=== PATIENT | male | born 1950 | race African-American/Black ===

== ENCOUNTER 2017-03-09 07:51 | Inpatient (IN) ==
[2017-03-09] MEDS ORDERED: *HR* Promethazine 25 MG/ML VIAL IVP ONE (08:12)
[2017-03-09] MEDS ORDERED: 0.9 % Sodium Chloride 1,000 ML IVC ONE (08:12)
[2017-03-09] MEDS ORDERED: Ketorolac 30 MG/ML VIAL IVP ONE (08:12)
--- NOTE | 2017-03-09 08:14 | Emergency Department Note ---
Disposition Clinical Impression: Elevated troponin, Hypertensive urgency Abdominal pain Qualifiers: Abdominal location: generalized Qualified Code(s): R10.84 - Generalized abdominal pain CKD (chronic kidney disease) Qualifiers: Chronic kidney disease stage: stage 4 (severe) Qualified Code(s): N18.4 - Chronic kidney disease, stage 4 (severe) Disposition: Admitted As Inpatient Condition: Fair Time of Disposition: 11:18 Abdominal Pain HPI - General Chief Complaint: ED Abdominal Pain Stated Complaint: RUQ pain Time Seen by Provider: 03/09/17 08:02 Source: patient Mode of arrival: ambulatory Limitations: no limitations Nursing Notes Reviewed: Yes Vital Signs Reviewed: Yes - History of Present Illness Pt Subjective Complaint: abdominal pain Consistency: constant, Worsening Pain Severity: moderate, severe Pain Scale: 7 Quality: cramping - Related Data Home Medications Medication Instructions Recorded Confirmed Amlodipine Besylate 10 mg PO DAILY 09/01/16 03/09/17 Atorvastatin [Lipitor] 40 mg PO HS 09/01/16 03/09/17 Glimepiride [Amaryl] 2 mg PO QAM 09/01/16 03/09/17 Methadone HCl 10 mg PO QID 09/01/16 03/09/17 cloNIDine HCl [Clonidine HCl] 0.2 mg PO TID 09/01/16 03/09/17 Aspirin [Lo-Dose Aspirin EC] 81 mg PO DAILY 03/09/17 03/09/17 Carvedilol [Coreg] 25 mg PO BID 03/09/17 03/09/17 Sildenafil Citrate [Viagra] 100 mg PO DAILY PRN 03/09/17 03/09/17 Vitamin B Complex/Vit C/Vit E 1 tab PO DAILY 03/09/17 03/09/17 [Stresstab] Previous Rx's Medication Instructions Recorded Losartan Potassium [Cozaar] 100 mg PO DAILY #30 tab 09/02/16 Allergies Allergy/AdvReac Type Severity Reaction Status Date / Time No Known Allergies Allergy Verified 03/09/17 07:53 All systems ED: reviewed and negative except as stated. Constitutional: Reports: weakness Eyes: Denies: eye pain, eye discharge, vision change ENT ED: Denies: ear pain, throat pain, dental pain, hearing loss, epistaxis, congestion, dysphagia Cardiovascular: Denies: chest pain, palpitations, dyspnea on exertion, orthopnea , syncope, paroxysmal nocturnal dyspnea Respiratory: Denies: cough, dyspnea, wheezes, hemoptysis, sputum production Gastrointestinal: Reports: abdominal pain, nausea, vomiting, diarrhea. Denies: constipation, hematemesis, melena, hematochezia Genitourinary: Denies: urgency, dysuria, frequency, hematuria Musculoskeletal: Denies: back pain, neck pain, arthralgia, myalgia Integumentary: Denies: rash, abrasion, lesions Abdominal Pain PMH - Past Medical History Medical history: Reports: diabetes, hypertension, liver disease, other, hepatitis Male Surgical History: Reports: Tonsillectomy Psychiatric history: Reports: no psych history - Social History Smoking status: Current every day smoker Alcohol use: Reports: recent Drug use: Reports: marijuana Physical Exam - General Limitations: no limitations General appearance: alert - Head Head exam: atraumatic, normocephalic, normal inspection - Eye Eye exam: Present: normal appearance, PERRL, EOMI. Absent: scleral icterus, conjunctival injection, nystagmus, miosis, mydriasis, periorbital swelling, periorbital tenderness - ENT ENT exam: normal exam, normal oropharynx, mucous membranes moist, TM's normal bilaterally - Neck Neck exam: Present: normal inspection, full ROM, trachea midline. Absent: tenderness, meningismus, lymphadenopathy, thyromegaly - Chest Chest inspection: Present: normal inspection, symmetric chest wall rise - Respiratory Respiratory exam: Present: normal lung sounds bilaterally. Absent: respiratory distress, wheezes, stridor, accessory muscle use, prolonged expiratory phase - Cardiovascular Cardiovascular exam: Present: regular rate, normal rhythm, normal heart sounds. Absent: systolic murmur, diastolic murmur, JVD - Abdominal Exam Abdominal exam: Present: soft, Non-Tender, normal bowel sounds. Absent: tenderness, distention, guarding, rebound, rigidity - Rectal Exam Rectal exam: Present: deferred - Extremities Exam Extremities exam: Present: normal inspection, full ROM. Absent: tenderness, pedal edema - Expanded Lower Extremity Exam Gait: observed and normal - Back Exam Back exam: Present: normal inspection, full ROM. Absent: tenderness - Neurological Exam Neurological exam: Present: alert, oriented X3 - Psychiatric Psychiatric exam: Present: normal affect, normal mood - Skin Skin exam: Present: warm, dry, intact, normal color Course - Consultations Consultation #1: spoke with Dr. Vogt cardiology, he advised to start patient on Heparin Drip, but then upon investigation with renal failure advised to not start Heparin drip spoke with Dr. Ohara and she accepted as a patient. Time: 11:14 Vital Signs Temperature 98 F 03/09/17 07:53 Pulse Rate 112 03/09/17 07:53 Respiratory Rate 20 03/09/17 07:53 Blood Pressure 208/138 03/09/17 07:53 O2 Sat by Pulse Oximetry 97 03/09/17 07:53 Temperature 98 F 03/09/17 07:53 Pulse Rate 77 03/09/17 11:53 Respiratory Rate 16 03/09/17 11:53 Blood Pressure 183/110 03/09/17 11:53 O2 Sat by Pulse Oximetry 95 03/09/17 11:53 Oxygen Delivery Oxygen Delivery Room Air Abdominal Pain - MDM Narrative Medical decision making narrative: Abdominal pain patient denied chest pain. Pain in abdomen started approximately 2 days ago. No nausea or vomiting no diaphoresis. Troponin was positive at 0.27, will obtain EKG and plan to admit to the hospital. - Differential Diagnosis Differential Diagnosis: Likely: abdominal pain non-specific - Lab Data Lab results reviewed: Yes I reviewed the patient's lab results. Result diagrams: 03/09/17 08:41 03/09/17 08:41 Lab Results 03/09/17 03/09/17 03/09/17 Range/Units 08:41 08:41 08:41 WBC 18.4 H (4.3-11.1) K/mcL RBC 5.79 H (4.19-5.50) M/mcL Hgb 16.2 (12.9-16.9) g/dL Hct 45.2 (37.5-50.1) % MCV 78.1 L (83.0-100.0) fL MCH 28.0 (28.0-33.3) pg MCHC 35.8 H (31.6-35.5) g/dL RDW 14.5 (11.5-14.5) % Plt Count 228 (140-400) K/mcL MPV 9.6 (9.4-12.4) fL Immature Gran % 0.4 (0-4) % Seg Neutrophils % 86.8 % Lymphocytes % 7.3 % Monocytes % 5.3 % Eosinophils % 0.0 % Basophils % 0.2 % Neutrophils # 15.9 H (1.6-8.9) K/mcL Lymphocytes # 1.4 (0.6-4.6) K/mcL Monocytes # 1.0 (0.0-1.3) K/mcL Eosinophils # 0.0 (0.0-0.6) K/mcL Basophils # 0.0 (0.0-0.2) K/mcL Sodium 137 (136-145) mEq/L Potassium 3.0 L (3.5-4.5) mEq/L Chloride 96 L (98-109) mEq/L Carbon Dioxide 26 (19-29) mEq/L BUN 41 H (8-26) mg/dL Creatinine 5.55 H (0.72-1.25) mg/dL Est GFR ( Amer) 13 L (> 60) Est GFR (Non-Af Amer) 10 L (> 60) BUN/Creatinine Ratio 7 (6-26) Glucose 202 H (70-99) mg/dL Calculated Osmolality 300 (280-300) Calcium 9.7 (8.6-10.8) mg/dL Total Bilirubin 0.7 (0.2-1.2) mg/dL Direct Bilirubin 0.3 (0.0-0.5) mg/dL Indirect Bilirubin 0.4 (0.0-1.2) mg/dL AST 42 H (5-34) Units/L ALT 28 (0-55) Units/L Alkaline Phosphatase 193 H (38-126) Units/L Troponin I 0.27 H* (0-0.03) ng/mL Serum Total Protein 8.0 (6.0-8.3) g/dL Albumin 3.6 (3.5-5.0) g/dL Globulin 4.4 H (2.4-3.5) g/dL Albumin/Globulin Ratio 0.8 L (1.1-2.2) Amylase 81 (25-125) Units/L Lipase 15 (8-78) Units/L - Radiology Data Radiology results reviewed: Yes I reviewed the patient's radiology results. - EKG Data EKG attestation: Yes I reviewed and interpreted this EKG. Rhythm: NSR ST segment depression in: II, III, v6 - Core Measures AMI Core Measures Followed: Yes
[2017-03-09] MEDS ORDERED: cloNIDine HCl 0.1 MG TABLET PO ONE (08:26)
[2017-03-09 08:53] LABS: Basophils % 0.2 %; Hematocrit 45.2 % (37.5-50.1); Hemoglobin 16.2 g/dL (12.9-16.9); Immature Granulocytes % 0.4 % (0-4); Lymphocytes # 1.4 K/mcL (0.6-4.6); Lymphocytes % 7.3 %; Mean Corpuscular HGB Conc 35.8 g/dL (31.6-35.5); Mean Corpuscular Volume 78.1 fL (83.0-100.0); Mean Platelet Volume 9.6 fL (9.4-12.4); Monocytes % 5.3 %; Neutrophils # 15.9 K/mcL (1.6-8.9); Platelet Count 228 K/mcL (140-400); Red Blood Count 5.79 M/mcL (4.19-5.50); Red Cell Distribution Width 14.5 % (11.5-14.5); Segmented Neutrophils % 86.8 %
[2017-03-09 09:07] LABS: Albumin 3.6 g/dL (3.5-5.0); Albumin/Globulin Ratio 0.8 (1.1-2.2); Bilirubin,Direct 0.3 mg/dL (0.0-0.5); Bilirubin,Indirect 0.4 mg/dL (0.0-1.2); Bilirubin,Total 0.7 mg/dL (0.2-1.2); Calcium 9.7 mg/dL (8.6-10.8); Globulin 4.4 g/dL (2.4-3.5)
[2017-03-09] MEDS ORDERED: *HR* Heparin 5,000 UNIT/ML VIAL IVP ONE (11:05)
[2017-03-09] MEDS ORDERED: *HR* Heparin 5,000 UNIT/ML VIAL IVP PRN ×2 (11:05)
[2017-03-09] MEDS ORDERED: Heparin 25,000 UNIT/500 ML D5W 25,000 UNIT/500 ML MLS IVC SCH (11:15)
[2017-03-09] MEDS ORDERED: Aspirin 325 MG TABLET PO ONE (11:16)
[2017-03-09] MEDS ORDERED: 0.9 % Sodium Chloride 1,000 ML IVC SCH ×2 (11:30→12:00)
[2017-03-09] MEDS ORDERED: Naloxone 0.4 MG/ML INJ IVP PRN (11:56)
[2017-03-09] MEDS ORDERED: Ondansetron 4 MG/2 ML VIAL IVP PRN (11:56)
[2017-03-09] MEDS: 0.9 % Sodium Chloride 2,000 ML IVC SCH ×3 (12:26→17:18)
--- NOTE | 2017-03-09 12:44 | Cardiology Consult Note ---
Date of Encounter: 03/09/17 Time of Encounter: 12:45 Assessment and Plan (1) Elevated troponin Current Visit: Yes Status: Acute Initial troponin 0.27 in setting of NAKIA with creatinine 5.55 and hypertensive urgency with BP 208/138. Suspect demand ischemia, nondiagnostic for ACS. Will not start heparin gtt in this setting. Trend troponin for total of 3. Check echo to evaluate structure and function. EKG with changes noted, likely secondary to LVH. Continue to follow. (2) Acute on chronic kidney failure Current Visit: Yes Status: Acute Pt has baseline stage III CKD, however, presents with creatinine of 5.55. K 3.0. Has previously followed with Dr. Lowry. Reports nausea/vomiting and decreased urine output over the past 2 days, suspect component of dehydration. IV fluids running. Avoid nephrotoxic drugs. Management per primary team. Qualifiers: Acute renal failure type: unspecified Chronic kidney disease stage: unspecified stage Qualified Code(s): N17.9 - Acute kidney failure, unspecified ; N18.9 - Chronic kidney disease, unspecified (3) Hypertensive urgency Current Visit: Yes Status: Acute BP 208/138 on presentation. Reports BP uncontrolled at home as well. Recommend agressive blood pressure control. Will adjust antihypertensives as necessary. (4) Tobacco abuse Current Visit: No Status: Acute Smoking cessation counseling given. Discussion w patient/family: The assessment and plan as outlined above was discussed with the patient and/or family members who expressed understanding and agreement. All questions were answered. Thank you for involving us in the care of your patient. Please call with any questions. I will discuss all the above with Dr. Vogt and make changes as necessary. History of Present Illness Consult date: 03/09/17 Consult reason: elevated troponin Chief complaint: abdominal pain, n/v History of present illness: Mr. 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 He denies chest pain or dyspnea. BP 208/138 on presentation, creatinine 5.55 and troponin found to be 0.27. EKG shows significant change from prior, likely secondary to LVH. No known hx of CAD. Past Med Surg Social Fam HX - Past Medical History Medical history: diabetes, hypertension, liver disease, other, hepatitis Psychiatric history: no psych history - Past Surgical History Surgical History: non-contributory (Tonsillectomy) - Social History Smoking Status: Current every day smoker Smokeless Tobacco Status: No Alcohol use: recent Drug use: marijuana - Family History Mother Hx Family Endocrine Disorder: Yes (Diabetes) Hx Family Neurologic Disorders: Yes (Alzheimer's) Father Hx Family Cancer: Yes (Prostate) Hx Family Endocrine Disorder: Yes (Diabetes) Medications and Allergies Amlodipine Besylate 10 mg PO DAILY 09/01/16 [History] Atorvastatin [Lipitor] 40 mg PO HS 09/01/16 [History] Glimepiride [Amaryl] 2 mg PO QAM 09/01/16 [History] Methadone HCl 10 mg PO QID 09/01/16 [History] cloNIDine HCl [Clonidine HCl] 0.2 mg PO TID 09/01/16 [History] Losartan Potassium [Cozaar] 100 mg PO DAILY #30 tab 09/02/16 [Rx] Aspirin [Lo-Dose Aspirin EC] 81 mg PO DAILY 03/09/17 [History] Carvedilol [Coreg] 25 mg PO BID 03/09/17 [History] Sildenafil Citrate [Viagra] 100 mg PO DAILY PRN 03/09/17 [History] Vitamin B Complex/Vit C/Vit E [Stresstab] 1 tab PO DAILY 03/09/17 [History] Allergies No Known Allergies Allergy (Verified 03/09/17 07:53) All Systems Review: A 10-system review of systems was performed and is negative for pertinent findings except as documented above in the HPI. - Gastrointestinal Gastrointestinal: abdominal pain, nausea Physical Examination Vital Signs, Last 4 Hours Pulse Resp BP Pulse Ox 03/09/17 11:53 77 16 183/110 95 Vital Signs Temp Pulse Resp BP Pulse Ox 03/09/17 11:53 77 16 183/110 95 03/09/17 10:01 79 16 160/110 99 03/09/17 07:53 98 F 112 20 208/138 97 Intake and Output 03/08/17 03/09/17 03/09/17 23:59 07:59 15:59 Intake Total 1000 / 1000 Balance 1000 / 1000 Intake: IV Fluids 1000 / 1000 0.9 % Sodium Chloride 1, 1000 / 1000 000 ML @ 3750 mls/hr IVC .Q16M ONE Rx#:[id number] Other: Weight 89.358 kg Patient Weight 03/09/17 23:59 Weight 89.358 kg General: Conversant, No Apparent Distress HEENT: Atraumatic, Normocephaly, Mucus Membranes Moist Neck: No JVD, Normal carotid pulses Cardiac: Reg Rate and Rhythm, Normal S1 and S2, No Murmur Lungs: Other (coarse sounds throughout) Neuro: Alert and responsive, No focal deficits noted Abdomen: Soft Skin: No rashes noted on visualized skin Musculoskeletal: No Chest Wall Tenderness Extremities: No Clubbing, No Cyanosis, No Edema, Normal Pulses Results 03/09/17 08:41 03/09/17 08:41 Short CBC 03/09/17 Range/Units 08:41 WBC 18.4 H (4.3-11.1) K/mcL Hgb 16.2 (12.9-16.9) g/dL Hct 45.2 (37.5-50.1) % Plt Count 228 (140-400) K/mcL Neutrophils # 15.9 H (1.6-8.9) K/mcL BMP 03/09/17 Range/Units 08:41 Sodium 137 (136-145) mEq/L Potassium 3.0 L (3.5-4.5) mEq/L Chloride 96 L (98-109) mEq/L Carbon Dioxide 26 (19-29) mEq/L BUN 41 H (8-26) mg/dL Creatinine 5.55 H (0.72-1.25) mg/dL Glucose 202 H (70-99) mg/dL Calcium 9.7 (8.6-10.8) mg/dL Cardiac Enzymes 03/09/17 Range/Units 08:41 Troponin I 0.27 H* (0-0.03) ng/mL Liver Function 03/09/17 Range/Units 08:41 Total Bilirubin 0.7 (0.2-1.2) mg/dL Direct Bilirubin 0.3 (0.0-0.5) mg/dL AST 42 H (5-34) Units/L ALT 28 (0-55) Units/L Alkaline Phosphatase 193 H (38-126) Units/L Albumin 3.6 (3.5-5.0) g/dL Impressions Abdomen/Pelvis CT 03/09/17 08:12 IMPRESSION: 1. No acute intra-abdominal abnormality to account for the patient's symptoms. 2. Normal appendix. D/ / 03/09/2017 10:01:19 Sumi Le MD / Laquita Murguia Interpreting Provider: Sumi Le MD Active Medications Acetaminophen (Tylenol) 650 mg PO Q6HR PRN PRN Reason: Mild Pain (1-3) Stop: 09/08/17 11:57 Aspirin (Aspirin Ec) 81 mg PO DAILY FILEMON Stop: 09/09/17 09:01 Atorvastatin Calcium (Lipitor) 40 mg PO HS FILEMON Stop: 09/08/17 21:01 Heparin Sodium (Porcine) (Heparin) 5,000 unit SQ Q8HCO FILEMON Stop: 09/09/17 00:02 Hydralazine HCl (Hydralazine) 10 mg IVP Q6HR PRN PRN Reason: Hypertension Stop: 09/08/17 12:41 Sodium Chloride (0.9 % Sodium Chloride) 2,000 mls @ 3,750 mls/hr IVC .Q32M FILEMON Stop: 09/08/17 11:55 Last Admin: 03/09/17 12:26 Dose: 3,750 mls/hr Sodium Chloride (0.9 % Sodium Chloride) 1,000 mls @ 200 mls/hr IVC .Q5H FILEMON Stop: 09/08/17 12:01 Naloxone HCl (Narcan) 0.4 mg IVP Q2MIN PRN PRN Reason: Opioid Reversal Stop: 09/08/17 11:57 Non-Formulary Medication (Amlodipine Besylate [Amlodipine Besylate]) 10 mg PO DAILY FILEMON Stop: 09/08/17 12:46 Non-Formulary Medication (Clonidine Hcl [Clonidine Hcl]) 0.2 mg PO TID FILEMON Stop: 09/08/17 15:01 Ondansetron HCl (Zofran) 4 mg IVP Q8HR PRN PRN Reason: Nausea And Vomiting Stop: 09/08/17 11:57 Vitamin B Complex/Vit C/Vit E (Stresstab) 1 each PO DAILY FILEMON PRN Reason: Protocol Stop: 09/09/17 09:01 - EKG Interpretation EKG results cardiology: personally reviewed (SR, LVH) Consult Discharge Plan - Plan Referrals: Rajesh Gillette Jr, MD [Primary Care Provider] -
[2017-03-09] MEDS ORDERED: NON-FORMULARY MEDICATION 1 EACH EACH (Amlodipine Besylate [Amlodipine Besylate] 10 MG) PO SCH (12:45)
--- NOTE | 2017-03-09 12:55 | Internal Med History&Physical ---
<Mele Ohara T - Last Filed: 03/09/17 16:12> Date of Encounter: 03/09/17 Internal Medicine - H&P: HPI History of present illness: Mr. Milan is a 66 year old male Internal Medicine - H&P: Meds Amlodipine Besylate 10 mg PO DAILY 09/01/16 [History] Atorvastatin [Lipitor] 40 mg PO HS 09/01/16 [History] Glimepiride [Amaryl] 2 mg PO QAM 09/01/16 [History] Methadone HCl 10 mg PO QID 09/01/16 [History] cloNIDine HCl [Clonidine HCl] 0.2 mg PO TID 09/01/16 [History] Losartan Potassium [Cozaar] 100 mg PO DAILY #30 tab 09/02/16 [Rx] Aspirin [Lo-Dose Aspirin EC] 81 mg PO DAILY 03/09/17 [History] Carvedilol [Coreg] 25 mg PO BID 03/09/17 [History] Sildenafil Citrate [Viagra] 100 mg PO DAILY PRN 03/09/17 [History] Vitamin B Complex/Vit C/Vit E [Stresstab] 1 tab PO DAILY 03/09/17 [History] Allergies No Known Allergies Allergy (Verified 03/09/17 07:53) All Systems PM: A 10-system review of systems was performed and is negative for pertinent findings except as documented above in the HPI. - Constitutional Vitals: Temp Pulse Resp BP Pulse Ox 98.6 F 91 22 197/109 96 03/09/17 13:13 03/09/17 14:07 03/09/17 13:13 03/09/17 14:07 03/09/17 13:13 Internal Med - H&P Results - Labs CBC & Chem 7: 03/09/17 08:41 03/09/17 08:41 - Attending Attestation I have independently seen and examined this patient. I have discussed plan of care with CECI Castano whose documentation reflects our plan 66 M with CKD III, Opiate dependence on methadone, DM on Metformin, HTN On Clonidine and Losartan, Chronic Hep C, Possible cocaine use (positive Utox 2015) He presented to the ER wit abdominal pain said to have started 2 days prior to presentation, there is associated with nausea, vomiting, no diarrhea. Patient denies drug use. His at the bedside reports confusion at the onset of his symptoms 2 days ago. He has not taken any of his medications, nor had any meals since 2 days ago. He had also had minimal to no urine output. He denies chest pain Physical exam: Acutely ill-looking, disoriented to time, oriented to person and place only. No asterixis. Clinically dry, oral mucosa dry and cacked, neck veins are flat, sclera looks brownish dirty, no jaundice, conjunctiva is not pale. Chest is CTAB , no added sounds, Heart sounds S1, S2 only, no m/g/r. Abdomen is flat, RUQ tender, Ellerbe sign positive, no guarding, Bowel sounds present, no pedal edema Labs and Imaging reviewed: Leukocytosis with hemoconcentration (baseline Hb is 13-14, Hb today is 16), PLT WNL, Caog WNL, Chem with NAKIA-Cr 5.55 (baseline 1.11), GFR 19(Baseline 35-40), troponin 0.27, Lactate , LFT mild transaminitis, amylase and lipase is WNL. Ab CT: Normal, no renal stones, no prostate, gall bladder or bladder abnormalities , bowels normal. UA/Utox/Urine Osm-pending. EKG: TWI V2-V4. A/P *Acute metabolic encephalopathy: Aspiration and fall precautions *HTN Emergency: Presenting BP SBP >200, DBP> 110-With NAKIA, elevated troponin and encephalopathy. Resume home meds, Hydralazine IVP, Labetalol IVP prn, add po hydralazine and labetalol when necessary, may need to start NIcardipine drip if his BP does not respond *NAKIA on IQO-Sot-jqcml, possibly associated intrinsic. Aggressive IVF hydration, Place Garcia, Strict I/O, avoid nephrotoxins, hold metformin and ARB, Consult renal, repeat Chem q4-6h *Elevated troponin-possibly from demand ischemic, rule out NSTEMI with EKG changes and abdominal pain. Cardiology eval, medical management only for now due to NAKIA, no BB till Urine toxicology (Last Utox 08/2016 had cocaine), Continue ASA, Lipitor, Obtain ECHO. Continue telemetry *DM: Check A1C, Sliding scale insulin. Patient is high risk with alteration of his mental status, NAKIA and Elevated troponin, HTN emergency. <Theresa Castano - Last Filed: 03/09/17 22:40> Date of Encounter: 03/09/17 Time of Encounter: 12:51 Assessment and Plan (1) Hypertensive emergency Current visit: Yes Status: Acute Patient's blood pressure elevated on arrival at 208/138. He reports he has not taken any of medications in 3 days. He is mentally altered and oriented x 2 only. He has elevated troponin and end-organ damage with NAKIA. Blood pressure came down with PO clonidine given in ED. Will be holding home dose of Losartan due to NAKIA and carvedilol due to history of cocaine use until urine tox screen comes back. Continue home dose of amlodipine, clonidine. PRN hydralazine for SBP > 160 and DBP > 100. May use labetalol PRN as well. Continuous quality assurance monitor. Cardiology consulted. (2) Acute on chronic kidney failure Current visit: Yes Status: Acute Patient's creatinine today 5.55, up from previous value of 1.6 in August. Patient follows with Dr. Lowry as an outpatient. BUN elevated at 41. Patient reporting nausea, vomiting and poor appetite since Sunday, likely secondary to dehydration. Potassium is 3.0 and CO2 is 26. Hold home dose of losartan. Hold all NSAIDS and nephrotoxins. 3L fluid boluses ordered LR at 200mL/hr Recheck chemistry at 5pm Consult to Nephrology, spoke with Dr. Lowry he will see patient. Garcia placed for strict I/Os. Qualifiers: Acute renal failure type: unspecified Chronic kidney disease stage: stage 3 (moderate) Qualified Code(s): N17.9 - Acute kidney failure, unspecified; N18.3 - Chronic kidney disease, stage 3 (moderate) (3) Type 2 diabetes mellitus Current visit: Yes Status: Acute Hold Glimeperide Check Hgb A1c Check blood sugars ACHS Sliding scale correction dose ACHS hypoglycemic protocol. Qualifiers: Diabetes mellitus complication status: with kidney complications Diabetes mellitus complication detail: with chronic kidney disease Diabetes mellitus longterm insulin use: without termination clerk use Chronic kidney disease stage: stage 3 (moderate) Qualified Code(s): E11.22 - Type 2 diabetes mellitus with diabetic chronic kidney disease; N18.3 - Chronic kidney disease, stage 3 ( moderate) (4) Elevated troponin Current visit: Yes Status: Acute Troponin of 0.27. Patient denies any chest pain or shortness of breath. Likely secondary to combination of hypertensive urgency and acute on chronic kidney failure. There were EKG changes from previous. Cardiology consulted. Continuous quality assurance monitor serial troponins. aspirin 325mg given. (5) Nausea & vomiting Current visit: Yes Status: Acute Patient reports he has had nausea, vomiting and poor appetite since Sunday. He is dehydrated. Will give 3L of fluid boluses followed by LR at 200mL/hr. Zofran PRN for nausea clear liquid diet, advance as tolerated. Qualifiers: Vomiting type: cyclical vomiting Vomiting Intractability: intractable Qualified Code(s): G43.A1 - Cyclical vomiting, intractable (6) Abdominal pain Current visit: Yes Status: Acute Patient reporting abdominal tenderness. At rest, patient does not report pain, but on exam, patient tender to palpation in RUQ with positive Lucio's sign. CT Abd/Pelvis showed no acute intra-abdominal abnormality. RUQ ultrasound ordered. Qualifiers: Abdominal location: right upper quadrant Qualified Code(s): R10.11 - Right upper quadrant pain (7) DVT prophylaxis Current visit: Yes Status: Acute anti-embolic stockings Heparin 5000u SQ TID Internal Medicine - H&P: HPI Chief complaint: nausea, vomiting Admitted From: Emergency Dept Plans for Post Hospital Care: Home History of present illness: Mr. Milan is a 66 year old male with hypertension, hyperlipidemia, type 2 diabetes, chronic kidney disease, hepatitis, history of narcotic addiction on methadone presented to the emergency department today with nausea, and vomiting. Patient reports that he started feeling nauseous on Sunday and vomited all Sunday has not taken any medications or food since Sunday, but reports he has been drinking fluids. He reports that rest he does not have abdominal pain, but is tender. He reports subjective fever and chills. He denies any lightheadedness, dizziness, chest pain, palpitations, shortness of breath or cough. Evaluation in the emergency department revealed elevated white blood cell count of 18.4, acute on chronic kidney injury with BUN of 41 and creatinine of 5.55 up from previous value of 1.6. He also had hypokalemia with potassium 3.0, elevated troponin of 0.27. CT of the abdomen and pelvis showed no acute intra-abdominal abnormality. He was hypotensive with initial blood pressure of 208/138, which came down to 160/110 after by mouth clonidine. On exam patient oriented to self and place, alert and responds to questions. Heart has regular rate and rhythm, lungs are clear bilaterally to auscultation. He has tenderness in the right upper quadrant and positive Lucio sign. He appears dry on exam with dry mucous membranes. Past Med Surg Social Fam HX - Past Medical History Medical history: diabetes, hepatitis, hypertension, liver disease, renal disease , other Psychiatric history: no psych history - Past Surgical History Surgical History: no surgical history, non-contributory (Tonsillectomy) - Social History Smoking Status: Current every day smoker Packs per day: 1 Smokeless Tobacco Status: No Alcohol use: recent Drug use: marijuana - Family History Mother Living Status: Cause of : CVA Hx Family Endocrine Disorder: Yes (Diabetes) Hx Family Neurologic Disorders: Yes (Alzheimer's) Father Living Status: Hx Family Cancer: Yes (Prostate) Hx Family Endocrine Disorder: Yes (Diabetes) All Systems PM: A 10-system review of systems was performed and is negative for pertinent findings except as documented above in the HPI. - Constitutional Constitutional: chills, fever(s), no night sweats - EENT Eyes: no change in vision, no discharge, no pain, no photophobia Ears: no ear discharge, no ear pain, no tinnitus Nose, mouth and throat: no dysphagia, no nasal discharge, no neck pain, no sore throat - Cardiovascular Cardiovascular ROS IM: no chest pain, no diaphoresis, no dyspnea, no lightheadedness, no palpitations, no syncope - Respiratory Respiratory: no cough, no dyspnea, no wheezing, no excessive phlegm production - Gastrointestinal Gastrointestinal: abdominal pain, nausea, vomiting, no diarrhea, no hematemesis , no hematochezia, no melena - Genitourinary Genitourinary ROS male: difficulty urinating - Musculoskeletal Musculoskeletal ROS IM: no numbness, no tingling - Integumentary Integumentary IM: no rash, no unusual bruising - Neurological Neurological ROS: no confusion, no convulsions, no focal weakness, no numbness, no tingling, no tremor(s) - Hematologic/Lymphatic Hematologic/Lymphatic: no easy bruising - Constitutional Vitals: Temp Pulse Resp BP Pulse Ox 98 F 77 16 183/110 95 03/09/17 07:53 06/30/17 11:53 03/09/17 11:53 03/09/17 11:53 03/09/17 11:53 General appearance: Present: A&O X 2, pleasant, no acute distress - Head Head exam: Present: atraumatic, normocephalic - Eye Eye exam: Present: PERRL, conjuntiva pink, sclera anicteric Pupils: Present: PERRL - Neck Neck exam general surgery: Present: supple, trachea midline. Absent: lymphadenopathy - Respiratory Respiratory exam: Present: CTAB. Absent: accessory muscle use, rales, rhonchi, wheezes - Cardiovascular Cardiovascular exam: Present: RRR, +S1, +S2. Absent: diastolic murmur, gallop, rubs, systolic murmur - GI/Abdominal GI/Abdominal exam: Present: normal bowel sounds, soft, tenderness. Absent: distended - Expanded GI/Abdominal Exam GI/Abdominal exam expanded: Present: Lucio's sign - Extremities Exam Extremities exam: Present: warm, radial pulses palpable and symetrical. Absent : calf tenderness, cyanotic, pedal edema - Neurological Exam Neurological exam: Present: altered, CN II-XII intact, no focal deficits. Absent: facial droop, speech deficit - Expanded Neurological Exam Patient oriented to: Present: person, place - Skin Skin exam: Present: dry, intact Internal Med - H&P Results - Labs CBC & Chem 7: 03/09/17 08:41 03/09/17 17:21 Labs: All Lab Results (24 Hours) 03/09/17 03/09/17 03/09/17 Range/Units 08:41 08:41 08:41 WBC 18.4 H (4.3-11.1) K/mcL RBC 5.79 H (4.19-5.50) M/mcL Hgb 16.2 (12.9-16.9) g/dL Hct 45.2 (37.5-50.1) % MCV 78.1 L (83.0-100.0) fL MCH 28.0 (28.0-33.3) pg MCHC 35.8 H (31.6-35.5) g/dL RDW 14.5 (11.5-14.5) % Plt Count 228 (140-400) K/mcL MPV 9.6 (9.4-12.4) fL Immature Gran % 0.4 (0-4) % Seg Neutrophils % 86.8 % Lymphocytes % 7.3 % Monocytes % 5.3 % Eosinophils % 0.0 % Basophils % 0.2 % Neutrophils # 15.9 H (1.6-8.9) K/mcL Lymphocytes # 1.4 (0.6-4.6) K/mcL Monocytes # 1.0 (0.0-1.3) K/mcL Eosinophils # 0.0 (0.0-0.6) K/mcL Basophils # 0.0 (0.0-0.2) K/mcL Sodium 137 (136-145) mEq/L Potassium 3.0 L (3.5-4.5) mEq/L Chloride 96 L (98-109) mEq/L Carbon Dioxide 26 (19-29) mEq/L BUN 41 H (8-26) mg/dL Creatinine 5.55 H (0.72-1.25) mg/dL Est GFR ( Amer) 13 L (> 60) Est GFR (Non-Af Amer) 10 L (> 60) BUN/Creatinine Ratio 7 (6-26) Glucose 202 H (70-99) mg/dL Calculated Osmolality 300 (280-300) Lactic Acid (0.5-2.2) mmol/L Calcium 9.7 (8.6-10.8) mg/dL Total Bilirubin 0.7 (0.2-1.2) mg/dL Direct Bilirubin 0.3 (0.0-0.5) mg/dL Indirect Bilirubin 0.4 (0.0-1.2) mg/dL AST 42 H (5-34) Units/L ALT 28 (0-55) Units/L Alkaline Phosphatase 193 H (38-126) Units/L Troponin I 0.27 H* (0-0.03) ng/mL Serum Total Protein 8.0 (6.0-8.3) g/dL Albumin 3.6 (3.5-5.0) g/dL Globulin 4.4 H (2.4-3.5) g/dL Albumin/Globulin Ratio 0.8 L (1.1-2.2) Amylase 81 (25-125) Units/L Lipase 15 (8-78) Units/L /30/17 Range/Units 12:14 WBC (4.3-11.1) K/mcL RBC (4.19-5.50) M/mcL Hgb (12.9-16.9) g/dL Hct (37.5-50.1) % MCV (83.0-100.0) fL MCH (28.0-33.3) pg MCHC (31.6-35.5) g/dL RDW (11.5-14.5) % Plt Count (140-400) K/mcL MPV (9.4-12.4) fL Immature Gran % (0-4) % Seg Neutrophils % % Lymphocytes % % Monocytes % % Eosinophils % % Basophils % % Neutrophils # (1.6-8.9) K/mcL Lymphocytes # (0.6-4.6) K/mcL Monocytes # (0.0-1.3) K/mcL Eosinophils # (0.0-0.6) K/mcL Basophils # (0.0-0.2) K/mcL Sodium (136-145) mEq/L Potassium (3.5-4.5) mEq/L Chloride (98-109) mEq/L Carbon Dioxide (19-29) mEq/L BUN (8-26) mg/dL Creatinine (0.72-1.25) mg/dL Est GFR ( Amer) (> 60) Est GFR (Non-Af Amer) (> 60) BUN/Creatinine Ratio (6-26) Glucose (70-99) mg/dL Calculated Osmolality (280-300) Lactic Acid 1.9 (0.5-2.2) mmol/L Calcium (8.6-10.8) mg/dL Total Bilirubin (0.2-1.2) mg/dL Direct Bilirubin (0.0-0.5) mg/dL Indirect Bilirubin (0.0-1.2) mg/dL AST (5-34) Units/L ALT (0-55) Units/L Alkaline Phosphatase (38-126) Units/L Troponin I (0-0.03) ng/mL Serum Total Protein (6.0-8.3) g/dL Albumin (3.5-5.0) g/dL Globulin (2.4-3.5) g/dL Albumin/Globulin Ratio (1.1-2.2) Amylase (25-125) Units/L Lipase (8-78) Units/L - Diagnostic Studies CT scan - abdomen Additional comments: Abdomen/Pelvis CT 03/09/17 08:12 IMPRESSION: 1. No acute intra-abdominal abnormality to account for the patient's symptoms. 2. Normal appendix. D/ / 03/09/2017 10:01:19 Sumi Le MD / Laquita Murguia Interpreting Provider: Sumi Le MD
[2017-03-09] MEDS ORDERED: Ringers Solution, Lactated 1,000 ML IVC SCH (13:00)
[2017-03-09] MEDS ORDERED: *HR* Dextrose 50 % in Water (Syg) 50 ML SYRINGE IVP PRN (13:03)
[2017-03-09] MEDS ORDERED: D5% in Water 1,000 ML IVC PRN (13:03)
[2017-03-09] MEDS ORDERED: Dextrose Gel 15 GM PO PRN ×2 (13:03)
--- NOTE | 2017-03-09 13:14 | Emergency Department Note ---
Disposition Clinical Impression: Elevated troponin, Hypertensive urgency Abdominal pain Qualifiers: Abdominal location: generalized Qualified Code(s): R10.84 - Generalized abdominal pain CKD (chronic kidney disease) Qualifiers: Chronic kidney disease stage: stage 3 (moderate) Qualified Code(s): N18.3 - Chronic kidney disease, stage 3 (moderate) Disposition: Admitted As Inpatient Condition: Fair General Adult HPI - General Chief complaint: ED Abdominal Pain Stated complaint: RUQ pain Time Seen by Provider: 03/09/17 08:02 Source: patient Mode of arrival: ambulatory Limitations: no limitations - History of Present Illness Pain Scale: 7 - Related Data Home Medications Medication Instructions Recorded Confirmed Amlodipine Besylate 10 mg PO DAILY 09/01/16 03/09/17 Atorvastatin [Lipitor] 40 mg PO HS 09/01/16 03/09/17 Glimepiride [Amaryl] 2 mg PO QAM 09/01/16 03/09/17 Methadone HCl 10 mg PO QID 09/01/16 03/09/17 cloNIDine HCl [Clonidine HCl] 0.2 mg PO TID 09/01/16 03/09/17 Aspirin [Lo-Dose Aspirin EC] 81 mg PO DAILY 03/09/17 03/09/17 Carvedilol [Coreg] 25 mg PO BID 03/09/17 03/09/17 Sildenafil Citrate [Viagra] 100 mg PO DAILY PRN 03/09/17 03/09/17 Vitamin B Complex/Vit C/Vit E 1 tab PO DAILY 03/09/17 03/09/17 [Stresstab] Previous Rx's Medication Instructions Recorded Losartan Potassium [Cozaar] 100 mg PO DAILY #30 tab 09/02/16 Allergies Allergy/AdvReac Type Severity Reaction Status Date / Time No Known Allergies Allergy Verified 03/09/17 07:53 Constitutional: Reports: weakness Eyes: Denies: eye pain, eye discharge, vision change ENT ED: Denies: ear pain, throat pain, dental pain, hearing loss, epistaxis, congestion, dysphagia Cardiovascular: Denies: chest pain, palpitations, dyspnea on exertion, orthopnea , syncope, paroxysmal nocturnal dyspnea Respiratory: Denies: cough, dyspnea, wheezes, hemoptysis, sputum production Gastrointestinal: Reports: abdominal pain, nausea, vomiting, diarrhea. Denies: constipation, hematemesis, melena, hematochezia Genitourinary: Denies: urgency, dysuria, frequency, hematuria Musculoskeletal: Denies: back pain, neck pain, arthralgia, myalgia Integumentary: Denies: rash, abrasion, lesions Past Medical History - Past Medical History Medical history: Reports: diabetes, hypertension, liver disease, other, hepatitis Surgical history: Reports: non-contributory (Tonsillectomy) Psychiatric history: Reports: no psych history - Social History Smoking Status: Current every day smoker Smokeless Tobacco Status: No Alcohol use: Reports: recent Drug use: Reports: marijuana Physical Exam - General Limitations: no limitations General appearance: alert Course - Reevaluation(s) Reevaluation #1: 66-year-old who presented with abdominal pain. Time: 12:43 Vital Signs Temperature 98 F 03/09/17 07:53 Pulse Rate 112 03/09/17 07:53 Respiratory Rate 20 03/09/17 07:53 Blood Pressure 208/138 03/09/17 07:53 O2 Sat by Pulse Oximetry 97 03/09/17 07:53 Temperature 98.0 F 03/12/17 07:44 Pulse Rate 65 03/12/17 07:44 Respiratory Rate 16 03/12/17 07:44 Blood Pressure 166/107 03/12/17 07:44 O2 Sat by Pulse Oximetry 99 03/12/17 08:16 Oxygen Delivery Oxygen Delivery Room Air Medical Decision Making - Lab Data Lab results reviewed: Yes I reviewed the patient's lab results. Result diagrams: 03/11/17 03:48 03/12/17 04:52 Lab Results 03/09/17 03/09/17 03/09/17 Range/Units 08:41 08:41 08:41 WBC 18.4 H (4.3-11.1) K/mcL RBC 5.79 H (4.19-5.50) M/mcL Hgb 16.2 (12.9-16.9) g/dL Hct 45.2 (37.5-50.1) % MCV 78.1 L (83.0-100.0) fL MCH 28.0 (28.0-33.3) pg MCHC 35.8 H (31.6-35.5) g/dL RDW 14.5 (11.5-14.5) % Plt Count 228 (140-400) K/mcL MPV 9.6 (9.4-12.4) fL Immature Gran % 0.4 (0-4) % Seg Neutrophils % 86.8 % Lymphocytes % 7.3 % Monocytes % 5.3 % Eosinophils % 0.0 % Basophils % 0.2 % Neutrophils # 15.9 H (1.6-8.9) K/mcL Lymphocytes # 1.4 (0.6-4.6) K/mcL Monocytes # 1.0 (0.0-1.3) K/mcL Eosinophils # 0.0 (0.0-0.6) K/mcL Basophils # 0.0 (0.0-0.2) K/mcL Sodium 137 (136-145) mEq/L Potassium 3.0 L (3.5-4.5) mEq/L Chloride 96 L (98-109) mEq/L Carbon Dioxide 26 (19-29) mEq/L BUN 41 H (8-26) mg/dL Creatinine 5.55 H (0.72-1.25) mg/dL Est GFR ( Amer) 13 L (> 60) Est GFR (Non-Af Amer) 10 L (> 60) BUN/Creatinine Ratio 7 (6-26) Glucose 202 H (70-99) mg/dL Est Mean Plasma Glucose mg/dl Hemoglobin A1c ( - 5.6) % Calculated Osmolality 300 (280-300) Calcium 9.7 (8.6-10.8) mg/dL Total Bilirubin 0.7 (0.2-1.2) mg/dL Direct Bilirubin 0.3 (0.0-0.5) mg/dL Indirect Bilirubin 0.4 (0.0-1.2) mg/dL AST 42 H (5-34) Units/L ALT 28 (0-55) Units/L Alkaline Phosphatase 193 H (38-126) Units/L Troponin I 0.27 H* (0-0.03) ng/mL Serum Total Protein 8.0 (6.0-8.3) g/dL Albumin 3.6 (3.5-5.0) g/dL Globulin 4.4 H (2.4-3.5) g/dL Albumin/Globulin Ratio 0.8 L (1.1-2.2) Amylase 81 (25-125) Units/L Lipase 15 (8-78) Units/L /30/17 Range/Units 08:41 WBC (4.3-11.1) K/mcL RBC (4.19-5.50) M/mcL Hgb (12.9-16.9) g/dL Hct (37.5-50.1) % MCV (83.0-100.0) fL MCH (28.0-33.3) pg MCHC (31.6-35.5) g/dL RDW (11.5-14.5) % Plt Count (140-400) K/mcL MPV (9.4-12.4) fL Immature Gran % (0-4) % Seg Neutrophils % % Lymphocytes % % Monocytes % % Eosinophils % % Basophils % % Neutrophils # (1.6-8.9) K/mcL Lymphocytes # (0.6-4.6) K/mcL Monocytes # (0.0-1.3) K/mcL Eosinophils # (0.0-0.6) K/mcL Basophils # (0.0-0.2) K/mcL Sodium (136-145) mEq/L Potassium (3.5-4.5) mEq/L Chloride (98-109) mEq/L Carbon Dioxide (19-29) mEq/L BUN (8-26) mg/dL Creatinine (0.72-1.25) mg/dL Est GFR ( Amer) (> 60) Est GFR (Non-Af Amer) (> 60) BUN/Creatinine Ratio (6-26) Glucose (70-99) mg/dL Est Mean Plasma Glucose 128 mg/dl Hemoglobin A1c 6.1 H ( - 5.6) % Calculated Osmolality (280-300) Calcium (8.6-10.8) mg/dL Total Bilirubin (0.2-1.2) mg/dL Direct Bilirubin (0.0-0.5) mg/dL Indirect Bilirubin (0.0-1.2) mg/dL AST (5-34) Units/L ALT (0-55) Units/L Alkaline Phosphatase (38-126) Units/L Troponin I (0-0.03) ng/mL Serum Total Protein (6.0-8.3) g/dL Albumin (3.5-5.0) g/dL Globulin (2.4-3.5) g/dL Albumin/Globulin Ratio (1.1-2.2) Amylase (25-125) Units/L Lipase (8-78) Units/L - Radiology Data Radiology results reviewed: Yes I reviewed the patient's radiology results. Abdomen/Pelvis CT 03/09/17 08:12 IMPRESSION: 1. No acute intra-abdominal abnormality to account for the patient's symptoms. 2. Normal appendix. D/ / 03/09/2017 10:01:19 Sumi Le MD / Laquita Murguia Interpreting Provider: Sumi Le MD
[2017-03-09] MEDS ORDERED: *HR* Labetalol 20 MG/4 ML SYRINGE IVP ONE (13:15)
[2017-03-09 13:33] LABS: Hemoglobin A1C 6.1 %
[2017-03-09] MEDS: *HR* Methadone 10 MG TABLET PO SCH ×3 (14:02→21:08)
[2017-03-09] MEDS: cloNIDine HCl 0.1 MG TABLET PO SCH ×2 (14:02→21:08)
--- NOTE | 2017-03-09 16:25 | Electrocardiograph Report ---
[facility] [employer] Test Date: 2017-03-09 Pat Name: Morteza Milan Department: 105 Room: 2A14 Gender: M Interactive Developer: : 1950 Requested By: Nury Powell Order Number: [id number] Reading MD: Rajesh Gillette MD Measurements Intervals [place] Rate: 76 P: 53 NH: 132 QRS: 32 QRSD: 92 T: 204 QT: 483 QTc: 513 Interpretive Statements SINUS RHYTHM POSSIBLE LEFT ATRIAL ENLARGEMENT [-0.1mV P WAVE IN V1/V2] LEFT VENTRICULAR HYPERTROPHY AND ST-T CHANGE [VOLTAGE CRITERIA PLUS ST/T ABNORMALITY] WARNING: DATA QUALITY MAY AFFECT INTERPRETATION Electronically Signed On 03-09-2017 16:23:47 EDT by Rajesh Gillette MD
[2017-03-09] MEDS: Insulin LISPRO 300 UNITS/3 ML VIAL SQ SCH ×2 (16:32→21:19)
[2017-03-09 16:45] LABS: Bilirubin,Urine Negative (Negative); Blood,Urine Moderate (Negative); Color,Urine Yellow (Yellow); Glucose,Urine (UA) 100 mg/dL (Normal); Ketones,Urine Negative (Negative); Leukocyte Esterase,Urine Negative (Negative); Nitrite,Urine Negative (Negative); PH,Urine 5.5 pH Units (5.0-8.0); Protein,Urine >=300 mg/dL (Neg-Trace); Specific Gravity,Urine 1.016 (1.010-1.025); Urobilinogen,Urine Normal (Normal)
--- NOTE | 2017-03-09 16:49 | Event Note ---
Date of Encounter: 03/09/17 Time of Encounter: 16:47 I was informed by the nurse that patient lost his IV has not had IV access for a few hours and has not received his fluid boluses. I instructed her to put a second IV access in and start the fluids immediately.
[2017-03-09 16:53] LABS: Amphetamine Screen,Urine Negative ng/mL (Cutoff=1000); Barbiturate Screen,Urine Negative ng/mL (Cutoff=200); Benzodiazepines Screen,Urine Negative ng/mL (Cutoff=200); Cannabinoid Screen,Urine Positive ng/mL (Cutoff = 50); Cocaine Screen,Urine Positive ng/mL (Cutoff= 300); Opiate Screen,Urine Negative ng/mL (Cutoff=300); Phencyclidine Screen,Urine Negative ng/mL (Cutoff=25)
[2017-03-09 16:59] LABS: Clarity,Urine Hazy (Clear)
[2017-03-09 17:00] LABS: Hyaline Casts,Urine Few per lpf (None-Few); Squamous Epithelial Cell,Urine Few per lpf (None-Few); WBC,Urine 0-3 per hpf (0-3)
[2017-03-09 17:01] LABS: Bacteria,Urine Moderate per hpf (None-Few); Mucus,Urine Few (Few)
[2017-03-09] MEDS ORDERED: 0.9 % Sodium Chloride 2,000 ML IVC ONE (17:30)
[2017-03-09 17:39] LABS: Calcium 8.9 mg/dL (8.6-10.8); Potassium 3.5 mEq/L (3.5-4.5)
[2017-03-09] MEDS ORDERED: Ringers Solution, Lactated 1,000 ML IVC ONE (18:00)
[2017-03-09] MEDS: Nicotine 21 MG PATCH.TD24 TD SCH (21:08)
[2017-03-10] MEDS: *HR* Heparin 5,000 UNIT/ML VIAL SQ SCH ×4 (00:43→22:15)
[2017-03-10 05:05] LABS: Basophils % 0.2 %; Eosinophils % 0.4 %; Immature Granulocytes % 0.3 % (0-4); Lymphocytes # 2.9 K/mcL (0.6-4.6); Lymphocytes % 25.5 %; Mean Corpuscular HGB Conc 35.9 g/dL (31.6-35.5); Mean Corpuscular Hemoglobin 28.4 pg (28.0-33.3); Mean Corpuscular Volume 79.3 fL (83.0-100.0); Mean Platelet Volume 10.1 fL (9.4-12.4); Monocytes # 0.9 K/mcL (0.0-1.3); Monocytes % 8.3 %; Neutrophils # 7.5 K/mcL (1.6-8.9); Platelet Count 170 K/mcL (140-400); Red Blood Count 4.29 M/mcL (4.19-5.50); Red Cell Distribution Width 14.3 % (11.5-14.5); Segmented Neutrophils % 65.3 %
[2017-03-10 05:06] LABS: Hemoglobin 12.2 g/dL (12.9-16.9)
[2017-03-10 05:23] LABS: Calcium 8.3 mg/dL (8.6-10.8); Chol/HDL Ratio 5.6 (0-4.9); Magnesium 1.7 mg/dL (1.6-2.6); Phosphorous 4.6 mg/dL (2.3-4.7); Uric Acid 8.4 mg/dL (3.5-7.2)
[2017-03-10] MEDS: Insulin LISPRO 300 UNITS/3 ML VIAL SQ SCH ×4 (07:58→22:15)
--- NOTE | 2017-03-10 08:23 | Event Note ---
Date of Encounter: 03/10/17 Time of Encounter: 08:21 - Cardiology Event Note Troponins downtrended--0.27, 0.24. EF preserved 60%, LVH noted, trace pericardial effusion. Tox screen positive for marijuana and cocaine. Hold BB in setting of cocaine use. No further cardiac testing warranted. Cardiology signing off. Reconsult PRN.
--- NOTE | 2017-03-10 08:29 | Nephrology Consult Note ---
Date of Encounter: 03/10/17 Time of Encounter: 08:20 Assessment and Plan (1) NAKIA (acute kidney injury) Current Visit: Yes Status: Acute Borderline Oliguric NAKIA on CKD stage III vs progression to ESRD. Not clear yet, and the IVF have minimally helped. I'll start an NAKIA and CKD work up (see below comments on CKD). The noncontrast CT was neg for post-renal so will not need to check a renal U/S today. Continue IVF and since he's not hyperkalemic or in fluid overload or severely acidotic or uremic today, I do not see urgent indications for DISPATCHER MAINTENANCE. Continue to follow a renal protective strategy: avoid concomitant nephrotoxins such as the ARB or any NSAIDs, Bactrim or IV contrast to better help facilitate any potential for renal improvement. Thank you for consulting the [facility]. Will follow with you. (2) Hypokalemia Current Visit: Yes Status: Acute Suspect from probably elevated adrenergic changes from Cocaine, HTN which can sometimes induce hypokalemia transiently. Nevertheless, will recommend repletion and to check serum Mag levels. His home med list does not include a diuretic. Will also recommend that he have serum Foster and renin levels checked. (3) Hypertension Current Visit: Yes Status: Chronic Hx of substance use such as Cocaine and CKD contributing to Sec HTN. Known noncompliance. Would not give Coreg (though it has a small alpha component, not just a Beta elliot), and at discharge would not continue it since he may be at a higher risk for future cocaine use. Meanwhile, would increase the Clonidine. Hold Losartan d/t the NAKIA. Checking Foster, renin, screen plasma metanephrines. Qualifiers: Hypertension type: essential hypertension Qualified Code(s): I10 - Essential (primary) hypertension (4) CKD (chronic kidney disease), stage III Current Visit: Yes Status: Chronic I saw him once in clinic to work up for CKD, HTN and Proteinuria; but, he never submitted for the labs/imaging work up and missed all follow up visits that I had scheduled for him (about 3-4 times). Will have him undergo the work up while admitted (5) History of hepatitis C Current Visit: Yes Status: Chronic Will check Rheumatoid factor to explore for any potential Cryoglobulinemia contribution to his CKD. Mgt as per primary (6) Anemia Current Visit: Yes Status: Acute Will check iron studies but his chronic diseases such as DM, CKD and etc may be contributing. Will work up etiology. Goal Hgb is 10-11, so no need for IV iron or EPO at this time. Qualifiers: Anemia type: other cause Other causes of anemia: other cause, not classified Qualified Code(s): D64.89 - Other specified anemias (7) Methadone dependence Current Visit: Yes Status: Chronic Mgt as per primary. (8) Type 2 diabetes mellitus Current Visit: Yes Status: Chronic Mgt as per primary. Qualifiers: Diabetes mellitus complication status: with kidney complications Diabetes mellitus complication detail: with chronic kidney disease Diabetes mellitus mcc insulin use: without mcc use Chronic kidney disease stage: stage 3 (moderate) Qualified Code(s): E11.22 - Type 2 diabetes mellitus with diabetic chronic kidney disease; N18.3 - Chronic kidney disease, stage 3 ( moderate) (9) Substance abuse Current Visit: Yes Status: Chronic Mgt as per primary. History of Present Illness - Reason for Consult Consult date: 03/09/17 Acute Kidney Injury, Chronic Kidney Disease, accelerated hypertension Requesting physician: Mele Ohara - Chief Complaint NAKIA on CKD, HTN - History of Present Illness Morteza Milan is a very pleasant 66 y/o AAM with a pmh of CKD stage III, longstanding T2DM, uncontrolled HTN, substance use and et al who presented with elevated HTN. He was found to have worsened renal function. In Sep he was originally seen by me but never completed the work up that I had recommended and missed several follow-up appointments. He did not affirm active CP, dyspnea , rash, but did have some N/V recently. He denied seeing other nephrologists recently. He denied use of OTC NSAIDs. He received IVF since admission. Good appetite and was more alert today, his affirmed, who was at the bedside, as was his floor RN. FHx: father required dialysis and so did several "first" cousins, he said. Past Med Surg Social Fam HX - Past Medical History Medical history: diabetes, hepatitis, hypertension, liver disease, renal disease , other Psychiatric history: no psych history - Past Surgical History Surgical History: no surgical history, non-contributory (Tonsillectomy) - Social History Smoking Status: Current every day smoker Packs per day: 1 Smokeless Tobacco Status: No Alcohol use: recent Drug use: marijuana - Family History Mother Living Status: Cause of : CVA Hx Family Endocrine Disorder: Yes (Diabetes) Hx Family Neurologic Disorders: Yes (Alzheimer's) Father Living Status: Hx Family Cancer: Yes (Prostate) Hx Family Endocrine Disorder: Yes (Diabetes) Medications and Allergies Amlodipine Besylate 10 mg PO DAILY 09/01/16 [History] Atorvastatin [Lipitor] 40 mg PO HS 09/01/16 [History] Glimepiride [Amaryl] 2 mg PO QAM 09/01/16 [History] Methadone HCl 10 mg PO QID 09/01/16 [History] cloNIDine HCl [Clonidine HCl] 0.2 mg PO TID 09/01/16 [History] Losartan Potassium [Cozaar] 100 mg PO DAILY #30 tab 09/02/16 [Rx] Aspirin [Lo-Dose Aspirin EC] 81 mg PO DAILY 03/09/17 [History] Carvedilol [Coreg] 25 mg PO BID 03/09/17 [History] Sildenafil Citrate [Viagra] 100 mg PO DAILY PRN 03/09/17 [History] Vitamin B Complex/Vit C/Vit E [Stresstab] 1 tab PO DAILY 03/09/17 [History] Allergies No Known Allergies Allergy (Verified 03/09/17 07:53) Review of Systems All Systems: reviewed and no additional remarkable complaints except as stated Exam - Vital Signs Vital signs: Initial Vital Signs Temp Pulse Resp BP Pulse Ox 98 F 112 20 208/138 97 03/09/17 07:53 03/09/17 07:53 03/09/17 07:53 03/09/17 07:53 03/09/17 07:53 Vital Signs - Last 8 Hours Temp Pulse Resp BP Pulse Ox 03/10/17 06:58 98.5 F 78 13 179/69 98 03/10/17 05:09 98.1 F 59 16 185/93 99 Intake and Output 03/09/17 03/10/17 03/10/17 23:59 07:59 15:59 Intake Total 1999 1240 / 1240 Output Total 750 / 750 350 / 350 Balance 1250 / 1250 890 / 890 Intake: IV Fluids 1999 1000 / 1000 0.9 % Sodium Chloride 2, 1999 / 1999 000 ML @ 3750 mls/hr IVC .Q32M FILEMON Rx#:[id number] Lactated Ringers 1,000 ML 1000 / 1000 @ 200 mls/hr IVC .Q5H ONE Rx#:[id number] Oral 240 / 240 Output: Urine 750 / 750 350 / 350 Other: Weight 84.368 kg Blood Glucose* 132 106 Patient Weight 03/10/17 23:59 Weight 84.368 kg - General Appearance General appearance: well-developed, well-nourished, appears started age EENT: ATNC, PERRL, mucous membranes moist Neck: supple Respiratory: clear Cardiology: edema, regular rate, regular rhythm, normal S1, normal S2 Gastrointestinal: normoactive bowel sounds, no tenderness Integumentary: no rash, warm and dry Neurologic: no focal deficit, no asterixis, alert and oriented x3 Musculoskeletal: no deformities, no erythema Psychiatric: mood/affect appropriate, cooperative Results - Lab Results 03/10/17 04:50 03/10/17 04:50 Most recent lab results Calcium 8.3 mg/dL (8.6-10.8) L 03/10/17 04:50 Phosphorus 4.6 mg/dL (2.3-4.7) 03/10/17 04:50 Magnesium 1.7 mg/dL (1.6-2.6) 03/10/17 04:50 I reviewed the above auto generated dated including labs, meds, vitals, progress notes, and imaging. Consult Discharge Plan - Plan Referrals: Rajesh Gillette Jr, MD [Primary Care Provider] -
[2017-03-10] MEDS: Vitamin B Complex/Vit C/Vit E 1 EACH TABLET PO SCH (08:48)
[2017-03-10] MEDS: *HR* Methadone 10 MG TABLET PO SCH ×4 (08:49→22:13)
[2017-03-10] MEDS: cloNIDine HCl 0.1 MG TABLET PO SCH ×4 (08:49→22:13)
[2017-03-10] MEDS: Nicotine 21 MG PATCH.TD24 TD SCH (08:49)
[2017-03-10] MEDS: Aspirin Enteric Coated 81 MG Tablet PO SCH (08:49)
[2017-03-10] MEDS ORDERED: amLODIPine 5 MG TABLET PO SCH (09:00)
--- NOTE | 2017-03-10 09:31 | Internal Med Progress Note ---
Date of Encounter: 03/10/17 Time of Encounter: 09:28 - Assessment and plan (1) Acute encephalopathy Current Visit: Yes Status: Acute Assessment and plan: Toxic/metabolic encephalopathy, multifactorial etiology-acute kidney injury, substance abuse, hypertensive emergency. Noted to be oriented in general but continues to have some amnesia for past events. Continue to treat underlying conditions and monitor closely. Check CT head. (2) Hypertensive emergency Current Visit: Yes Status: Acute Assessment and plan: Patient presented with confusion and noted to have significantly elevated blood pressure, systolic blood pressure greater than 200 along with hypoxia and troponin leak. Blood pressure noted to be stable at this time, systolic in the 150 to 160s. Hold beta blockers for now due to history of active use of cocaine and urine drug screen being positive for cocaine. Hold CAITLYN inhibitor/ ARB due to acute kidney injury. Continue clonidine, Norvasc and use when necessary IV hydralazine for appropriate blood pressure control. (3) Acute on chronic kidney failure Current Visit: Yes Status: Acute Assessment and plan: Patient appears to have history of chronic kidney disease, lost to follow-up after his initial visit to nephrology office. Serum creatinine only slightly responded to IV hydration, 4.9 today, from 5.5. Nephrology consulted, ongoing workup for underlying etiology like diabetic nephropathy, related to chronic hep C/autoimmune conditions. Appreciate consult. Continue IV hydration at this time and monitor serum creatinine closely. Avoid new nephrotoxic agents. Qualifiers: Acute renal failure type: unspecified Chronic kidney disease stage: stage 3 (moderate) Qualified Code(s): N17.9 - Acute kidney failure, unspecified; N18.3 - Chronic kidney disease, stage 3 (moderate) (4) Elevated troponin Current Visit: Yes Status: Acute Assessment and plan: Cardiology consult appreciated. Patient's troponin is slightly trending down to 0.24. Echocardiogram shows preserved ejection fraction and mild concentric LVH. Telemetry monitoring uneventful. Troponin leak is likely related to hypertensive emergency. Less likely ACS. Continue to monitor. (5) Hypokalemia Current Visit: Yes Status: Acute Assessment and plan: Supplement with oral potassium chloride. To check urine metanephrines, renin and aldosterone activity per nephrology. (6) History of hepatitis C Current Visit: Yes Status: Chronic Assessment and plan: Treatment naive. Outpatient GI follow-up. (7) Hypertension Current Visit: Yes Status: Chronic Qualifiers: Hypertension type: essential hypertension Qualified Code(s): I10 - Essential (primary) hypertension (8) Tobacco abuse Current Visit: Yes Status: Chronic Assessment and plan: Continue nicotine transdermal patch. (9) CKD (chronic kidney disease) Current Visit: Yes Status: Chronic Qualifiers: Chronic kidney disease stage: stage 3 (moderate) Qualified Code(s): N18.3 - Chronic kidney disease, stage 3 (moderate) (10) Substance abuse Current Visit: Yes Status: Chronic Assessment and plan: Urine drug screen positive for cocaine and marijuana although patient denies use. Also noted to have some rhabdomyolysis with creatinine kinase around 1700. Continue IV hydration and monitor closely. vice president client services consult. (11) Type 2 diabetes mellitus Current Visit: Yes Status: Chronic Assessment and plan: Accu-Chek blood glucose monitoring with sliding scale insulin as needed. Diabetic diet. Qualifiers: Diabetes mellitus complication status: with kidney complications Diabetes mellitus complication detail: with chronic kidney disease Diabetes mellitus half-way insulin use: without half-way use Chronic kidney disease stage: stage 3 (moderate) Qualified Code(s): E11.22 - Type 2 diabetes mellitus with diabetic chronic kidney disease; N18.3 - Chronic kidney disease, stage 3 ( moderate) (12) Methadone dependence Current Visit: Yes Status: Chronic Assessment and plan: Continue home dose of methadone for history of opioid abuse. - Subjective Interval history: Reports some intermittent abdominal pain but improved nausea, emesis; no chest pain, dyspnea, leg swelling; plan of care d/w patient's at bedside; she is concerned about is amnesia as he does not seem to remember their trip to [place] and that their grandkids visited them this past week; he is alert and oriented to place and person at this time; - Constitutional Vitals: Temp Pulse Resp BP Pulse Ox 98.5 F 78 13 179/69 98 03/10/17 06:58 03/10/17 06:58 03/10/17 06:58 03/10/17 06:58 03/10/17 06:58 General appearance: Present: A&O X 2, answers questions appropriately - Respiratory Respiratory exam: Present: CTAB. Absent: accessory muscle use, rales, rhonchi, wheezes - Cardiovascular Cardiovascular exam: Present: RRR, +S1, +S2. Absent: diastolic murmur, gallop, rubs, systolic murmur - GI/Abdominal GI/Abdominal exam: Present: normal bowel sounds, soft, no peritoneal signs. Absent: distended, tenderness - Extremities Exam Extremities exam: Present: full ROM, warm, radial pulses palpable and symetrical. Absent: calf tenderness, cyanotic, pedal edema - Neurological Exam Neurological exam: Present: CN II-XII intact, oriented X3, no focal deficits. Absent: pronater drift, facial droop, speech deficit Internal Medicine: Result - Labs CBC & Chem 7: 03/10/17 04:50 03/10/17 04:50 Labs: Short CBC 03/10/17 Range/Units 04:50 WBC 11.4 H (4.3-11.1) K/mcL Hgb 12.2 L D (12.9-16.9) g/dL Hct 34.0 L (37.5-50.1) % Plt Count 170 (140-400) K/mcL Neutrophils # 7.5 (1.6-8.9) K/mcL BMP 03/09/17 03/10/17 17:21 04:50 Sodium 139 138 Potassium 3.5 3.0 L Chloride 105 103 Carbon Dioxide 22 26 BUN 44 H 45 H Creatinine 5.02 H 4.94 H Glucose 121 H 98 Calcium 8.9 8.3 L Cardiac Enzymes 03/09/17 Range/Units 14:00 Troponin I 0.24 H* (0-0.03) ng/mL Urine 03/09/17 Range/Units 16:35 Urine Color Yellow (Yellow) Urine Clarity Hazy (Clear) Urine pH 5.5 (5.0-8.0) pH Units Ur Specific [place] 1.016 (1.010-1.025) Urine Protein >=300 H (Neg-Trace) mg/dL Urine Glucose (UA) 100 H (Normal) mg/dL - Impressions Impressions Gallbladder Ultrasound 03/09/17 22:00 IMPRESSION: Overall increased right renal parenchymal echogenicity, nonspecific finding suggestive of medical renal disease. Otherwise unremarkable study. D/ / Elissa Turcios Cha, MD / Elissa Turcios Cha, MD Interpreting Provider: Elissa Turcios Cha, MD Consult Discharge Plan - Plan Referrals: Rajesh Gillette Jr, MD [Primary Care Provider] -
[2017-03-10] MEDS: Potassium Chloride Elixir 20 MEQ/15 ML UDC PO SCH ×2 (09:56→13:25)
[2017-03-10] MEDS: 0.9 % Sodium Chloride 1,000 ML IVC SCH ×2 (09:58→20:45)
[2017-03-10] MEDS: Acetaminophen 325 MG TABLET PO PRN (09:58)
[2017-03-11 04:08] LABS: Basophils % 0.3 %; Eosinophils # 0.1 K/mcL (0.0-0.6); Eosinophils % 1.4 %; Hematocrit 36.6 % (37.5-50.1); Hemoglobin 12.8 g/dL (12.9-16.9); Immature Granulocytes % 0.3 % (0-4); Lymphocytes # 2.4 K/mcL (0.6-4.6); Lymphocytes % 35.8 %; Mean Corpuscular Hemoglobin 27.8 pg (28.0-33.3); Mean Corpuscular Volume 79.6 fL (83.0-100.0); Monocytes # 0.7 K/mcL (0.0-1.3); Monocytes % 10.2 %; Neutrophils # 3.4 K/mcL (1.6-8.9); Platelet Count 178 K/mcL (140-400); Red Cell Distribution Width 14.2 % (11.5-14.5)
[2017-03-11 04:22] LABS: Calcium 8.7 mg/dL (8.6-10.8); Magnesium 1.8 mg/dL (1.6-2.6); Potassium 3.3 mEq/L (3.5-4.5)
[2017-03-11] MEDS: *HR* Heparin 5,000 UNIT/ML VIAL SQ SCH ×3 (04:37→21:24)
[2017-03-11] MEDS: 0.9 % Sodium Chloride 1,000 ML IVC SCH (05:49)
[2017-03-11] MEDS: Acetaminophen 325 MG TABLET PO PRN (05:49)
[2017-03-11] MEDS ORDERED: 0.9 % Sodium Chloride 1,000 ML IVC SCH (07:59)
--- NOTE | 2017-03-11 08:11 | Nephrology Progress Note ---
Date of Encounter: 03/11/17 Time of Encounter: 10:05 - Assessment and Plan (1) NAKIA (acute kidney injury) Current Visit: Yes Status: Acute Slowly improving Non-oliguric NAKIA. However, he most likely has progressed closer to stage IV-V CKD. Pending serologies, but since his renal function is slowly correcting, he'll not need HD initiated at this time. Will have to hold any CAITLYN or ARB for now. Meanwhile the clonidine was increased and he remains on his home Amlodipine. I'll change the Amldoipine to the stronger Nifedical XL 60mg po daily, which he'll need a script for when discharged. This is a more potent antihypertensive agent than Amlodipine but within the same class. Holding off on using a diuretic for now d/t his advanced CKD. I reviewed the R/B/I and SE profile of Nifedical and discussed in detail his BP med adjustments. I recommend he follow up with me in about 3-4 weeks and will need a BMP to be checked in about 1-2 weeks after discharge. Okay to stop the IVF for now. Would still avoid BB given his higher chance of cocaine use in the future. Continue to follow a renal protective strategy by avoiding nephrotoxin exposures such as NSAIDs and IV contrast. Thank you. (2) Elevated CK Current Visit: Yes Status: Acute Should continue IVF, angelica since worsening. Should continue IVF, but I've changed it to 0.45% saline at 125mL/hr, which has less NaCl than 0.9% saline and so this will be less impactful on his elevated BPs. (3) Hypokalemia Current Visit: Yes Status: Acute Will provide another 40mEq PO x1 since he'll remain on IVF. (4) Hypertension Current Visit: Yes Status: Chronic Qualifiers: Hypertension type: essential hypertension Qualified Code(s): I10 - Essential (primary) hypertension (5) CKD (chronic kidney disease), stage III Current Visit: Yes Status: Chronic He appears to have progressed close to stage IV CKD. When he follows up with me in the clinic, I'll start the process of preparing a fistula as an outpt. (6) History of hepatitis C Current Visit: Yes Status: Chronic (7) Anemia Current Visit: Yes Status: Acute Monitoring but the goal is a Hgb 10-11 in the setting of CKD. Qualifiers: Anemia type: other cause Other causes of anemia: other cause, not classified Qualified Code(s): D64.89 - Other specified anemias (8) Methadone dependence Current Visit: Yes Status: Chronic As per primary. (9) Type 2 diabetes mellitus Current Visit: Yes Status: Chronic Qualifiers: Diabetes mellitus complication status: with kidney complications Diabetes mellitus complication detail: with chronic kidney disease Diabetes mellitus watermaster insulin use: without watermaster use Chronic kidney disease stage: stage 3 (moderate) Qualified Code(s): E11.22 - Type 2 diabetes mellitus with diabetic chronic kidney disease; N18.3 - Chronic kidney disease, stage 3 ( moderate) (10) Substance abuse Current Visit: Yes Status: Chronic Subjective Principal diagnosis: HTN, NAKIA vs CKD progression Interval history: Pt was seen/examined in his room. His cousin was present. He did not affirm N/V/ D, lost appetite, CP or shortness of breath. We discussed BP meds in detail. Objective - Vital Signs Vital signs: Vital Signs Temp Pulse Resp BP Pulse Ox 03/11/17 07:47 97 03/11/17 07:10 98.0 F 59 13 184/94 97 03/11/17 04:37 98 F 61 15 135/65 95 03/11/17 00:26 97.8 F 59 15 140/73 95 03/10/17 20:25 97.7 F 61 15 145/82 97 03/10/17 15:59 98.0 F 62 14 146/89 98 03/10/17 15:31 63 164/96 03/10/17 11:51 97.7 F 60 13 138/83 99 Intake and Output 03/10/17 03/11/17 03/11/17 23:59 07:59 15:59 Intake Total 1240 / 1240 1000 / 1000 Output Total 400 / 400 Balance 840 / 840 1000 / 1000 Intake: IV Fluids 1000 / 1000 1000 / 1000 0.9 % Sodium Chloride 1, 1000 / 1000 1000 / 1000 000 ML @ 100 mls/hr IVC . Q10H FILEMON Rx#:[id number] Oral 240 / 240 Output: Urine 400 / 400 Other: Meal Dinner Percent of Meal Consumed 95% Weight 84.36 kg Blood Glucose* 159 156 Patient Weight 03/11/17 23:59 Weight 84.36 kg - General Appearance Exam: General appearance: well-developed, well-nourished, appears started age EENT: ATNC, PERRL, mucous membranes moist Neck: supple Respiratory: clear Cardiology: edema, regular rate, regular rhythm, normal S1, normal S2 or edema. Gastrointestinal: normoactive bowel sounds, no tenderness Integumentary: no rash, warm and dry Neurologic: no focal deficit, no asterixis, alert and oriented x3 Musculoskeletal: no deformities, no erythema Psychiatric: mood/affect appropriate, cooperative - Lab 03/11/17 03:48 03/11/17 03:48 Most recent lab results Calcium 8.7 mg/dL (8.6-10.8) 03/11/17 03:48 Phosphorus 4.6 mg/dL (2.3-4.7) 03/10/17 04:50 Magnesium 1.8 mg/dL (1.6-2.6) 03/11/17 03:48 Consult Discharge Plan - Plan Referrals: Rajesh Gillette Jr, MD [Primary Care Provider] -
[2017-03-11] MEDS: Vitamin B Complex/Vit C/Vit E 1 EACH TABLET PO SCH (08:25)
[2017-03-11] MEDS: Aspirin Enteric Coated 81 MG Tablet PO SCH (08:25)
[2017-03-11] MEDS: NIFEdipine XL (24 HR) 60 MG TAB.ER.24 PO SCH (08:25)
[2017-03-11] MEDS: cloNIDine HCl 0.1 MG TABLET PO SCH ×3 (08:25→21:20)
[2017-03-11] MEDS: Nicotine 21 MG PATCH.TD24 TD SCH (08:25)
[2017-03-11] MEDS: *HR* Methadone 10 MG TABLET PO SCH ×4 (08:25→21:20)
[2017-03-11] MEDS: Insulin LISPRO 300 UNITS/3 ML VIAL SQ SCH ×4 (08:26→21:20)
--- NOTE | 2017-03-11 08:57 | Internal Med Progress Note ---
Date of Encounter: 03/11/17 Time of Encounter: 08:55 - Assessment and plan (1) Rhabdomyolysis Current Visit: Yes Status: Acute Assessment and plan: Patient was noted to have elevated serum creatinine kinases at the time of admission, around 1500. He has been on IV hydration since admission that CK noted to be elevated up to 3200 today. Will increase rate of IV fluids and change to half normal saline to avoid accelerated hypertension, appreciate nephrology recommendations. Qualifiers: Rhabdomyolysis type: non-traumatic Qualified Code(s): M62.82 - Rhabdomyolysis (2) Acute encephalopathy Current Visit: Yes Status: Resolved Assessment and plan: Toxic/metabolic encephalopathy, multifactorial etiology-acute kidney injury, substance abuse, hypertensive emergency. Noted to be oriented; Continue to treat underlying conditions and monitor closely. CT head reviewed, no evidence of acute stroke/bleed. Leukocytosis noted to be normalized today, this was likely stress induced due to hypertensive emergency; (3) Hypertensive emergency Current Visit: Yes Status: Resolved Assessment and plan: Blood pressure noted to be stable at this time. Continue to adjust blood pressure medications. (4) Acute on chronic kidney failure Current Visit: Yes Status: Acute Assessment and plan: Patient appears to have history of chronic kidney disease, lost to follow-up after his initial visit to nephrology office. Serum creatinine noted to be improving with IV hydration, 4.5 today. Nephrology follow-up appreciated, ongoing workup for underlying etiology like diabetic nephropathy, related to chronic hep C/autoimmune conditions. Continue IV hydration at this time and monitor serum creatinine closely. Avoid new nephrotoxic agents. Qualifiers: Acute renal failure type: unspecified Chronic kidney disease stage: stage 3 (moderate) Qualified Code(s): N17.9 - Acute kidney failure, unspecified; N18.3 - Chronic kidney disease, stage 3 (moderate) (5) Elevated troponin Current Visit: Yes Status: Acute (6) Hypokalemia Current Visit: Yes Status: Acute Assessment and plan: Supplement with oral potassium chloride. To check urine metanephrines, renin and aldosterone activity per nephrology. (7) History of hepatitis C Current Visit: Yes Status: Chronic (8) Hypertension Current Visit: Yes Status: Chronic Assessment and plan: Blood pressure noted to be improving since admission but systolic blood pressure fluctuates between 140-180. Clonidine has been increased and Norvasc has been changed to Procardia XL per nephrology recommendations. Continue to hold beta elliot, diuretics and CAITLYN inhibitor/ARB due to cocaine use and renal dysfunction. Will use when necessary IV hydralazine for appropriate blood pressure control. Qualifiers: Hypertension type: essential hypertension Qualified Code(s): I10 - Essential (primary) hypertension (9) Tobacco abuse Current Visit: Yes Status: Chronic Assessment and plan: Continue nicotine transdermal patch. (10) CKD (chronic kidney disease) Current Visit: Yes Status: Chronic Qualifiers: Chronic kidney disease stage: stage 3 (moderate) Qualified Code(s): N18.3 - Chronic kidney disease, stage 3 (moderate) (11) Substance abuse Current Visit: Yes Status: Chronic (12) Type 2 diabetes mellitus Current Visit: Yes Status: Chronic Assessment and plan: Accu-Chek blood glucose monitoring with sliding scale insulin as needed. Diabetic diet. Qualifiers: Diabetes mellitus complication status: with kidney complications Diabetes mellitus complication detail: with chronic kidney disease Diabetes mellitus bed bug exterminator insulin use: without bed bug exterminator use Chronic kidney disease stage: stage 3 (moderate) Qualified Code(s): E11.22 - Type 2 diabetes mellitus with diabetic chronic kidney disease; N18.3 - Chronic kidney disease, stage 3 ( moderate) (13) Methadone dependence Current Visit: Yes Status: Chronic - Subjective Interval history: Reports no new complaints; no chest pain, dyspnea; no nausea, vomiting, abdominal pain, leg swelling; - Constitutional Vitals: Temp Pulse Resp BP Pulse Ox 98.0 F 59 13 184/94 97 03/11/17 07:10 03/11/17 07:10 03/11/17 07:10 03/11/17 07:10 03/11/17 07:47 General appearance: Present: A&O X 3, answers questions appropriately - Respiratory Respiratory exam: Present: CTAB. Absent: accessory muscle use, rales, rhonchi, wheezes - Cardiovascular Cardiovascular exam: Present: RRR, +S1, +S2. Absent: diastolic murmur, gallop, rubs, systolic murmur - GI/Abdominal GI/Abdominal exam: Present: normal bowel sounds, soft, no peritoneal signs. Absent: distended, tenderness - Extremities Exam Extremities exam: Present: full ROM, warm, radial pulses palpable and symetrical. Absent: calf tenderness, cyanotic, pedal edema Internal Medicine: Result - Labs CBC & Chem 7: 03/11/17 03:48 03/11/17 03:48 Labs: Short CBC 03/11/17 Range/Units 03:48 WBC 6.6 (4.3-11.1) K/mcL Hgb 12.8 L (12.9-16.9) g/dL Hct 36.6 L (37.5-50.1) % Plt Count 178 (140-400) K/mcL Neutrophils # 3.4 (1.6-8.9) K/mcL BMP 03/11/17 03:48 Sodium 139 Potassium 3.3 L Chloride 105 Carbon Dioxide 23 BUN 44 H Creatinine 4.49 H Glucose 118 H Calcium 8.7 - Impressions Impressions Head CT 03/10/17 12:42 IMPRESSION: No acute intracranial abnormality. D/ / Macho Main MD / Macho Main MD Interpreting Provider: Macho Main MD Consult Discharge Plan - Plan Referrals: Rajesh Gillette Jr, MD [Primary Care Provider] - (web request 03/11/2017)
[2017-03-12 05:18] LABS: Calcium 8.5 mg/dL (8.6-10.8); Phosphorous 3.4 mg/dL (2.3-4.7); Potassium 3.2 mEq/L (3.5-4.5)
[2017-03-12] MEDS: *HR* Heparin 5,000 UNIT/ML VIAL SQ SCH (05:43)
[2017-03-12] MEDS: Insulin LISPRO 300 UNITS/3 ML VIAL SQ SCH ×2 (07:48→12:00)
[2017-03-12] MEDS: Nicotine 21 MG PATCH.TD24 TD SCH (08:04)
[2017-03-12] MEDS: Aspirin Enteric Coated 81 MG Tablet PO SCH (08:06)
[2017-03-12] MEDS: *HR* Methadone 10 MG TABLET PO SCH ×2 (08:06→12:00)
[2017-03-12] MEDS: NIFEdipine XL (24 HR) 60 MG TAB.ER.24 PO SCH (08:06)
[2017-03-12] MEDS: Vitamin B Complex/Vit C/Vit E 1 EACH TABLET PO SCH (08:06)
[2017-03-12] MEDS: cloNIDine HCl 0.1 MG TABLET PO SCH (08:06)
[2017-03-12] MEDS ORDERED: Potassium Chloride Elixir 20 MEQ/15 ML UDC PO ONE (09:04)
--- NOTE | 2017-03-12 11:06 | Discharge Summary ---
Date of Encounter: 03/12/17 Time of Encounter: 08:40 - Discharge Diagnosis (1) Rhabdomyolysis Priority: Primary Status: Acute Qualifiers: Rhabdomyolysis type: non-traumatic Qualified Code(s): M62.82 - Rhabdomyolysis (2) Acute encephalopathy Priority: Primary Status: Resolved (3) Hypertensive emergency Priority: Primary Status: Resolved (4) Acute on chronic kidney failure Priority: Primary Status: Resolved Qualifiers: Acute renal failure type: unspecified Chronic kidney disease stage: stage 3 (moderate) Qualified Code(s): N17.9 - Acute kidney failure, unspecified; N18.3 - Chronic kidney disease, stage 3 (moderate) (5) Elevated troponin Priority: Primary Status: Acute (6) Hypokalemia Priority: Primary Status: Acute (7) History of hepatitis C Priority: Secondary Status: Chronic (8) Hypertension Priority: Secondary Status: Chronic Qualifiers: Hypertension type: essential hypertension Qualified Code(s): I10 - Essential (primary) hypertension (9) Tobacco abuse Priority: Secondary Status: Chronic (10) CKD (chronic kidney disease) Priority: Secondary Status: Chronic Qualifiers: Chronic kidney disease stage: stage 3 (moderate) Qualified Code(s): N18.3 - Chronic kidney disease, stage 3 (moderate) (11) Substance abuse Priority: Secondary Status: Chronic (12) Type 2 diabetes mellitus Priority: Secondary Status: Chronic Qualifiers: Diabetes mellitus complication status: with kidney complications Diabetes mellitus complication detail: with chronic kidney disease Diabetes mellitus staff reporter insulin use: without staff reporter use Chronic kidney disease stage: stage 3 (moderate) Qualified Code(s): E11.22 - Type 2 diabetes mellitus with diabetic chronic kidney disease; N18.3 - Chronic kidney disease, stage 3 ( moderate) (13) Methadone dependence Priority: Secondary Status: Chronic - Discharge Medications Prescriptions: cloNIDine HCl [CloNIDine HCl] 0.3 mg PO TID #90 tablet NIFEdipine XL (24 HR) [Procardia XL] 60 mg PO DAILY #30 tab.er.24 Home Medications: Atorvastatin [Lipitor] 40 mg PO HS 09/01/16 [History] Glimepiride [Amaryl] 2 mg PO QAM 09/01/16 [History] Methadone HCl 10 mg PO QID 09/01/16 [History] Aspirin [Lo-Dose Aspirin EC] 81 mg PO DAILY 03/09/17 [History] Sildenafil Citrate [Viagra] 100 mg PO DAILY PRN 03/09/17 [History] Vitamin B Complex/Vit C/Vit E [Stresstab] 1 tab PO DAILY 03/09/17 [History] NIFEdipine XL (24 HR) [Procardia XL] 60 mg PO DAILY #30 tab.er.24 03/12/17 [Rx] cloNIDine HCl [CloNIDine HCl] 0.3 mg PO TID #90 tablet 03/12/17 [Rx] Allergies/Adverse Reactions: Allergies No Known Allergies Allergy (Verified 03/09/17 07:53) Procedures/tests Complete & Pending: Procedures Performed prior 72 hours Category Date Time Status CT head/brain wo con [CT] Routine Cat Scan 03/10/17 12:42 Completed GB ultrasound [US gall bladder] [US] Routine Exams 03/09/17 22:00 Completed EV echocardiogram Routine Y 03/09/17 12:59 Completed Date of admission: 03/09/17 11:31 Primary care physician: Rajesh Gillette Jr, MD Consults: 03/09/17 12:42 Consult to Nephrology [CONS] Routine Consulting Provider: [facility]/XAVIER/KATHI/MIQUEL Reason for Consult: 66M [address] of [address] Lowry with NAKIA on CKD Cr 5.55 up from 1.6. Call Completed: Yes Discharging clinician: Liza Perez Anticipated date of discharge: 03/12/17 - Patient Status Disposition: Home, Self-Care Condition: Fair Functional capacity at discharge: independent ambulation Overall status at discharge: patient is progressing back to baseline - Discharge Instructions Instructions: Diabetes Mellitus Type 2 in Adults (DC), Chronic Hypertension (DC ) Follow Up With: Rajesh Gillette Jr, MD [Primary Care Provider] - (web request 03/11/2017) Patrice Lowry DO [Partnered Physician] - (Web request sent 03/12/17) Additional Instructions: F/up with [facility]- in 2-3 weeks - Diet and Activity Activity: resume usual activities as tolerated Diet: diabetic diet, low salt diet, other (renal diet) Hospital course: Mr. Milan is a 66 year old male with history of hypertension, chronic kidney disease and medical noncompliance, was admitted with acute encephalopathy, nausea and vomiting. He was noted to have hypertensive emergency at the time of admission with uncontrolled hypertension with systolic blood pressure greater than 200, nausea/vomiting, troponin leak and altered mental status/ headache. Blood pressure responded to when necessary IV hydralazine and labetalol. Urine drug screen came positive for marijuana and cocaine after which beta blockers have been held. Cardiology was consulted for elevated troponin and agree that this is likely demand ischemia and stress from cocaine use and uncontrolled hypertension. Troponins trended down. Echocardiogram showed preserved EF, mild concentric LVH , mild left-ventricular diastolic dysfunction and trivial pericardial effusion. Nephrology was consulted as patient was noted to have acute kidney injury over chronic kidney disease. He was started on IV hydration with gradual improvement in serum creatinine. Labs have been ordered to assess for secondary causes of worsening renal failure. Home medication of Norvasc has been changed to Procardia XL for better antihypertensive effects, dose of clonidine has been increased, diuretics/beta elliot/ARB have been held. Patient's blood pressure has remained stable with systolic in 150-160 range and he is currently asymptomatic, tolerates oral diet with appropriate urine output. Patient was also noted to have elevated serum creatinine kinase at the time of admission, probably mild rhabdomyolysis secondary to cocaine use. He did receive significant amount of IV hydration, however CK levels continue to be around 3200, however patient does not have any myalgia/proximal muscle weakness/ limitation in activity. Patient will be discharged home at this time as he remains asymptomatic, with instructions to check his CK and renal function panel in 1-2 weeks and follow up with nephrology in 2-3 weeks. He was educated regarding cessation of substance abuse and to comply with all his prescription medications and he verbalized understanding. - Time Spent with Patient Total time spent providing and/or coordinating discharge services: Greater than 30 minutes (40 min) - Constitutional Vitals: Temp Pulse Resp BP Pulse Ox 98.0 F 65 16 166/107 99 03/12/17 07:44 03/12/17 07:44 03/12/17 07:44 03/12/17 07:44 03/12/17 08:16 General appearance: Present: A&O X 3, answers questions appropriately - Respiratory Respiratory exam: Present: CTAB. Absent: accessory muscle use, rales, rhonchi, wheezes - Cardiovascular Cardiovascular exam: Present: RRR, +S1, +S2. Absent: diastolic murmur, gallop, rubs, systolic murmur
[2017-03-12 12:18] VITALS: BP 146/87
--- NOTE | 2017-03-12 14:08 | Nephrology Progress Note ---
Date of Encounter: 03/12/17 Time of Encounter: 08:15 - Assessment and Plan (1) NAKIA (acute kidney injury) Status: Acute Slowly improving Non-oliguric NAKIA, pending serologies, but since his renal function is slowly correcting, he'll not need HD initiated at this time. CK has reached a plataeu and he is entirely asymptomatic. Reasonable for him to discharge and plan for close outpt follow up, as discussed with the Hospitalist Will have to hold any CAITLYN or ARB for now. Meanwhile the clonidine was increased and he remains on his home Amlodipine. Continue Nifedical XL 60mg po daily, which he'll need a script for when discharged. This is a more potent antihypertensive agent than Amlodipine but within the same class. Holding off on using a diuretic for now d/t his advanced CKD. I reviewed the R/B/I and SE profile of Nifedical and discussed in detail his BP med adjustments. I recommend he follow up with me in about 3-4 weeks and will need a BMP to be checked in about 1-2 weeks after discharge. Would still avoid BB given his higher chance of cocaine use in the future. Continue to follow a renal protective strategy by avoiding nephrotoxin exposures such as NSAIDs and IV contrast. Thank you. (2) Elevated CK Status: Acute See above (3) Hypokalemia Status: Acute Should resolve upon stopping the IVF. (4) Hypertension Status: Chronic See above Qualifiers: Hypertension type: essential hypertension Qualified Code(s): I10 - Essential (primary) hypertension (5) CKD (chronic kidney disease), stage III Status: Chronic He appears to have progressed close to stage IV CKD. When he follows up with me in the clinic, I'll start the process of preparing a fistula as an outpt. (6) History of hepatitis C Status: Chronic (7) Anemia Status: Acute Monitoring but the goal is a Hgb 10-11 in the setting of CKD. Qualifiers: Anemia type: other cause Other causes of anemia: other cause, not classified Qualified Code(s): D64.89 - Other specified anemias (8) Methadone dependence Status: Chronic As per primary. (9) Type 2 diabetes mellitus Status: Chronic Qualifiers: Diabetes mellitus complication status: with kidney complications Diabetes mellitus complication detail: with chronic kidney disease Diabetes mellitus [facility] insulin use: without termite treater use Chronic kidney disease stage: stage 3 (moderate) Qualified Code(s): E11.22 - Type 2 diabetes mellitus with diabetic chronic kidney disease; N18.3 - Chronic kidney disease, stage 3 ( moderate) (10) Substance abuse Status: Chronic As per primary Subjective Principal diagnosis: HTN, NAKIA vs CKD progression Interval history: Pt was seen/examined in his room. He did not affirm N/V/D, lost appetite, CP, shortness of breath, or any musculoskeletal pains. Objective - Vital Signs Vital signs: Vital Signs Temp Pulse Resp BP Pulse Ox 03/12/17 12:14 146/87 03/12/17 08:16 99 03/12/17 07:44 98.0 F 65 16 166/107 99 03/11/17 23:37 98.1 F 68 18 151/85 96 03/11/17 19:39 97.3 F L 67 16 156/72 98 03/11/17 15:51 97.7 F 67 13 137/75 98 Intake and Output 03/11/17 03/12/17 03/12/17 23:59 07:59 15:59 Intake Total 2860 / 2860 1120 / 1120 320 / 320 Output Total 650 / 650 1500 / 1500 425 / 425 Balance 2210 / 2210 -380 / -380 -105 / -105 Intake: IV Fluids 1999 / 1999 1000 / 1000 0.45% Sodium Chloride 1999 / 1999 1000 / 1000 1000 Ml 1000 Ml 1,000 ML @ 125 mls/hr IVC .Q8H [facility] Rx#:[id number] Oral 860 / 860 120 / 120 320 / 320 Output: Urine 650 / 650 1500 / 1500 425 / 425 Other: Meal Dinner Lunch Percent of Meal Consumed 95% 50% Weight 85.548 kg Blood Glucose* 143 123 160 Patient Weight 03/12/17 23:59 Weight 85.548 kg - General Appearance General appearance: Present: well-developed, well-nourished, appears started age EENT: Present: ATNC, PERRL, mucous membranes moist Neck: Present: supple Respiratory: Present: clear Cardiology: Present: regular rate, regular rhythm, normal S1, normal S2 Gastrointestinal: Present: normoactive bowel sounds, no tenderness, no guarding Integumentary: Present: no rash, warm and dry Neurologic: Present: no focal deficit, no asterixis, alert and oriented x3 Musculoskeletal: Present: no deformities, no erythema, no cyanosis Psychiatric: Present: mood/affect appropriate, cooperative - Lab 03/11/17 03:48 03/12/17 04:52 Most recent lab results Calcium 8.5 mg/dL (8.6-10.8) L 03/12/17 04:52 Phosphorus 3.4 mg/dL (2.3-4.7) 03/12/17 04:52 Magnesium 1.8 mg/dL (1.6-2.6) 03/11/17 03:48 Consult Discharge Plan - Plan Instructions: Diabetes Mellitus Type 2 in Adults (DC), Chronic Hypertension (DC ) Additional Instructions: F/up with [facility]- in 2-3 weeks Referrals: Rajesh Gillette Jr, MD [Primary Care Provider] - (web request 03/11/2017) Patrice Lowry DO [Partnered Physician] - (Web request sent 03/12/17) Prescriptions: cloNIDine HCl [CloNIDine HCl] 0.3 mg PO TID #90 tablet NIFEdipine XL (24 HR) [Procardia XL] 60 mg PO DAILY #30 tab.er.24
[2017-03-14 07:53] LABS: Complement Component 3 128 mg/dL (88-201); Complement Component 4 26 mg/dL (10-40)
[2017-03-14 12:34] LABS: Alpha 2 Globulin (PEP) 1.17 g/dL (0.48-1.05); Beta Globulin (PEP) 0.74 g/dL (0.48-1.10)
[2017-03-14 13:34] LABS: ANA IgG by ELISA NONE DETECTED (None Detected); IFE Reflexed NOT DONE
[2017-03-14 22:02] LABS: APTT (LE Anticoag) 37 sec (32-48); Diluted Russell Viper Venom 33 sec (33-44); PT (LE-Anticoag) 13.3 sec (12.0-15.5)
[2017-03-15 07:05] LABS: Myeloperoxidase Ab 2 AU/mL (0-19); Serine Protease-3 Antibody 0 AU/mL (0-19)
[2017-03-16 07:05] LABS: ANA Titer by IFA 1:40 (<1:40); Anti Fibrillarin U3 RNP NEGATIVE (Negative); Anti PM Scl EIA NEGATIVE (Negative); Anti RNA Polymerase III 5 Units (0-19); Anti U1 RNP 1 AU/mL (0-40)
== END 2017-03-12 13:40 | disposition home or self-care (01) | DRG 682 ==
LOC: EMEROO 07:51 → SUATTDRO 11:31 → 2ANU 11:31
PROVIDERS: ADMIT Internal Medicine; ATTEND Internal Medicine

== ENCOUNTER 2017-04-17 15:50 | Observation (INO) ==
--- NOTE | 2017-04-17 16:09 | Emergency Department Note ---
Disposition Clinical Impression: Renal insufficiency Altered mental status Qualifiers: Altered mental status type: unspecified Qualified Code(s): R41.82 - Altered mental status, unspecified Disposition: Admitted As Inpatient Referrals: Rajesh Gillette Jr, MD [Primary Care Provider] - Forms: ED Satisfaction Letter Time of Disposition: 18:23 Altered Mental Status HPI - General Chief Complaint: ED Altered Mental Status Stated Complaint: Dificulty Rembering Things Time Seen by Provider: 04/17/17 16:05 Source: patient Limitations: no limitations Nursing Notes Reviewed: Yes Vital Signs Reviewed: Yes - History of Present Illness HPI Narrative: 66-year-old male who comes in with increasing confusion and difficulty with short-term memory. Does have a history of hepatitis C. Also has some issues with her renal insufficiency. complaint: altered mental status, confusion Onset (ago): day(s) (1 day) Timing confirmed by: family member Pain Severity: moderate Consistency of Symptoms: getting worse Context: liver disease Associated symptoms: Reports: denies other symptoms - Related Data Home Medications Medication Instructions Recorded Confirmed Atorvastatin [Lipitor] 40 mg PO HS 09/01/16 03/09/17 Glimepiride [Amaryl] 2 mg PO QAM 09/01/16 03/09/17 Methadone HCl 10 mg PO QID 09/01/16 03/09/17 Aspirin [Lo-Dose Aspirin EC] 81 mg PO DAILY 03/09/17 03/09/17 Sildenafil Citrate [Viagra] 100 mg PO DAILY PRN 03/09/17 03/09/17 Vitamin B Complex/Vit C/Vit E 1 tab PO DAILY 03/09/17 03/09/17 [Stresstab] Previous Rx's Medication Instructions Recorded NIFEdipine XL (24 HR) [Procardia 60 mg PO DAILY #30 tab.er.24 03/12/17 XL] cloNIDine HCl [CloNIDine HCl] 0.3 mg PO TID #90 tablet 03/12/17 Allergies Allergy/AdvReac Type Severity Reaction Status Date / Time No Known Allergies Allergy Verified 03/09/17 07:53 All systems ED: reviewed and negative except as stated. Constitutional: Denies: fever, chills, weakness, weight change Eyes: Denies: eye pain, eye discharge, vision change ENT ED: Denies: ear pain, throat pain, dental pain, hearing loss, epistaxis, congestion, dysphagia Cardiovascular: Denies: chest pain, palpitations, dyspnea on exertion, edema, syncope Respiratory: Denies: cough, dyspnea, wheezes, hemoptysis, stridor Gastrointestinal: Denies: abdominal pain, nausea, vomiting, diarrhea, constipation, hematemesis, melena, hematochezia Genitourinary: Denies: urgency, dysuria, frequency, hematuria Musculoskeletal: Denies: back pain, neck pain, arthralgia, myalgia Integumentary: Denies: rash, abrasion, lesions Neurological: Reports: confusion, other (Memory loss). Denies: headache, weakness, numbness, paresthesias, abnormal gait, vertigo Psychiatric: Denies: anxiety, depression, suicidal thoughts, homicidal thoughts , auditory hallucinations, visual hallucinations Endocrine: Denies: fatigue Hematological/Lymphatic: Denies: easy bleeding, easy bruising Allergic/Immunologic: Denies: facial swelling, urticaria Past Medical History - Past Medical History Medical history: Reports: diabetes, hypertension, liver disease, other, hepatitis Surgical history: Reports: non-contributory (Tonsillectomy) Psychiatric history: Reports: no psych history - Social History Smoking Status: Current every day smoker Smokeless Tobacco Status: No Alcohol use: Reports: heavy, recent Drug use: Reports: marijuana Physical Exam - General Limitations: no limitations General appearance: alert, in no apparent distress - Head Head exam: atraumatic, normocephalic, normal inspection - Eye Eye exam: Present: normal appearance, PERRL, EOMI - ENT ENT exam: normal exam, normal oropharynx, mucous membranes moist - Neck Neck exam: Present: normal inspection, full ROM, trachea midline - Chest Chest inspection: Present: normal inspection, symmetric chest wall rise - Respiratory Respiratory exam: Present: normal lung sounds bilaterally - Cardiovascular Cardiovascular exam: Present: regular rate, normal rhythm, normal heart sounds - Abdominal Exam Abdominal exam: Present: soft, Non-Tender. Absent: tenderness, distention, guarding, rebound, rigidity - Extremities Exam Extremities exam: Present: normal inspection, full ROM. Absent: tenderness, pedal edema - Expanded Lower Extremity Exam Neurovascular/Tendon exam: Absent: motor deficit, sensory deficit, tendon deficit Gait: not tested/not observed - Back Exam Back exam: Present: normal inspection, full ROM. Absent: tenderness - Neurological Exam Neurological exam: Present: alert - Expanded Neurological Exam Patient oriented to: Present: person. Absent: place, time Speech: Present: fluid speech Motor strength - LUE: 5/5 Motor strength - RUE: 5/5 Motor strength - LLE: 5/5 Motor strength - RLE: 5/5 Coma Scale Eye Opening: Spontaneous Coma Scale Motor Response: Obeys Commands Coma Scale Verbal Response: Confused Coma Scale Total: 14 - Psychiatric Psychiatric exam: Present: normal affect, normal mood - Skin Skin exam: Present: warm, dry, intact, normal color Course - Reevaluation(s) Reevaluation #1: 66-year-old with increasing confusion and short-term memory loss and began about a day or so ago. CT scan of the head was negative for acute findings here. Patient will be admitted for evaluation and treatment. He does have some white cells in his urine we'll treat him with antibiotics. CT scans negative. His ammonia levels within normal limits. This may represent dementia. Time: 18:58 - Consultations Consultation #1: Discussed with shorty Brooks. Time: 18:59 Vital Signs Temperature 97.5 F L 04/17/17 15:53 Pulse Rate 64 04/17/17 15:53 Respiratory Rate 16 04/17/17 15:53 Blood Pressure 146/87 04/17/17 15:53 O2 Sat by Pulse Oximetry 96 04/17/17 15:53 Temperature 97.5 F L 04/17/17 15:53 Pulse Rate 53 04/17/17 16:55 Respiratory Rate 18 04/17/17 16:55 Blood Pressure 172/92 04/17/17 16:55 O2 Sat by Pulse Oximetry 98 04/17/17 16:55 Oxygen Delivery Oxygen Delivery Room Air Altered Mental Status - Lab Data Lab results reviewed: Yes I reviewed the patient's lab results. Result diagrams: 04/17/17 16:47 04/17/17 16:47 Lab Results 04/17/17 04/17/17 04/17/17 Range/Units 16:33 16:33 16:47 WBC 8.9 (4.3-11.1) K/mcL RBC 4.46 (4.19-5.50) M/mcL Hgb 12.4 L (12.9-16.9) g/dL Hct 35.3 L (37.5-50.1) % MCV 79.1 L (83.0-100.0) fL MCH 27.8 L (28.0-33.3) pg MCHC 35.1 (31.6-35.5) g/dL RDW 14.3 (11.5-14.5) % Plt Count 243 (140-400) K/mcL MPV 9.7 (9.4-12.4) fL Immature Gran % 0.2 (0-4) % Seg Neutrophils % 74.1 % Lymphocytes % 17.4 % Monocytes % 8.0 % Eosinophils % 0.2 % Basophils % 0.1 % Neutrophils # 6.6 (1.6-8.9) K/mcL Lymphocytes # 1.5 (0.6-4.6) K/mcL Monocytes # 0.7 (0.0-1.3) K/mcL Eosinophils # 0.0 (0.0-0.6) K/mcL Basophils # 0.0 (0.0-0.2) K/mcL PT (9.4-12.1) Seconds INR APTT (26.0-36.0) Seconds Sodium (136-145) mEq/L Potassium (3.5-4.5) mEq/L Chloride (98-109) mEq/L Carbon Dioxide (19-29) mEq/L BUN (8-26) mg/dL Creatinine (0.72-1.25) mg/dL Est GFR ( Amer) (> 60) Est GFR (Non-Af Amer) (> 60) BUN/Creatinine Ratio (6-26) Glucose (70-99) mg/dL Calculated Osmolality (280-300) Calcium (8.6-10.8) mg/dL Total Bilirubin (0.2-1.2) mg/dL Direct Bilirubin (0.0-0.5) mg/dL Indirect Bilirubin (0.0-1.2) mg/dL AST (5-34) Units/L ALT (0-55) Units/L Alkaline Phosphatase (38-126) Units/L Ammonia (18-72) mcmol/L Troponin I (0-0.03) ng/mL Serum Total Protein (6.0-8.3) g/dL Albumin (3.5-5.0) g/dL Globulin (2.4-3.5) g/dL Albumin/Globulin Ratio (1.1-2.2) TSH (0.350-4.840) mcIU/mL Urine Color Yellow (Yellow) Urine Clarity Clear (Clear) Urine pH 6.0 (5.0-8.0) pH Units Ur Specific Lane 1.020 (1.010-1.025) Urine Protein >=300 H (Neg-Trace) mg/dL Urine Glucose (UA) 100 H (Normal) mg/dL Urine Ketones Negative (Negative) mg/dL Urine Blood Negative (Negative) Urine Nitrite Negative (Negative) Urine Bilirubin Negative (Negative) Urine Urobilinogen Normal (Normal) mg/dL Ur Leukocyte Esterase Negative (Negative) Urine Microscopic RBC 3-5 H (0-3) per hpf Urine Microscopic WBC 5-15 H (0-3) per hpf Ur Squamous Epith Cells Many H (None-Few) per lpf Urine Bacteria None Seen (None-Few) per hpf Hyaline Casts Few (None-Few) per lpf Ur Culture Indicated? YES A (NO) Urine Opiates Screen Negative (Fcarfe=478) ng/mL Ur Barbiturates Screen Negative (Wjkzkp=038) ng/mL Ur Phencyclidine Scrn Negative (Cutoff=25) ng/mL Ur Amphetamines Screen Negative (Tomwyp=8233) ng/mL U Benzodiazepines Scrn Negative (Risjhh=352) ng/mL Urine Cocaine Screen Negative (Cutoff= 300) ng/mL U Marijuana (THC) Screen Positive H (Cutoff = 50) ng/mL Ethyl Alcohol (0-10) mg/dL 04/17/17 04/17/17 04/17/17 Range/Units 16:47 16:47 16:47 WBC (4.3-11.1) K/mcL RBC (4.19-5.50) M/mcL Hgb (12.9-16.9) g/dL Hct (37.5-50.1) % MCV (83.0-100.0) fL MCH (28.0-33.3) pg MCHC (31.6-35.5) g/dL RDW (11.5-14.5) % Plt Count (140-400) K/mcL MPV (9.4-12.4) fL Immature Gran % (0-4) % Seg Neutrophils % % Lymphocytes % % Monocytes % % Eosinophils % % Basophils % % Neutrophils # (1.6-8.9) K/mcL Lymphocytes # (0.6-4.6) K/mcL Monocytes # (0.0-1.3) K/mcL Eosinophils # (0.0-0.6) K/mcL Basophils # (0.0-0.2) K/mcL PT 11.5 (9.4-12.1) Seconds INR 1.1 APTT 29.9 (26.0-36.0) Seconds Sodium 139 (136-145) mEq/L Potassium 3.7 (3.5-4.5) mEq/L Chloride 101 (98-109) mEq/L Carbon Dioxide 28 (19-29) mEq/L BUN 28 H (8-26) mg/dL Creatinine 2.61 H (0.72-1.25) mg/dL Est GFR ( Amer) 30 L (> 60) Est GFR (Non-Af Amer) 25 L (> 60) BUN/Creatinine Ratio 11 (6-26) Glucose 123 H (70-99) mg/dL Calculated Osmolality 295 (280-300) Calcium 9.5 (8.6-10.8) mg/dL Total Bilirubin 0.6 (0.2-1.2) mg/dL Direct Bilirubin 0.2 (0.0-0.5) mg/dL Indirect Bilirubin 0.4 (0.0-1.2) mg/dL AST 18 (5-34) Units/L ALT 16 (0-55) Units/L Alkaline Phosphatase 135 H (38-126) Units/L Ammonia 26 (18-72) mcmol/L Troponin I (0-0.03) ng/mL Serum Total Protein 7.9 (6.0-8.3) g/dL Albumin 3.6 (3.5-5.0) g/dL Globulin 4.3 H (2.4-3.5) g/dL Albumin/Globulin Ratio 0.8 L (1.1-2.2) TSH 0.784 (0.350-4.840) mcIU/mL Urine Color (Yellow) Urine Clarity (Clear) Urine pH (5.0-8.0) pH Units Ur Specific Lane (1.010-1.025) Urine Protein (Neg-Trace) mg/dL Urine Glucose (UA) (Normal) mg/dL Urine Ketones (Negative) mg/dL Urine Blood (Negative) Urine Nitrite (Negative) Urine Bilirubin (Negative) Urine Urobilinogen (Normal) mg/dL Ur Leukocyte Esterase (Negative) Urine Microscopic RBC (0-3) per hpf Urine Microscopic WBC (0-3) per hpf Ur Squamous Epith Cells (None-Few) per lpf Urine Bacteria (None-Few) per hpf Hyaline Casts (None-Few) per lpf Ur Culture Indicated? (NO) Urine Opiates Screen (Ixtnyy=910) ng/mL Ur Barbiturates Screen (Seoqbj=604) ng/mL Ur Phencyclidine Scrn (Cutoff=25) ng/mL Ur Amphetamines Screen (Pmwajw=6329) ng/mL U Benzodiazepines Scrn (Mowgya=522) ng/mL Urine Cocaine Screen (Cutoff= 300) ng/mL U Marijuana (THC) Screen (Cutoff = 50) ng/mL Ethyl Alcohol < 10 (0-10) mg/dL 04/17/17 Range/Units 16:47 WBC (4.3-11.1) K/mcL RBC (4.19-5.50) M/mcL Hgb (12.9-16.9) g/dL Hct (37.5-50.1) % MCV (83.0-100.0) fL MCH (28.0-33.3) pg MCHC (31.6-35.5) g/dL RDW (11.5-14.5) % Plt Count (140-400) K/mcL MPV (9.4-12.4) fL Immature Gran % (0-4) % Seg Neutrophils % % Lymphocytes % % Monocytes % % Eosinophils % % Basophils % % Neutrophils # (1.6-8.9) K/mcL Lymphocytes # (0.6-4.6) K/mcL Monocytes # (0.0-1.3) K/mcL Eosinophils # (0.0-0.6) K/mcL Basophils # (0.0-0.2) K/mcL PT (9.4-12.1) Seconds INR APTT (26.0-36.0) Seconds Sodium (136-145) mEq/L Potassium (3.5-4.5) mEq/L Chloride (98-109) mEq/L Carbon Dioxide (19-29) mEq/L BUN (8-26) mg/dL Creatinine (0.72-1.25) mg/dL Est GFR ( Amer) (> 60) Est GFR (Non-Af Amer) (> 60) BUN/Creatinine Ratio (6-26) Glucose (70-99) mg/dL Calculated Osmolality (280-300) Calcium (8.6-10.8) mg/dL Total Bilirubin (0.2-1.2) mg/dL Direct Bilirubin (0.0-0.5) mg/dL Indirect Bilirubin (0.0-1.2) mg/dL AST (5-34) Units/L ALT (0-55) Units/L Alkaline Phosphatase (38-126) Units/L Ammonia (18-72) mcmol/L Troponin I 0.08 H* (0-0.03) ng/mL Serum Total Protein (6.0-8.3) g/dL Albumin (3.5-5.0) g/dL Globulin (2.4-3.5) g/dL Albumin/Globulin Ratio (1.1-2.2) TSH (0.350-4.840) mcIU/mL Urine Color (Yellow) Urine Clarity (Clear) Urine pH (5.0-8.0) pH Units Ur Specific Lane (1.010-1.025) Urine Protein (Neg-Trace) mg/dL Urine Glucose (UA) (Normal) mg/dL Urine Ketones (Negative) mg/dL Urine Blood (Negative) Urine Nitrite (Negative) Urine Bilirubin (Negative) Urine Urobilinogen (Normal) mg/dL Ur Leukocyte Esterase (Negative) Urine Microscopic RBC (0-3) per hpf Urine Microscopic WBC (0-3) per hpf Ur Squamous Epith Cells (None-Few) per lpf Urine Bacteria (None-Few) per hpf Hyaline Casts (None-Few) per lpf Ur Culture Indicated? (NO) Urine Opiates Screen (Wokgcx=711) ng/mL Ur Barbiturates Screen (Mhhgbc=881) ng/mL Ur Phencyclidine Scrn (Cutoff=25) ng/mL Ur Amphetamines Screen (Npbxmu=8017) ng/mL U Benzodiazepines Scrn (Eadgha=423) ng/mL Urine Cocaine Screen (Cutoff= 300) ng/mL U Marijuana (THC) Screen (Cutoff = 50) ng/mL Ethyl Alcohol (0-10) mg/dL - Radiology Data Radiology results reviewed: Yes I reviewed the patient's radiology results. Chest X-Ray 04/17/17 16:06 IMPRESSION: No acute cardiopulmonary abnormality. D/ / Jamin Granado MD / Jamin Granado MD Interpreting Provider: Jamin Granado MD Head CT 04/17/17 16:06 IMPRESSION: 1. No acute intracranial abnormality. 2. There appears to be moderate chronic microvascular ischemic change. 3. Minimal scattered atherosclerosis. D/ / Jamin Granado MD / Jamin Granado MD Interpreting Provider: Jamin Granado MD - EKG Data EKG attestation: Yes I reviewed and interpreted this EKG. EKG shows normal: sinus rhythm Rate: normal Rhythm: NSR Interpretation: no acute changes TPA Checklist - Eligibilty for IV tPA 1. LKW equal to or less than 4.5 hours be before treatment: No - LKW: 3-4.5 hrs Add. Warnings/Precautions Patient/family understanding: The patient/family members have been counseled and understood the risk, benefit , and alternatives of treatment. NIH Stroke Scale - Level of Consciousness LOC: Alert - LOC Questions LOC Questions: Answers both correctly - LOC Commands LOC Commands: Performs both correctly - Best Gaze Best Gaze: Normal - Visual Visual: No visual loss - Facial Palsy Facial Palsy: Normal - Motor Arms Motor Arm-Left: No drift for 10 seconds Motor Arm-Right: No drift for 10 seconds - Motor Legs Motor Leg-Left: No drift for 5 seconds Motor Leg-Right: No drift for 5 seconds - Limb Ataxia Limb Ataxia: Normal, No Ataxia - Sensory Sensory: Normal - Best Language Best Language: No aphasia - Dysarthria Dysarthria: Normal - Extinction and Inattention Extinction and Inattention: Normal - NIHSS Total Score NIHSS Total Score: 0
[2017-04-17 16:45] LABS: Bilirubin,Urine Negative (Negative); Blood,Urine Negative (Negative); Clarity,Urine Clear (Clear); Color,Urine Yellow (Yellow); Glucose,Urine (UA) 100 mg/dL (Normal); Ketones,Urine Negative (Negative); Leukocyte Esterase,Urine Negative (Negative); Nitrite,Urine Negative (Negative); Protein,Urine >=300 mg/dL (Neg-Trace); Urobilinogen,Urine Normal (Normal)
[2017-04-17 16:49] LABS: Amphetamine Screen,Urine Negative ng/mL (Cutoff=1000); Bacteria,Urine None Seen per hpf (None-Few); Barbiturate Screen,Urine Negative ng/mL (Cutoff=200); Benzodiazepines Screen,Urine Negative ng/mL (Cutoff=200); Cannabinoid Screen,Urine Positive ng/mL (Cutoff = 50); Cocaine Screen,Urine Negative ng/mL (Cutoff= 300); Opiate Screen,Urine Negative ng/mL (Cutoff=300); Phencyclidine Screen,Urine Negative ng/mL (Cutoff=25); Squamous Epithelial Cell,Urine Many per lpf (None-Few)
[2017-04-17 17:01] LABS: Hyaline Casts,Urine Few per lpf (None-Few)
[2017-04-17 17:03] LABS: Basophils % 0.1 %; Eosinophils % 0.2 %; Hematocrit 35.3 % (37.5-50.1); Hemoglobin 12.4 g/dL (12.9-16.9); Immature Granulocytes % 0.2 % (0-4); Lymphocytes # 1.5 K/mcL (0.6-4.6); Lymphocytes % 17.4 %; Mean Corpuscular HGB Conc 35.1 g/dL (31.6-35.5); Mean Corpuscular Hemoglobin 27.8 pg (28.0-33.3); Mean Corpuscular Volume 79.1 fL (83.0-100.0); Mean Platelet Volume 9.7 fL (9.4-12.4); Monocytes # 0.7 K/mcL (0.0-1.3); Neutrophils # 6.6 K/mcL (1.6-8.9); Platelet Count 243 K/mcL (140-400); Red Blood Count 4.46 M/mcL (4.19-5.50); Red Cell Distribution Width 14.3 % (11.5-14.5); Segmented Neutrophils % 74.1 %
[2017-04-17 17:19] LABS: INR 1.1; Prothrombin Time 11.5 Seconds (9.4-12.1)
[2017-04-17 17:21] LABS: Activated Partial Thrombo Time 29.9 Seconds (26.0-36.0); Alanine Aminotransferase 16 Units/L (0-55); Albumin 3.6 g/dL (3.5-5.0); Albumin/Globulin Ratio 0.8 (1.1-2.2); Alkaline Phosphatase 135 Units/L (38-126); Aspartate Amino Transferase 18 Units/L (5-34); BUN/Creatinine Ratio 11 (6-26); Bilirubin,Direct 0.2 mg/dL (0.0-0.5); Bilirubin,Indirect 0.4 mg/dL (0.0-1.2); Bilirubin,Total 0.6 mg/dL (0.2-1.2); Blood Urea Nitrogen 28 mg/dL (8-26); Calcium 9.5 mg/dL (8.6-10.8); Carbon Dioxide 28 mEq/L (19-29); Chloride 101 mEq/L (98-109); Globulin 4.3 g/dL (2.4-3.5); Glucose 123 mg/dL (70-99); Osmolality,Calculated 295 (280-300); Potassium 3.7 mEq/L (3.5-4.5); Sodium 139 mEq/L (136-145); Total Protein 7.9 g/dL (6.0-8.3); eGFR For African Americans 30 (> 60); eGFR For Non-African Americans 25 (> 60)
[2017-04-17 17:24] LABS: Ethanol < 10 mg/dL (0-10)
[2017-04-17 17:41] LABS: Thyroid Stimulating Hormone 0.784 mcIU/mL (0.350-4.840)
[2017-04-17] MEDS ORDERED: Ondansetron 4 MG/2 ML VIAL IVP PRN (20:59)
[2017-04-17] MEDS ORDERED: Naloxone 0.4 MG/ML INJ IVP PRN (20:59)
--- NOTE | 2017-04-17 20:59 | Internal Med History&Physical ---
<Ancelmo Castro - Last Filed: 04/17/17 21:04> Date of Encounter: 04/17/17 Time of Encounter: 20:00 Assessment and Plan (1) Acute encephalopathy Current visit: No Status: Acute - With reported increase in confusion and forgetfulness. - Likely secondary to dehydration (given reported decrease in oral intake), possible urinary retention (given reported decrease in urine output) in the setting of possible underlying dementia. Continue hydration with IV NS and obtain bladder scan to rule out urinary retention. - Doubt stroke or intracranial hemorrhage given negative head CT, no neuro deficits and no history of trauma/injury. But may consider brain MRI for further evaluation. - Less likely UTI (given negative nitrite and leukocyte esterase) or other infections (given normal WBC and negative CXR). Blood cultures and urine culture pending. Will hold antibiotic at this time. - Less likely hypothyroidism or hepatic encephalopathy given normal TSH and ammonia level. - Clinical stable. Possible discharge tomorrow if patient's mental status improves. Patient is recommended to follow up with his PCP for further outpatient work-up for dementia. Time spent on this admission 45 minutes (2) Elevated troponin Current visit: No Status: Acute - Troponin 0.08 on admission, which is decreased from 0.27 on 03/09/17. - Per cardiology note from 03/09/17, it was most likely demand ischemia and medical management was recommended at that time. - No significant ischemic change on EKG compared to prior one from 03/09/17. - Continue monitor with telemetry and trend troponin. (3) CKD (chronic kidney disease), stage III Current visit: No Status: Chronic - SCr 2.61 / eGFR 30 on admission, which improved compared to SCr 3.46 / eGFR 22 on 03/12/17. - Hydration with IV NS. - Continue to monitor renal function and electrolytes. (4) Hypertension Current visit: No Status: Chronic - Noted to have elevated BP. - Will resume home antihypertensive regimen including clonidine and hydralazine. Qualifiers: Hypertension type: essential hypertension Qualified Code(s): I10 - Essential (primary) hypertension (5) Diabetes Current visit: No Status: Chronic - Insulin sliding scale with routine AccuCheck. - Diabetic diet. Qualifiers: Diabetes mellitus type: type 2 Diabetes mellitus complication status: without complication Diabetes mellitus [facility] insulin use: without [facility] use Qualified Code(s): E11.9 - Type 2 diabetes mellitus without complications (6) Tobacco abuse Current visit: No Status: Chronic - Smoking cessation counseling. - Nicotine patch. (7) DVT prophylaxis Current visit: No Status: Acute - SQ heparin. Internal Medicine - H&P: HPI Chief complaint: Increased confusion and forgetfulness Admitted From: Emergency Dept Plans for Post Hospital Care: Home History of present illness: Mr. Milan is a 66 year old male with PMH of HTN, DM, BPH, CKD, hepatitis B & C and history of illicit drug use. Patient was brought to [facility] ED by his family for increase in confusion and forgetfulness for one day. Per patient's partner at bedside, patient does not remember that his brother 2 months ago and his mother 2 years ago. Patient was also noted to forget taking his medications and meal with reduced oral intake and urine output for past 2 days. On the encounter, patient is alert and orient to person and place but not time. Patient reports having fatigue, occasional nausea/ vomiting and cough with yellow sputum but denies fever, chills, shortness of breath, chest pain, abdominal pain, diarrhea, hematochezia, melena, dysuria, hematuria, vision change, hearing change, numbness/tingling, focal weakness, skin rash/itchiness, easily bleeding/bruise. Patient denies recent trauma, injury or fall. Patient denies recent sick contact. Patient admits smoking cigarettes and marijuana and drinking beer 2-3 times per week with last drinking likely on Sunday. Patient also admits history of cocaine use but not recently (patient did have UDS positive for cocaine on 03/09/17). Patient is full code. CT head in ED found no acute intracranial abnormality. ED physician had concern of UTI and gave one dose of IV ceftriaxone. Past Med Surg Social Fam HX - Past Medical History Medical history: diabetes, hypertension, liver disease, other, hepatitis Psychiatric history: no psych history - Past Surgical History Surgical History: non-contributory (Tonsillectomy) - Social History Smoking Status: Current every day smoker Smokeless Tobacco Status: No Alcohol use: heavy, recent Drug use: marijuana - Family History Mother Living Status: Hx Family Endocrine Disorder: Yes (Diabetes) Hx Family Neurologic Disorders: Yes (Alzheimer's) Father Living Status: Hx Family Cancer: Yes (Prostate) Hx Family Endocrine Disorder: Yes (Diabetes) Internal Medicine - H&P: Meds Atorvastatin [Lipitor] 40 mg PO HS 09/01/16 [History] Glimepiride [Amaryl] 2 mg PO QAM 09/01/16 [History] Methadone HCl 10 mg PO QID 09/01/16 [History] Aspirin [Lo-Dose Aspirin EC] 81 mg PO DAILY 03/09/17 [History] Sildenafil Citrate [Viagra] 100 mg PO DAILY PRN 03/09/17 [History] Vitamin B Complex/Vit C/Vit E [Stresstab] 1 tab PO DAILY 03/09/17 [History] cloNIDine HCl [CloNIDine HCl] 0.3 mg PO TID #90 tablet 03/12/17 [Rx] Diltiazem HCl [Diltiazem ER] 120 mg PO DAILY 04/17/17 [History] hydrALAZINE [HydrALAZINE] 25 mg PO Q8HR 04/17/17 [History] Allergies No Known Allergies Allergy (Verified 03/09/17 07:53) All Systems PM: A 10-system review of systems was performed and is negative for pertinent findings except as documented above in the HPI. Patient reports having fatigue, occasional nausea/vomiting and cough with yellow sputum but denies fever, chills , shortness of breath, chest pain, abdominal pain, diarrhea, hematochezia, melena, dysuria, hematuria, vision change, hearing change, numbness/tingling, focal weakness, skin rash/itchiness, easily bleeding/bruise. - Constitutional Vitals: Temp Pulse Resp BP Pulse Ox 97.5 F L 53 18 195/105 98 04/17/17 15:53 04/17/17 16:55 04/17/17 20:20 04/17/17 20:20 04/17/17 16:55 General appearance: Present: cooperative, A&O X 2 (Oriented to person and place but not time.), no acute distress - Head Head exam: Present: atraumatic, normocephalic - Eye Eye exam: Present: EOMI, PERRL, conjuntiva pink, sclera anicteric - Neck Neck exam general surgery: Present: supple, trachea midline. Absent: lymphadenopathy - Respiratory Respiratory exam: Present: CTAB. Absent: accessory muscle use, rales, rhonchi, wheezes - Cardiovascular Cardiovascular exam: Present: RRR, +S1, +S2. Absent: diastolic murmur, gallop, rubs, systolic murmur - GI/Abdominal GI/Abdominal exam: Present: normal bowel sounds, soft, no peritoneal signs. Absent: distended, tenderness - Extremities Exam Extremities exam: Present: warm, radial pulses palpable and symmetrical. Absent : calf tenderness, cyanotic, pedal edema - Neurological Exam Neurological exam: Present: CN II-XII intact, oriented X3, no focal deficits. Absent: pronater drift, facial droop, speech deficit - Skin Skin exam: Present: dry, intact, warm Internal Med - H&P Results - Labs CBC & Chem 7: 04/17/17 16:47 04/17/17 16:47 - EKG Data Prior EKG available for review: yes When compared to previous EKG: there is no significant change <Noam Winter - Last Filed: 04/17/17 23:52> Date of Encounter: 04/17/17 Internal Medicine - H&P: HPI History of present illness: Mr. Milan is a 66 year old male All Systems PM: A 10-system review of systems was performed and is negative for pertinent findings except as documented above in the HPI. - Constitutional Vitals: Temp Pulse Resp BP Pulse Ox 98.7 F 59 19 211/99 98 04/17/17 23:34 04/17/17 23:34 04/17/17 23:34 04/17/17 23:34 04/17/17 23:34 Internal Med - H&P Results - Labs CBC & Chem 7: 04/17/17 16:47 04/17/17 16:47 - Attending Attestation I examined this patient and my medical decision-making was reviewed with the Resident Physician, Dr. Ancelmo Castro. I agree with the documented findings, disposition and treatment plan as described except to the extent set forth below. I have independently obtained history and examined the patient and my findings are summarized below: The patient appears mildly confused, oriented to self and place not to time. Heart exam reveals regular S1 and S2. No murmurs. Lungs are clear bilaterally. Plan: Workup for about encephalopathy. We will obtain MRI of the brain to rule out CVA and the demyelinating disease.
[2017-04-17] MEDS ORDERED: 0.9 % Sodium Chloride 1,000 ML IVC SCH (21:00)
[2017-04-17] MEDS ORDERED: Dextrose Gel 15 GM PO PRN ×2 (21:02)
[2017-04-17] MEDS ORDERED: D5% in Water 1,000 ML IVC PRN (21:02)
[2017-04-17] MEDS ORDERED: *HR* Dextrose 50 % in Water (Syg) 50 ML SYRINGE IVP PRN (21:02)
[2017-04-17] MEDS ORDERED: cloNIDine HCl 0.1 MG TABLET PO SCH (21:22)
[2017-04-17] MEDS ORDERED: *HR* Heparin 5,000 UNIT/ML VIAL SQ SCH (22:00)
[2017-04-17] MEDS: hydrALAZINE 25 MG TABLET PO SCH (22:38)
[2017-04-18] MEDS ORDERED: hydrALAZINE 25 MG TABLET PO SCH
[2017-04-18 04:22] VITALS: BP 185/95
[2017-04-18] MEDS: hydrALAZINE 25 MG TABLET PO SCH (04:29)
[2017-04-18] MEDS ORDERED: *HR* Methadone 10 MG TABLET PO SCH ×2 (04:31→09:00)
--- NOTE | 2017-04-18 06:43 | Discharge Summary ---
<Ancelmo Castro - Last Filed: 04/18/17 06:36> Date of Encounter: 04/18/17 Time of Encounter: 06:30 - Discharge Diagnosis (1) Acute encephalopathy Priority: Primary Status: Acute (2) Elevated troponin Priority: Secondary Status: Acute (3) CKD (chronic kidney disease), stage III Priority: Secondary Status: Chronic (4) Hypertension Priority: Secondary Status: Chronic Qualifiers: Hypertension type: essential hypertension Qualified Code(s): I10 - Essential (primary) hypertension (5) Diabetes Priority: Secondary Status: Chronic Qualifiers: Diabetes mellitus type: type 2 Diabetes mellitus complication status: without complication Diabetes mellitus fdc insulin use: without fdc use Qualified Code(s): E11.9 - Type 2 diabetes mellitus without complications (6) Tobacco abuse Priority: Secondary Status: Chronic (7) DVT prophylaxis Priority: Secondary Status: Acute - Discharge Medications Home Medications: Atorvastatin [Lipitor] 40 mg PO HS 09/01/16 [History] Glimepiride [Amaryl] 2 mg PO QAM 09/01/16 [History] Methadone HCl 10 mg PO QID 09/01/16 [History] Aspirin [Lo-Dose Aspirin EC] 81 mg PO DAILY 03/09/17 [History] Sildenafil Citrate [Viagra] 100 mg PO DAILY PRN 03/09/17 [History] Vitamin B Complex/Vit C/Vit E [Stresstab] 1 tab PO DAILY 03/09/17 [History] cloNIDine HCl [CloNIDine HCl] 0.3 mg PO TID #90 tablet 03/12/17 [Rx] Diltiazem HCl [Diltiazem ER] 120 mg PO DAILY 04/17/17 [History] hydrALAZINE [HydrALAZINE] 25 mg PO Q8HR 04/17/17 [History] Allergies/Adverse Reactions: Allergies No Known Allergies Allergy (Verified 03/09/17 07:53) Procedures/tests Complete & Pending: Procedures Performed prior 72 hours Category Date Time Status MR head/brain wo con [MR] Routine MRI 04/17/17 23:57 Ordered Date of admission: 04/17/17 19:52 Primary care physician: Rajesh Gillette Jr, MD - Patient Status Disposition: Left Against Medical Advice Condition: Fair Functional capacity at discharge: uses cane/walker - Discharge Instructions Follow Up With: Rajesh Gillette Jr, MD [Primary Care Provider] - Hospital course: Mr. Milan is a 66 year old male with PMH of HTN, DM, BPH, CKD, hepatitis B & C and history of illicit drug use. Patient was brought to [place] ED by his for increase in confusion and forgetfulness for one day and admitted on 04/17/17 for acute encephalopathy, which is likely secondary to dehydration (given reported decrease in oral intake), possible urinary retention (given reported decrease in urine output) in the setting of possible underlying dementia. Doubt stroke or intracranial hemorrhage given negative head CT, no neuro deficits and no history of trauma/injury. Less likely UTI (given negative nitrite and leukocyte esterase) or other infections (given normal WBC and negative CXR). Less likely hypothyroidism or hepatic encephalopathy given normal TSH and ammonia level. Patient received hydration with IV NS and has stable troponin (0.08 x2). I was paged by nurse at 6:29 on 04/18/17 that patient threats to leave AGAINST MEDICAL ADVICE and security was called. Upon my arrival, patient just walked out of his room with his cane in fast pace and it appeared that his cannot stop him from leaving. Per nurse, patient had signed his AMA form before leaving. - Time Spent with Patient Total time spent providing and/or coordinating discharge services: - Constitutional Vitals: Temp Pulse Resp BP Pulse Ox 98.2 F 58 19 185/95 98 04/18/17 04:14 04/18/17 04:14 04/18/17 04:14 04/18/17 04:14 04/18/17 04:14 <Noam Winter - Last Filed: 04/18/17 07:01> Date of Encounter: 04/18/17 Date of admission: 04/17/17 19:52 Primary care physician: Rajesh Gillette Jr, MD Hospital course: Mr. Milan is a 66 year old male - Time Spent with Patient Total time spent providing and/or coordinating discharge services: - Constitutional Vitals: Temp Pulse Resp BP Pulse Ox 98.2 F 58 19 185/95 98 04/18/17 04:14 04/18/17 04:14 04/18/17 04:14 04/18/17 04:14 04/18/17 04:14 - Attending Attestation I examined this patient and my medical decision-making was reviewed with the Resident Physician, Dr. Ancelmo Castro. I agree with the documented findings, disposition and treatment plan as described except to the extent set forth below. Patient signed out AMA. I did not have the opportunity to discuss the risks and benefits. He left before I was contacted by the nurse.
[2017-04-18] MEDS ORDERED: Insulin LISPRO 300 UNITS/3 ML VIAL SQ SCH ×2 (07:30→21:00)
[2017-04-18] MEDS ORDERED: Nicotine 14 MG PATCH.TD24 TD SCH (09:00)
[2017-04-18] MEDS ORDERED: Diltiazem CD (24hr) 120 MG CAPSULE PO SCH (09:00)
[2017-04-18] MEDS ORDERED: cloNIDine HCl 0.1 MG TABLET PO SCH (09:00)
[2017-04-18] MEDS ORDERED: Vitamin B Complex/Vit C/Vit E 1 EACH TABLET PO SCH (09:00)
[2017-04-18] MEDS ORDERED: Aspirin Enteric Coated 81 MG Tablet PO SCH (09:00)
--- NOTE | 2017-04-18 20:18 | Electrocardiograph Report ---
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
== END 2017-04-18 06:31 | disposition left against medical advice (07) ==
LOC: EMEROO 15:50 → 2ANU 15:50
PROVIDERS: ADMIT Internal Medicine; ATTEND Internal Medicine

== ENCOUNTER 2017-10-12 10:44 | Inpatient (IN) ==
[2017-10-12] MEDS ORDERED: 0.9 % Sodium Chloride 1,000 ML IVC ONE ×2 (10:50→12:04)
[2017-10-12] MEDS ORDERED: *HR* FentaNYL (PF) 100 MCG/2 ML VIAL IVP ONE (10:52)
--- NOTE | 2017-10-12 10:57 | Emergency Department Note ---
Disposition Clinical Impression: Substance abuse Abdominal pain Qualifiers: Abdominal location: lower abdomen, unspecified Qualified Code(s): R10.30 - Lower abdominal pain, unspecified Nausea & vomiting Qualifiers: Vomiting type: unspecified Vomiting Intractability: unspecified Qualified Code( s): R11.2 - Nausea with vomiting, unspecified Substance abuse withdrawal Qualifiers: Complication of substance-induced condition: with unspecified complication Qualified Code(s): 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, unspecified Disposition: Admitted As Inpatient Condition: Fair General Adult HPI - General Chief complaint: ED Nausea/Vomiting/Diarrhea Stated complaint: nausea, vomiting, fever Time Seen by Provider: 10/12/17 10:48 Source: patient, EMS Mode of arrival: EMS Limitations: altered mental status Nursing Notes Reviewed: Yes Vital Signs Reviewed: Yes - History of Present Illness HPI Narrative: Patient presents to the ED with fever and vomiting. History provided by EMS. Patient answers every question "I do not know." EMS state they were called for vomiting. He has had one episode of vomiting with them. He had a temp of 100. Patient has a history of hypertension and they state his son was present on scene and said he had not been taking his medication. - Related Data Home Medications Medication Instructions Recorded Confirmed Glimepiride [Amaryl] 2 mg PO QAM 09/01/16 10/12/17 Methadone HCl 10 mg PO QID 09/01/16 10/12/17 Aspirin [Lo-Dose Aspirin EC] 81 mg PO DAILY 03/09/17 10/12/17 Vitamin B Complex/Vit C/Vit E 1 tab PO DAILY 03/09/17 10/12/17 [Stresstab] Diltiazem HCl [Diltiazem ER] 120 mg PO DAILY 04/17/17 10/12/17 hydrALAZINE [HydrALAZINE] 25 mg PO Q8HR 04/17/17 10/12/17 HydrOXYzine [HydrOXYzine] 10 mg PO DAILY 10/12/17 10/12/17 Lisinopril [Zestril] 20 mg PO DAILY 10/12/17 10/12/17 Previous Rx's Medication Instructions Recorded cloNIDine HCl [CloNIDine HCl] 0.3 mg PO TID #90 tablet 03/12/17 Allergies Allergy/AdvReac Type Severity Reaction Status Date / Time No Known Allergies Allergy Verified 03/09/17 07:53 All systems ED: reviewed and negative except as stated. Constitutional: Reports: fever, chills Cardiovascular: Reports: chest pain Gastrointestinal: Reports: abdominal pain, nausea, vomiting Past Medical History - Past Medical History Attestation: Yes The following information was validated with the patient. Source: patient, old records reviewed Medical history: Reports: diabetes, hypertension, liver disease, other, hepatitis Surgical history: Reports: non-contributory Psychiatric history: Reports: no psych history - Social History Smoking Status: Current every day smoker Smokeless Tobacco Status: No Alcohol use: Reports: heavy, recent Drug use: Reports: marijuana Physical Exam - General Limitations: altered mental status General appearance: alert, other (Patient rolling in the bed holding his abdomen.) - Head Head exam: atraumatic, normocephalic - Eye Eye exam: Present: normal appearance - ENT ENT exam: normal exam - Neck Neck exam: Present: normal inspection - Chest Chest inspection: Present: normal inspection - Respiratory Respiratory exam: Present: normal lung sounds bilaterally. Absent: respiratory distress - Cardiovascular Cardiovascular exam: Present: regular rate, normal rhythm, normal heart sounds - Abdominal Exam Abdominal exam: Present: tenderness (Diffuse tenderness with guarding) - Back Exam Back exam: Present: normal inspection - Neurological Exam Neurological exam: Present: alert - Psychiatric Psychiatric exam: Present: agitated, anxious Course Course Narrative: Patient with a fever and abdominal tenderness. Will check CT abdomen. Head CT for altered mental status. Review of old chart reviews patient has a history of intracranial hemorrhage. Vital Signs Temperature 98.4 F 10/12/17 10:47 Pulse Rate 130 10/12/17 10:47 Respiratory Rate 14 10/12/17 10:47 Blood Pressure 237/155 10/12/17 10:47 O2 Sat by Pulse Oximetry 100 10/12/17 10:47 Temperature 98.9 F 10/12/17 18:00 Pulse Rate 89 10/12/17 18:00 Respiratory Rate 18 10/12/17 18:00 Blood Pressure 225/137 10/12/17 18:00 O2 Sat by Pulse Oximetry 99 10/12/17 18:00 Oxygen Delivery Oxygen Delivery Room Air Medical Decision Making - Lab Data Result diagrams: 10/12/17 11:27 10/12/17 11:27 Lab Results 10/12/17 10/12/17 10/12/17 Range/Units 11:03 11:03 11:27 WBC 14.4 H (4.3-11.1) K/mcL RBC 5.74 H (4.19-5.50) M/mcL Hgb 15.9 (12.9-16.9) g/dL Hct 43.9 (37.5-50.1) % MCV 76.5 L (83.0-100.0) fL MCH 27.7 L (28.0-33.3) pg MCHC 36.2 H (31.6-35.5) g/dL RDW 13.9 (11.5-14.5) % Plt Count 350 (140-400) K/mcL MPV 9.7 (9.4-12.4) fL Immature Gran % 0.4 (0-4) % Seg Neutrophils % 90.0 % Lymphocytes % 6.0 % Monocytes % 3.5 % Eosinophils % 0.0 % Basophils % 0.1 % Neutrophils # 13.0 H (1.6-8.9) K/mcL Lymphocytes # 0.9 (0.6-4.6) K/mcL Monocytes # 0.5 (0.0-1.3) K/mcL Eosinophils # 0.0 (0.0-0.6) K/mcL Basophils # 0.0 (0.0-0.2) K/mcL PT (9.4-12.1) Seconds INR APTT (26.0-36.0) Seconds ABG pH (7.32-7.45) pH Units ABG pCO2 (35-45) mmHg ABG pO2 (85-104) mmHg ABG HCO3 (21-27) mEq/L ABG Total CO2 (20-26) mEq/L ABG O2 Saturation (95-98) % ABG Base Excess (-2 to 3) mEq/L O2 Delivery Device Inspired O2 (1-15=lpm [id number]=%) Sodium (136-145) mEq/L Potassium (3.5-5.1) mEq/L Chloride (98-107) mEq/L Carbon Dioxide (23-29) mEq/L BUN (8-23) mg/dL Creatinine (0.70-1.30) mg/dL Est GFR ( Amer) (> 60) Est GFR (Non-Af Amer) (> 60) BUN/Creatinine Ratio (6-26) Glucose (70-105) mg/dL Calculated Osmolality (280-300) Lactic Acid (0.5-2.2) mmol/L Calcium (8.6-10.3) mg/dL Phosphorus (2.7-4.5) mg/dL Magnesium (1.6-2.6) mg/dL Total Bilirubin (0.3-1.0) mg/dL Direct Bilirubin (0.0-0.2) mg/dL Indirect Bilirubin (0.0-1.2) mg/dL AST (13-39) Units/L ALT (7-52) Units/L Alkaline Phosphatase (34-104) Units/L Ammonia (16-53) mcmol/L Troponin I (< 0.04) ng/mL Serum Total Protein (6.4-8.9) g/dL Albumin (3.5-5.7) g/dL Globulin (2.4-3.5) g/dL Albumin/Globulin Ratio (1.1-2.2) Lipase (11-82) Units/L Urine Color Yellow (Yellow) Urine Clarity Clear (Clear) Urine pH 7.5 (5.0-8.0) pH Units Ur Specific Melvin 1.018 (1.010-1.025) Urine Protein >=1000 H (Neg-Trace) mg/dL Urine Glucose (UA) 250 H (Normal) mg/dL Urine Ketones Negative (Negative) mg/dL Urine Blood Small H (Negative) Urine Nitrite Negative (Negative) Urine Bilirubin Negative (Negative) Urine Urobilinogen Normal (Normal) mg/dL Ur Leukocyte Esterase Negative (Negative) Urine Microscopic RBC 5-15 H (0-3) per hpf Urine Microscopic WBC 0-3 (0-3) per hpf Ur Squamous Epith Cells Many H (None-Few) per lpf Urine Bacteria None Seen (None-Few) per hpf Hyaline Casts Few (None-Few) per lpf Ur Culture Indicated? NO (NO) Urine Opiates Screen Negative (Vqdbvl=478) ng/mL Ur Barbiturates Screen Negative (Mjdsmw=474) ng/mL Ur Phencyclidine Scrn Negative (Cutoff=25) ng/mL Ur Amphetamines Screen Negative (Cufyex=0709) ng/mL U Benzodiazepines Scrn Negative (Opqard=063) ng/mL Urine Cocaine Screen Negative (Cutoff= 300) ng/mL U Marijuana (THC) Screen Positive H (Cutoff = 50) ng/mL 10/12/17 10/12/17 10/12/17 Range/Units 11:27 11:27 11:27 WBC (4.3-11.1) K/mcL RBC (4.19-5.50) M/mcL Hgb (12.9-16.9) g/dL Hct (37.5-50.1) % MCV (83.0-100.0) fL MCH (28.0-33.3) pg MCHC (31.6-35.5) g/dL RDW (11.5-14.5) % Plt Count (140-400) K/mcL MPV (9.4-12.4) fL Immature Gran % (0-4) % Seg Neutrophils % % Lymphocytes % % Monocytes % % Eosinophils % % Basophils % % Neutrophils # (1.6-8.9) K/mcL Lymphocytes # (0.6-4.6) K/mcL Monocytes # (0.0-1.3) K/mcL Eosinophils # (0.0-0.6) K/mcL Basophils # (0.0-0.2) K/mcL PT 11.1 (9.4-12.1) Seconds INR 1.0 APTT 31.3 (26.0-36.0) Seconds ABG pH (7.32-7.45) pH Units ABG pCO2 (35-45) mmHg ABG pO2 (85-104) mmHg ABG HCO3 (21-27) mEq/L ABG Total CO2 (20-26) mEq/L ABG O2 Saturation (95-98) % ABG Base Excess (-2 to 3) mEq/L O2 Delivery Device Inspired O2 (1-15=lpm [id number]=%) Sodium 140 (136-145) mEq/L Potassium 3.1 L (3.5-5.1) mEq/L Chloride 97 L (98-107) mEq/L Carbon Dioxide 27 (23-29) mEq/L BUN 28 H (8-23) mg/dL Creatinine 3.17 H (0.70-1.30) mg/dL Est GFR ( Amer) 24 L (> 60) Est GFR (Non-Af Amer) 20 L (> 60) BUN/Creatinine Ratio 9 (6-26) Glucose 244 H (70-105) mg/dL Calculated Osmolality 304 H (280-300) Lactic Acid 2.9 H (0.5-2.2) mmol/L Calcium 9.9 (8.6-10.3) mg/dL Phosphorus 1.7 L (2.7-4.5) mg/dL Magnesium 2.2 (1.6-2.6) mg/dL Total Bilirubin 0.9 (0.3-1.0) mg/dL Direct Bilirubin 0.2 (0.0-0.2) mg/dL Indirect Bilirubin 0.7 (0.0-1.2) mg/dL AST 41 H (13-39) Units/L ALT 21 (7-52) Units/L Alkaline Phosphatase 159 H (34-104) Units/L Ammonia (16-53) mcmol/L Troponin I (< 0.04) ng/mL Serum Total Protein 9.2 H (6.4-8.9) g/dL Albumin 5.1 (3.5-5.7) g/dL Globulin 4.1 H (2.4-3.5) g/dL Albumin/Globulin Ratio 1.2 (1.1-2.2) Lipase 5 L (11-82) Units/L Urine Color (Yellow) Urine Clarity (Clear) Urine pH (5.0-8.0) pH Units Ur Specific Melvin (1.010-1.025) Urine Protein (Neg-Trace) mg/dL Urine Glucose (UA) (Normal) mg/dL Urine Ketones (Negative) mg/dL Urine Blood (Negative) Urine Nitrite (Negative) Urine Bilirubin (Negative) Urine Urobilinogen (Normal) mg/dL Ur Leukocyte Esterase (Negative) Urine Microscopic RBC (0-3) per hpf Urine Microscopic WBC (0-3) per hpf Ur Squamous Epith Cells (None-Few) per lpf Urine Bacteria (None-Few) per hpf Hyaline Casts (None-Few) per lpf Ur Culture Indicated? (NO) Urine Opiates Screen (Agedvb=061) ng/mL Ur Barbiturates Screen (Ruurct=729) ng/mL Ur Phencyclidine Scrn (Cutoff=25) ng/mL Ur Amphetamines Screen (Bytmsu=2666) ng/mL U Benzodiazepines Scrn (Jyolab=743) ng/mL Urine Cocaine Screen (Cutoff= 300) ng/mL U Marijuana (THC) Screen (Cutoff = 50) ng/mL 10/12/17 10/12/17 10/12/17 Range/Units 11:27 11:45 13:18 WBC (4.3-11.1) K/mcL RBC (4.19-5.50) M/mcL Hgb (12.9-16.9) g/dL Hct (37.5-50.1) % MCV (83.0-100.0) fL MCH (28.0-33.3) pg MCHC (31.6-35.5) g/dL RDW (11.5-14.5) % Plt Count (140-400) K/mcL MPV (9.4-12.4) fL Immature Gran % (0-4) % Seg Neutrophils % % Lymphocytes % % Monocytes % % Eosinophils % % Basophils % % Neutrophils # (1.6-8.9) K/mcL Lymphocytes # (0.6-4.6) K/mcL Monocytes # (0.0-1.3) K/mcL Eosinophils # (0.0-0.6) K/mcL Basophils # (0.0-0.2) K/mcL PT (9.4-12.1) Seconds INR APTT (26.0-36.0) Seconds ABG pH 7.53 H (7.32-7.45) pH Units ABG pCO2 36 (35-45) mmHg ABG pO2 84 L (85-104) mmHg ABG HCO3 31 H (21-27) mEq/L ABG Total CO2 32 H (20-26) mEq/L ABG O2 Saturation 98 (95-98) % ABG Base Excess 8 H (-2 to 3) mEq/L O2 Delivery Device Room Air Inspired O2 21.0 (1-15=lpm [id number]=%) Sodium (136-145) mEq/L Potassium (3.5-5.1) mEq/L Chloride (98-107) mEq/L Carbon Dioxide (23-29) mEq/L BUN (8-23) mg/dL Creatinine (0.70-1.30) mg/dL Est GFR ( Amer) (> 60) Est GFR (Non-Af Amer) (> 60) BUN/Creatinine Ratio (6-26) Glucose (70-105) mg/dL Calculated Osmolality (280-300) Lactic Acid (0.5-2.2) mmol/L Calcium (8.6-10.3) mg/dL Phosphorus (2.7-4.5) mg/dL Magnesium (1.6-2.6) mg/dL Total Bilirubin (0.3-1.0) mg/dL Direct Bilirubin (0.0-0.2) mg/dL Indirect Bilirubin (0.0-1.2) mg/dL AST (13-39) Units/L ALT (7-52) Units/L Alkaline Phosphatase (34-104) Units/L Ammonia 37 (16-53) mcmol/L Troponin I 0.16 H* (< 0.04) ng/mL Serum Total Protein (6.4-8.9) g/dL Albumin (3.5-5.7) g/dL Globulin (2.4-3.5) g/dL Albumin/Globulin Ratio (1.1-2.2) Lipase (11-82) Units/L Urine Color (Yellow) Urine Clarity (Clear) Urine pH (5.0-8.0) pH Units Ur Specific Melvin (1.010-1.025) Urine Protein (Neg-Trace) mg/dL Urine Glucose (UA) (Normal) mg/dL Urine Ketones (Negative) mg/dL Urine Blood (Negative) Urine Nitrite (Negative) Urine Bilirubin (Negative) Urine Urobilinogen (Normal) mg/dL Ur Leukocyte Esterase (Negative) Urine Microscopic RBC (0-3) per hpf Urine Microscopic WBC (0-3) per hpf Ur Squamous Epith Cells (None-Few) per lpf Urine Bacteria (None-Few) per hpf Hyaline Casts (None-Few) per lpf Ur Culture Indicated? (NO) Urine Opiates Screen (Fsqoks=508) ng/mL Ur Barbiturates Screen (Icosdb=018) ng/mL Ur Phencyclidine Scrn (Cutoff=25) ng/mL Ur Amphetamines Screen (Pgzeue=5940) ng/mL U Benzodiazepines Scrn (Ftwjma=657) ng/mL Urine Cocaine Screen (Cutoff= 300) ng/mL U Marijuana (THC) Screen (Cutoff = 50) ng/mL 10/12/17 Range/Units 13:38 WBC (4.3-11.1) K/mcL RBC (4.19-5.50) M/mcL Hgb (12.9-16.9) g/dL Hct (37.5-50.1) % MCV (83.0-100.0) fL MCH (28.0-33.3) pg MCHC (31.6-35.5) g/dL RDW (11.5-14.5) % Plt Count (140-400) K/mcL MPV (9.4-12.4) fL Immature Gran % (0-4) % Seg Neutrophils % % Lymphocytes % % Monocytes % % Eosinophils % % Basophils % % Neutrophils # (1.6-8.9) K/mcL Lymphocytes # (0.6-4.6) K/mcL Monocytes # (0.0-1.3) K/mcL Eosinophils # (0.0-0.6) K/mcL Basophils # (0.0-0.2) K/mcL PT (9.4-12.1) Seconds INR APTT (26.0-36.0) Seconds ABG pH (7.32-7.45) pH Units ABG pCO2 (35-45) mmHg ABG pO2 (85-104) mmHg ABG HCO3 (21-27) mEq/L ABG Total CO2 (20-26) mEq/L ABG O2 Saturation (95-98) % ABG Base Excess (-2 to 3) mEq/L O2 Delivery Device Inspired O2 (1-15=lpm [id number]=%) Sodium (136-145) mEq/L Potassium (3.5-5.1) mEq/L Chloride (98-107) mEq/L Carbon Dioxide (23-29) mEq/L BUN (8-23) mg/dL Creatinine (0.70-1.30) mg/dL Est GFR ( Amer) (> 60) Est GFR (Non-Af Amer) (> 60) BUN/Creatinine Ratio (6-26) Glucose (70-105) mg/dL Calculated Osmolality (280-300) Lactic Acid 1.9 (0.5-2.2) mmol/L Calcium (8.6-10.3) mg/dL Phosphorus (2.7-4.5) mg/dL Magnesium (1.6-2.6) mg/dL Total Bilirubin (0.3-1.0) mg/dL Direct Bilirubin (0.0-0.2) mg/dL Indirect Bilirubin (0.0-1.2) mg/dL AST (13-39) Units/L ALT (7-52) Units/L Alkaline Phosphatase (34-104) Units/L Ammonia (16-53) mcmol/L Troponin I (< 0.04) ng/mL Serum Total Protein (6.4-8.9) g/dL Albumin (3.5-5.7) g/dL Globulin (2.4-3.5) g/dL Albumin/Globulin Ratio (1.1-2.2) Lipase (11-82) Units/L Urine Color (Yellow) Urine Clarity (Clear) Urine pH (5.0-8.0) pH Units Ur Specific Melvin (1.010-1.025) Urine Protein (Neg-Trace) mg/dL Urine Glucose (UA) (Normal) mg/dL Urine Ketones (Negative) mg/dL Urine Blood (Negative) Urine Nitrite (Negative) Urine Bilirubin (Negative) Urine Urobilinogen (Normal) mg/dL Ur Leukocyte Esterase (Negative) Urine Microscopic RBC (0-3) per hpf Urine Microscopic WBC (0-3) per hpf Ur Squamous Epith Cells (None-Few) per lpf Urine Bacteria (None-Few) per hpf Hyaline Casts (None-Few) per lpf Ur Culture Indicated? (NO) Urine Opiates Screen (Uvzmcv=837) ng/mL Ur Barbiturates Screen (Lsgfsb=967) ng/mL Ur Phencyclidine Scrn (Cutoff=25) ng/mL Ur Amphetamines Screen (Sfarxs=8915) ng/mL U Benzodiazepines Scrn (Iiaufb=726) ng/mL Urine Cocaine Screen (Cutoff= 300) ng/mL U Marijuana (THC) Screen (Cutoff = 50) ng/mL
[2017-10-12 11:14] LABS: Bilirubin,Urine Negative (Negative); Blood,Urine Small (Negative); Clarity,Urine Clear (Clear); Color,Urine Yellow (Yellow); Glucose,Urine (UA) 250 mg/dL (Normal); Ketones,Urine Negative (Negative); Leukocyte Esterase,Urine Negative (Negative); Nitrite,Urine Negative (Negative); PH,Urine 7.5 pH Units (5.0-8.0); Protein,Urine >=1000 mg/dL (Neg-Trace); Specific Gravity,Urine 1.018 (1.010-1.025); Urobilinogen,Urine Normal (Normal)
[2017-10-12 11:15] LABS: Bacteria,Urine None Seen per hpf (None-Few); Hyaline Casts,Urine Few per lpf (None-Few); Squamous Epithelial Cell,Urine Many per lpf (None-Few); WBC,Urine 0-3 per hpf (0-3)
[2017-10-12] MEDS ORDERED: Ondansetron 4 MG/2 ML VIAL IVP ONE (11:17)
--- NOTE | 2017-10-12 11:35 | Emergency Department Note ---
Disposition Clinical Impression: Substance abuse Abdominal pain Qualifiers: Abdominal location: lower abdomen, unspecified Qualified Code(s): R10.30 - Lower abdominal pain, unspecified Nausea & vomiting Qualifiers: Vomiting type: unspecified Vomiting Intractability: unspecified Qualified Code( s): R11.2 - Nausea with vomiting, unspecified Substance abuse withdrawal Qualifiers: Complication of substance-induced condition: with unspecified complication Qualified Code(s): 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, unspecified Disposition: Admitted As Inpatient Condition: Fair Time of Disposition: 13:39 General Adult HPI - General Chief complaint: ED Nausea/Vomiting/Diarrhea Stated complaint: nausea, vomiting, fever Time Seen by Provider: 10/12/17 10:48 Source: patient, EMS Mode of arrival: EMS Limitations: altered mental status Nursing Notes Reviewed: Yes Vital Signs Reviewed: Yes - History of Present Illness HPI Narrative: 67-year-old male with a history of hepatitis C, hypertension, diabetes, chronic kidney disease presents for evaluation of abdominal pain nausea vomiting diarrhea. Patient states it him onset was yesterday. Patient primarily complains of lower abdominal pain but does note diffuse tenderness. She required by the patient as well as the family at bedside. Patient also had several bouts of nonbloody nonbilious emesis. The patient also had loose stools. Patient also had low-grade fevers. Patient denies any chest pain or difficult breathing. Unknown whether there was decreased urine output per patient and her family. Pain Scale: 5 - Related Data Home Medications Medication Instructions Recorded Confirmed Glimepiride [Amaryl] 2 mg PO QAM 09/01/16 10/12/17 Methadone HCl 10 mg PO QID 09/01/16 10/12/17 Aspirin [Lo-Dose Aspirin EC] 81 mg PO DAILY 03/09/17 10/12/17 Vitamin B Complex/Vit C/Vit E 1 tab PO DAILY 03/09/17 10/12/17 [Stresstab] Diltiazem HCl [Diltiazem ER] 120 mg PO DAILY 04/17/17 10/12/17 hydrALAZINE [HydrALAZINE] 25 mg PO Q8HR 04/17/17 10/12/17 HydrOXYzine [HydrOXYzine] 10 mg PO DAILY 10/12/17 10/12/17 Lisinopril [Zestril] 20 mg PO DAILY 10/12/17 10/12/17 Previous Rx's Medication Instructions Recorded cloNIDine HCl [CloNIDine HCl] 0.3 mg PO TID #90 tablet 03/12/17 Allergies Allergy/AdvReac Type Severity Reaction Status Date / Time No Known Allergies Allergy Verified 03/09/17 07:53 Constitutional: Reports: fever, chills Eyes: Reports: as per HPI ENT ED: Reports: as per HPI Cardiovascular: Reports: chest pain Respiratory: Reports: as per HPI Gastrointestinal: Reports: abdominal pain, nausea, vomiting Genitourinary: Reports: as per HPI Musculoskeletal: Reports: as per HPI Integumentary: Reports: as per HPI Neurological: Reports: as per HPI Psychiatric: Reports: as per HPI Past Medical History - Past Medical History Source: patient, obtained from family Medical history: Reports: diabetes, hypertension, liver disease, other, hepatitis Surgical history: Reports: non-contributory Psychiatric history: Reports: no psych history - Social History Smoking Status: Current every day smoker Smokeless Tobacco Status: No Alcohol use: Reports: heavy, recent Drug use: Reports: marijuana Physical Exam - General Limitations: altered mental status General appearance: alert, other (Patient rolling in the bed holding his abdomen.) - Head Head exam: atraumatic, normocephalic, normal inspection - Eye Eye exam: Present: normal appearance, EOMI. Absent: scleral icterus - ENT ENT exam: normal exam, mucous membranes moist - Neck Neck exam: Present: normal inspection - Chest Chest inspection: Present: normal inspection - Respiratory Respiratory exam: Present: normal lung sounds bilaterally - Cardiovascular Cardiovascular exam: Present: regular rate, normal rhythm - Abdominal Exam Abdominal exam: Present: soft, tenderness (Diffuse tenderness from her lower abdomen). Absent: guarding, rebound, rigidity - Extremities Exam Extremities exam: Present: normal inspection - Back Exam Back exam: Present: normal inspection - Neurological Exam Neurological exam: Present: alert - Skin Skin exam: Present: warm, dry, intact, normal color Course Course Narrative: Patient seen and examined. Patient appears to helpful. Patient will get basic abdominal workup including labs CT of the head as well as CT of the abdomen and pelvis. Disposition pending. - Reevaluation(s) Reevaluation #1: Patient did lose his IV. Time: 12:37 Reevaluation #2: Given the fact the patient does meet SIRS criteria with unknown source at this point the patient will be started on broad-spectrum antibiotics. Patient is receiving fluid resuscitation with normal saline. Time: 13:09 - Consultations Consultation #1: Hospitalist recommended starting a Cardene drip. Instructed that were documented lower the blood pressure significantly. Patient will be monitored in the stepdown unit. Vital Signs Temperature 98.4 F 10/12/17 10:47 Pulse Rate 130 10/12/17 10:47 Respiratory Rate 14 10/12/17 10:47 Blood Pressure 237/155 10/12/17 10:47 O2 Sat by Pulse Oximetry 100 10/12/17 10:47 Temperature 98.4 F 10/12/17 10:47 Pulse Rate 90 10/12/17 16:06 Respiratory Rate 16 10/12/17 16:06 Blood Pressure 238/137 10/12/17 16:06 O2 Sat by Pulse Oximetry 98 10/12/17 16:06 Oxygen Delivery Oxygen Delivery Room Air Medical Decision Making - MDM Narrative Medical decision making narrative: 67-year-old male transfer evaluation of abdominal pain nausea vomiting. Patient was a poor historian upon EMS arrival. Patient did have diffuse abdominal tenderness. Patient had basic lab work as well as CT abdomen and pelvis. CT of pelvis was nonspecific and did show some free fluid in the cul-de -sac however no specific injury or abdominal pathology identified. Patient did have an elevated lactate as well as tachycardic. Patient did meet SIRS criteria with tachycardia elevated lactate and leukocytosis. Patient started on broad-spectrum antibiotics. Patient was fluid resuscitated with trimming of lactate. The patient's abdominal exam is unremarkable on repeat. Patient's family does state that there is been a recent illness of viral syndrome and he has been having a cough. Patient will get a influenza swab. The patient's troponin was also elevated but notes troponins were elevated in the past with no ischemic EKG changes. Patient does meet Sirs and received 2 L of fluid however did not receive 30 mL/kg bolus because of unknown cardiac function however the patient's lactated clear. Patient will likely need further evaluation monitoring with trending of lactate as well as troponin abdominal exams. also states the patient does have a history of substance abuse and has been on methadone but states he has been taking his methadone despite the vomiting concern of the patient's possible withdrawing from medications. - Lab Data Lab results reviewed: Yes I reviewed the patient's lab results. Result diagrams: 10/12/17 11:27 10/12/17 11:27 Lab Results 10/12/17 10/12/17 10/12/17 Range/Units 11:03 11:03 11:27 WBC 14.4 H (4.3-11.1) K/mcL RBC 5.74 H (4.19-5.50) M/mcL Hgb 15.9 (12.9-16.9) g/dL Hct 43.9 (37.5-50.1) % MCV 76.5 L (83.0-100.0) fL MCH 27.7 L (28.0-33.3) pg MCHC 36.2 H (31.6-35.5) g/dL RDW 13.9 (11.5-14.5) % Plt Count 350 (140-400) K/mcL MPV 9.7 (9.4-12.4) fL Immature Gran % 0.4 (0-4) % Seg Neutrophils % 90.0 % Lymphocytes % 6.0 % Monocytes % 3.5 % Eosinophils % 0.0 % Basophils % 0.1 % Neutrophils # 13.0 H (1.6-8.9) K/mcL Lymphocytes # 0.9 (0.6-4.6) K/mcL Monocytes # 0.5 (0.0-1.3) K/mcL Eosinophils # 0.0 (0.0-0.6) K/mcL Basophils # 0.0 (0.0-0.2) K/mcL PT (9.4-12.1) Seconds INR APTT (26.0-36.0) Seconds ABG pH (7.32-7.45) pH Units ABG pCO2 (35-45) mmHg ABG pO2 (85-104) mmHg ABG HCO3 (21-27) mEq/L ABG Total CO2 (20-26) mEq/L ABG O2 Saturation (95-98) % ABG Base Excess (-2 to 3) mEq/L O2 Delivery Device Inspired O2 (1-15=lpm [id number]=%) Sodium (136-145) mEq/L Potassium (3.5-5.1) mEq/L Chloride (98-107) mEq/L Carbon Dioxide (23-29) mEq/L BUN (8-23) mg/dL Creatinine (0.70-1.30) mg/dL Est GFR ( Amer) (> 60) Est GFR (Non-Af Amer) (> 60) BUN/Creatinine Ratio (6-26) Glucose (70-105) mg/dL Calculated Osmolality (280-300) Lactic Acid (0.5-2.2) mmol/L Calcium (8.6-10.3) mg/dL Phosphorus (2.7-4.5) mg/dL Magnesium (1.6-2.6) mg/dL Total Bilirubin (0.3-1.0) mg/dL Direct Bilirubin (0.0-0.2) mg/dL Indirect Bilirubin (0.0-1.2) mg/dL AST (13-39) Units/L ALT (7-52) Units/L Alkaline Phosphatase (34-104) Units/L Ammonia (16-53) mcmol/L Troponin I (< 0.04) ng/mL Serum Total Protein (6.4-8.9) g/dL Albumin (3.5-5.7) g/dL Globulin (2.4-3.5) g/dL Albumin/Globulin Ratio (1.1-2.2) Lipase (11-82) Units/L Urine Color Yellow (Yellow) Urine Clarity Clear (Clear) Urine pH 7.5 (5.0-8.0) pH Units Ur Specific [place] 1.018 (1.010-1.025) Urine Protein >=1000 H (Neg-Trace) mg/dL Urine Glucose (UA) 250 H (Normal) mg/dL Urine Ketones Negative (Negative) mg/dL Urine Blood Small H (Negative) Urine Nitrite Negative (Negative) Urine Bilirubin Negative (Negative) Urine Urobilinogen Normal (Normal) mg/dL Ur Leukocyte Esterase Negative (Negative) Urine Microscopic RBC 5-15 H (0-3) per hpf Urine Microscopic WBC 0-3 (0-3) per hpf Ur Squamous Epith Cells Many H (None-Few) per lpf Urine Bacteria None Seen (None-Few) per hpf Hyaline Casts Few (None-Few) per lpf Ur Culture Indicated? NO (NO) Urine Opiates Screen Negative (Zhpcdp=254) ng/mL Ur Barbiturates Screen Negative (Oqhhwj=455) ng/mL Ur Phencyclidine Scrn Negative (Cutoff=25) ng/mL Ur Amphetamines Screen Negative (Lahrxr=9427) ng/mL U Benzodiazepines Scrn Negative (Ntkkpx=688) ng/mL Urine Cocaine Screen Negative (Cutoff= 300) ng/mL U Marijuana (THC) Screen Positive H (Cutoff = 50) ng/mL 10/12/17 10/12/17 10/12/17 Range/Units 11:27 11:27 11:27 WBC (4.3-11.1) K/mcL RBC (4.19-5.50) M/mcL Hgb (12.9-16.9) g/dL Hct (37.5-50.1) % MCV (83.0-100.0) fL MCH (28.0-33.3) pg MCHC (31.6-35.5) g/dL RDW (11.5-14.5) % Plt Count (140-400) K/mcL MPV (9.4-12.4) fL Immature Gran % (0-4) % Seg Neutrophils % % Lymphocytes % % Monocytes % % Eosinophils % % Basophils % % Neutrophils # (1.6-8.9) K/mcL Lymphocytes # (0.6-4.6) K/mcL Monocytes # (0.0-1.3) K/mcL Eosinophils # (0.0-0.6) K/mcL Basophils # (0.0-0.2) K/mcL PT 11.1 (9.4-12.1) Seconds INR 1.0 APTT 31.3 (26.0-36.0) Seconds ABG pH (7.32-7.45) pH Units ABG pCO2 (35-45) mmHg ABG pO2 (85-104) mmHg ABG HCO3 (21-27) mEq/L ABG Total CO2 (20-26) mEq/L ABG O2 Saturation (95-98) % ABG Base Excess (-2 to 3) mEq/L O2 Delivery Device Inspired O2 (1-15=lpm [id number]=%) Sodium 140 (136-145) mEq/L Potassium 3.1 L (3.5-5.1) mEq/L Chloride 97 L (98-107) mEq/L Carbon Dioxide 27 (23-29) mEq/L BUN 28 H (8-23) mg/dL Creatinine 3.17 H (0.70-1.30) mg/dL Est GFR ( Amer) 24 L (> 60) Est GFR (Non-Af Amer) 20 L (> 60) BUN/Creatinine Ratio 9 (6-26) Glucose 244 H (70-105) mg/dL Calculated Osmolality 304 H (280-300) Lactic Acid 2.9 H (0.5-2.2) mmol/L Calcium 9.9 (8.6-10.3) mg/dL Phosphorus 1.7 L (2.7-4.5) mg/dL Magnesium 2.2 (1.6-2.6) mg/dL Total Bilirubin 0.9 (0.3-1.0) mg/dL Direct Bilirubin 0.2 (0.0-0.2) mg/dL Indirect Bilirubin 0.7 (0.0-1.2) mg/dL AST 41 H (13-39) Units/L ALT 21 (7-52) Units/L Alkaline Phosphatase 159 H (34-104) Units/L Ammonia (16-53) mcmol/L Troponin I (< 0.04) ng/mL Serum Total Protein 9.2 H (6.4-8.9) g/dL Albumin 5.1 (3.5-5.7) g/dL Globulin 4.1 H (2.4-3.5) g/dL Albumin/Globulin Ratio 1.2 (1.1-2.2) Lipase 5 L (11-82) Units/L Urine Color (Yellow) Urine Clarity (Clear) Urine pH (5.0-8.0) pH Units Ur Specific [place] (1.010-1.025) Urine Protein (Neg-Trace) mg/dL Urine Glucose (UA) (Normal) mg/dL Urine Ketones (Negative) mg/dL Urine Blood (Negative) Urine Nitrite (Negative) Urine Bilirubin (Negative) Urine Urobilinogen (Normal) mg/dL Ur Leukocyte Esterase (Negative) Urine Microscopic RBC (0-3) per hpf Urine Microscopic WBC (0-3) per hpf Ur Squamous Epith Cells (None-Few) per lpf Urine Bacteria (None-Few) per hpf Hyaline Casts (None-Few) per lpf Ur Culture Indicated? (NO) Urine Opiates Screen (Nqhcap=230) ng/mL Ur Barbiturates Screen (Sxlhbr=788) ng/mL Ur Phencyclidine Scrn (Cutoff=25) ng/mL Ur Amphetamines Screen (Oqdxpy=4874) ng/mL U Benzodiazepines Scrn (Dwbjav=579) ng/mL Urine Cocaine Screen (Cutoff= 300) ng/mL U Marijuana (THC) Screen (Cutoff = 50) ng/mL 10/12/17 10/12/17 10/12/17 Range/Units 11:27 11:45 13:18 WBC (4.3-11.1) K/mcL RBC (4.19-5.50) M/mcL Hgb (12.9-16.9) g/dL Hct (37.5-50.1) % MCV (83.0-100.0) fL MCH (28.0-33.3) pg MCHC (31.6-35.5) g/dL RDW (11.5-14.5) % Plt Count (140-400) K/mcL MPV (9.4-12.4) fL Immature Gran % (0-4) % Seg Neutrophils % % Lymphocytes % % Monocytes % % Eosinophils % % Basophils % % Neutrophils # (1.6-8.9) K/mcL Lymphocytes # (0.6-4.6) K/mcL Monocytes # (0.0-1.3) K/mcL Eosinophils # (0.0-0.6) K/mcL Basophils # (0.0-0.2) K/mcL PT (9.4-12.1) Seconds INR APTT (26.0-36.0) Seconds ABG pH 7.53 H (7.32-7.45) pH Units ABG pCO2 36 (35-45) mmHg ABG pO2 84 L (85-104) mmHg ABG HCO3 31 H (21-27) mEq/L ABG Total CO2 32 H (20-26) mEq/L ABG O2 Saturation 98 (95-98) % ABG Base Excess 8 H (-2 to 3) mEq/L O2 Delivery Device Room Air Inspired O2 21.0 (1-15=lpm op04-960=%) Sodium (136-145) mEq/L Potassium (3.5-5.1) mEq/L Chloride (98-107) mEq/L Carbon Dioxide (23-29) mEq/L BUN (8-23) mg/dL Creatinine (0.70-1.30) mg/dL Est GFR ( Amer) (> 60) Est GFR (Non-Af Amer) (> 60) BUN/Creatinine Ratio (6-26) Glucose (70-105) mg/dL Calculated Osmolality (280-300) Lactic Acid (0.5-2.2) mmol/L Calcium (8.6-10.3) mg/dL Phosphorus (2.7-4.5) mg/dL Magnesium (1.6-2.6) mg/dL Total Bilirubin (0.3-1.0) mg/dL Direct Bilirubin (0.0-0.2) mg/dL Indirect Bilirubin (0.0-1.2) mg/dL AST (13-39) Units/L ALT (7-52) Units/L Alkaline Phosphatase (34-104) Units/L Ammonia 37 (16-53) mcmol/L Troponin I 0.16 H* (< 0.04) ng/mL Serum Total Protein (6.4-8.9) g/dL Albumin (3.5-5.7) g/dL Globulin (2.4-3.5) g/dL Albumin/Globulin Ratio (1.1-2.2) Lipase (11-82) Units/L Urine Color (Yellow) Urine Clarity (Clear) Urine pH (5.0-8.0) pH Units Ur Specific [place] (1.010-1.025) Urine Protein (Neg-Trace) mg/dL Urine Glucose (UA) (Normal) mg/dL Urine Ketones (Negative) mg/dL Urine Blood (Negative) Urine Nitrite (Negative) Urine Bilirubin (Negative) Urine Urobilinogen (Normal) mg/dL Ur Leukocyte Esterase (Negative) Urine Microscopic RBC (0-3) per hpf Urine Microscopic WBC (0-3) per hpf Ur Squamous Epith Cells (None-Few) per lpf Urine Bacteria (None-Few) per hpf Hyaline Casts (None-Few) per lpf Ur Culture Indicated? (NO) Urine Opiates Screen (Ijrpzi=753) ng/mL Ur Barbiturates Screen (Ntmmyf=100) ng/mL Ur Phencyclidine Scrn (Cutoff=25) ng/mL Ur Amphetamines Screen (Naapyq=4688) ng/mL U Benzodiazepines Scrn (Ehhsyt=459) ng/mL Urine Cocaine Screen (Cutoff= 300) ng/mL U Marijuana (THC) Screen (Cutoff = 50) ng/mL 10/12/17 Range/Units 13:38 WBC (4.3-11.1) K/mcL RBC (4.19-5.50) M/mcL Hgb (12.9-16.9) g/dL Hct (37.5-50.1) % MCV (83.0-100.0) fL MCH (28.0-33.3) pg MCHC (31.6-35.5) g/dL RDW (11.5-14.5) % Plt Count (140-400) K/mcL MPV (9.4-12.4) fL Immature Gran % (0-4) % Seg Neutrophils % % Lymphocytes % % Monocytes % % Eosinophils % % Basophils % % Neutrophils # (1.6-8.9) K/mcL Lymphocytes # (0.6-4.6) K/mcL Monocytes # (0.0-1.3) K/mcL Eosinophils # (0.0-0.6) K/mcL Basophils # (0.0-0.2) K/mcL PT (9.4-12.1) Seconds INR APTT (26.0-36.0) Seconds ABG pH (7.32-7.45) pH Units ABG pCO2 (35-45) mmHg ABG pO2 (85-104) mmHg ABG HCO3 (21-27) mEq/L ABG Total CO2 (20-26) mEq/L ABG O2 Saturation (95-98) % ABG Base Excess (-2 to 3) mEq/L O2 Delivery Device Inspired O2 (1-15=lpm ef34-188=%) Sodium (136-145) mEq/L Potassium (3.5-5.1) mEq/L Chloride (98-107) mEq/L Carbon Dioxide (23-29) mEq/L BUN (8-23) mg/dL Creatinine (0.70-1.30) mg/dL Est GFR ( Amer) (> 60) Est GFR (Non-Af Amer) (> 60) BUN/Creatinine Ratio (6-26) Glucose (70-105) mg/dL Calculated Osmolality (280-300) Lactic Acid 1.9 (0.5-2.2) mmol/L Calcium (8.6-10.3) mg/dL Phosphorus (2.7-4.5) mg/dL Magnesium (1.6-2.6) mg/dL Total Bilirubin (0.3-1.0) mg/dL Direct Bilirubin (0.0-0.2) mg/dL Indirect Bilirubin (0.0-1.2) mg/dL AST (13-39) Units/L ALT (7-52) Units/L Alkaline Phosphatase (34-104) Units/L Ammonia (16-53) mcmol/L Troponin I (< 0.04) ng/mL Serum Total Protein (6.4-8.9) g/dL Albumin (3.5-5.7) g/dL Globulin (2.4-3.5) g/dL Albumin/Globulin Ratio (1.1-2.2) Lipase (11-82) Units/L Urine Color (Yellow) Urine Clarity (Clear) Urine pH (5.0-8.0) pH Units Ur Specific [place] (1.010-1.025) Urine Protein (Neg-Trace) mg/dL Urine Glucose (UA) (Normal) mg/dL Urine Ketones (Negative) mg/dL Urine Blood (Negative) Urine Nitrite (Negative) Urine Bilirubin (Negative) Urine Urobilinogen (Normal) mg/dL Ur Leukocyte Esterase (Negative) Urine Microscopic RBC (0-3) per hpf Urine Microscopic WBC (0-3) per hpf Ur Squamous Epith Cells (None-Few) per lpf Urine Bacteria (None-Few) per hpf Hyaline Casts (None-Few) per lpf Ur Culture Indicated? (NO) Urine Opiates Screen (Tcqiqs=099) ng/mL Ur Barbiturates Screen (Mozghe=051) ng/mL Ur Phencyclidine Scrn (Cutoff=25) ng/mL Ur Amphetamines Screen (Eqxmpb=3717) ng/mL U Benzodiazepines Scrn (Pzjnqf=132) ng/mL Urine Cocaine Screen (Cutoff= 300) ng/mL U Marijuana (THC) Screen (Cutoff = 50) ng/mL - Radiology Data Radiology results reviewed: Yes I reviewed the patient's radiology results. Chest X-Ray 10/12/17 10:50 IMPRESSION: No acute abnormality. D/ / Macho Main MD / Macho Main MD Interpreting Provider: Macho aMin MD Abdomen/Pelvis CT 10/12/17 10:51 IMPRESSION: 1. Moderate patient motion somewhat limits sensitivity; however, within this context, no specific, acute pathology is appreciated. 2. A tiny amount of free fluid in the the cul-de-sac is nonspecific. 3. No hydronephrosis or lithiasis. 4. Mild prostate gland prominence and urinary bladder wall thickening. D/ / Aamir Pond / Aamir Pond Interpreting Provider: Aamir Pond Head CT 10/12/17 10:51 IMPRESSION: 1. Age-indeterminate lacunar stroke left caudate lobe, left thalamus and right mireles radiata. 2. White matter hypoattenuation described is typical of microvascular ischemic disease or as sequela of dysmyelinating/demyelinating processes. 3. No intracranial bleed. 4. Calcifications involving bilateral carotid vasculature reflect calcific atherosclerosis. D/ / Tobi Sawant / Tobi Sawant Interpreting Provider: Tobi Sawant - EKG Data EKG #1 EKG attestation: Yes I reviewed and interpreted this EKG. EKG shows normal: sinus rhythm Rate: tachycardia Rhythm: NSR [place]/QRS: normal Voltage: c/w LVH T wave inversions noted in: II When compared to previous EKG there are: no significant changes Interpretation: no acute changes, nonspecific ST-T wave changes Attestation Statement - Attestation Attestation: I examined this patient and my medical decision-making was reviewed with the Resident Physician. I agree with the documented findings, disposition and treatment plan as described except to the extent set forth below. Please see my note for my history and assessment.
[2017-10-12 11:42] LABS: Basophils % 0.1 %; Hematocrit 43.9 % (37.5-50.1); Hemoglobin 15.9 g/dL (12.9-16.9); Immature Granulocytes % 0.4 % (0-4); Lymphocytes # 0.9 K/mcL (0.6-4.6); Mean Corpuscular HGB Conc 36.2 g/dL (31.6-35.5); Mean Corpuscular Hemoglobin 27.7 pg (28.0-33.3); Mean Corpuscular Volume 76.5 fL (83.0-100.0); Mean Platelet Volume 9.7 fL (9.4-12.4); Monocytes # 0.5 K/mcL (0.0-1.3); Monocytes % 3.5 %; Platelet Count 350 K/mcL (140-400); Red Blood Count 5.74 M/mcL (4.19-5.50); Red Cell Distribution Width 13.9 % (11.5-14.5)
[2017-10-12 11:47] LABS: Prothrombin Time 11.1 Seconds (9.4-12.1)
[2017-10-12 11:50] LABS: Activated Partial Thrombo Time 31.3 Seconds (26.0-36.0)
[2017-10-12 11:59] LABS: Albumin 5.1 g/dL (3.5-5.7); Albumin/Globulin Ratio 1.2 (1.1-2.2); Bilirubin,Direct 0.2 mg/dL (0.0-0.2); Bilirubin,Indirect 0.7 mg/dL (0.0-1.2); Bilirubin,Total 0.9 mg/dL (0.3-1.0); Calcium 9.9 mg/dL (8.6-10.3); Globulin 4.1 g/dL (2.4-3.5); Magnesium 2.2 mg/dL (1.6-2.6); Phosphorous 1.7 mg/dL (2.7-4.5); Potassium 3.1 mEq/L (3.5-5.1); Total Protein 9.2 g/dL (6.4-8.9)
[2017-10-12] MEDS ORDERED: *HR* Labetalol 20 MG/4 ML SYRINGE IVP ONE (12:04)
[2017-10-12] MEDS ORDERED: Vancomycin 1,500 MG in D5% in Water 250 ML IVPB ONE (13:06)
[2017-10-12] MEDS ORDERED: Piperacillin/Tazobactam 3.375 GM in Water for inj. (sterile) 20 ML IVP ONE (13:07)
[2017-10-12 13:22] LABS: ABG Base Excess 8 mEq/L (-2 to 3); ABG HCO3 31 mEq/L (21-27); ABG Oxygen Saturation 98 % (95-98); ABG PCO2 36 mmHg (35-45); ABG PH 7.53 pH Units (7.32-7.45); ABG PO2 84 mmHg (85-104); ABG TCO2 32 mEq/L (20-26)
[2017-10-12] MEDS ORDERED: Aspirin 81 MG TAB.CHEW PO ONE (13:42)
[2017-10-12] MEDS ORDERED: CloNIDine Patch 0.3 MG PATCH (WEEKLY) TD ONE (13:55)
[2017-10-12] MEDS ORDERED: cloNIDine HCl 0.1 MG TABLET PO ONE (14:12)
[2017-10-12 14:26] LABS: Amphetamine Screen,Urine Negative ng/mL (Cutoff=1000); Barbiturate Screen,Urine Negative ng/mL (Cutoff=200); Benzodiazepines Screen,Urine Negative ng/mL (Cutoff=200); Cannabinoid Screen,Urine Positive ng/mL (Cutoff = 50); Cocaine Screen,Urine Negative ng/mL (Cutoff= 300); Opiate Screen,Urine Negative ng/mL (Cutoff=300); Phencyclidine Screen,Urine Negative ng/mL (Cutoff=25)
--- NOTE | 2017-10-12 15:01 | Internal Med History&Physical ---
Date of Encounter: 10/12/17 Time of Encounter: 14:57 Assessment and Plan (1) Abdominal pain Current visit: Yes Status: Acute Patient with abdominal pain CT of the abdomen is unremarkable lipase within normal patient has similar presentation last year was seen by GI and general surgery workup was unremarkable will observe possible gastroenteritis. (We will consult GI Qualifiers: Abdominal location: lower abdomen, unspecified Qualified Code(s): R10.30 - Lower abdominal pain, unspecified (2) Nausea & vomiting Current visit: Yes Status: Acute Persistent nausea vomiting diarrhea suggestive of some withdrawal syndrome versus gastroenteritis flu test has been done results Qualifiers: Vomiting type: unspecified Vomiting Intractability: unspecified Qualified Code(s): R11.2 - Nausea with vomiting, unspecified (3) Substance abuse withdrawal Current visit: Yes Status: Acute Likely withdrawal syndrome Qualifiers: Complication of substance-induced condition: with unspecified complication Qualified Code(s): 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, unspecified (4) NAKIA (acute kidney injury) Current visit: No Status: Chronic Acute on chronic retina appeared to be at baseline has been higher than this in the past (5) Altered mental status Current visit: No Status: Acute Qualifiers: Altered mental status type: disorientation Qualified Code(s): R41.0 - Disorientation, unspecified (6) Hypertensive urgency Current visit: No Status: Acute Hypertensive urgency patient, There Is Possible He May Be Having Rebound Hypertension She will be started on Cardene drip and transferred to ICU resume some of his by mouth medication as well possibly having some withdrawal syndrome (7) Diabetes Current visit: No Status: Chronic Chronic resume home medication and sliding scale Qualifiers: Diabetes mellitus type: type 2 Diabetes mellitus complication status: without complication Diabetes mellitus chcf insulin use: without chcf use Qualified Code(s): E11.9 - Type 2 diabetes mellitus without complications (8) Tobacco abuse Current visit: No Status: Chronic Chronic Internal Medicine - H&P: HPI Chief complaint: nausea , vomitting and diarrhea Admitted From: Emergency Dept Plans for Post Hospital Care: Home History of present illness: Mr. Milan is a 67 year old male Patient with history of ckd stage III, hypertension, diabetes, smoking history , hepatitis B and C with liver disease, history of drug abuse presented emergency room with nausea vomiting and lower abdominal pain and some diarrhea also low-grade fever emergency room blood pressure was 237/155 5 givens hydrolyzing labetalol blood pressure down to 256/142 and down to 170/ 127 while I was just down to ER now up to 208 systolic he denies any chest pain CT of the abdomen was unremarkable CT of the head was unremarkable lipase is normal discussed with ER physician to start patient on the drip patient was started on nicardipine drip and go to 2 N. Past Med Surg Social Fam HX - Past Medical History Medical history: diabetes, hypertension, liver disease, other, hepatitis Psychiatric history: no psych history - Past Surgical History Surgical History: non-contributory - Social History Smoking Status: Current every day smoker Smokeless Tobacco Status: No Alcohol use: heavy, recent Drug use: marijuana - Family History Mother Living Status: Hx Family Endocrine Disorder: Yes (Diabetes) Hx Family Neurologic Disorders: Yes (Alzheimer's) Father Living Status: Hx Family Cancer: Yes (Prostate) Hx Family Endocrine Disorder: Yes (Diabetes) Internal Medicine - H&P: Meds Glimepiride [Amaryl] 2 mg PO QAM 09/01/16 [History] Methadone HCl 10 mg PO QID 09/01/16 [History] Aspirin [Lo-Dose Aspirin EC] 81 mg PO DAILY 03/09/17 [History] Vitamin B Complex/Vit C/Vit E [Stresstab] 1 tab PO DAILY 03/09/17 [History] cloNIDine HCl [CloNIDine HCl] 0.3 mg PO TID #90 tablet 03/12/17 [Rx] Diltiazem HCl [Diltiazem ER] 120 mg PO DAILY 04/17/17 [History] hydrALAZINE [HydrALAZINE] 25 mg PO Q8HR 04/17/17 [History] HydrOXYzine [HydrOXYzine] 10 mg PO DAILY 10/12/17 [History] Lisinopril [Zestril] 20 mg PO DAILY 10/12/17 [History] 3 Allergy/AdvReac Type Severity Reaction Status Date / Time No Known Allergies Allergy Verified 03/09/17 07:53 All Systems PM: A 10-system review of systems was performed and is negative for pertinent findings except as documented above in the HPI. - Constitutional Constitutional: lethargy - EENT Eyes: no change in vision, no discharge, no pain, no photophobia Ears: no ear discharge, no ear pain, no tinnitus Nose, mouth and throat: no dysphagia, no nasal discharge, no neck pain, no sore throat - Cardiovascular Cardiovascular ROS IM: palpitations - Respiratory Respiratory: no cough, no dyspnea, no wheezing, no excessive phlegm production - Gastrointestinal Gastrointestinal: abdominal pain, diarrhea, nausea - Musculoskeletal Musculoskeletal ROS IM: no numbness, no tingling - Integumentary Integumentary IM: no rash, no unusual bruising - Constitutional Vitals: Temp Pulse Resp BP Pulse Ox 98.4 F 94 14 173/127 99 10/12/17 10:47 10/12/17 13:47 10/12/17 13:47 10/12/17 13:47 10/12/17 13:47 - Eye Eye exam: Present: PERRL, conjuntiva pink, sclera anicteric Pupils: Present: PERRL - Neck Neck exam general surgery: Present: supple, trachea midline. Absent: lymphadenopathy - Respiratory Respiratory exam: Present: CTAB. Absent: accessory muscle use, rales, rhonchi, wheezes - Cardiovascular Cardiovascular exam: Present: RRR, +S1, +S2. Absent: diastolic murmur, gallop, rubs, systolic murmur - GI/Abdominal GI/Abdominal exam: Present: soft - Extremities Exam Extremities exam: Present: warm, radial pulses palpable and symmetrical. Absent : calf tenderness, cyanotic, pedal edema Internal Med - H&P Results - Labs CBC & Chem 7: 10/12/17 11:27 10/12/17 11:27 Labs: Short CBC 10/12/17 Range/Units 11:27 WBC 14.4 H (4.3-11.1) K/mcL Hgb 15.9 (12.9-16.9) g/dL Hct 43.9 (37.5-50.1) % Plt Count 350 (140-400) K/mcL Neutrophils # 13.0 H (1.6-8.9) K/mcL BMP 10/12/17 11:27 Sodium 140 Potassium 3.1 L Chloride 97 L Carbon Dioxide 27 BUN 28 H Creatinine 3.17 H Glucose 244 H Calcium 9.9 Cardiac Enzymes 10/12/17 Range/Units 11:27 Troponin I 0.16 H* (< 0.04) ng/mL Liver Function 10/12/17 Range/Units 11:27 Total Bilirubin 0.9 (0.3-1.0) mg/dL Direct Bilirubin 0.2 (0.0-0.2) mg/dL AST 41 H (13-39) Units/L ALT 21 (7-52) Units/L Alkaline Phosphatase 159 H (34-104) Units/L Albumin 5.1 (3.5-5.7) g/dL Urine 10/12/17 Range/Units 11:03 Urine Color Yellow (Yellow) Urine Clarity Clear (Clear) Urine pH 7.5 (5.0-8.0) pH Units Ur Specific [place] 1.018 (1.010-1.025) Urine Protein >=1000 H (Neg-Trace) mg/dL Urine Glucose (UA) 250 H (Normal) mg/dL - ABG Interpretation ABG results: 10/12/17 13:18 ABG pH 7.53 H ABG pCO2 36 ABG pO2 84 L ABG HCO3 31 H ABG Total CO2 32 H ABG O2 Saturation 98 ABG Base Excess 8 H - Impressions ITS Impressions Chest X-Ray 10/12/17 10:50 IMPRESSION: No acute abnormality. D/ / Macho Main MD / Macho Main MD Interpreting Provider: Macho Main MD Abdomen/Pelvis CT 10/12/17 10:51 IMPRESSION: 1. Moderate patient motion somewhat limits sensitivity; however, within this context, no specific, acute pathology is appreciated. 2. A tiny amount of free fluid in the the cul-de-sac is nonspecific. 3. No hydronephrosis or lithiasis. 4. Mild prostate gland prominence and urinary bladder wall thickening. D/ / Aamir Pond / Aamir Pond Interpreting Provider: Aamir Pond Head CT 10/12/17 10:51 IMPRESSION: 1. Age-indeterminate lacunar stroke left caudate lobe, left thalamus and right mireles radiata. 2. White matter hypoattenuation described is typical of microvascular ischemic disease or as sequela of dysmyelinating/demyelinating processes. 3. No intracranial bleed. 4. Calcifications involving bilateral carotid vasculature reflect calcific atherosclerosis. D/ / Tobi Sawant / Tobi Sawant Interpreting Provider: Tobi Sawant
[2017-10-12] MEDS ORDERED: Naloxone 0.4 MG/ML INJ IVP PRN (15:11)
[2017-10-12] MEDS ORDERED: Dextrose Gel 15 GM/37.5 ML TUBE PO PRN ×2 (15:21)
[2017-10-12] MEDS ORDERED: *HR* Dextrose 50 % in Water (Syg) 50 ML SYRINGE IVP PRN (15:21)
[2017-10-12] MEDS ORDERED: D5% in Water 1,000 ML IVC PRN (15:21)
[2017-10-12] MEDS ORDERED: cloNIDine HCl 0.1 MG TABLET ONE (15:29)
[2017-10-12] MEDS ORDERED: hydrALAZINE 25 MG TABLET PO SCH (16:00)
[2017-10-12] MEDS: niCARdipine 40 MG/200 ML MLS IVC SCH (18:38)
[2017-10-12] MEDS: Insulin LISPRO 300 UNITS/3 ML VIAL SQ SCH ×2 (18:39→21:53)
[2017-10-12] MEDS: *HR* Methadone 10 MG TABLET PO SCH ×2 (18:39→21:54)
[2017-10-12] MEDS: hydrALAZINE 25 MG TABLET PO SCH ×2 (20:38→23:58)
[2017-10-12] MEDS: cloNIDine HCl 0.1 MG TABLET PO SCH (20:38)
[2017-10-12] MEDS ORDERED: *HR* Methadone 10 MG TABLET PO ONE (23:54)
[2017-10-12] MEDS ORDERED: 0.9 % Sodium Chloride 1,000 ML ONE (23:57)
[2017-10-13] MEDS: 0.9 % Sodium Chloride 1,000 ML IVC SCH ×2 (00:05→08:20)
[2017-10-13] MEDS: niCARdipine 40 MG/200 ML MLS IVC SCH (04:35)
[2017-10-13 05:00] LABS: Basophils % 0.1 %; Hematocrit 37.5 % (37.5-50.1); Immature Granulocytes % 0.3 % (0-4); Lymphocytes # 1.7 K/mcL (0.6-4.6); Lymphocytes % 11.4 %; Mean Corpuscular HGB Conc 35.7 g/dL (31.6-35.5); Mean Corpuscular Hemoglobin 27.3 pg (28.0-33.3); Mean Corpuscular Volume 76.4 fL (83.0-100.0); Mean Platelet Volume 9.7 fL (9.4-12.4); Monocytes # 1.1 K/mcL (0.0-1.3); Monocytes % 7.5 %; Neutrophils # 12.1 K/mcL (1.6-8.9); Platelet Count 253 K/mcL (140-400); Red Blood Count 4.91 M/mcL (4.19-5.50); Red Cell Distribution Width 14.1 % (11.5-14.5); Segmented Neutrophils % 80.7 %
[2017-10-13 05:11] LABS: Hemoglobin 13.4 g/dL (12.9-16.9)
[2017-10-13 05:29] LABS: Albumin/Globulin Ratio 1.3 (1.1-2.2); Bilirubin,Total 0.6 mg/dL (0.3-1.0); Calcium 8.7 mg/dL (8.6-10.3); Chol/HDL Ratio 4.5 (0-4.9); Globulin 3.2 g/dL (2.4-3.5); Magnesium 2.1 mg/dL (1.6-2.6); Potassium 3.3 mEq/L (3.5-5.1); Total Protein 7.2 g/dL (6.4-8.9)
[2017-10-13] MEDS ORDERED: *HR* Enoxaparin 40 MG/0.4 ML SYRINGE SQ SCH (06:00)
[2017-10-13] MEDS: Insulin LISPRO 300 UNITS/3 ML VIAL SQ SCH ×4 (08:11→22:39)
[2017-10-13] MEDS: Vitamin B Complex/Vit C/Vit E 1 EACH TABLET PO SCH (08:19)
[2017-10-13] MEDS: hydrALAZINE 25 MG TABLET PO SCH ×3 (08:19→23:04)
[2017-10-13] MEDS: Aspirin Enteric Coated 81 MG Tablet PO SCH (08:19)
[2017-10-13] MEDS: *HR* Methadone 10 MG TABLET PO SCH ×4 (08:19→19:43)
[2017-10-13] MEDS: Diltiazem CD (24hr) 240 MG CAPSULE PO SCH (08:19)
[2017-10-13] MEDS: cloNIDine HCl 0.1 MG TABLET PO SCH ×3 (08:20→19:43)
[2017-10-13] MEDS ORDERED: Lisinopril 20 MG TABLET PO SCH (09:00)
--- NOTE | 2017-10-13 09:50 | Internal Med Progress Note ---
Date of Encounter: 10/13/17 Time of Encounter: 09:47 - Assessment and plan (1) Hypertensive emergency Current Visit: No Status: Resolved Assessment and plan: Blood pressure is better controlled. Section on the lower side. We will get the patient off the drips. Continue with Cardizem, clonidine, hydralazine by mouth. Hold lisinopril given kidney function. (2) Hypertensive encephalopathy Current Visit: Yes Status: Acute Assessment and plan: Improved. Continue to monitor. (3) Elevated troponin Current Visit: No Status: Acute Assessment and plan: Likely demand ischemia. Vp Home Health consulted. Patient was on aspirin. We will add a beta elliot once blood pressure tolerates. We will add a statin. (4) Acute on chronic kidney failure Current Visit: No Status: Resolved Assessment and plan: Check urine sodium and creatinine. Consult nephrology. May have a new baseline. Qualifiers: Acute renal failure type: unspecified Chronic kidney disease stage: stage 3 (moderate) Qualified Code(s): N17.9 - Acute kidney failure, unspecified; N18.3 - Chronic kidney disease, stage 3 (moderate); N18.3 - Chronic kidney disease, stage 3 (moderate) (5) Nausea & vomiting Current Visit: Yes Status: Acute Assessment and plan: Possibly viral gastroenteritis. Patient states he has no abdominal pain this morning. We will continue symptomatic control. Continue IV fluids Qualifiers: Vomiting type: unspecified Vomiting Intractability: unspecified Qualified Code(s): R11.2 - Nausea with vomiting, unspecified (6) Type 2 diabetes mellitus Current Visit: No Status: Chronic Assessment and plan: Continue insulin sliding scale and continue with Accu-Cheks. Qualifiers: Diabetes mellitus complication status: with kidney complications Diabetes mellitus complication detail: with chronic kidney disease Diabetes mellitus mcc insulin use: without long term care administrator use Chronic kidney disease stage: stage 3 (moderate) Qualified Code(s): E11.22 - Type 2 diabetes mellitus with diabetic chronic kidney disease; N18.3 - Chronic kidney disease, stage 3 ( moderate); N18.3 - Chronic kidney disease, stage 3 (moderate) (7) DVT prophylaxis Current Visit: No Status: Acute Assessment and plan: Lovenox - Subjective Interval history: She was seen and examined. is at bedside. She states that he has not taken his medications for the last 2 or 3 days. She says he has been vomiting and has not been able to keep anything down. Was admitted with hypertensive emergency. Blood pressure is much better controlled after multiple IV meds and a drip. His blood pressure is actually on the lower side. Feels better. - Constitutional Vitals: Temp Pulse Resp BP Pulse Ox 98.2 F 77 18 101/62 97 10/13/17 07:47 10/13/17 09:40 10/13/17 07:47 10/13/17 09:40 10/13/17 09:20 Exam: GEN: NAD CVS: RRR. S1, S2, No m/r/g RESP: CTAB ABD: Soft, NT, ND, +BS EXT: No edema. 2+ DP. No rashes NEURO: Nonfocal Internal Medicine: Result - Labs CBC & Chem 7: 10/13/17 04:40 10/13/17 04:40 Labs: Short CBC 10/13/17 Range/Units 04:40 WBC 14.9 H (4.3-11.1) K/mcL Hgb 13.4 D (12.9-16.9) g/dL Hct 37.5 (37.5-50.1) % Plt Count 253 (140-400) K/mcL Neutrophils # 12.1 H (1.6-8.9) K/mcL BMP 10/13/17 04:40 Sodium 141 Potassium 3.3 L Chloride 103 Carbon Dioxide 28 BUN 34 H Creatinine 3.92 H Glucose 141 H Calcium 8.7 Cardiac Enzymes 10/12/17 10/12/17 10/13/17 Range/Units 17:42 23:40 04:40 Troponin I 0.25 H* 0.27 H* 0.22 H* (< 0.04) ng/mL Liver Function 10/13/17 Range/Units 04:40 Total Bilirubin 0.6 (0.3-1.0) mg/dL AST 31 (13-39) Units/L ALT 16 (7-52) Units/L Alkaline Phosphatase 114 H (34-104) Units/L Albumin 4.0 (3.5-5.7) g/dL - ABG Interpretation ABG results: ABG ABG pH 7.53 pH Units (7.32-7.45) H 10/12/17 13:18 ABG pCO2 36 mmHg (35-45) 10/12/17 13:18 ABG pO2 84 mmHg (85-104) L 10/12/17 13:18 ABG O2 Saturation 98 % (95-98) 10/12/17 13:18 PT/INR, D-dimer PT 11.1 Seconds (9.4-12.1) 10/12/17 11:27 Consult Discharge Plan - Plan Referrals: Rajesh Gillette Jr, MD [Primary Care Provider] -
[2017-10-13] MEDS ORDERED: Ondansetron 4 MG/2 ML VIAL IVP PRN ×2 (09:54→10:05)
--- NOTE | 2017-10-13 10:36 | Nephrology Consult Note ---
Date of Encounter: 10/13/17 Time of Encounter: 10:33 Assessment and Plan (1) Acute kidney injury superimposed on chronic kidney disease Current Visit: Yes Status: Acute Difficult to tell if this is progression of underlying kidney disease, vs NAKIA from volume depletion from nausea and vomiting, vs end organ damage from uncontrolled hypertension. Agree with gentle fluids, but can decrease in the face of accelerated hypertension. Renal ultrasound. Renal dose medications. Work-up ordered. No acute need for renal replacement therapy. (2) Elevated troponin Current Visit: No Status: Acute Per cardiology and primary team. (3) Hypertensive urgency Current Visit: No Status: Acute Agree with intravenous antihypertensive until blood pressure controlled. Avoid over control of hypertension. (4) Type 2 diabetes mellitus Current Visit: No Status: Chronic Per primary team. Qualifiers: Diabetes mellitus complication status: with kidney complications Diabetes mellitus complication detail: with chronic kidney disease Diabetes mellitus half-way insulin use: without half-way use Chronic kidney disease stage: stage 3 (moderate) Qualified Code(s): E11.22 - Type 2 diabetes mellitus with diabetic chronic kidney disease; N18.3 - Chronic kidney disease, stage 3 ( moderate); N18.3 - Chronic kidney disease, stage 3 (moderate) (5) Rhabdomyolysis Current Visit: Yes Status: Acute Will repeat CK level. Qualifiers: Qualified Code(s): M62.82 - Rhabdomyolysis History of Present Illness - Reason for Consult Consult date: 10/13/17 Acute Kidney Injury, Chronic Kidney Disease - Chief Complaint NAKIA - History of Present Illness Mr. Milan is a 67 yo man with a history of CKD who presents with nausea, vomiting and accelerated hypertension. He was lethargic at the time of my evaluation and did not participate in the history. History was obtained from review of medical records. Past Med Surg Social Fam HX - Past Medical History Medical history: diabetes, hypertension, liver disease, other, hepatitis Psychiatric history: no psych history - Past Surgical History Surgical History: non-contributory - Social History Smoking Status: Current every day smoker Packs per day: 1 Smokeless Tobacco Status: No Alcohol use: heavy, recent Drug use: marijuana - Family History Mother Living Status: Hx Family Endocrine Disorder: Yes (Diabetes) Hx Family Neurologic Disorders: Yes (Alzheimer's) Father Living Status: Hx Family Cancer: Yes (Prostate) Hx Family Endocrine Disorder: Yes (Diabetes) Medications and Allergies Glimepiride [Amaryl] 2 mg PO QAM 09/01/16 [History] Methadone HCl 10 mg PO QID 09/01/16 [History] Aspirin [Lo-Dose Aspirin EC] 81 mg PO DAILY 03/09/17 [History] Vitamin B Complex/Vit C/Vit E [Stresstab] 1 tab PO DAILY 03/09/17 [History] cloNIDine HCl [CloNIDine HCl] 0.3 mg PO TID #90 tablet 03/12/17 [Rx] Diltiazem HCl [Diltiazem ER] 120 mg PO DAILY 04/17/17 [History] hydrALAZINE [HydrALAZINE] 25 mg PO Q8HR 04/17/17 [History] HydrOXYzine [HydrOXYzine] 10 mg PO DAILY 10/12/17 [History] Lisinopril [Zestril] 20 mg PO DAILY 10/12/17 [History] 3 Allergy/AdvReac Type Severity Reaction Status Date / Time No Known Allergies Allergy Verified 03/09/17 07:53 Review of Systems ROS unobtainable: due to mental status (Patient lethargic and did not want to answer questions. ) Exam - Vital Signs Vital signs: Initial Vital Signs Temp Pulse Resp BP Pulse Ox 98.4 F 130 14 237/155 100 10/12/17 10:47 10/12/17 10:47 10/12/17 10:47 10/12/17 10:47 10/12/17 10:47 Vital Signs - Last 8 Hours Temp Pulse Resp BP Pulse Ox 10/13/17 10:15 69 137/78 10/13/17 10:05 140/81 10/13/17 10:00 86 113/86 10/13/17 09:55 81 114/66 10/13/17 09:48 80 108/63 10/13/17 09:40 77 101/62 10/13/17 09:35 80 108/66 10/13/17 09:30 84 106/61 10/13/17 09:20 83 117/62 97 10/13/17 09:15 85 120/65 10/13/17 09:00 91 173/81 10/13/17 08:50 97 193/96 99 10/13/17 08:25 100 186/85 100 10/13/17 07:47 98.2 F 91 18 183/86 98 02/03/18 07:30 93 182/85 10/13/17 07:20 92 172/83 10/13/17 07:00 94 142/75 10/13/17 06:45 89 174/80 10/13/17 06:40 91 143/72 10/13/17 06:35 91 147/70 10/13/17 06:30 91 160/74 10/13/17 06:25 93 164/81 10/13/17 06:20 89 167/78 10/13/17 06:15 93 139/74 10/13/17 06:10 95 139/68 10/13/17 06:05 94 156/71 10/13/17 06:00 90 163/73 10/13/17 05:45 90 187/97 10/13/17 05:30 84 180/92 10/13/17 05:00 88 160/82 10/13/17 04:45 84 165/84 10/13/17 04:40 84 168/90 10/13/17 04:35 89 162/90 10/13/17 04:30 92 179/95 10/13/17 04:13 98.7 F 90 18 186/91 98 10/13/17 04:05 83 160/87 10/13/17 04:00 86 161/89 10/13/17 03:45 88 190/101 10/13/17 03:30 84 186/91 10/13/17 03:00 86 173/91 Intake and Output 10/12/17 10/13/17 10/13/17 23:59 07:59 15:59 Intake Total 113 / 113 828.0 / 828.0 1200 / 1200 Output Total 0 / 0 350 / 350 220 / 220 Balance 113 / 113 478.0 / 478.0 980 / 980 Intake: IV Fluids 113 / 113 128.0 / 128.0 1000 / 1000 0.9 % Sodium Chloride 1,000 ML 1000 / 1000 @ 100 mls/hr IVC .Q10H [facility] Rx#: [id number] Cardene Premix 40mg/200ml 40 mg 113 / 113 128.0 / 128.0 In 200 ml @ 5 MG/HR 25 mls/hr IVC .Q8H [facility] Rx#:[id number] Oral 0 / 0 700 / 700 200 / 200 Output: Urine 0 / 0 200 / 200 220 / 220 Catheter 150 / 150 Other: Weight 78.8 kg 78.11 kg Blood Glucose* 172 127 Patient Weight 10/13/17 23:59 Weight 78.11 kg - General Appearance General appearance: well-developed, well-nourished EENT: ATNC Neck: supple Respiratory: clear Cardiology: no edema, regular rate, regular rhythm Gastrointestinal: no tenderness Integumentary: warm and dry Additional Comments: lethargic. He arouses, but goes right back to sleep. Musculoskeletal: no cyanosis Results - Lab Results 10/13/17 04:40 10/13/17 04:40 Most recent lab results ABG pH 7.53 pH Units (7.32-7.45) H 10/12/17 13:18 ABG pCO2 36 mmHg (35-45) 10/12/17 13:18 ABG pO2 84 mmHg (85-104) L 10/12/17 13:18 ABG HCO3 31 mEq/L (21-27) H 10/12/17 13:18 ABG O2 Saturation 98 % (95-98) 10/12/17 13:18 Calcium 8.7 mg/dL (8.6-10.3) 10/13/17 04:40 Phosphorus 1.7 mg/dL (2.7-4.5) L 10/12/17 11:27 Magnesium 2.1 mg/dL (1.6-2.6) 10/13/17 04:40 Consult Discharge Plan - Plan Referrals: Rajesh Gillette Jr, MD [Primary Care Provider] -
--- NOTE | 2017-10-13 12:53 | Cardiology Consult Note ---
Date of Encounter: 10/13/17 Time of Encounter: 12:49 Assessment and Plan (1) Hypertension Current Visit: No Status: Chronic Hypertensive urgency. Control seems good today, recommend continued aggressive treatment. Qualifiers: Hypertension type: essential hypertension Qualified Code(s): I10 - Essential (primary) hypertension (2) Elevated troponin Current Visit: No Status: Acute Doubt ACS, expect secondary to HTN urgency. Treatment is of HTN. At this point dont expect further cardiac testing will be needed. Discussion w patient/family: The assessment and plan as outlined above was discussed with the patient and/or family members who expressed understanding and agreement. All questions were answered. Thank you for involving us in the care of your patient. Please call with any questions. History of Present Illness Consult date: 10/13/17 Requesting physician: Phoebe Willard Consult reason: abnormal tropp. Chief complaint: nauea vomiting History of present illness: Mr. Milan is a 67 year old male with mutiple medical problems. He presented with nausea vomiting and confusion. he actually does not remember the event. he denies cheat pain or SOB. Found to have severley elevated BP which required IV drip for control. In the setting troponin has been mildy elevated. Past Med Surg Social Fam HX - Past Medical History Medical history: diabetes, hypertension, liver disease, other, hepatitis Psychiatric history: no psych history - Past Surgical History Surgical History: non-contributory - Social History Smoking Status: Current every day smoker Packs per day: 1 Smokeless Tobacco Status: No Alcohol use: heavy, recent Drug use: marijuana - Family History Mother Living Status: Hx Family Endocrine Disorder: Yes (Diabetes) Hx Family Neurologic Disorders: Yes (Alzheimer's) Father Living Status: Hx Family Cancer: Yes (Prostate) Hx Family Endocrine Disorder: Yes (Diabetes) Medications and Allergies Glimepiride [Amaryl] 2 mg PO QAM 09/01/16 [History] Methadone HCl 10 mg PO QID 09/01/16 [History] Aspirin [Lo-Dose Aspirin EC] 81 mg PO DAILY 03/09/17 [History] Vitamin B Complex/Vit C/Vit E [Stresstab] 1 tab PO DAILY 03/09/17 [History] cloNIDine HCl [CloNIDine HCl] 0.3 mg PO TID #90 tablet 03/12/17 [Rx] Diltiazem HCl [Diltiazem ER] 120 mg PO DAILY 04/17/17 [History] hydrALAZINE [HydrALAZINE] 25 mg PO Q8HR 04/17/17 [History] HydrOXYzine [HydrOXYzine] 10 mg PO DAILY 10/12/17 [History] Lisinopril [Zestril] 20 mg PO DAILY 10/12/17 [History] 3 Allergy/AdvReac Type Severity Reaction Status Date / Time No Known Allergies Allergy Verified 03/09/17 07:53 All Systems Review: A 10-system review of systems was performed and is negative for pertinent findings except as documented above in the HPI. Physical Examination Vital Signs, Last 4 Hours Temp Pulse Resp BP Pulse Ox 10/13/17 12:38 74 139/82 10/13/17 11:31 98.5 F 75 16 131/78 99 10/13/17 11:09 73 148/88 98 10/13/17 10:52 66 124/72 10/13/17 10:34 67 124/68 10/13/17 10:15 69 137/78 10/13/17 10:05 140/81 10/13/17 10:00 86 113/86 10/13/17 09:55 81 114/66 10/13/17 09:48 80 108/63 10/13/17 09:40 77 101/62 10/13/17 09:35 80 108/66 10/13/17 09:30 84 106/61 10/13/17 09:20 83 117/62 97 10/13/17 09:15 85 120/65 10/13/17 09:00 91 173/81 10/13/17 08:50 97 193/96 99 General: Conversant, No Apparent Distress HEENT: Atraumatic, Normocephaly, Mucus Membranes Moist Neck: No JVD, Normal carotid pulses Cardiac: Reg Rate and Rhythm, Normal S1 and S2, No Murmur Lungs: Normal Breath Sounds, No Wheeze, Rales, Rhonchi Neuro: Alert and responsive, No focal deficits noted Abdomen: Soft, Non-Tender Skin: No rashes noted on visualized skin Results 10/13/17 04:40 10/13/17 04:40 Lab Results 10/12/17 10/12/17 10/13/17 17:42 23:40 04:40 WBC Hgb Hct Plt Count Sodium Potassium Chloride Carbon Dioxide BUN Creatinine Glucose Calcium Magnesium Total Bilirubin AST ALT Alkaline Phosphatase Troponin I 0.25 H* 0.27 H* 0.22 H* B-Natriuretic Peptide 10/13/17 10/13/17 10/13/17 04:40 04:40 04:40 WBC 14.9 H Hgb 13.4 D Hct 37.5 Plt Count 253 Sodium 141 Potassium 3.3 L Chloride 103 Carbon Dioxide 28 BUN 34 H Creatinine 3.92 H Glucose 141 H Calcium 8.7 Magnesium 2.1 Total Bilirubin 0.6 AST 31 ALT 16 Alkaline Phosphatase 114 H Troponin I B-Natriuretic Peptide 640 H 10/13/17 11:35 WBC Hgb Hct Plt Count Sodium Potassium Chloride Carbon Dioxide BUN Creatinine Glucose Calcium Magnesium Total Bilirubin AST ALT Alkaline Phosphatase Troponin I 0.16 H* B-Natriuretic Peptide - EKG Interpretation EKG results cardiology: personally reviewed (sinus tachy, LVH, ST-T changes likely secondary to LVH) Consult Discharge Plan - Plan Referrals: Rajesh Gillette Jr, MD [Primary Care Provider] -
[2017-10-13 17:30] LABS: Protein/Creatinine Ratio,Urine 2.45 mg/mg (0.00-0.20)
[2017-10-13 20:21] LABS: Sodium, Urine 62.3 mEq/L
[2017-10-14] MEDS ORDERED: *HR* Enoxaparin 30 MG/0.3 ML SYRINGE SQ SCH (06:00)
[2017-10-14] MEDS: *HR* Heparin 5,000 UNIT/ML VIAL SQ SCH ×2 (06:28→16:32)
[2017-10-14 07:05] LABS: Potassium 3.5 mEq/L (3.5-5.1)
[2017-10-14] MEDS: Insulin LISPRO 300 UNITS/3 ML VIAL SQ SCH ×4 (08:56→23:14)
[2017-10-14] MEDS: Vitamin B Complex/Vit C/Vit E 1 EACH TABLET PO SCH (09:06)
[2017-10-14] MEDS: hydrALAZINE 25 MG TABLET PO SCH ×2 (09:06→15:19)
[2017-10-14] MEDS: Diltiazem CD (24hr) 240 MG CAPSULE PO SCH (09:07)
[2017-10-14] MEDS: cloNIDine HCl 0.1 MG TABLET PO SCH ×3 (09:07→20:04)
[2017-10-14] MEDS: *HR* Methadone 10 MG TABLET PO SCH ×4 (09:07→20:04)
[2017-10-14] MEDS: Aspirin Enteric Coated 81 MG Tablet PO SCH (09:07)
[2017-10-14 09:32] LABS: Basophils % 0.4 %; Eosinophils # 0.1 K/mcL (0.0-0.6); Hematocrit 30.5 % (37.5-50.1); Immature Granulocytes % 0.1 % (0-4); Immature Platelets 2.9 % (1.1-6.1); Lymphocytes # 2.4 K/mcL (0.6-4.6); Lymphocytes % 30.3 %; Mean Corpuscular HGB Conc 35.1 g/dL (31.6-35.5); Mean Corpuscular Hemoglobin 27.6 pg (28.0-33.3); Mean Corpuscular Volume 78.6 fL (83.0-100.0); Mean Platelet Volume 9.8 fL (9.4-12.4); Monocytes # 0.7 K/mcL (0.0-1.3); Monocytes % 8.6 %; Neutrophils # 4.7 K/mcL (1.6-8.9); Platelet Count 199 K/mcL (140-400); Red Blood Count 3.88 M/mcL (4.19-5.50); Red Cell Distribution Width 14.1 % (11.5-14.5); Segmented Neutrophils % 59.6 %
[2017-10-14 09:33] LABS: Hemoglobin 10.7 g/dL (12.9-16.9)
--- NOTE | 2017-10-14 10:12 | Electrocardiograph Report ---
[place] [id number] Test Date: 2017-10-12 Pat Name: Morteza Milan Department: 104 Room: 2N06 Gender: M [employer]: NADJA : 1950 Requested By: Britney See Order Number: [id number] Reading MD: Nury Ward Measurements Intervals Olar Rate: 105 P: 52 MN: 194 QRS: 49 QRSD: 99 T: 176 QT: 367 QTc: 428 Interpretive Statements SINUS TACHYCARDIA POSSIBLE LEFT ATRIAL ENLARGEMENT [-0.1mV P WAVE IN V1/V2] LEFT VENTRICULAR HYPERTROPHY AND ST-T CHANGE Electronically Signed On 10-14-2017 10:11:39 EST by Nury Ward
--- NOTE | 2017-10-14 10:37 | Internal Med Progress Note ---
Date of Encounter: 10/14/17 Time of Encounter: 09:15 - Assessment and plan (1) Hypertensive emergency Current Visit: No Status: Resolved Assessment and plan: Blood pressure is better controlled. Continue with Cardizem, clonidine, hydralazine by mouth at current dosages. No changes. We will see what his blood pressure does throughout the day and make changes if needed. Hold lisinopril given kidney function. (2) Hypertensive encephalopathy Current Visit: Yes Status: Acute Assessment and plan: Resolved. (3) Elevated troponin Current Visit: No Status: Acute Assessment and plan: Likely demand ischemia. Batter Out consulted. Likely ACS. Continue aspirin and statin and beta elliot (4) Acute on chronic kidney failure Current Visit: No Status: Resolved Assessment and plan: Nephrology following. Creatinine does not seem to be improving significantly. Continue with IV fluids for now. Avoid nephrotoxins. Renal ultrasound with nothing significant other than renal cysts. Qualifiers: Acute renal failure type: unspecified Chronic kidney disease stage: stage 3 (moderate) Qualified Code(s): N17.9 - Acute kidney failure, unspecified; N18.3 - Chronic kidney disease, stage 3 (moderate); N18.3 - Chronic kidney disease, stage 3 (moderate) (5) Nausea & vomiting Current Visit: Yes Status: Acute Assessment and plan: Possibly viral gastroenteritis. Patient states he has no abdominal pain this morning. We will continue symptomatic control. Continue IV fluids Qualifiers: Vomiting type: unspecified Vomiting Intractability: unspecified Qualified Code(s): R11.2 - Nausea with vomiting, unspecified (6) Type 2 diabetes mellitus Current Visit: No Status: Chronic Assessment and plan: Continue insulin sliding scale and continue with Accu-Cheks. Qualifiers: Diabetes mellitus complication status: with kidney complications Diabetes mellitus complication detail: with chronic kidney disease Diabetes mellitus assisted insulin use: without oil heaterman use Chronic kidney disease stage: stage 3 (moderate) Qualified Code(s): E11.22 - Type 2 diabetes mellitus with diabetic chronic kidney disease; N18.3 - Chronic kidney disease, stage 3 ( moderate); N18.3 - Chronic kidney disease, stage 3 (moderate) (7) DVT prophylaxis Current Visit: No Status: Acute Assessment and plan: Heparin subcutaneous - Subjective Interval history: She was seen and examined. is at bedside again. His blood pressure has been better controlled except for this morning his systolic is in the 150s and diastolics in the 90s. Feels better. - Constitutional Vitals: Temp Pulse Resp BP Pulse Ox 99.1 F 55 16 156/92 100 10/14/17 07:04 10/14/17 09:10 10/14/17 08:57 10/14/17 08:57 10/14/17 08:59 Exam: GEN: NAD CVS: RRR. S1, S2, No m/r/g RESP: CTAB ABD: Soft, NT, ND, +BS EXT: No edema. 2+ DP. No rashes NEURO: Nonfocal Internal Medicine: Result - Labs CBC & Chem 7: 10/14/17 09:20 10/14/17 06:30 Labs: Short CBC 10/14/17 Range/Units 09:20 WBC 7.9 (4.3-11.1) K/mcL Hgb 10.7 L D (12.9-16.9) g/dL Hct 30.5 L (37.5-50.1) % Plt Count 199 (140-400) K/mcL Neutrophils # 4.7 (1.6-8.9) K/mcL BMP 10/14/17 06:30 Sodium 136 Potassium 3.5 Chloride 104 Carbon Dioxide 26 BUN 35 H Creatinine 3.81 H Glucose 129 H Calcium 8.0 L Cardiac Enzymes 10/13/17 10/13/17 Range/Units 11:35 17:00 Troponin I 0.16 H* 0.13 H* (< 0.04) ng/mL - ABG Interpretation ABG results: ABG ABG pH 7.53 pH Units (7.32-7.45) H 10/12/17 13:18 ABG pCO2 36 mmHg (35-45) 10/12/17 13:18 ABG pO2 84 mmHg (85-104) L 10/12/17 13:18 ABG O2 Saturation 98 % (95-98) 10/12/17 13:18 PT/INR, D-dimer PT 11.1 Seconds (9.4-12.1) 10/12/17 11:27 - Impressions Impressions Retroperitoneum Ultrasound 10/13/17 13:00 IMPRESSION: Small renal cyst, otherwise negative renal ultrasound. Postvoid residual as measured above. D/ / Nicholas Butts MD / Nicholas Butts MD Interpreting Provider: Nicholas Butts MD Consult Discharge Plan - Plan Referrals: Rajesh Gillette Jr, MD [Primary Care Provider] -
[2017-10-14] MEDS: 0.9 % Sodium Chloride 1,000 ML IVC SCH ×2 (10:38→10:39)
--- NOTE | 2017-10-14 11:04 | Nephrology Progress Note ---
Date of Encounter: 10/14/17 Time of Encounter: 11:01 - Assessment and Plan (1) Acute kidney injury superimposed on chronic kidney disease Current Visit: Yes Status: Acute Slight improvement. No need for dialysis. Avoid nephrotoxins. Adjust medications as needed. Continue current therapy. (2) Elevated troponin Current Visit: No Status: Acute Troponin improving. Cardiology following. No chest pain. (3) Hypertensive urgency Current Visit: No Status: Acute Blood pressure improving off antihypertensive drip. Titrate antihypertensive medications as needed. (4) Type 2 diabetes mellitus Current Visit: No Status: Chronic Qualifiers: Diabetes mellitus complication status: with kidney complications Diabetes mellitus complication detail: with chronic kidney disease Diabetes mellitus fpc insulin use: without emt intermediate use Chronic kidney disease stage: stage 3 (moderate) Qualified Code(s): E11.22 - Type 2 diabetes mellitus with diabetic chronic kidney disease; N18.3 - Chronic kidney disease, stage 3 ( moderate); N18.3 - Chronic kidney disease, stage 3 (moderate) (5) Rhabdomyolysis Current Visit: Yes Status: Acute Mild CPK elevation. Should improve. Qualifiers: Qualified Code(s): M62.82 - Rhabdomyolysis Subjective Principal diagnosis: NAKIA on CKD Interval history: Patient seen and evaluated. He has no new complaint. He feels better. His is at his bedside. His review of systems is overall stable. All of their questions were answered. Objective - Vital Signs Vital signs: Vital Signs Temp Pulse Resp BP Pulse Ox 10/14/17 10:34 60 14 100 10/14/17 09:10 55 10/14/17 08:59 100 10/14/17 08:57 61 16 156/92 100 10/14/17 07:04 99.1 F 54 19 136/75 99 10/14/17 05:10 53 18 98 10/14/17 03:55 98.3 F 52 18 153/92 98 10/14/17 00:27 52 20 100 10/13/17 22:33 98.2 F 54 20 146/89 100 10/13/17 19:16 98.3 F 62 19 149/87 99 10/13/17 18:00 55 141/78 10/13/17 17:02 98.4 F 61 155/85 100 10/13/17 16:04 63 18 156/91 99 10/13/17 13:45 69 153/91 10/13/17 13:00 70 176/88 10/13/17 12:38 74 139/82 10/13/17 12:30 70 139/82 10/13/17 11:31 98.5 F 75 16 131/78 99 10/13/17 11:09 73 148/88 98 Intake and Output 10/13/17 10/14/17 10/14/17 23:59 07:59 15:59 Intake Total 1000 / 1000 340 / 340 1070 / 1070 Output Total 300 / 300 350 / 350 Balance 700 / 700 -10 / -10 1070 / 1070 Intake: IV Fluids 100 / 100 950 / 950 0.9 % Sodium Chloride 1,000 ML 950 / 950 @ 100 mls/hr IVC .Q10H [facility] Rx#: [id number] Potassium Chloride 10 mEq/100mL 100 / 100 10 meq In 100 ml @ 100 mls/hr IVPB Q1H [facility] Rx#:[id number] Oral 1000 / 1000 240 / 240 120 / 120 Output: Urine 300 / 300 350 / 350 Other: Meal Dinner Breakfast Percent of Meal Consumed 40% 85% Weight 78.1 kg Blood Glucose* 103 135 135 Patient Weight 10/14/17 23:59 Weight 78.1 kg - General Appearance General appearance: Present: well-developed, well-nourished EENT: Present: ATNC Neck: Present: supple Cardiology: Present: no edema, regular rate Integumentary: Present: warm and dry Neurologic: Present: alert and oriented x3 Psychiatric: Present: mood/affect appropriate - Lab 10/14/17 09:20 10/14/17 06:30 Most recent lab results ABG pH 7.53 pH Units (7.32-7.45) H 10/12/17 13:18 ABG pCO2 36 mmHg (35-45) 10/12/17 13:18 ABG pO2 84 mmHg (85-104) L 10/12/17 13:18 ABG HCO3 31 mEq/L (21-27) H 10/12/17 13:18 ABG O2 Saturation 98 % (95-98) 10/12/17 13:18 Calcium 8.0 mg/dL (8.6-10.3) L 10/14/17 06:30 Phosphorus 1.7 mg/dL (2.7-4.5) L 10/12/17 11:27 Magnesium 2.1 mg/dL (1.6-2.6) 10/13/17 04:40 Urine Creatinine 148 mg/dL 10/13/17 16:00 Urine Sodium 62.3 mEq/L 10/13/17 16:00 Urine Total Protein 362 mg/dL 10/13/17 16:00 Consult Discharge Plan - Plan Referrals: Rajesh Gillette Jr, MD [Primary Care Provider] -
[2017-10-14] MEDS: Nicotine 21 MG PATCH.TD24 TD SCH (16:32)
[2017-10-15] MEDS: hydrALAZINE 25 MG TABLET PO SCH ×4 (00:45→20:16)
[2017-10-15 05:22] LABS: Basophils % 0.3 %; Eosinophils # 0.1 K/mcL (0.0-0.6); Eosinophils % 1.6 %; Hematocrit 29.7 % (37.5-50.1); Hemoglobin 10.6 g/dL (12.9-16.9); Immature Granulocytes % 0.2 % (0-4); Lymphocytes # 1.7 K/mcL (0.6-4.6); Lymphocytes % 28.1 %; Mean Corpuscular HGB Conc 35.7 g/dL (31.6-35.5); Mean Corpuscular Hemoglobin 27.5 pg (28.0-33.3); Mean Corpuscular Volume 76.9 fL (83.0-100.0); Monocytes # 0.7 K/mcL (0.0-1.3); Monocytes % 11.7 %; Neutrophils # 3.5 K/mcL (1.6-8.9); Platelet Count 181 K/mcL (140-400); Red Blood Count 3.86 M/mcL (4.19-5.50); Red Cell Distribution Width 13.8 % (11.5-14.5); Segmented Neutrophils % 58.1 %
[2017-10-15 06:17] LABS: Calcium 7.5 mg/dL (8.6-10.3); Potassium 3.7 mEq/L (3.5-5.1)
[2017-10-15] MEDS: *HR* Heparin 5,000 UNIT/ML VIAL SQ SCH ×2 (06:48→18:27)
[2017-10-15] MEDS: cloNIDine HCl 0.1 MG TABLET PO SCH ×3 (07:43→20:16)
[2017-10-15] MEDS: Diltiazem CD (24hr) 240 MG CAPSULE PO SCH (07:43)
[2017-10-15] MEDS: Aspirin Enteric Coated 81 MG Tablet PO SCH (07:43)
[2017-10-15] MEDS: Vitamin B Complex/Vit C/Vit E 1 EACH TABLET PO SCH (07:43)
[2017-10-15] MEDS: *HR* Methadone 10 MG TABLET PO SCH ×4 (07:43→20:16)
[2017-10-15] MEDS: Insulin LISPRO 300 UNITS/3 ML VIAL SQ SCH ×3 (07:44→17:11)
--- NOTE | 2017-10-15 09:39 | Nephrology Progress Note ---
Date of Encounter: 10/15/17 Time of Encounter: 09:39 - Assessment and Plan (1) Acute kidney injury superimposed on chronic kidney disease Current Visit: Yes Status: Acute Slight improvement. Renal U/S revealed small renal cyst, otherwise negative No need for dialysis. Discontinued IVF Avoid nephrotoxins. Adjust medications as needed. Continue current therapy. (2) CKD (chronic kidney disease), stage III Current Visit: No Status: Chronic CKD stage III Baseline GFR 30 Avoid nephrotoxins. (3) Hypertensive urgency Current Visit: No Status: Acute Blood pressure improving off antihypertensive drip. Continue with Cardizem and Clonidine by mouth at current dosages. Hold lisinopril given kidney function. His BP is elevated today. Stop IVFs Patient was on Minoxidil at home but has not received it while hospitalized. Resume Minoxidil 10mg PO daily Primary team increased Hydralazine to 75 mg 3 times a day and added Norvasc 5 mg daily. Titrate antihypertensive medications as needed. (4) Elevated troponin Current Visit: Yes Status: Acute Troponin improving. Cardiology following. No chest pain. (5) Rhabdomyolysis Current Visit: No Status: Acute Mild CPK elevation 306. Should improve. Qualifiers: Rhabdomyolysis type: non-traumatic Qualified Code(s): M62.82 - Rhabdomyolysis (6) Type 2 diabetes mellitus Current Visit: No Status: Chronic Management per primary team Qualifiers: Diabetes mellitus complication status: with kidney complications Diabetes mellitus complication detail: with chronic kidney disease Diabetes mellitus custodial insulin use: without terminologist use Chronic kidney disease stage: stage 3 (moderate) Qualified Code(s): E11.22 - Type 2 diabetes mellitus with diabetic chronic kidney disease; N18.3 - Chronic kidney disease, stage 3 ( moderate); N18.3 - Chronic kidney disease, stage 3 (moderate) Subjective Principal diagnosis: NAKIA on CKD Interval history: Patient seen and evaluated. He reports inability to sleep last PM and had elevated temp 100.1 F. His BP is elevated today. Patient was on Minoxidil at home but has not received it while hospitalized. His is at his bedside and all questions were answered. Objective - Vital Signs Vital signs: Vital Signs Temp Pulse Resp BP Pulse Ox 10/15/17 07:17 100.1 F H 61 19 178/94 99 10/15/17 05:20 164/92 10/15/17 04:03 60 18 98 10/15/17 00:15 58 18 98 10/14/17 23:57 98.4 F 59 18 150/87 98 10/14/17 21:30 57 18 98 10/14/17 19:41 97.8 F 54 18 155/84 99 10/14/17 16:38 53 10/14/17 16:36 53 16 100 10/14/17 15:18 97.9 F 51 14 157/82 100 10/14/17 13:57 53 16 150/83 100 10/14/17 12:28 51 14 164/95 100 10/14/17 11:06 98.3 F 56 16 158/79 100 10/14/17 10:34 60 14 100 Intake and Output 10/14/17 10/15/17 10/15/17 23:59 07:59 15:59 Intake Total 360 / 360 240 / 240 Output Total 150 / 150 900 / 900 Balance 210 / 210 -900 / -900 240 / 240 Intake: Oral 360 / 360 240 / 240 Output: Urine 150 / 150 900 / 900 Other: Meal Dinner Breakfast Percent of Meal Consumed 100% 100% Blood Glucose* 174 180 - General Appearance General appearance: Present: well-developed, well-nourished EENT: Present: ATNC, mucous membranes moist Neck: Present: supple Respiratory: Present: clear Cardiology: Present: no murmurs, no rub, no gallops, regular rate, regular rhythm Gastrointestinal: Present: normoactive bowel sounds, no tenderness, no guarding , no organomegaly Integumentary: Present: no rash, warm and dry Neurologic: Present: no focal deficit, alert and oriented x3 Musculoskeletal: Present: no deformities, no erythema, no cyanosis Psychiatric: Present: mood/affect appropriate, cooperative - Lab 10/15/17 04:55 10/15/17 04:55 Most recent lab results ABG pH 7.53 pH Units (7.32-7.45) H 10/12/17 13:18 ABG pCO2 36 mmHg (35-45) 10/12/17 13:18 ABG pO2 84 mmHg (85-104) L 10/12/17 13:18 ABG HCO3 31 mEq/L (21-27) H 10/12/17 13:18 ABG O2 Saturation 98 % (95-98) 10/12/17 13:18 Calcium 7.5 mg/dL (8.6-10.3) L 10/15/17 04:55 Phosphorus 1.7 mg/dL (2.7-4.5) L 10/12/17 11:27 Magnesium 2.1 mg/dL (1.6-2.6) 10/13/17 04:40 Urine Creatinine 148 mg/dL 10/13/17 16:00 Urine Sodium 62.3 mEq/L 10/13/17 16:00 Urine Total Protein 362 mg/dL 10/13/17 16:00 - Imaging Kidney/bladder ultrasound: report reviewed Consult Discharge Plan - Plan Referrals: Rajesh Gillette Jr, MD [Primary Care Provider] - 10/22/17 3:00 pm ()
--- NOTE | 2017-10-15 10:21 | Internal Med Progress Note ---
Date of Encounter: 10/15/17 Time of Encounter: 10:19 - Assessment and plan (1) Hypertensive emergency Current Visit: No Status: Resolved Assessment and plan: Blood pressure still needs work. We will increase hydralazine to 75 mg 3 times a day and add Norvasc 5 mg daily. Continue with Cardizem and clonidinee by mouth at current dosages. Hold lisinopril given kidney function. (2) Hypertensive encephalopathy Current Visit: Yes Status: Acute Assessment and plan: Resolved. (3) Elevated troponin Current Visit: No Status: Acute Assessment and plan: Likely demand ischemia. Park Attendant consulted. Likely ACS. Continue aspirin and statin and beta elliot (4) Acute on chronic kidney failure Current Visit: No Status: Resolved Assessment and plan: Nephrology following. Creatinine improved a little. Continue with IV fluids for now. Avoid nephrotoxins. Renal ultrasound with nothing significant other than renal cysts. Qualifiers: Acute renal failure type: unspecified Chronic kidney disease stage: stage 3 (moderate) Qualified Code(s): N17.9 - Acute kidney failure, unspecified; N18.3 - Chronic kidney disease, stage 3 (moderate); N18.3 - Chronic kidney disease, stage 3 (moderate) (5) Nausea & vomiting Current Visit: Yes Status: Acute Assessment and plan: Possibly viral gastroenteritis. Patient states he has no abdominal pain this morning. We will continue symptomatic control. Continue IV fluids Qualifiers: Vomiting type: unspecified Vomiting Intractability: unspecified Qualified Code(s): R11.2 - Nausea with vomiting, unspecified (6) Type 2 diabetes mellitus Current Visit: No Status: Chronic Assessment and plan: Continue insulin sliding scale and continue with Accu-Cheks. Qualifiers: Diabetes mellitus complication status: with kidney complications Diabetes mellitus complication detail: with chronic kidney disease Diabetes mellitus local company intermodal truck driver insulin use: without intermediate use Chronic kidney disease stage: stage 3 (moderate) Qualified Code(s): E11.22 - Type 2 diabetes mellitus with diabetic chronic kidney disease; N18.3 - Chronic kidney disease, stage 3 ( moderate); N18.3 - Chronic kidney disease, stage 3 (moderate) (7) DVT prophylaxis Current Visit: No Status: Acute Assessment and plan: Heparin subcutaneous - Subjective Interval history: She was seen and examined. is at bedside again. He did not sleep last night. Blood pressure is elevated this morning. MAXIMUM TEMPERATURE 100.1. Feels better. - Constitutional Vitals: Temp Pulse Resp BP Pulse Ox 100.1 F H 61 19 178/94 99 10/15/17 07:45 10/15/17 07:45 10/15/17 07:45 10/15/17 07:45 10/15/17 07:45 Exam: GEN: NAD CVS: RRR. S1, S2, No m/r/g RESP: CTAB ABD: Soft, NT, ND, +BS EXT: No edema. 2+ DP. No rashes NEURO: Nonfocal Internal Medicine: Result - Labs CBC & Chem 7: 10/15/17 04:55 10/15/17 04:55 Labs: Short CBC 10/15/17 Range/Units 04:55 WBC 6.1 (4.3-11.1) K/mcL Hgb 10.6 L (12.9-16.9) g/dL Hct 29.7 L (37.5-50.1) % Plt Count 181 (140-400) K/mcL Neutrophils # 3.5 (1.6-8.9) K/mcL BMP 10/15/17 04:55 Sodium 139 Potassium 3.7 Chloride 107 Carbon Dioxide 26 BUN 30 H Creatinine 3.14 H Glucose 105 Calcium 7.5 L - ABG Interpretation ABG results: ABG ABG pH 7.53 pH Units (7.32-7.45) H 10/12/17 13:18 ABG pCO2 36 mmHg (35-45) 10/12/17 13:18 ABG pO2 84 mmHg (85-104) L 10/12/17 13:18 ABG O2 Saturation 98 % (95-98) 10/12/17 13:18 PT/INR, D-dimer PT 11.1 Seconds (9.4-12.1) 10/12/17 11:27 Consult Discharge Plan - Plan Referrals: Rajesh Gillette Jr, MD [Primary Care Provider] -
[2017-10-15] MEDS: amLODIPine 5 MG TABLET PO SCH (12:12)
--- NOTE | 2017-10-15 16:55 | Electrocardiograph Report ---
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
[2017-10-15] MEDS: Nicotine 21 MG PATCH.TD24 TD SCH (17:26)
[2017-10-16] MEDS: Insulin LISPRO 300 UNITS/3 ML VIAL SQ SCH ×2 (00:40→08:06)
[2017-10-16] MEDS: hydrALAZINE 25 MG TABLET PO SCH ×2 (03:52→11:00)
[2017-10-16] MEDS: *HR* Heparin 5,000 UNIT/ML VIAL SQ SCH (06:29)
[2017-10-16 07:06] LABS: Calcium 8.6 mg/dL (8.6-10.3); Potassium 3.8 mEq/L (3.5-5.1)
[2017-10-16 07:17] LABS: Basophils % 0.2 %; Eosinophils % 0.4 %; Hemoglobin 10.8 g/dL (12.9-16.9); Immature Granulocytes % 0.4 % (0-4); Lymphocytes # 1.1 K/mcL (0.6-4.6); Mean Corpuscular Hemoglobin 27.4 pg (28.0-33.3); Mean Corpuscular Volume 76.1 fL (83.0-100.0); Mean Platelet Volume 10.5 fL (9.4-12.4); Monocytes # 0.7 K/mcL (0.0-1.3); Monocytes % 13.9 %; Neutrophils # 3.3 K/mcL (1.6-8.9); Platelet Count 211 K/mcL (140-400); Red Blood Count 3.94 M/mcL (4.19-5.50); Red Cell Distribution Width 13.4 % (11.5-14.5); Segmented Neutrophils % 63.1 %
--- NOTE | 2017-10-16 07:21 | Nephrology Progress Note ---
Date of Encounter: 10/16/17 Time of Encounter: 07:19 - Assessment and Plan (1) Acute kidney injury superimposed on chronic kidney disease Current Visit: Yes Status: Acute Renal function improving Renal U/S revealed small renal cyst, otherwise negative No need for dialysis. Discontinue IVFs Avoid nephrotoxins. Adjust medications as needed. Staqble for discharge from nephrology standpoint. Patient will need a repeat BMP in 1-2 weeks and nephrology follow up outpatient. (2) CKD (chronic kidney disease), stage III Current Visit: No Status: Chronic CKD stage III Baseline GFR 30 Avoid nephrotoxins. (3) Hypertensive urgency Current Visit: No Status: Acute Blood pressure improving off antihypertensive drip. Continue with Cardizem and Clonidine by mouth at current dosages. Hold lisinopril given kidney function. Stop IVFs Continue Minoxidil 10mg PO daily Hydralazine 75 mg 3 times a day Continue Norvasc 5 mg daily. Titrate antihypertensive medications as needed. Encouraged patient to keep a log of his blood pressure readings at home. (4) Elevated troponin Current Visit: Yes Status: Acute Troponin improving. Cardiology following. No chest pain. (5) Rhabdomyolysis Current Visit: No Status: Acute Mild CPK elevation 306. Likely improved with IVF. Qualifiers: Rhabdomyolysis type: non-traumatic Qualified Code(s): M62.82 - Rhabdomyolysis (6) Type 2 diabetes mellitus Current Visit: No Status: Chronic Management per primary team Qualifiers: Diabetes mellitus complication status: with kidney complications Diabetes mellitus complication detail: with chronic kidney disease Diabetes mellitus intermediate project manager insulin use: without shelter use Chronic kidney disease stage: stage 3 (moderate) Qualified Code(s): E11.22 - Type 2 diabetes mellitus with diabetic chronic kidney disease; N18.3 - Chronic kidney disease, stage 3 ( moderate); N18.3 - Chronic kidney disease, stage 3 (moderate) Subjective Principal diagnosis: NAKIA on CKD Interval history: Patient seen and evaluated. He reports no new c/o and is eager to go home. His BP is better controlled today since resuming home dose of Minoxidil. His is at his bedside and all questions were answered. Objective - Vital Signs Vital signs: Vital Signs Temp Pulse Resp BP Pulse Ox 10/16/17 04:19 70 16 97 10/16/17 03:15 99.4 F 80 16 129/82 97 10/16/17 00:47 99.2 F 79 18 143/72 100 10/15/17 22:31 97 10/15/17 20:49 68 16 99 10/15/17 20:20 99.1 F 67 16 157/87 10/15/17 16:04 97 F L 67 19 188/97 99 10/15/17 16:00 97 F L 67 19 188/97 99 10/15/17 12:10 97.4 F L 58 18 167/91 98 10/15/17 12:04 97.4 F L 58 18 167/91 98 10/15/17 07:45 100.1 F H 61 19 178/94 99 Intake and Output 10/15/17 10/15/17 10/16/17 15:59 23:59 07:59 Intake Total 360 / 360 760 / 760 500 / 500 Output Total 150 / 150 1175 / 1175 980 / 980 Balance 210 / 210 -415 / -415 -480 / -480 Intake: Oral 360 / 360 760 / 760 500 / 500 Output: Urine 150 / 150 1175 / 1175 980 / 980 Other: Meal Lunch Dinner Percent of Meal Consumed 100% 100% Weight 78.5 kg Blood Glucose* 149 142 Patient Weight 10/16/17 23:59 Weight 78.5 kg - General Appearance General appearance: Present: well-developed, well-nourished EENT: Present: ATNC, mucous membranes moist Neck: Present: no JVD, supple Respiratory: Present: no kyphosis, clear Cardiology: Present: no murmurs, no rub, no gallops, no edema, regular rate, regular rhythm Gastrointestinal: Present: normoactive bowel sounds, no tenderness, no guarding , no organomegaly Integumentary: Present: no rash, warm and dry Neurologic: Present: no focal deficit, alert and oriented x3 Musculoskeletal: Present: no deformities, no erythema, no cyanosis Psychiatric: Present: mood/affect appropriate, cooperative - Lab 10/16/17 06:38 10/16/17 06:38 Most recent lab results ABG pH 7.53 pH Units (7.32-7.45) H 10/12/17 13:18 ABG pCO2 36 mmHg (35-45) 10/12/17 13:18 ABG pO2 84 mmHg (85-104) L 10/12/17 13:18 ABG HCO3 31 mEq/L (21-27) H 10/12/17 13:18 ABG O2 Saturation 98 % (95-98) 10/12/17 13:18 Calcium 8.6 mg/dL (8.6-10.3) 10/16/17 06:38 Phosphorus 1.7 mg/dL (2.7-4.5) L 10/12/17 11:27 Magnesium 2.1 mg/dL (1.6-2.6) 10/13/17 04:40 Urine Creatinine 148 mg/dL 10/13/17 16:00 Urine Sodium 62.3 mEq/L 10/13/17 16:00 Urine Total Protein 362 mg/dL 10/13/17 16:00 Consult Discharge Plan - Plan Instructions: Diltiazem (By mouth), Hydralazine (By mouth), Amlodipine (By mouth), Atorvastatin (By mouth), Diabetes Mellitus Type 2 in Adults (DC), Chronic Hypertension (DC) Referrals: Marty Garza MD [Partnered Physician] - () Rajesh Gillette Jr, MD [Primary Care Provider] - 10/22/17 3:00 pm () Patrice Lowry DO [Partnered Physician] - 11/06/17 10:30 am Prescriptions: amLODIPine [Norvasc] 5 mg PO DAILY #30 tablet Atorvastatin [Lipitor] 20 mg PO HS #30 tablet Diltiazem CD (24hr) [Cardizem CD] 240 mg PO DAILY #30 cap.er.24h hydrALAZINE [HydrALAZINE] 75 mg PO Q8H #180 tablet
[2017-10-16 08:05] VITALS: BP 159/77
[2017-10-16] MEDS: Vitamin B Complex/Vit C/Vit E 1 EACH TABLET PO SCH (09:01)
[2017-10-16] MEDS: Aspirin Enteric Coated 81 MG Tablet PO SCH (09:02)
[2017-10-16] MEDS: *HR* Methadone 10 MG TABLET PO SCH (09:02)
[2017-10-16] MEDS: amLODIPine 5 MG TABLET PO SCH (09:02)
[2017-10-16] MEDS: Diltiazem CD (24hr) 240 MG CAPSULE PO SCH (09:02)
[2017-10-16] MEDS: cloNIDine HCl 0.1 MG TABLET PO SCH (09:02)
[2017-10-16] MEDS: Nicotine 21 MG PATCH.TD24 TD SCH (09:03)
--- NOTE | 2017-10-16 10:17 | Discharge Summary ---
Date of Encounter: 10/16/17 Time of Encounter: 10:14 - Discharge Diagnosis (1) Hypertensive emergency Priority: Primary Status: Resolved (2) Hypertensive encephalopathy Priority: Primary Status: Acute (3) Elevated troponin Priority: Primary Status: Acute (4) Acute on chronic kidney failure Priority: Primary Status: Resolved Qualifiers: Acute renal failure type: unspecified Chronic kidney disease stage: stage 3 (moderate) Qualified Code(s): N17.9 - Acute kidney failure, unspecified; N18.3 - Chronic kidney disease, stage 3 (moderate); N18.3 - Chronic kidney disease, stage 3 (moderate) (5) Nausea & vomiting Priority: Primary Status: Acute Qualifiers: Vomiting type: unspecified Vomiting Intractability: unspecified Qualified Code(s): R11.2 - Nausea with vomiting, unspecified (6) Type 2 diabetes mellitus Priority: Secondary Status: Chronic Qualifiers: Diabetes mellitus complication status: with kidney complications Diabetes mellitus complication detail: with chronic kidney disease Diabetes mellitus detention insulin use: without detention use Chronic kidney disease stage: stage 3 (moderate) Qualified Code(s): E11.22 - Type 2 diabetes mellitus with diabetic chronic kidney disease; N18.3 - Chronic kidney disease, stage 3 ( moderate); N18.3 - Chronic kidney disease, stage 3 (moderate) - Discharge Medications Prescriptions: amLODIPine [Norvasc] 5 mg PO DAILY #30 tablet Atorvastatin [Lipitor] 20 mg PO HS #30 tablet Diltiazem CD (24hr) [Cardizem CD] 240 mg PO DAILY #30 cap.er.24h hydrALAZINE [HydrALAZINE] 75 mg PO Q8H #180 tablet Minoxidil 10 mg PO DAILY #60 tablet Home Medications: Glimepiride [Amaryl] 2 mg PO QAM 09/01/16 [History] Methadone HCl 10 mg PO QID 09/01/16 [History] Aspirin [Lo-Dose Aspirin EC] 81 mg PO DAILY 03/09/17 [History] Vitamin B Complex/Vit C/Vit E [Stresstab] 1 tab PO DAILY 03/09/17 [History] cloNIDine HCl [CloNIDine HCl] 0.3 mg PO TID #90 tablet 03/12/17 [Rx] HydrOXYzine 10 mg PO DAILY 10/12/17 [History] Lisinopril [Zestril] 20 mg PO DAILY 10/12/17 [History] Atorvastatin [Lipitor] 20 mg PO HS #30 tablet 10/16/17 [Rx] Diltiazem CD (24hr) [Cardizem CD] 240 mg PO DAILY #30 cap.er.24h 10/16/17 [Rx] Minoxidil 10 mg PO DAILY #60 tablet 10/16/17 [Rx] amLODIPine [Norvasc] 5 mg PO DAILY #30 tablet 10/16/17 [Rx] hydrALAZINE [HydrALAZINE] 75 mg PO Q8H #180 tablet 10/16/17 [Rx] Allergies/Adverse Reactions: 3 Allergy/AdvReac Type Severity Reaction Status Date / Time No Known Allergies Allergy Verified 03/09/17 07:53 Procedures/tests Complete & Pending: Procedures Performed prior 72 hours Category Date Time Status US retroperitoneal comp [US] Routine Exams 10/13/17 13:00 Completed EKG [ECG 12 lead ECG] [ECG] Stat Y 10/15/17 00:48 Completed Date of admission: 10/12/17 15:54 Primary care physician: Rajesh Gillette Jr, MD Consults: 10/12/17 18:19 Consult to Cardiology [CONS] Routine Comment: Consulting Provider: Cardiology Golden Reason for Consult: [email or web address] Time Notified: 18:20 Call Completed: No - Patient Status Disposition: Home, Self-Care Condition: Good Overall status at discharge: patient is progressing back to baseline - Ambulatory Orders Ambulatory Orders: Basic Metabolic Panel [CHEM] Time Frame: 10/23/17, Facility: [facility], Location: Lab - Discharge Instructions Instructions: Diltiazem (By mouth), Hydralazine (By mouth), Amlodipine (By mouth), Atorvastatin (By mouth), Diabetes Mellitus Type 2 in Adults (DC), Chronic Hypertension (DC) Follow Up With: Marty Garza MD [Partnered Physician] - () Rajesh Gillette Jr, MD [Primary Care Provider] - 10/22/17 3:00 pm () Patrice Lowry DO [Partnered Physician] - 11/06/17 10:30 am - Diet and Activity Activity: increase activity as tolerated Diet: diabetic diet, low salt diet Hospital course: Mr. 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 He also had low-grade fever in the emergency room . He was noted to have a blood pressure that was 237/155 and was given multiple IV antihypertensives with minimal success. He was eventually put on a Cardene drip and admitted to telemetry. CT of the abdomen was unremarkable CT of the head was unremarkable. The patient had elevated troponins which was suspected to be secondary to the hypertensive emergency. Cardiology saw the patient and recommended no cardiac workup. His nausea and vomiting and loose stools resolved while he was hospitalized. This is likely secondary to viral gastroenteritis. We had nephrology see the patient for acute kidney failure on chronic kidney disease. Renal ultrasound was unremarkable. The patient may have a new baseline now. They will follow up with the patient as an outpatient. Antihypertensives were uptitrated. Patient was discharged with follow-up with nephrology and his PCP. His creatinine remained stable hospitalized around 3.2. - Time Spent with Patient Total time spent providing and/or coordinating discharge services: Greater than 30 minutes - Constitutional Vitals: Temp Pulse Resp BP Pulse Ox 99.5 F 78 19 159/77 98 10/16/17 07:45 10/16/17 07:45 10/16/17 07:45 10/16/17 07:45 10/16/17 07:45 Exam: GEN: NAD CVS: RRR. S1, S2, No m/r/g RESP: CTAB ABD: Soft, NT, ND, +BS EXT: No edema. 2+ DP. No rashes NEURO: Nonfocal
[2017-10-16] MEDS ORDERED: FLUARIX QUAD 2017-18 36MOS UP/PF 0.5 ML SYRINGE IM ONE (10:40)
[2017-10-17 08:12] LABS: ANA IgG by ELISA NONE DETECTED (None Detected)
== END 2017-10-16 11:46 | disposition home or self-care (01) | DRG 305 ==
LOC: EMEROO 10:44 → 2NNU 15:54
PROVIDERS: ADMIT Hospitalist; ATTEND Internal Medicine

== ENCOUNTER 2018-06-10 22:51 | Inpatient (IN) ==
[2018-06-10] MEDS ORDERED: 0.9 % Sodium Chloride 1,000 ML IVC ONE (23:01)
[2018-06-10] MEDS ORDERED: Haloperidol Lactate 5 MG/ML VIAL IM ONE (23:09)
[2018-06-10] MEDS ORDERED: *HR* LORazepam 2 MG/ML VIAL IM ONE (23:09)
[2018-06-10 23:18] LABS: Bilirubin,Urine Negative (Negative); Blood,Urine Negative (Negative); Clarity,Urine Clear (Clear); Color,Urine Yellow (Yellow); Glucose,Urine (UA) 100 mg/dL (Normal); Ketones,Urine Trace mg/dL (Negative); Leukocyte Esterase,Urine Negative (Negative); Nitrite,Urine Negative (Negative); Protein,Urine >=300 mg/dL (Neg-Trace); Urobilinogen,Urine Normal (Normal)
[2018-06-10 23:23] LABS: Bacteria,Urine None Seen per hpf (None-Few); Hyaline Casts,Urine None Seen per lpf (None-Few); Squamous Epithelial Cell,Urine None Seen per lpf (None-Few); WBC,Urine 0-3 per hpf (0-3)
[2018-06-10 23:24] LABS: Amphetamine Screen,Urine Negative ng/mL (Cutoff=1000); Barbiturate Screen,Urine Negative ng/mL (Cutoff=200); Benzodiazepines Screen,Urine Negative ng/mL (Cutoff=200); Cannabinoid Screen,Urine Positive ng/mL (Cutoff = 50); Cocaine Screen,Urine Negative ng/mL (Cutoff= 300); Opiate Screen,Urine Negative ng/mL (Cutoff=300); Phencyclidine Screen,Urine Negative ng/mL (Cutoff=25)
[2018-06-10] MEDS ORDERED: Isovue-370 500 ML INFUS..BTL IV ONE (23:26)
[2018-06-10 23:59] LABS: Activated Partial Thrombo Time 29.8 Seconds (26.0-36.0)
[2018-06-11 00:08] LABS: Basophils % 0.2 %; Hematocrit 36.5 % (37.5-50.1); Hemoglobin 12.7 g/dL (12.9-16.9); Immature Granulocytes % 0.8 % (0-4); Lymphocytes # 1.3 K/mcL (0.6-4.6); Lymphocytes % 11.9 %; Mean Corpuscular HGB Conc 34.8 g/dL (31.6-35.5); Mean Corpuscular Hemoglobin 29.2 pg (28.0-33.3); Mean Corpuscular Volume 83.9 fL (83.0-100.0); Mean Platelet Volume 10.1 fL (9.4-12.4); Monocytes # 0.3 K/mcL (0.0-1.3); Monocytes % 2.9 %; Neutrophils # 9.5 K/mcL (1.6-8.9); Platelet Count 260 K/mcL (140-400); Red Blood Count 4.35 M/mcL (4.19-5.50); Red Cell Distribution Width 13.2 % (11.5-14.5); Segmented Neutrophils % 84.2 %
[2018-06-11 00:19] LABS: Acetaminophen < 10 mcg/mL (10-20); Alanine Aminotransferase 20 Units/L (7-52); Albumin/Globulin Ratio 1.7 (1.1-2.2); Alkaline Phosphatase 121 Units/L (34-104); Aspartate Amino Transferase 29 Units/L (13-39); BUN/Creatinine Ratio 11 (6-26); Bilirubin,Direct 0.1 mg/dL (0.0-0.2); Bilirubin,Indirect 0.3 mg/dL (0.0-1.2); Bilirubin,Total 0.4 mg/dL (0.3-1.0); Blood Urea Nitrogen 40 mg/dL (8-23); Calcium 9.3 mg/dL (8.6-10.3); Carbon Dioxide 20 mEq/L (23-29); Chloride 103 mEq/L (98-107); Creatine Kinase 245 Units/L (30-223); Ethanol < 10 mg/dL (Less than 10); Glucose 331 mg/dL (70-105); Osmolality,Calculated 315 (280-300); Potassium 3.2 mEq/L (3.5-5.1); Salicylate < 2.5 mg/dL (15.0-30.0); Sodium 141 mEq/L (136-145); eGFR For Non-African Americans 17 (> 60)
[2018-06-11 00:25] LABS: Troponin I 0.05 ng/mL (< 0.04)
[2018-06-11 00:32] LABS: Thyroid Stimulating Hormone 1.209 mcIU/mL (0.340-5.600)
--- NOTE | 2018-06-11 01:27 | Emergency Department Note ---
Disposition Clinical Impression: Hyperammonemia, Hepatic encephalopathy Altered mental status Qualifiers: Altered mental status type: disorientation Qualified Code(s): R41.0 - Disorientation, unspecified Disposition: Admitted As Inpatient Condition: Critical Time of Disposition: 03:49 Altered Mental Status HPI - General Chief Complaint: ED Altered Mental Status Stated Complaint: Altered Time Seen by Provider: 06/10/18 23:00 Source: patient, EMS Mode of arrival: ambulatory Limitations: no limitations Nursing Notes Reviewed: Yes Vital Signs Reviewed: Yes - History of Present Illness HPI Narrative: 67-year-old male presents to the emergency department with altered mental status. Family states that he is not acting himself he does have history of dementia and was being very combative. The police were called and they are unable to taint him so they called EMS to present him to the emergency department for further evaluation. Family states this is not his normal self per when he arrived to the emergency Department patient was very combative trying to hit people trying to spit and bites all the nursing staff. They said this is not his normal self. They do not know what is going on the said this came out nowhere. Otherwise were unable to get further history out of the patient or the family. - Related Data Home Medications Medication Instructions Recorded Confirmed Glimepiride [Amaryl] 2 mg PO QAM 09/01/16 10/12/17 Methadone HCl 10 mg PO QID 09/01/16 10/12/17 Aspirin [Lo-Dose Aspirin EC] 81 mg PO DAILY 03/09/17 10/12/17 Vitamin B Complex/Vit C/Vit E 1 tab PO DAILY 03/09/17 10/12/17 [Stresstab] HydrOXYzine 10 mg PO DAILY 10/12/17 10/12/17 Lisinopril [Zestril] 20 mg PO DAILY 10/12/17 10/12/17 Previous Rx's Medication Instructions Recorded cloNIDine HCl [CloNIDine HCl] 0.3 mg PO TID #90 tablet 03/12/17 Atorvastatin [Lipitor] 20 mg PO HS #30 tablet 10/16/17 Diltiazem CD (24hr) [Cardizem CD] 240 mg PO DAILY #30 cap.er.24h 10/16/17 Minoxidil 10 mg PO DAILY #60 tablet 10/16/17 amLODIPine [Norvasc] 5 mg PO DAILY #30 tablet 10/16/17 hydrALAZINE [HydrALAZINE] 75 mg PO Q8H #180 tablet 10/16/17 Allergies Allergy/AdvReac Type Severity Reaction Status Date / Time No Known Allergies Allergy Verified 03/09/17 07:53 Limitations: ROS unobtainable due to patients medical condition Past Medical History - Past Medical History Attestation: Yes The following information was validated with the patient. Source: old records reviewed Medical history: Reports: diabetes, hypertension, liver disease, other, hepatitis Surgical history: Reports: non-contributory Psychiatric history: Reports: no psych history - Social History Smoking Status: Current every day smoker Smokeless Tobacco Status: No Alcohol use: Reports: heavy, recent Drug use: Reports: marijuana Physical Exam - General Limitations: altered mental status General appearance: alert, appears intoxicated, anxious - Head Head exam: atraumatic, normocephalic, normal inspection - Eye Eye exam: Present: normal appearance, PERRL, EOMI - ENT ENT exam: normal exam, normal oropharynx, mucous membranes moist - Neck Neck exam: Present: normal inspection, full ROM, trachea midline - Chest Chest inspection: Present: normal inspection, symmetric chest wall rise - Respiratory Respiratory exam: Present: normal lung sounds bilaterally. Absent: respiratory distress - Cardiovascular Cardiovascular exam: Present: regular rate, normal rhythm, normal heart sounds - Abdominal Exam Abdominal exam: Present: soft, Non-Tender, normal bowel sounds. Absent: tenderness, distention, guarding, rebound, rigidity - Extremities Exam Extremities exam: Present: normal inspection, full ROM. Absent: tenderness, pedal edema - Neurological Exam Neurological exam: Present: alert, oriented X3 - Expanded Neurological Exam Speech: Present: fluid speech Motor strength - LUE: 5/5 Motor strength - RUE: 5/5 Motor strength - LLE: 5/5 Motor strength - RLE: 5/5 Coma Scale Eye Opening: To Voice Coma Scale Motor Response: Localizes to Pain Coma Scale Verbal Response: Inappropriate Coma Scale Total: 11 - Skin Skin exam: Present: warm, dry, intact, normal color Course Course Narrative: Patient here and was very combative. Due to patient being very combative and unable to calm down we needed to sedate the patient and intubate. We used rocuronium and etomidate which was successful. We then placed patient on a propofol drip. We will gil scan the patient from head to pelvis for possible iatrogenic injuries well we are holding the patient down. We will also give many labs looking for altered mental status. Disposition will be admission to the ICU. - Reevaluation(s) Reevaluation #1: After chest x-ray with OG placement the ET tube is still above the clavicles we will advance another 4 cm OG tube is in place based on x-ray. Time: 03:48 Vital Signs Pulse Rate 87 06/10/18 23:01 Respiratory Rate 16 06/10/18 23:01 Blood Pressure 180/83 06/10/18 23:01 O2 Sat by Pulse Oximetry 100 06/10/18 23:01 Temperature 98.5 F 06/11/18 04:22 Pulse Rate 87 06/11/18 04:22 Respiratory Rate 16 06/11/18 04:22 Blood Pressure 157/79 06/11/18 04:22 O2 Sat by Pulse Oximetry 100 06/11/18 04:22 Oxygen Delivery Oxygen Delivery Ventilator Altered Mental Status - MDM Narrative Medical decision making narrative: 67-year-old male presented here very combative. There is been multiple people to restrain him. Due to multiple people in his altered mental status we felt intubation was necessary. We used rocuronium and etomidate the successfully sedated him and I successfully intubated the patient. Patient was then placed on the ventilator. The tube was in place but approximate 9 cm too high so we advanced it approximate 4 cm as it was already at the 22 cm sylwia. Patient was then sedated with propofol and fentanyl this did work well for him. Due to the difficult to risk difficult to restraining him we felt that we needed to pay and scan be sure there are no iatrogenic causes. CTs all came back negative for any acute findings. Patient did have cirrhosis with ascites due to patient' s hepatitis. Patient's ammonia weight was also elevated as we did place an OG and gave patient lactulose. Patient was gil cultured we started vancomycin and Zosyn on him. Due to patient's intubation and the being on the ventilator patient needs to be admitted to the ICU. I talked with Dr. Pimentel who agreed to admit the patient to the ICU. Patient is admitted to the ICU in critical condition on the ventilator. Abdomen/Pelvis CT 06/11/18 23:01 IMPRESSION: 1. Trace perihepatic ascites, possibly related to the patient's known diagnosis of liver disease. 2. Urinary bladder wall thickening may indicate cystitis or outlet obstruction. 3. Lumbar spondylosis, most pronounced at L4-L5. D/ / Gio Barron MD / Gio Barron MD Interpreting Provider: Gio Barron MD Cervical Spine CT 06/11/18 23:01 IMPRESSION: No acute abnormality of the cervical spine. D/ / Gelacio Croft MD / Gelacio Croft MD Interpreting Provider: Gelacio Croft MD Chest CT 06/11/18 23:01 IMPRESSION: 1. Right pleural effusion with right lower lobe atelectasis or pneumonia. 2. High positioning of the endotracheal tube as described on a portable radiograph from earlier the same day. If this has not already been adjusted the tube should be advanced 9 cm. 3. Mild thoracic spondylosis with no acute abnormality. 4. Scattered sclerotic foci are probably bone islands though metastatic disease could have a similar appearance. D/ / Gio Barron MD / Gio Barron MD Interpreting Provider: Gio Barron MD Chest X-Ray 06/11/18 23:01 IMPRESSION: 1. The endotracheal tube tip is above the clavicular heads. The tube should be advanced 9 cm. 2. Clear lungs. D/ / Gio Barron MD / Gio Barron MD Interpreting Provider: Gio Barron MD Head CT 06/11/18 23:01 IMPRESSION: No acute intracranial abnormality. Stable chronic ischemic changes as above. D/ / Gelacio Croft MD / Gelacio Croft MD Interpreting Provider: Gelacio Croft MD Lumbar Spine CT 06/11/18 23:01 IMPRESSION: 1. Trace perihepatic ascites, possibly related to the patient's known diagnosis of liver disease. 2. Urinary bladder wall thickening may indicate cystitis or outlet obstruction. 3. Lumbar spondylosis, most pronounced at L4-L5. D/ / Gio Barron MD / Gio Barron MD Interpreting Provider: Gio Barron MD Thoracic Spine CT 06/11/18 23:01 IMPRESSION: 1. Right pleural effusion with right lower lobe atelectasis or pneumonia. 2. High positioning of the endotracheal tube as described on a portable radiograph from earlier the same day. If this has not already been adjusted the tube should be advanced 9 cm. 3. Mild thoracic spondylosis with no acute abnormality. 4. Scattered sclerotic foci are probably bone islands though metastatic disease could have a similar appearance. D/ / Gio Barron MD / Gio Barron MD Interpreting Provider: Gio Barron MD - Medical Records Medical records reviewed: Yes I reviewed the patient's medical records. - Lab Data Lab results reviewed: Yes I reviewed the patient's lab results. Result diagrams: 06/10/18 23:01 06/10/18 23:01 Lab Results 06/10/18 06/10/18 06/10/18 Range/Units 23:01 23:01 23:01 WBC 11.2 H (4.3-11.1) K/mcL RBC 4.35 (4.19-5.50) M/mcL Hgb 12.7 L (12.9-16.9) g/dL Hct 36.5 L (37.5-50.1) % MCV 83.9 (83.0-100.0) fL MCH 29.2 (28.0-33.3) pg MCHC 34.8 (31.6-35.5) g/dL RDW 13.2 (11.5-14.5) % Plt Count 260 (140-400) K/mcL MPV 10.1 (9.4-12.4) fL Immature Gran % 0.8 (0-4) % Seg Neutrophils % 84.2 % Lymphocytes % 11.9 % Monocytes % 2.9 % Eosinophils % 0.0 % Basophils % 0.2 % Neutrophils # 9.5 H (1.6-8.9) K/mcL Lymphocytes # 1.3 (0.6-4.6) K/mcL Monocytes # 0.3 (0.0-1.3) K/mcL Eosinophils # 0.0 (0.0-0.6) K/mcL Basophils # 0.0 (0.0-0.2) K/mcL PT 11.0 (9.4-12.1) Seconds INR 1.0 APTT 29.8 (26.0-36.0) Seconds Sample Site ABG pH (7.32-7.45) pH Units ABG pCO2 (35-45) mmHg ABG pO2 (85-104) mmHg ABG HCO3 (21-27) mEq/L ABG Total CO2 (20-26) mEq/L ABG O2 Saturation (95-98) % ABG Base Excess (-2 to 3) mEq/L Kevin Test Carboxyhemoglobin (0-5) % Respiration Rate O2 Delivery Device Blood Gas Modality Inspired O2 (1-15=lpm wq51-106=%) Tidal Volume cc PEEP cm H2O Sodium 141 (136-145) mEq/L Potassium 3.2 L (3.5-5.1) mEq/L Chloride 103 (98-107) mEq/L Carbon Dioxide 20 L (23-29) mEq/L BUN 40 H (8-23) mg/dL Creatinine 3.63 H (0.70-1.30) mg/dL Est GFR ( Amer) 21 L (> 60) Est GFR (Non-Af Amer) 17 L (> 60) BUN/Creatinine Ratio 11 (6-26) Glucose 331 H (70-105) mg/dL POC Glucose (70-99) mg/dL Calculated Osmolality 315 H (280-300) Calcium 9.3 (8.6-10.3) mg/dL Total Bilirubin 0.4 (0.3-1.0) mg/dL Direct Bilirubin 0.1 (0.0-0.2) mg/dL Indirect Bilirubin 0.3 (0.0-1.2) mg/dL AST 29 (13-39) Units/L ALT 20 (7-52) Units/L Alkaline Phosphatase 121 H (34-104) Units/L Ammonia (16-53) mcmol/L Creatine Kinase 245 H (30-223) Units/L Troponin I 0.05 H* (< 0.04) ng/mL Serum Total Protein 8.0 (6.4-8.9) g/dL Albumin 5.0 (3.5-5.7) g/dL Globulin 3.0 (2.4-3.5) g/dL Albumin/Globulin Ratio 1.7 (1.1-2.2) TSH 1.209 (0.340-5.600) mcIU/mL Urine Color (Yellow) Urine Clarity (Clear) Urine pH (5.0-8.0) pH Units Ur Specific [place] (1.010-1.025) Urine Protein (Neg-Trace) mg/dL Urine Glucose (UA) (Normal) mg/dL Urine Ketones (Negative) mg/dL Urine Blood (Negative) Urine Nitrite (Negative) Urine Bilirubin (Negative) Urine Urobilinogen (Normal) mg/dL Ur Leukocyte Esterase (Negative) Urine Microscopic RBC (0-3) per hpf Urine Microscopic WBC (0-3) per hpf Ur Squamous Epith Cells (None-Few) per lpf Urine Bacteria (None-Few) per hpf Hyaline Casts (None-Few) per lpf Ur Culture Indicated? (NO) Salicylates < 2.5 L (15.0-30.0) mg/dL Urine Opiates Screen (Cuwzvn=431) ng/mL Acetaminophen < 10 L (10-20) mcg/mL Ur Barbiturates Screen (Jmttvh=063) ng/mL Ur Phencyclidine Scrn (Cutoff=25) ng/mL Ur Amphetamines Screen (Huthmj=6946) ng/mL U Benzodiazepines Scrn (Gbxrnn=702) ng/mL Urine Cocaine Screen (Cutoff= 300) ng/mL U Marijuana (THC) Screen (Cutoff = 50) ng/mL Ur Drug Screen Interp Ethyl Alcohol < 10 (Less than 10) mg/dL Blood Type Antibody Screen 06/10/18 06/10/18 06/10/18 Range/Units 23:03 23:03 23:36 WBC (4.3-11.1) K/mcL RBC (4.19-5.50) M/mcL Hgb (12.9-16.9) g/dL Hct (37.5-50.1) % MCV (83.0-100.0) fL MCH (28.0-33.3) pg MCHC (31.6-35.5) g/dL RDW (11.5-14.5) % Plt Count (140-400) K/mcL MPV (9.4-12.4) fL Immature Gran % (0-4) % Seg Neutrophils % % Lymphocytes % % Monocytes % % Eosinophils % % Basophils % % Neutrophils # (1.6-8.9) K/mcL Lymphocytes # (0.6-4.6) K/mcL Monocytes # (0.0-1.3) K/mcL Eosinophils # (0.0-0.6) K/mcL Basophils # (0.0-0.2) K/mcL PT (9.4-12.1) Seconds INR APTT (26.0-36.0) Seconds Sample Site ABG pH (7.32-7.45) pH Units ABG pCO2 (35-45) mmHg ABG pO2 (85-104) mmHg ABG HCO3 (21-27) mEq/L ABG Total CO2 (20-26) mEq/L ABG O2 Saturation (95-98) % ABG Base Excess (-2 to 3) mEq/L Kevin Test Carboxyhemoglobin (0-5) % Respiration Rate O2 Delivery Device Blood Gas Modality Inspired O2 (1-15=lpm uc57-741=%) Tidal Volume cc PEEP cm H2O Sodium (136-145) mEq/L Potassium (3.5-5.1) mEq/L Chloride (98-107) mEq/L Carbon Dioxide (23-29) mEq/L BUN (8-23) mg/dL Creatinine (0.70-1.30) mg/dL Est GFR ( Amer) (> 60) Est GFR (Non-Af Amer) (> 60) BUN/Creatinine Ratio (6-26) Glucose (70-105) mg/dL POC Glucose (70-99) mg/dL Calculated Osmolality (280-300) Calcium (8.6-10.3) mg/dL Total Bilirubin (0.3-1.0) mg/dL Direct Bilirubin (0.0-0.2) mg/dL Indirect Bilirubin (0.0-1.2) mg/dL AST (13-39) Units/L ALT (7-52) Units/L Alkaline Phosphatase (34-104) Units/L Ammonia 74 H (16-53) mcmol/L Creatine Kinase (30-223) Units/L Troponin I (< 0.04) ng/mL Serum Total Protein (6.4-8.9) g/dL Albumin (3.5-5.7) g/dL Globulin (2.4-3.5) g/dL Albumin/Globulin Ratio (1.1-2.2) TSH (0.340-5.600) mcIU/mL Urine Color Yellow (Yellow) Urine Clarity Clear (Clear) Urine pH 6.0 (5.0-8.0) pH Units Ur Specific [place] 1.020 (1.010-1.025) Urine Protein >=300 H (Neg-Trace) mg/dL Urine Glucose (UA) 100 H (Normal) mg/dL Urine Ketones Trace H (Negative) mg/dL Urine Blood Negative (Negative) Urine Nitrite Negative (Negative) Urine Bilirubin Negative (Negative) Urine Urobilinogen Normal (Normal) mg/dL Ur Leukocyte Esterase Negative (Negative) Urine Microscopic RBC 3-5 H (0-3) per hpf Urine Microscopic WBC 0-3 (0-3) per hpf Ur Squamous Epith Cells None Seen (None-Few) per lpf Urine Bacteria None Seen (None-Few) per hpf Hyaline Casts None Seen (None-Few) per lpf Ur Culture Indicated? NO (NO) Salicylates (15.0-30.0) mg/dL Urine Opiates Screen Negative (Ikgefl=274) ng/mL Acetaminophen (10-20) mcg/mL Ur Barbiturates Screen Negative (Okutmv=065) ng/mL Ur Phencyclidine Scrn Negative (Cutoff=25) ng/mL Ur Amphetamines Screen Negative (Grdnfa=0042) ng/mL U Benzodiazepines Scrn Negative (Yxpmvp=804) ng/mL Urine Cocaine Screen Negative (Cutoff= 300) ng/mL U Marijuana (THC) Screen Positive H (Cutoff = 50) ng/mL Ur Drug Screen Interp See Below Ethyl Alcohol (Less than 10) mg/dL Blood Type Antibody Screen 06/10/18 06/10/18 06/10/18 Range/Units 23:49 23:52 23:52 WBC (4.3-11.1) K/mcL RBC (4.19-5.50) M/mcL Hgb (12.9-16.9) g/dL Hct (37.5-50.1) % MCV (83.0-100.0) fL MCH (28.0-33.3) pg MCHC (31.6-35.5) g/dL RDW (11.5-14.5) % Plt Count (140-400) K/mcL MPV (9.4-12.4) fL Immature Gran % (0-4) % Seg Neutrophils % % Lymphocytes % % Monocytes % % Eosinophils % % Basophils % % Neutrophils # (1.6-8.9) K/mcL Lymphocytes # (0.6-4.6) K/mcL Monocytes # (0.0-1.3) K/mcL Eosinophils # (0.0-0.6) K/mcL Basophils # (0.0-0.2) K/mcL PT (9.4-12.1) Seconds INR APTT (26.0-36.0) Seconds Sample Site ABG pH (7.32-7.45) pH Units ABG pCO2 (35-45) mmHg ABG pO2 (85-104) mmHg ABG HCO3 (21-27) mEq/L ABG Total CO2 (20-26) mEq/L ABG O2 Saturation (95-98) % ABG Base Excess (-2 to 3) mEq/L Kevin Test Carboxyhemoglobin 4.5 (0-5) % Respiration Rate O2 Delivery Device Blood Gas Modality Inspired O2 (1-15=lpm hq49-665=%) Tidal Volume cc PEEP cm H2O Sodium (136-145) mEq/L Potassium (3.5-5.1) mEq/L Chloride (98-107) mEq/L Carbon Dioxide (23-29) mEq/L BUN (8-23) mg/dL Creatinine (0.70-1.30) mg/dL Est GFR ( Amer) (> 60) Est GFR (Non-Af Amer) (> 60) BUN/Creatinine Ratio (6-26) Glucose (70-105) mg/dL POC Glucose 344 H (70-99) mg/dL Calculated Osmolality (280-300) Calcium (8.6-10.3) mg/dL Total Bilirubin (0.3-1.0) mg/dL Direct Bilirubin (0.0-0.2) mg/dL Indirect Bilirubin (0.0-1.2) mg/dL AST (13-39) Units/L ALT (7-52) Units/L Alkaline Phosphatase (34-104) Units/L Ammonia (16-53) mcmol/L Creatine Kinase (30-223) Units/L Troponin I (< 0.04) ng/mL Serum Total Protein (6.4-8.9) g/dL Albumin (3.5-5.7) g/dL Globulin (2.4-3.5) g/dL Albumin/Globulin Ratio (1.1-2.2) TSH (0.340-5.600) mcIU/mL Urine Color (Yellow) Urine Clarity (Clear) Urine pH (5.0-8.0) pH Units Ur Specific [place] (1.010-1.025) Urine Protein (Neg-Trace) mg/dL Urine Glucose (UA) (Normal) mg/dL Urine Ketones (Negative) mg/dL Urine Blood (Negative) Urine Nitrite (Negative) Urine Bilirubin (Negative) Urine Urobilinogen (Normal) mg/dL Ur Leukocyte Esterase (Negative) Urine Microscopic RBC (0-3) per hpf Urine Microscopic WBC (0-3) per hpf Ur Squamous Epith Cells (None-Few) per lpf Urine Bacteria (None-Few) per hpf Hyaline Casts (None-Few) per lpf Ur Culture Indicated? (NO) Salicylates (15.0-30.0) mg/dL Urine Opiates Screen (Llhbpo=716) ng/mL Acetaminophen (10-20) mcg/mL Ur Barbiturates Screen (Isdvfo=749) ng/mL Ur Phencyclidine Scrn (Cutoff=25) ng/mL Ur Amphetamines Screen (Iujsgd=3590) ng/mL U Benzodiazepines Scrn (Dmbuzj=033) ng/mL Urine Cocaine Screen (Cutoff= 300) ng/mL U Marijuana (THC) Screen (Cutoff = 50) ng/mL Ur Drug Screen Interp Ethyl Alcohol (Less than 10) mg/dL Blood Type A POSITIVE Antibody Screen NEGATIVE 06/11/18 Range/Units 02:13 WBC (4.3-11.1) K/mcL RBC (4.19-5.50) M/mcL Hgb (12.9-16.9) g/dL Hct (37.5-50.1) % MCV (83.0-100.0) fL MCH (28.0-33.3) pg MCHC (31.6-35.5) g/dL RDW (11.5-14.5) % Plt Count (140-400) K/mcL MPV (9.4-12.4) fL Immature Gran % (0-4) % Seg Neutrophils % % Lymphocytes % % Monocytes % % Eosinophils % % Basophils % % Neutrophils # (1.6-8.9) K/mcL Lymphocytes # (0.6-4.6) K/mcL Monocytes # (0.0-1.3) K/mcL Eosinophils # (0.0-0.6) K/mcL Basophils # (0.0-0.2) K/mcL PT (9.4-12.1) Seconds INR APTT (26.0-36.0) Seconds Sample Site R Radial ABG pH 7.34 (7.32-7.45) pH Units ABG pCO2 56 H (35-45) mmHg ABG pO2 481 H (85-104) mmHg ABG HCO3 30 H (21-27) mEq/L ABG Total CO2 32 H (20-26) mEq/L ABG O2 Saturation 100 H (95-98) % ABG Base Excess 3 (-2 to 3) mEq/L Kevin Test Positive Carboxyhemoglobin (0-5) % Respiration Rate 12 O2 Delivery Device Adult Vent Blood Gas Modality VC Inspired O2 100.0 (1-15=lpm ht17-672=%) Tidal Volume 480 cc PEEP 5 cm H2O Sodium (136-145) mEq/L Potassium (3.5-5.1) mEq/L Chloride (98-107) mEq/L Carbon Dioxide (23-29) mEq/L BUN (8-23) mg/dL Creatinine (0.70-1.30) mg/dL Est GFR ( Amer) (> 60) Est GFR (Non-Af Amer) (> 60) BUN/Creatinine Ratio (6-26) Glucose (70-105) mg/dL POC Glucose (70-99) mg/dL Calculated Osmolality (280-300) Calcium (8.6-10.3) mg/dL Total Bilirubin (0.3-1.0) mg/dL Direct Bilirubin (0.0-0.2) mg/dL Indirect Bilirubin (0.0-1.2) mg/dL AST (13-39) Units/L ALT (7-52) Units/L Alkaline Phosphatase (34-104) Units/L Ammonia (16-53) mcmol/L Creatine Kinase (30-223) Units/L Troponin I (< 0.04) ng/mL Serum Total Protein (6.4-8.9) g/dL Albumin (3.5-5.7) g/dL Globulin (2.4-3.5) g/dL Albumin/Globulin Ratio (1.1-2.2) TSH (0.340-5.600) mcIU/mL Urine Color (Yellow) Urine Clarity (Clear) Urine pH (5.0-8.0) pH Units Ur Specific [place] (1.010-1.025) Urine Protein (Neg-Trace) mg/dL Urine Glucose (UA) (Normal) mg/dL Urine Ketones (Negative) mg/dL Urine Blood (Negative) Urine Nitrite (Negative) Urine Bilirubin (Negative) Urine Urobilinogen (Normal) mg/dL Ur Leukocyte Esterase (Negative) Urine Microscopic RBC (0-3) per hpf Urine Microscopic WBC (0-3) per hpf Ur Squamous Epith Cells (None-Few) per lpf Urine Bacteria (None-Few) per hpf Hyaline Casts (None-Few) per lpf Ur Culture Indicated? (NO) Salicylates (15.0-30.0) mg/dL Urine Opiates Screen (Ecnbll=050) ng/mL Acetaminophen (10-20) mcg/mL Ur Barbiturates Screen (Midtvd=158) ng/mL Ur Phencyclidine Scrn (Cutoff=25) ng/mL Ur Amphetamines Screen (Qvegvl=9322) ng/mL U Benzodiazepines Scrn (Xlnyts=324) ng/mL Urine Cocaine Screen (Cutoff= 300) ng/mL U Marijuana (THC) Screen (Cutoff = 50) ng/mL Ur Drug Screen Interp Ethyl Alcohol (Less than 10) mg/dL Blood Type Antibody Screen - Radiology Data Radiology results reviewed: Yes I reviewed the patient's radiology results. - EKG Data EKG attestation: Yes I reviewed and interpreted this EKG. EKG results narrative: EKG done at 2327 presents with tachycardia at a rate of 173, QRS 90, QTC 5:[address] changes no acute T-wave changes no other signs of ischemia. This does seem to be SVT but patient is very tachycardic. There is no hypertrophy, heart strain, heart block. No Laquita PW/Brugada/HOCM. No old EKG to compare with Attestation Statement - Attestation Attestation: I examined this patient and my medical decision-making was reviewed with the Resident Physician. I agree with the documented findings, disposition and treatment plan as described except to the extent set forth below. Patient arrives with altered mental status. History of dementia. He was extremely combative on arrival. He grew increasingly combative and ultimately there were approximately 6 tab members attempting to hold the patient down. He was thrashing and violently attempting to combat the staff. He subsequently failed chemical restraint and ultimately was intubated for the patient's safety. I was truly concerned he would have iatrogenic injury due to the significant amount of strength in fight that he displayed. He was subsequently intubated with first pass success and placed on the ventilator and sedated. Subsequent laboratory analyses show elevated ammonia level. He was given lactulose. He was sedated with propofol and fentanyl. He will be admitted to the intensive care unit for ongoing management of altered mental status. I spent greater than 35 minutes of critical care time resuscitating this acutely ill patient suffering from altered mental status. This was excluding billable procedures.
[2018-06-11] MEDS: FentaNYL (PF) 1,000 MCG in 0.9 % Sodium Chloride 80 ML IVC SCH ×3 (02:04→21:52)
[2018-06-11] MEDS ORDERED: Lactulose Oral Soln 20 GM/30 ML UDC PO ONE (02:10)
[2018-06-11 02:18] LABS: ABG Base Excess 3 mEq/L (-2 to 3); ABG HCO3 30 mEq/L (21-27); ABG Oxygen Saturation 100 % (95-98); ABG PCO2 56 mmHg (35-45); ABG PH 7.34 pH Units (7.32-7.45); ABG PO2 481 mmHg (85-104); ABG TCO2 32 mEq/L (20-26); Blood Gas Modality VC; Blood Gas PEEP 5 cm H2O; Blood Gas Respiration Rate 12; Blood Gas VT 480 cc
[2018-06-11] MEDS ORDERED: Piperacillin/Tazobactam 3.375 GM in Water for inj. (sterile) 20 ML 20 ML IVP ONE (03:50)
--- NOTE | 2018-06-11 03:52 | Emergency Department Note ---
Disposition Clinical Impression: Hyperammonemia, Hepatic encephalopathy Altered mental status Qualifiers: Altered mental status type: disorientation Qualified Code(s): R41.0 - Disorientation, unspecified Disposition: Admitted As Inpatient Condition: Critical Referrals: Rajesh Gillette Jr, MD [Primary Care Provider] - Forms: ED Satisfaction Letter General Adult HPI - General Chief complaint: ED Altered Mental Status Stated complaint: Altered Time Seen by Provider: 06/10/18 23:00 Source: patient, EMS Mode of arrival: ambulatory Limitations: altered mental status - History of Present Illness HPI Narrative: This is just a procedure note Pain Scale: 0 - Related Data Home Medications Medication Instructions Recorded Confirmed Glimepiride [Amaryl] 2 mg PO QAM 09/01/16 10/12/17 Methadone HCl 10 mg PO QID 09/01/16 10/12/17 Aspirin [Lo-Dose Aspirin EC] 81 mg PO DAILY 03/09/17 10/12/17 Vitamin B Complex/Vit C/Vit E 1 tab PO DAILY 03/09/17 10/12/17 [Stresstab] HydrOXYzine 10 mg PO DAILY 10/12/17 10/12/17 Lisinopril [Zestril] 20 mg PO DAILY 10/12/17 10/12/17 Previous Rx's Medication Instructions Recorded cloNIDine HCl [CloNIDine HCl] 0.3 mg PO TID #90 tablet 03/12/17 Atorvastatin [Lipitor] 20 mg PO HS #30 tablet 10/16/17 Diltiazem CD (24hr) [Cardizem CD] 240 mg PO DAILY #30 cap.er.24h 10/16/17 Minoxidil 10 mg PO DAILY #60 tablet 10/16/17 amLODIPine [Norvasc] 5 mg PO DAILY #30 tablet 10/16/17 hydrALAZINE [HydrALAZINE] 75 mg PO Q8H #180 tablet 10/16/17 Allergies Allergy/AdvReac Type Severity Reaction Status Date / Time No Known Allergies Allergy Verified 03/09/17 07:53 Past Medical History - Past Medical History Medical history: Reports: diabetes, hypertension, liver disease, other, hepatitis Surgical history: Reports: non-contributory Psychiatric history: Reports: no psych history - Social History Smoking Status: Current every day smoker Smokeless Tobacco Status: No Alcohol use: Reports: heavy, recent Drug use: Reports: marijuana Physical Exam - General Limitations: altered mental status General appearance: alert, appears intoxicated, anxious Course Vital Signs Pulse Rate 87 06/10/18 23:01 Respiratory Rate 16 06/10/18 23:01 Blood Pressure 180/83 06/10/18 23:01 O2 Sat by Pulse Oximetry 100 06/10/18 23:01 Temperature 98.7 F 06/11/18 01:26 Pulse Rate 93 06/11/18 02:09 Respiratory Rate 16 06/11/18 02:19 Blood Pressure 185/83 06/11/18 02:19 O2 Sat by Pulse Oximetry 100 06/11/18 02:19 Oxygen Delivery Oxygen Delivery Ventilator Procedures - Intubation Time out performed: Yes sedative: Etomidate Mg Given: 20 paralytic: Rocuronium Mg Given: 100 Laryngoscope: Murray ET Tube Uncuffed: No Tube Secured Depth (cm): 22 Tube Secured Location: lips Tube Placement Confirmation: visualized tube passing through cords, equal breath sounds bilaterally, no breath sounds over epigastrium, confirmation by capnometry Patient Tolerated Procedure: well, no complications Intubation Complications: none Medical Decision Making - MDM Narrative Medical decision making narrative: This is just a procedure note. - Lab Data Result diagrams: 06/10/18 23:01 06/10/18 23:01 Lab Results 06/10/18 06/10/18 06/10/18 Range/Units 23:01 23:01 23:01 WBC 11.2 H (4.3-11.1) K/mcL RBC 4.35 (4.19-5.50) M/mcL Hgb 12.7 L (12.9-16.9) g/dL Hct 36.5 L (37.5-50.1) % MCV 83.9 (83.0-100.0) fL MCH 29.2 (28.0-33.3) pg MCHC 34.8 (31.6-35.5) g/dL RDW 13.2 (11.5-14.5) % Plt Count 260 (140-400) K/mcL MPV 10.1 (9.4-12.4) fL Immature Gran % 0.8 (0-4) % Seg Neutrophils % 84.2 % Lymphocytes % 11.9 % Monocytes % 2.9 % Eosinophils % 0.0 % Basophils % 0.2 % Neutrophils # 9.5 H (1.6-8.9) K/mcL Lymphocytes # 1.3 (0.6-4.6) K/mcL Monocytes # 0.3 (0.0-1.3) K/mcL Eosinophils # 0.0 (0.0-0.6) K/mcL Basophils # 0.0 (0.0-0.2) K/mcL PT 11.0 (9.4-12.1) Seconds INR 1.0 APTT 29.8 (26.0-36.0) Seconds Sample Site ABG pH (7.32-7.45) pH Units ABG pCO2 (35-45) mmHg ABG pO2 (85-104) mmHg ABG HCO3 (21-27) mEq/L ABG Total CO2 (20-26) mEq/L ABG O2 Saturation (95-98) % ABG Base Excess (-2 to 3) mEq/L Kevin Test Carboxyhemoglobin (0-5) % Respiration Rate O2 Delivery Device Blood Gas Modality Inspired O2 (1-15=lpm [id number]=%) Tidal Volume cc PEEP cm H2O Sodium 141 (136-145) mEq/L Potassium 3.2 L (3.5-5.1) mEq/L Chloride 103 (98-107) mEq/L Carbon Dioxide 20 L (23-29) mEq/L BUN 40 H (8-23) mg/dL Creatinine 3.63 H (0.70-1.30) mg/dL Est GFR ( Amer) 21 L (> 60) Est GFR (Non-Af Amer) 17 L (> 60) BUN/Creatinine Ratio 11 (6-26) Glucose 331 H (70-105) mg/dL POC Glucose (70-99) mg/dL Calculated Osmolality 315 H (280-300) Calcium 9.3 (8.6-10.3) mg/dL Total Bilirubin 0.4 (0.3-1.0) mg/dL Direct Bilirubin 0.1 (0.0-0.2) mg/dL Indirect Bilirubin 0.3 (0.0-1.2) mg/dL AST 29 (13-39) Units/L ALT 20 (7-52) Units/L Alkaline Phosphatase 121 H (34-104) Units/L Ammonia (16-53) mcmol/L Creatine Kinase 245 H (30-223) Units/L Troponin I 0.05 H* (< 0.04) ng/mL Serum Total Protein 8.0 (6.4-8.9) g/dL Albumin 5.0 (3.5-5.7) g/dL Globulin 3.0 (2.4-3.5) g/dL Albumin/Globulin Ratio 1.7 (1.1-2.2) TSH 1.209 (0.340-5.600) mcIU/mL Urine Color (Yellow) Urine Clarity (Clear) Urine pH (5.0-8.0) pH Units Ur Specific [place] (1.010-1.025) Urine Protein (Neg-Trace) mg/dL Urine Glucose (UA) (Normal) mg/dL Urine Ketones (Negative) mg/dL Urine Blood (Negative) Urine Nitrite (Negative) Urine Bilirubin (Negative) Urine Urobilinogen (Normal) mg/dL Ur Leukocyte Esterase (Negative) Urine Microscopic RBC (0-3) per hpf Urine Microscopic WBC (0-3) per hpf Ur Squamous Epith Cells (None-Few) per lpf Urine Bacteria (None-Few) per hpf Hyaline Casts (None-Few) per lpf Ur Culture Indicated? (NO) Salicylates < 2.5 L (15.0-30.0) mg/dL Urine Opiates Screen (Wetjxk=862) ng/mL Acetaminophen < 10 L (10-20) mcg/mL Ur Barbiturates Screen (Ncehqu=683) ng/mL Ur Phencyclidine Scrn (Cutoff=25) ng/mL Ur Amphetamines Screen (Bmiwok=5432) ng/mL U Benzodiazepines Scrn (Qqfumn=294) ng/mL Urine Cocaine Screen (Cutoff= 300) ng/mL U Marijuana (THC) Screen (Cutoff = 50) ng/mL Ur Drug Screen Interp Ethyl Alcohol < 10 (Less than 10) mg/dL Blood Type Antibody Screen 06/10/18 06/10/18 06/10/18 Range/Units 23:03 23:03 23:36 WBC (4.3-11.1) K/mcL RBC (4.19-5.50) M/mcL Hgb (12.9-16.9) g/dL Hct (37.5-50.1) % MCV (83.0-100.0) fL MCH (28.0-33.3) pg MCHC (31.6-35.5) g/dL RDW (11.5-14.5) % Plt Count (140-400) K/mcL MPV (9.4-12.4) fL Immature Gran % (0-4) % Seg Neutrophils % % Lymphocytes % % Monocytes % % Eosinophils % % Basophils % % Neutrophils # (1.6-8.9) K/mcL Lymphocytes # (0.6-4.6) K/mcL Monocytes # (0.0-1.3) K/mcL Eosinophils # (0.0-0.6) K/mcL Basophils # (0.0-0.2) K/mcL PT (9.4-12.1) Seconds INR APTT (26.0-36.0) Seconds Sample Site ABG pH (7.32-7.45) pH Units ABG pCO2 (35-45) mmHg ABG pO2 (85-104) mmHg ABG HCO3 (21-27) mEq/L ABG Total CO2 (20-26) mEq/L ABG O2 Saturation (95-98) % ABG Base Excess (-2 to 3) mEq/L Kevin Test Carboxyhemoglobin (0-5) % Respiration Rate O2 Delivery Device Blood Gas Modality Inspired O2 (1-15=lpm ln70-605=%) Tidal Volume cc PEEP cm H2O Sodium (136-145) mEq/L Potassium (3.5-5.1) mEq/L Chloride (98-107) mEq/L Carbon Dioxide (23-29) mEq/L BUN (8-23) mg/dL Creatinine (0.70-1.30) mg/dL Est GFR ( Amer) (> 60) Est GFR (Non-Af Amer) (> 60) BUN/Creatinine Ratio (6-26) Glucose (70-105) mg/dL POC Glucose (70-99) mg/dL Calculated Osmolality (280-300) Calcium (8.6-10.3) mg/dL Total Bilirubin (0.3-1.0) mg/dL Direct Bilirubin (0.0-0.2) mg/dL Indirect Bilirubin (0.0-1.2) mg/dL AST (13-39) Units/L ALT (7-52) Units/L Alkaline Phosphatase (34-104) Units/L Ammonia 74 H (16-53) mcmol/L Creatine Kinase (30-223) Units/L Troponin I (< 0.04) ng/mL Serum Total Protein (6.4-8.9) g/dL Albumin (3.5-5.7) g/dL Globulin (2.4-3.5) g/dL Albumin/Globulin Ratio (1.1-2.2) TSH (0.340-5.600) mcIU/mL Urine Color Yellow (Yellow) Urine Clarity Clear (Clear) Urine pH 6.0 (5.0-8.0) pH Units Ur Specific [place] 1.020 (1.010-1.025) Urine Protein >=300 H (Neg-Trace) mg/dL Urine Glucose (UA) 100 H (Normal) mg/dL Urine Ketones Trace H (Negative) mg/dL Urine Blood Negative (Negative) Urine Nitrite Negative (Negative) Urine Bilirubin Negative (Negative) Urine Urobilinogen Normal (Normal) mg/dL Ur Leukocyte Esterase Negative (Negative) Urine Microscopic RBC 3-5 H (0-3) per hpf Urine Microscopic WBC 0-3 (0-3) per hpf Ur Squamous Epith Cells None Seen (None-Few) per lpf Urine Bacteria None Seen (None-Few) per hpf Hyaline Casts None Seen (None-Few) per lpf Ur Culture Indicated? NO (NO) Salicylates (15.0-30.0) mg/dL Urine Opiates Screen Negative (Mmpswd=709) ng/mL Acetaminophen (10-20) mcg/mL Ur Barbiturates Screen Negative (Beqycg=555) ng/mL Ur Phencyclidine Scrn Negative (Cutoff=25) ng/mL Ur Amphetamines Screen Negative (Zbxzfx=8899) ng/mL U Benzodiazepines Scrn Negative (Fmtqfv=354) ng/mL Urine Cocaine Screen Negative (Cutoff= 300) ng/mL U Marijuana (THC) Screen Positive H (Cutoff = 50) ng/mL Ur Drug Screen Interp See Below Ethyl Alcohol (Less than 10) mg/dL Blood Type Antibody Screen 06/10/18 06/10/18 06/10/18 Range/Units 23:49 23:52 23:52 WBC (4.3-11.1) K/mcL RBC (4.19-5.50) M/mcL Hgb (12.9-16.9) g/dL Hct (37.5-50.1) % MCV (83.0-100.0) fL MCH (28.0-33.3) pg MCHC (31.6-35.5) g/dL RDW (11.5-14.5) % Plt Count (140-400) K/mcL MPV (9.4-12.4) fL Immature Gran % (0-4) % Seg Neutrophils % % Lymphocytes % % Monocytes % % Eosinophils % % Basophils % % Neutrophils # (1.6-8.9) K/mcL Lymphocytes # (0.6-4.6) K/mcL Monocytes # (0.0-1.3) K/mcL Eosinophils # (0.0-0.6) K/mcL Basophils # (0.0-0.2) K/mcL PT (9.4-12.1) Seconds INR APTT (26.0-36.0) Seconds Sample Site ABG pH (7.32-7.45) pH Units ABG pCO2 (35-45) mmHg ABG pO2 (85-104) mmHg ABG HCO3 (21-27) mEq/L ABG Total CO2 (20-26) mEq/L ABG O2 Saturation (95-98) % ABG Base Excess (-2 to 3) mEq/L Kevin Test Carboxyhemoglobin 4.5 (0-5) % Respiration Rate O2 Delivery Device Blood Gas Modality Inspired O2 (1-15=lpm du84-016=%) Tidal Volume cc PEEP cm H2O Sodium (136-145) mEq/L Potassium (3.5-5.1) mEq/L Chloride (98-107) mEq/L Carbon Dioxide (23-29) mEq/L BUN (8-23) mg/dL Creatinine (0.70-1.30) mg/dL Est GFR ( Amer) (> 60) Est GFR (Non-Af Amer) (> 60) BUN/Creatinine Ratio (6-26) Glucose (70-105) mg/dL POC Glucose 344 H (70-99) mg/dL Calculated Osmolality (280-300) Calcium (8.6-10.3) mg/dL Total Bilirubin (0.3-1.0) mg/dL Direct Bilirubin (0.0-0.2) mg/dL Indirect Bilirubin (0.0-1.2) mg/dL AST (13-39) Units/L ALT (7-52) Units/L Alkaline Phosphatase (34-104) Units/L Ammonia (16-53) mcmol/L Creatine Kinase (30-223) Units/L Troponin I (< 0.04) ng/mL Serum Total Protein (6.4-8.9) g/dL Albumin (3.5-5.7) g/dL Globulin (2.4-3.5) g/dL Albumin/Globulin Ratio (1.1-2.2) TSH (0.340-5.600) mcIU/mL Urine Color (Yellow) Urine Clarity (Clear) Urine pH (5.0-8.0) pH Units Ur Specific [place] (1.010-1.025) Urine Protein (Neg-Trace) mg/dL Urine Glucose (UA) (Normal) mg/dL Urine Ketones (Negative) mg/dL Urine Blood (Negative) Urine Nitrite (Negative) Urine Bilirubin (Negative) Urine Urobilinogen (Normal) mg/dL Ur Leukocyte Esterase (Negative) Urine Microscopic RBC (0-3) per hpf Urine Microscopic WBC (0-3) per hpf Ur Squamous Epith Cells (None-Few) per lpf Urine Bacteria (None-Few) per hpf Hyaline Casts (None-Few) per lpf Ur Culture Indicated? (NO) Salicylates (15.0-30.0) mg/dL Urine Opiates Screen (Nnyhnx=261) ng/mL Acetaminophen (10-20) mcg/mL Ur Barbiturates Screen (Usrfjg=009) ng/mL Ur Phencyclidine Scrn (Cutoff=25) ng/mL Ur Amphetamines Screen (Tgssno=1516) ng/mL U Benzodiazepines Scrn (Zgkacj=830) ng/mL Urine Cocaine Screen (Cutoff= 300) ng/mL U Marijuana (THC) Screen (Cutoff = 50) ng/mL Ur Drug Screen Interp Ethyl Alcohol (Less than 10) mg/dL Blood Type A POSITIVE Antibody Screen NEGATIVE 06/11/18 Range/Units 02:13 WBC (4.3-11.1) K/mcL RBC (4.19-5.50) M/mcL Hgb (12.9-16.9) g/dL Hct (37.5-50.1) % MCV (83.0-100.0) fL MCH (28.0-33.3) pg MCHC (31.6-35.5) g/dL RDW (11.5-14.5) % Plt Count (140-400) K/mcL MPV (9.4-12.4) fL Immature Gran % (0-4) % Seg Neutrophils % % Lymphocytes % % Monocytes % % Eosinophils % % Basophils % % Neutrophils # (1.6-8.9) K/mcL Lymphocytes # (0.6-4.6) K/mcL Monocytes # (0.0-1.3) K/mcL Eosinophils # (0.0-0.6) K/mcL Basophils # (0.0-0.2) K/mcL PT (9.4-12.1) Seconds INR APTT (26.0-36.0) Seconds Sample Site R Radial ABG pH 7.34 (7.32-7.45) pH Units ABG pCO2 56 H (35-45) mmHg ABG pO2 481 H (85-104) mmHg ABG HCO3 30 H (21-27) mEq/L ABG Total CO2 32 H (20-26) mEq/L ABG O2 Saturation 100 H (95-98) % ABG Base Excess 3 (-2 to 3) mEq/L Kevin Test Positive Carboxyhemoglobin (0-5) % Respiration Rate 12 O2 Delivery Device Adult Vent Blood Gas Modality VC Inspired O2 100.0 (1-15=lpm cg57-505=%) Tidal Volume 480 cc PEEP 5 cm H2O Sodium (136-145) mEq/L Potassium (3.5-5.1) mEq/L Chloride (98-107) mEq/L Carbon Dioxide (23-29) mEq/L BUN (8-23) mg/dL Creatinine (0.70-1.30) mg/dL Est GFR ( Amer) (> 60) Est GFR (Non-Af Amer) (> 60) BUN/Creatinine Ratio (6-26) Glucose (70-105) mg/dL POC Glucose (70-99) mg/dL Calculated Osmolality (280-300) Calcium (8.6-10.3) mg/dL Total Bilirubin (0.3-1.0) mg/dL Direct Bilirubin (0.0-0.2) mg/dL Indirect Bilirubin (0.0-1.2) mg/dL AST (13-39) Units/L ALT (7-52) Units/L Alkaline Phosphatase (34-104) Units/L Ammonia (16-53) mcmol/L Creatine Kinase (30-223) Units/L Troponin I (< 0.04) ng/mL Serum Total Protein (6.4-8.9) g/dL Albumin (3.5-5.7) g/dL Globulin (2.4-3.5) g/dL Albumin/Globulin Ratio (1.1-2.2) TSH (0.340-5.600) mcIU/mL Urine Color (Yellow) Urine Clarity (Clear) Urine pH (5.0-8.0) pH Units Ur Specific [place] (1.010-1.025) Urine Protein (Neg-Trace) mg/dL Urine Glucose (UA) (Normal) mg/dL Urine Ketones (Negative) mg/dL Urine Blood (Negative) Urine Nitrite (Negative) Urine Bilirubin (Negative) Urine Urobilinogen (Normal) mg/dL Ur Leukocyte Esterase (Negative) Urine Microscopic RBC (0-3) per hpf Urine Microscopic WBC (0-3) per hpf Ur Squamous Epith Cells (None-Few) per lpf Urine Bacteria (None-Few) per hpf Hyaline Casts (None-Few) per lpf Ur Culture Indicated? (NO) Salicylates (15.0-30.0) mg/dL Urine Opiates Screen (Lghwkq=843) ng/mL Acetaminophen (10-20) mcg/mL Ur Barbiturates Screen (Cngnzg=927) ng/mL Ur Phencyclidine Scrn (Cutoff=25) ng/mL Ur Amphetamines Screen (Ybjrtz=8778) ng/mL U Benzodiazepines Scrn (Incffr=554) ng/mL Urine Cocaine Screen (Cutoff= 300) ng/mL U Marijuana (THC) Screen (Cutoff = 50) ng/mL Ur Drug Screen Interp Ethyl Alcohol (Less than 10) mg/dL Blood Type Antibody Screen
--- NOTE | 2018-06-11 05:23 | Internal Med History&Physical ---
<Brent Gilbert - Last Filed: 06/11/18 05:49> Date of Encounter: 06/11/18 Internal Medicine - H&P: Meds Glimepiride [Amaryl] 2 mg PO QAM 09/01/16 [History] Methadone HCl 10 mg PO QID 09/01/16 [History] Aspirin [Lo-Dose Aspirin EC] 81 mg PO DAILY 03/09/17 [History] Vitamin B Complex/Vit C/Vit E [Stresstab] 1 tab PO DAILY 03/09/17 [History] cloNIDine HCl [CloNIDine HCl] 0.3 mg PO TID #90 tablet 03/12/17 [Rx] HydrOXYzine 10 mg PO DAILY 10/12/17 [History] Lisinopril [Zestril] 20 mg PO DAILY 10/12/17 [History] Atorvastatin [Lipitor] 20 mg PO HS #30 tablet 10/16/17 [Rx] Diltiazem CD (24hr) [Cardizem CD] 240 mg PO DAILY #30 cap.er.24h 10/16/17 [Rx] Minoxidil 10 mg PO DAILY #60 tablet 10/16/17 [Rx] amLODIPine [Norvasc] 5 mg PO DAILY #30 tablet 10/16/17 [Rx] hydrALAZINE [HydrALAZINE] 75 mg PO Q8H #180 tablet 10/16/17 [Rx] 3 Allergy/AdvReac Type Severity Reaction Status Date / Time No Known Allergies Allergy Verified 03/09/17 07:53 All Systems PM: A 10-system review of systems was performed and is negative for pertinent findings except as documented above in the HPI. - Constitutional Vitals: Temp Pulse Resp BP Pulse Ox 98.5 F 87 16 157/79 100 06/11/18 04:22 06/11/18 04:22 06/11/18 05:10 06/11/18 04:22 06/11/18 05:10 Internal Med - H&P Results - Labs CBC & Chem 7: 06/10/18 23:01 06/10/18 23:01 - Impressions ITS Impressions Abdomen/Pelvis CT 06/11/18 23:01 IMPRESSION: 1. Trace perihepatic ascites, possibly related to the patient's known diagnosis of liver disease. 2. Urinary bladder wall thickening may indicate cystitis or outlet obstruction. 3. Lumbar spondylosis, most pronounced at L4-L5. D/ / Gio Barron MD / Gio Barron MD Interpreting Provider: Gio Barron MD Cervical Spine CT 06/11/18 23:01 IMPRESSION: No acute abnormality of the cervical spine. D/ / Gelacio Croft MD / Gelacio Croft MD Interpreting Provider: Gelacio Croft MD Chest CT 06/11/18 23:01 IMPRESSION: 1. Right pleural effusion with right lower lobe atelectasis or pneumonia. 2. High positioning of the endotracheal tube as described on a portable radiograph from earlier the same day. If this has not already been adjusted the tube should be advanced 9 cm. 3. Mild thoracic spondylosis with no acute abnormality. 4. Scattered sclerotic foci are probably bone islands though metastatic disease could have a similar appearance. D/ / Gio Barron MD / Gio Barron MD Interpreting Provider: Gio Barron MD Chest X-Ray 06/11/18 23:01 IMPRESSION: 1. The endotracheal tube tip is above the clavicular heads. The tube should be advanced 9 cm. 2. Clear lungs. D/ / Gio Barron MD / Gio Barron MD Interpreting Provider: Gio Barron MD Head CT 06/11/18 23:01 IMPRESSION: No acute intracranial abnormality. Stable chronic ischemic changes as above. D/ / Gelacio Croft MD / Gelacio Croft MD Interpreting Provider: Gelacio Croft MD Lumbar Spine CT 06/11/18 23:01 IMPRESSION: 1. Trace perihepatic ascites, possibly related to the patient's known diagnosis of liver disease. 2. Urinary bladder wall thickening may indicate cystitis or outlet obstruction. 3. Lumbar spondylosis, most pronounced at L4-L5. D/ / Gio Barron MD / Gio Barron MD Interpreting Provider: Gio Barron MD Thoracic Spine CT 06/11/18 23:01 IMPRESSION: 1. Right pleural effusion with right lower lobe atelectasis or pneumonia. 2. High positioning of the endotracheal tube as described on a portable radiograph from earlier the same day. If this has not already been adjusted the tube should be advanced 9 cm. 3. Mild thoracic spondylosis with no acute abnormality. 4. Scattered sclerotic foci are probably bone islands though metastatic disease could have a similar appearance. D/ / Gio Barron MD / Gio Barron MD Interpreting Provider: Gio Barron MD - Time Spent With Patient Total time spent is greater than 50% in coordination of care (as documented) at patient's floor/unit and/or counseling patient: - Attending Attestation Morteza Milan is a 67 year old man with a history of illicit drug abuse on methadone program, hepatitis with liver disease, chronic kidney disease, hypertension and diabetes with a neurologic/psychiatric disorder NOS but as per diagnosed with dementia who was brought to the ER with altered mental status. Family state that he was not acting himself and although he has episodes of agitation, he was notably more combative than usual. He was highly aggressive in the ER with everyone and a notable danger. Multiple attempts to sedate him were unsuccessful and ultimately was intubated and placed on propofol drip. Anderson-imaging done was unrevealing. Labs were depictive of CK 245, ammonia 74, troponin 0.05 and K 3.2. UDS was positive for THC. Physical exam remarkable for a well-developed AA M, sedated to RASS -3, PERRLA, equal chest rise with no wheezing, rales or rhonchi. Abdomen soft. No peripheral edema. No skin lesions. On 4 point restraints in the ER. Will admit to ICU for acute metabolic encephalopathy. Etiology unclear; possible hyperammonemia leading to a hyperactive form of hepatic encephalopathy. Correction of hypokalemia is essential to decrease renal ammonia production. Supplementation ordered and will recheck lytes. Maybe also have a hyperactive state from intoxication or withdrawal from illicit substances based on his known history. No signs of UTI based on UA. No evidence of PNA on x-ray. No need to continue antimicrobials at this time. Minimal troponin elevation likely from his hyperadrenergic state prior to sedation. Keep on IVF. Lactulose ordered via NG tube. Weaning as per protocol and reduce sedation to assess mental status; presence of family members will be helpful. CCT 50mins. <Janes Musa - Last Filed: 06/11/18 14:07> Date of Encounter: 06/11/18 Time of Encounter: 05:00 Internal Medicine - H&P: HPI Chief complaint: AMS Admitted From: Emergency Dept Plans for Post Hospital Care: Home History of present illness: Mr. Milan is a 67 year old male with history of illicit drug abuse on methadone program, hepatitis with liver disease, chronic kidney disease, hypertension and diabetes with a neurologic/psychiatric disorder who presented to the ED for complaint of AMS. According to the patient's family, it was noted that he was much more combative than he typically is, and they were concerned for his wellbeing and their own. It should be notesd that the patient has had a history of hepatic encephalopathy in the past, and is also part of a methadone program due to the abuse of IV drugs. Additionally, he was recently diagnosed with dementia. Per the patient's family, they are unaware of any drug use at this time. In the ED, the patient was highly combative, and there was concern that he was unable to be treated in his current state. As a result, he was sedated and intubated. He had global imaging which was unrevealing in general, however he was noted to have elevated plasma ammonia levels. He was admitted for management of acute encephalopathy. Past Med Surg Social Fam HX - Past Medical History Medical history: diabetes, hypertension, liver disease, other, hepatitis Additional medical history: hx drug addiction, bph, [place] Psychiatric history: no psych history - Past Surgical History Surgical History: non-contributory - Social History Smoking Status: Current every day smoker Smokeless Tobacco Status: No Alcohol use: heavy, recent Drug use: marijuana - Family History Mother Living Status: Hx Family Endocrine Disorder: Yes (Diabetes) Hx Family Neurologic Disorders: Yes (Alzheimer's) Father Living Status: Hx Family Cancer: Yes (Prostate) Hx Family Endocrine Disorder: Yes (Diabetes) ROS unobtainable: due to endotracheal tube, due to mental status All Systems PM: A 10-system review of systems was performed and is negative for pertinent findings except as documented above in the HPI. - Constitutional Vitals: Temp Pulse Resp BP Pulse Ox 98.5 F 87 16 157/79 100 06/11/18 04:22 06/11/18 04:22 06/11/18 04:22 06/11/18 04:22 06/11/18 04:22 General appearance: Present: A&O X 0 (Patient is sedated on ventilator) Exam: Sedated, on vent - Head Head exam: Present: atraumatic, normocephalic - Eye Eye exam: Present: PERRL, conjuntiva pink, sclera anicteric - Neck Neck exam general surgery: Present: supple, trachea midline. Absent: lymphadenopathy - Respiratory Respiratory exam: Present: CTAB. Absent: accessory muscle use, rales, rhonchi, wheezes Additional comments: On ventilator - Cardiovascular Cardiovascular exam: Present: RRR, +S1, +S2. Absent: diastolic murmur, gallop, rubs, systolic murmur - GI/Abdominal GI/Abdominal exam: Present: normal bowel sounds, soft, no peritoneal signs. Absent: distended, tenderness - Extremities Exam Extremities exam: Present: warm, radial pulses palpable and symmetrical. Absent : calf tenderness, cyanotic, pedal edema - Neurological Exam Neurological exam: Present: altered, no focal deficits - Skin Skin exam: Present: dry, intact Internal Med - H&P Results - Labs CBC & Chem 7: 06/11/18 05:48 06/11/18 05:48 - Impressions ITS Impressions Abdomen/Pelvis CT 06/11/18 23:01 IMPRESSION: 1. Trace perihepatic ascites, possibly related to the patient's known diagnosis of liver disease. 2. Urinary bladder wall thickening may indicate cystitis or outlet obstruction. 3. Lumbar spondylosis, most pronounced at L4-L5. D/ / Gio Barron MD / Gio Barron MD Interpreting Provider: Gio Barron MD Cervical Spine CT 06/11/18 23:01 IMPRESSION: No acute abnormality of the cervical spine. D/ / Gelacio Croft MD / Gelacio Croft MD Interpreting Provider: Gelacio Croft MD Chest CT 06/11/18 23:01 IMPRESSION: 1. Right pleural effusion with right lower lobe atelectasis or pneumonia. 2. High positioning of the endotracheal tube as described on a portable radiograph from earlier the same day. If this has not already been adjusted the tube should be advanced 9 cm. 3. Mild thoracic spondylosis with no acute abnormality. 4. Scattered sclerotic foci are probably bone islands though metastatic disease could have a similar appearance. D/ / Gio Barron MD / Gio Barron MD Interpreting Provider: Gio Barron MD Chest X-Ray 06/11/18 23:01 IMPRESSION: 1. The endotracheal tube tip is above the clavicular heads. The tube should be advanced 9 cm. 2. Clear lungs. D/ / Gio Barron MD / Gio Barron MD Interpreting Provider: Gio Barron MD Head CT 06/11/18 23:01 IMPRESSION: No acute intracranial abnormality. Stable chronic ischemic changes as above. D/ / Gelacio Croft MD / Gelacio Croft MD Interpreting Provider: Gelacio Croft MD Lumbar Spine CT 06/11/18 23:01 IMPRESSION: 1. Trace perihepatic ascites, possibly related to the patient's known diagnosis of liver disease. 2. Urinary bladder wall thickening may indicate cystitis or outlet obstruction. 3. Lumbar spondylosis, most pronounced at L4-L5. D/ / Gio Barron MD / Gio Barron MD Interpreting Provider: Gio Barron MD Thoracic Spine CT 06/11/18 23:01 IMPRESSION: 1. Right pleural effusion with right lower lobe atelectasis or pneumonia. 2. High positioning of the endotracheal tube as described on a portable radiograph from earlier the same day. If this has not already been adjusted the tube should be advanced 9 cm. 3. Mild thoracic spondylosis with no acute abnormality. 4. Scattered sclerotic foci are probably bone islands though metastatic disease could have a similar appearance. D/ / Gio Barron MD / Gio Barron MD Interpreting Provider: Gio Barron MD - Assessment and plan (1) Acute encephalopathy Current Visit: No Status: Acute Assessment and plan: Acute toxic encephalopathy Likely etiology is hepatic vs toxic ingestion The patient does have elevated ammonia >70, history of metabolic encephalopathy Additionally the patient has history of drug abuse, is on methadone Toxicology screen is positive only for marijuana, however ingestion cannot be ruled out given patient's aggresive state We will continue sedation at this time, try to wean throughout the day Lactulose PO (2) CKD (chronic kidney disease) Current Visit: No Status: Chronic Assessment and plan: CKD, Appears to be at baseline Avoid nephrotoxic agents Qualifiers: Qualified Code(s): N18.3 - Chronic kidney disease, stage 3 (moderate) (3) Diabetes Current Visit: No Status: Chronic Assessment and plan: Glucose poorly controlled on arrival Will initiate sliding scale insulin Qualifiers: Qualified Code(s): E11.9 - Type 2 diabetes mellitus without complications (4) Elevated CK Current Visit: No Status: Acute Assessment and plan: Likely secondary to combative state in AMS Patient will receive IVF, monitor BMP No evidence of NAKIA at this time (5) Methadone dependence Current Visit: No Status: Chronic Assessment and plan: Continue methadone to prevent withdrawal (6) Substance abuse Current Visit: No Status: Chronic Assessment and plan: On methadone. Continue at this time Suspect possible toxic ingestion of unknown substance Continue to monitor - Time Spent With Patient Total time spent is greater than 50% in coordination of care (as documented) at patient's floor/unit and/or counseling patient:
[2018-06-11] MEDS ORDERED: Potassium Chloride Elixir 20 MEQ/15 ML UDC GTUBE ONE (05:40)
[2018-06-11] MEDS ORDERED: Ringers Solution, Lactated 1,000 ML IVC SCH (05:45)
[2018-06-11] MEDS: hydrALAZINE 25 MG TABLET PO SCH ×3 (05:54→20:47)
[2018-06-11 05:56] LABS: Basophils % 0.1 %; Hematocrit 29.7 % (37.5-50.1); Immature Granulocytes % 0.4 % (0-4); Lymphocytes # 0.7 K/mcL (0.6-4.6); Lymphocytes % 9.4 %; Mean Corpuscular Hemoglobin 29.6 pg (28.0-33.3); Mean Corpuscular Volume 82.3 fL (83.0-100.0); Mean Platelet Volume 9.2 fL (9.4-12.4); Monocytes # 0.5 K/mcL (0.0-1.3); Monocytes % 6.2 %; Neutrophils # 6.6 K/mcL (1.6-8.9); Platelet Count 199 K/mcL (140-400); Red Blood Count 3.61 M/mcL (4.19-5.50); Segmented Neutrophils % 83.9 %
[2018-06-11 05:58] LABS: Hemoglobin 10.7 g/dL (12.9-16.9)
[2018-06-11 06:20] LABS: Albumin 4.1 g/dL (3.5-5.7); Albumin/Globulin Ratio 1.6 (1.1-2.2); Bilirubin,Direct 0.1 mg/dL (0.0-0.2); Bilirubin,Indirect 0.4 mg/dL (0.0-1.2); Bilirubin,Total 0.5 mg/dL (0.3-1.0); Calcium 8.9 mg/dL (8.6-10.3); Globulin 2.5 g/dL (2.4-3.5); Magnesium 2.6 mg/dL (1.6-2.6); Potassium 3.5 mEq/L (3.5-5.1); Total Protein 6.6 g/dL (6.4-8.9)
[2018-06-11 06:24] LABS: ABG Base Excess -22 mEq/L (-2 to 3); ABG HCO3 6 mEq/L (21-27); ABG Oxygen Saturation 78 % (95-98); ABG PCO2 17 mmHg (35-45); ABG PH 7.12 pH Units (7.32-7.45); ABG PO2 55 mmHg (85-104); ABG TCO2 6 mEq/L (20-26); Blood Gas Modality ASSIST CONTROL; Blood Gas PEEP 5 cm H2O; Blood Gas Respiration Rate 16; Blood Gas VT 480 cc
[2018-06-11 06:49] LABS: ABG Base Excess 3 mEq/L (-2 to 3); ABG HCO3 28 mEq/L (21-27); ABG Oxygen Saturation 98 % (95-98); ABG PCO2 44 mmHg (35-45); ABG PH 7.42 pH Units (7.32-7.45); ABG PO2 106 mmHg (85-104); ABG TCO2 30 mEq/L (20-26); Blood Gas Modality ASSIST CONTROL; Blood Gas PEEP 5 cm H2O; Blood Gas Respiration Rate 16; Blood Gas VT 480 cc
[2018-06-11] MEDS ORDERED: Artificial Tears SOLN 15 ML BOTTLE BOTH EYES PRN (07:19)
--- NOTE | 2018-06-11 07:40 | Pulmonology Consult Note ---
<DorianVik sahureynaldo S - Last Filed: 06/11/18 14:58> Date of Encounter: 06/11/18 Medications and Allergies Glimepiride [Amaryl] 2 mg PO QAM 09/01/16 [History] Methadone HCl 10 mg PO QID 09/01/16 [History] Aspirin [Lo-Dose Aspirin EC] 81 mg PO DAILY 03/09/17 [History] Vitamin B Complex/Vit C/Vit E [Stresstab] 1 tab PO DAILY 03/09/17 [History] cloNIDine HCl [CloNIDine HCl] 0.3 mg PO TID #90 tablet 03/12/17 [Rx] HydrOXYzine 10 mg PO DAILY 10/12/17 [History] Lisinopril [Zestril] 20 mg PO DAILY 10/12/17 [History] Atorvastatin [Lipitor] 20 mg PO HS #30 tablet 10/16/17 [Rx] Diltiazem CD (24hr) [Cardizem CD] 240 mg PO DAILY #30 cap.er.24h 10/16/17 [Rx] Minoxidil 10 mg PO DAILY #60 tablet 10/16/17 [Rx] amLODIPine [Norvasc] 5 mg PO DAILY #30 tablet 10/16/17 [Rx] hydrALAZINE [HydrALAZINE] 75 mg PO Q8H #180 tablet 10/16/17 [Rx] 3 Allergy/AdvReac Type Severity Reaction Status Date / Time No Known Allergies Allergy Verified 03/09/17 07:53 All Systems: The remainder of the systems were reviewed and are negative Physical Examination Vital Signs: Vital Signs, Last 4 Hours Temp Pulse Resp BP Pulse Ox 06/11/18 14:00 54 16 88/53 100 06/11/18 13:54 16 100 06/11/18 13:00 53 16 86/50 100 06/11/18 12:00 98.1 F 54 15 87/50 100 06/11/18 11:06 16 100 06/11/18 11:00 57 16 88/56 100 Ventilator Settings Ventilator Settings: Ventilator Settings, Last 8 Hours Ventilator Tidal Volume 480 Setting Ventilator Tidal Volume 480 Setting Ventilator Tidal Volume 480 Setting Ventilator Tidal Volume 480 Setting Ventilator Tidal Volume 480 Setting Ventilator Tidal Volume 480 Setting Ventilator Tidal Volume 480 Setting Ventilator Tidal Volume 480 Setting Ventilator Tidal Volume 480 Setting Ventilator Tidal Volume 480 Setting Ventilator Tidal Volume 480 Setting Ventilator Tidal Volume 480 Setting Ventilator Respiratory Rate 16 Setting Ventilator Respiratory Rate 16 Setting Ventilator Respiratory Rate 16 Setting Ventilator Respiratory Rate 16 Setting Ventilator Respiratory Rate 16 Setting Ventilator Respiratory Rate 16 Setting Ventilator Respiratory Rate 16 Setting Ventilator Respiratory Rate 16 Setting Ventilator Respiratory Rate 16 Setting Ventilator Respiratory Rate 16 Setting Ventilator Respiratory Rate 16 Setting Ventilator Respiratory Rate 16 Setting Actual Respiratory Rate 16 Actual Respiratory Rate 16 Actual Respiratory Rate 16 Actual Respiratory Rate 16 Positive End Expiratory 5 Pressure Positive End Expiratory 5 Pressure Positive End Expiratory 5 Pressure Positive End Expiratory 5 Pressure Positive End Expiratory 5 Pressure Positive End Expiratory 5 Pressure Positive End Expiratory 5 Pressure Positive End Expiratory 5 Pressure Positive End Expiratory 5 Pressure Positive End Expiratory 5 Pressure Positive End Expiratory 5 Pressure Positive End Expiratory 5 Pressure Peak Inspiratory Airway 18 Pressure Peak Inspiratory Airway 18 Pressure Peak Inspiratory Airway 18 Pressure Peak Inspiratory Airway 19 Pressure Peak Inspiratory Airway 20 Pressure Peak Inspiratory Airway 20 Pressure Peak Inspiratory Airway 19 Pressure Peak Inspiratory Airway 19 Pressure Peak Inspiratory Airway 17 Pressure Peak Inspiratory Airway 18 Pressure Peak Inspiratory Airway 19 Pressure Peak Inspiratory Airway 20 Pressure Results - Laboratory Findings CBC and BMP: 06/11/18 05:48 06/11/18 05:48 ABG ABG pH 7.42 pH Units (7.32-7.45) D 06/11/18 06:46 ABG pCO2 44 mmHg (35-45) D 06/11/18 06:46 ABG pO2 106 mmHg (85-104) H D 06/11/18 06:46 ABG O2 Saturation 98 % (95-98) 06/11/18 06:46 PT/INR, D-dimer PT 11.0 Seconds (9.4-12.1) 06/10/18 23:01 Abnormal lab findings: Abnormal lab results RBC 3.61 M/mcL (4.19-5.50) L 06/11/18 05:48 Hgb 10.7 g/dL (12.9-16.9) L D 06/11/18 05:48 Hct 29.7 % (37.5-50.1) L 06/11/18 05:48 MCV 82.3 fL (83.0-100.0) L 06/11/18 05:48 MCHC 36.0 g/dL (31.6-35.5) H 06/11/18 05:48 MPV 9.2 fL (9.4-12.4) L 06/11/18 05:48 ABG pO2 106 mmHg (85-104) H D 06/11/18 06:46 ABG HCO3 28 mEq/L (21-27) H 06/11/18 06:46 ABG Total CO2 30 mEq/L (20-26) H 06/11/18 06:46 BUN 42 mg/dL (8-23) H 06/11/18 05:48 Creatinine 3.65 mg/dL (0.70-1.30) H 06/11/18 05:48 Est GFR ( Amer) 20 (> 60) L 06/11/18 05:48 Est GFR (Non-Af Amer) 17 (> 60) L 06/11/18 05:48 Glucose 150 mg/dL (70-105) H 06/11/18 05:48 POC Glucose 344 mg/dL (70-99) H 06/10/18 23:49 Calculated Osmolality 305 (280-300) H 06/11/18 05:48 Ammonia 74 mcmol/L (16-53) H 06/10/18 23:36 Creatine Kinase 245 Units/L (30-223) H 06/10/18 23:01 Troponin I 0.05 ng/mL (< 0.04) H* 06/10/18 23:01 Urine Protein >=300 mg/dL (Neg-Trace) H 06/10/18 23:03 Urine Glucose (UA) 100 mg/dL (Normal) H 06/10/18 23:03 Urine Ketones Trace mg/dL (Negative) H 06/10/18 23:03 Urine Microscopic RBC 3-5 per hpf (0-3) H 06/10/18 23:03 Salicylates < 2.5 mg/dL (15.0-30.0) L 06/10/18 23:01 Acetaminophen < 10 mcg/mL (10-20) L 06/10/18 23:01 U Marijuana (THC) Screen Positive ng/mL (Cutoff = 50) H 06/10/18 23:03 - Clinical Findings Intake & Output: Intake & Output 06/10/18 06/11/18 06/11/18 23:59 07:59 15:59 Intake Total 100 / 1100 260.0 / 260.0 Output Total 800 / 800 300 / 300 Balance -700 / 300 -40.0 / -40.0 Weight 78 kg Consult Discharge Plan - Plan Referrals: Rajesh Gillette Jr, MD [Primary Care Provider] - - Attending Attestation I saw and evaluated this patient and my medical decision-making was reviewed with the Resident Physician. I agree with the documented findings, disposition and treatment plan as described except to the extent set forth below. We independently had [id number] contact with the patient I spent 40 minutes of Critical Care time with this patient. It involved decision making of high complexity to assess, manipulate, and support vital organ system failure and/or to prevent further life threatening deterioration of the patient's condition. The time involved in the performance of separately reportable procedures was not counted toward critical care time. Patient seen and examined at bedside Labs, radiology, chart personally reviewed. Management was reviewed during multidisciplinary critical care rounds. 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 We will try to start on an antipsychotic regimen will try to liberate sedation and see how he recovers is no evidence of UTI but has some evidence of pneumonia probably aspiration can be all due to toxic/ metabolic encephalopathy as patient has chronic liver disease has increased ammonia levels. Pulm: Patient has minimal VQ mismatch acceptable oxygenation and ventilation. Will cover for empirically for aspiration pneumonia. Cards: Patient is hemodynamically stable no evidence of shock or any other active coronary syndrome. FEN-GI: Advance diet as tolerated Renal: Labs and output reviewed . ID: To cover for aspiration pneumonia. Heme/Onc: Thrombo Prophylaxis Endo: Glucose Monitored Integ/MSK: Skin Care per routine ICU Nursing Protocol to prevent ulcers. Lines: All lines examined without evidence of infection : Dispo: Critically remain in the ICU . CODE:Full Code <Mushtaq Florian R - Last Filed: 06/11/18 17:18> Date of Encounter: 06/11/18 Time of Encounter: 08:10 Assessment and Plan (1) Altered mental status Current Visit: Yes Status: Acute Patient has dementia with aggressive features at baseline. Per outpatient neurology evaluation patient was to follow up with psych, doesn't seem to have done this yet. Altered and severely aggressive in the ED, required intubation for airway protection and sedation for safety. Will transition to precedex and fentanyl, wean propofol as tolerated. Start antipsychotic therapy with seroquel, haloperidol available prn q6h for aggression/anxiety. Will consult psych for further recommendations regaurding dementia, aggression, and antipsychotic management. Will trial less sedation for baseline mental exam, will plan for extubation when patient is clinically ready Qualifiers: Altered mental status type: disorientation Qualified Code(s): R41.0 - Disorientation, unspecified (2) Hyperammonemia Current Visit: Yes Status: Acute Elavated at 74 on admission. 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 Has been started on lactulose Trend LFTs for liver status and function. (3) CKD (chronic kidney disease) Current Visit: No Status: Chronic Stage IV CKD, stable. Patient follow regularly with out patient nephrology. No acute changes in kidney function at this time Will monitor urine output, electolytes, and kidney function Avoid nephrotoxic medications Qualifiers: Chronic kidney disease stage: stage 3 (moderate) Qualified Code(s): N18.3 - Chronic kidney disease, stage 3 (moderate) (4) Diabetes Current Visit: No Status: Chronic Will start Q6H checks and low corrective sliding scale. Follow accuchecks and adjust as necessary. Qualifiers: Diabetes mellitus type: type 2 Diabetes mellitus alf insulin use: without long term care administrator use Diabetes mellitus complication status: without complication Qualified Code(s): E11.9 - Type 2 diabetes mellitus without complications (5) DVT prophylaxis Current Visit: No Status: Acute History of Present Illness Consult date: 06/11/18 Requesting physician: Janes Musa Reason for consult: other (intubated) Chief complaint: altered mental status History of present illness: Patient is 67-year-old male with a history of IV drug abuse on methadone, hepatitis B and C, CVA, dementia with psychiatric and aggressive features, hypertension, and chronic kidney disease. Patient family reports that they discovered patient at home yesterday evening and that he was more aggressive and combative within normal. They were concerned for the safety of the patient and the family and contacted emergency [facility]. Family denies any known recent drug abuse, however has known history of IV drug abuse and is part of a methadone treatment program. He was recently diagnosed with dementia is multifactorial in nature. Patient presented to the ED and was observed to be altered and highly aggressive. It is noted that multiple people required to restrain the patient and there was concern for patient and bystander safety. Patient's heart rate became greater than 160 and systolic blood pressure greater than 200. The patient did require sedation and intubation to control for patient safety. Pain imaging was done, revealing a right lower lobe atelectasis versus pneumonia and mild perihepatic ascites. Ammonia was elevated at 74 and urine drug screen was positive for THC. Patient was admitted to ICU for further judgment. Limited history is obtained from family present in the room. Denying no recent drug use by the patient. Denies recent illness. Past Med Surg Social Fam HX - Past Medical History Medical history: diabetes, hypertension, liver disease, other, hepatitis Additional medical history: hx drug addiction, bph, [place] Psychiatric history: no psych history - Past Surgical History Surgical History: non-contributory - Social History Smoking Status: Current every day smoker Smokeless Tobacco Status: No Alcohol use: heavy, recent Drug use: marijuana - Family History Mother Living Status: Hx Family Endocrine Disorder: Yes (Diabetes) Hx Family Neurologic Disorders: Yes (Alzheimer's) Father Living Status: Hx Family Cancer: Yes (Prostate) Hx Family Endocrine Disorder: Yes (Diabetes) ROS unobtainable: due to endotracheal tube All Systems: The remainder of the systems were reviewed and are negative Physical Examination Vital Signs: Vital Signs, Last 4 Hours Temp Pulse Resp BP Pulse Ox 06/11/18 06:00 99.8 F H 64 16 110/65 100 06/11/18 05:10 16 100 06/11/18 04:22 98.5 F 87 16 157/79 100 General appearance: other (Sedated and intubated) Eyes: icteric ENT: oropharynx moist Neck: supple Effort: other (Ventilated) Inspection: normal Auscultation: bilateral: clear Cardiovascular: regular rate and rhythm Gastrointestinal: normoactive bowel sounds, soft, non-distended Integumentary: normal Extremities: no cyanosis Musculoskeletal: no deformities unable to assess due to mental status other Ventilator Settings Ventilator Settings: Ventilator Settings, Last 8 Hours Ventilator Tidal Volume 480 Setting Ventilator Respiratory Rate 16 Setting Actual Respiratory Rate 16 Positive End Expiratory 5 Pressure Peak Inspiratory Airway 23 Pressure Results - Laboratory Findings CBC and BMP: 06/11/18 05:48 06/11/18 05:48 ABG ABG pH 7.42 pH Units (7.32-7.45) D 06/11/18 06:46 ABG pCO2 44 mmHg (35-45) D 06/11/18 06:46 ABG pO2 106 mmHg (85-104) H D 06/11/18 06:46 ABG O2 Saturation 98 % (95-98) 06/11/18 06:46 PT/INR, D-dimer PT 11.0 Seconds (9.4-12.1) 06/10/18 23:01 Abnormal lab findings: Abnormal lab results RBC 3.61 M/mcL (4.19-5.50) L 06/11/18 05:48 Hgb 10.7 g/dL (12.9-16.9) L D 06/11/18 05:48 Hct 29.7 % (37.5-50.1) L 06/11/18 05:48 MCV 82.3 fL (83.0-100.0) L 06/11/18 05:48 MCHC 36.0 g/dL (31.6-35.5) H 06/11/18 05:48 MPV 9.2 fL (9.4-12.4) L 06/11/18 05:48 ABG pO2 106 mmHg (85-104) H D 06/11/18 06:46 ABG HCO3 28 mEq/L (21-27) H 06/11/18 06:46 ABG Total CO2 30 mEq/L (20-26) H 06/11/18 06:46 BUN 42 mg/dL (8-23) H 06/11/18 05:48 Creatinine 3.65 mg/dL (0.70-1.30) H 06/11/18 05:48 Est GFR ( Amer) 20 (> 60) L 06/11/18 05:48 Est GFR (Non-Af Amer) 17 (> 60) L 06/11/18 05:48 Glucose 150 mg/dL (70-105) H 06/11/18 05:48 POC Glucose 344 mg/dL (70-99) H 06/10/18 23:49 Calculated Osmolality 305 (280-300) H 06/11/18 05:48 Ammonia 74 mcmol/L (16-53) H 06/10/18 23:36 Creatine Kinase 245 Units/L (30-223) H 06/10/18 23:01 Troponin I 0.05 ng/mL (< 0.04) H* 06/10/18 23:01 Urine Protein >=300 mg/dL (Neg-Trace) H 06/10/18 23:03 Urine Glucose (UA) 100 mg/dL (Normal) H 06/10/18 23:03 Urine Ketones Trace mg/dL (Negative) H 06/10/18 23:03 Urine Microscopic RBC 3-5 per hpf (0-3) H 06/10/18 23:03 Salicylates < 2.5 mg/dL (15.0-30.0) L 06/10/18 23:01 Acetaminophen < 10 mcg/mL (10-20) L 06/10/18 23:01 U Marijuana (THC) Screen Positive ng/mL (Cutoff = 50) H 06/10/18 23:03 - Clinical Findings Intake & Output: Intake & Output 06/10/18 06/10/18 06/11/18 15:59 23:59 07:59 Intake Total 1099 Balance 1099 Weight 78 kg
[2018-06-11] MEDS: Artificial Tears SOLN 15 ML BOTTLE BOTH EYES SCH ×4 (08:03→20:45)
[2018-06-11] MEDS: *HR* Heparin 5,000 UNIT/ML VIAL SQ SCH ×2 (08:04→15:25)
[2018-06-11] MEDS: Lactulose Oral Soln 20 GM/30 ML UDC PO SCH ×4 (08:04→20:46)
[2018-06-11] MEDS: Chlorhexidine Rinse 15 ML MOUTHWASH MM SCH ×2 (08:04→20:46)
[2018-06-11] MEDS: Famotidine 20 MG/2 ML VIAL IVP SCH ×2 (08:04→08:08)
[2018-06-11] MEDS: *HR* Methadone 10 MG TABLET PO SCH ×2 (08:43→12:22)
[2018-06-11] MEDS: Aspirin Enteric Coated 81 MG Tablet PO SCH (08:44)
[2018-06-11] MEDS ORDERED: Haloperidol Lactate 5 MG/ML VIAL IVP PRN (08:50)
[2018-06-11] MEDS: Dexmedetomidine HCl 400 MCG/100 ML MLS IVC SCH ×2 (10:12→21:51)
[2018-06-11] MEDS: Ampicillin/Sulbactam 3,000 MG in 0.9 % Sodium Chloride Mini Bag 100 ML IVPB SCH ×2 (10:49→20:46)
[2018-06-11] MEDS: Lisinopril 20 MG TABLET PO SCH (11:40)
[2018-06-11] MEDS: Diltiazem CD (24hr) 240 MG CAPSULE PO SCH (11:40)
[2018-06-11] MEDS: cloNIDine HCl 0.1 MG TABLET PO SCH ×3 (11:40→20:45)
[2018-06-11] MEDS: amLODIPine 5 MG TABLET PO SCH (11:40)
[2018-06-11] MEDS ORDERED: D5% in Water 1,000 ML IVC PRN (14:19)
[2018-06-11] MEDS ORDERED: Dextrose Gel 15 GM/37.5 ML TUBE PO PRN ×2 (14:19)
[2018-06-11] MEDS ORDERED: *HR* Dextrose 50 % in Water (Syg) 50 ML SYRINGE IVP PRN (14:19)
[2018-06-11] MEDS: Insulin LISPRO 300 UNITS/3 ML VIAL SQ SCH (17:05)
[2018-06-11] MEDS: Haloperidol Lactate 5 MG/ML VIAL IVP SCH (20:49)
[2018-06-12] MEDS: Insulin LISPRO 300 UNITS/3 ML VIAL SQ SCH ×4 (00:02→18:15)
[2018-06-12] MEDS: *HR* Heparin 5,000 UNIT/ML VIAL SQ SCH ×3 (00:04→16:40)
[2018-06-12] MEDS: Haloperidol Lactate 5 MG/ML VIAL IVP SCH ×4 (00:04→18:02)
[2018-06-12] MEDS: Artificial Tears SOLN 15 ML BOTTLE BOTH EYES SCH ×7 (00:05→23:11)
[2018-06-12] MEDS: FentaNYL (PF) 1,000 MCG in 0.9 % Sodium Chloride 80 ML IVC SCH ×2 (03:16→11:32)
[2018-06-12 04:39] LABS: Basophils % 0.3 %; Eosinophils # 0.1 K/mcL (0.0-0.6); Eosinophils % 0.8 %; Hematocrit 26.8 % (37.5-50.1); Hemoglobin 9.7 g/dL (12.9-16.9); Immature Granulocytes % 0.1 % (0-4); Lymphocytes % 27.4 %; Mean Corpuscular HGB Conc 36.2 g/dL (31.6-35.5); Mean Corpuscular Hemoglobin 29.4 pg (28.0-33.3); Mean Corpuscular Volume 81.2 fL (83.0-100.0); Mean Platelet Volume 9.9 fL (9.4-12.4); Monocytes # 0.6 K/mcL (0.0-1.3); Neutrophils # 4.6 K/mcL (1.6-8.9); Platelet Count 175 K/mcL (140-400); Red Cell Distribution Width 13.3 % (11.5-14.5); Segmented Neutrophils % 63.4 %
[2018-06-12 05:00] LABS: Albumin 3.7 g/dL (3.5-5.7); Albumin/Globulin Ratio 1.4 (1.1-2.2); Bilirubin,Direct 0.2 mg/dL (0.0-0.2); Bilirubin,Indirect 0.3 mg/dL (0.0-1.2); Bilirubin,Total 0.5 mg/dL (0.3-1.0); Calcium 8.8 mg/dL (8.6-10.3); Globulin 2.6 g/dL (2.4-3.5); Potassium 3.4 mEq/L (3.5-5.1); Total Protein 6.3 g/dL (6.4-8.9)
[2018-06-12 05:30] LABS: ABG Base Excess 2 mEq/L (-2 to 3); ABG HCO3 26 mEq/L (21-27); ABG Oxygen Saturation 98 % (95-98); ABG PCO2 37 mmHg (35-45); ABG PH 7.46 pH Units (7.32-7.45); ABG PO2 96 mmHg (85-104); ABG TCO2 28 mEq/L (20-26); Blood Gas Modality ASSIST CONTROL; Blood Gas PEEP 5 cm H2O; Blood Gas Respiration Rate 16; Blood Gas VT 480 cc
[2018-06-12] MEDS: hydrALAZINE 25 MG TABLET PO SCH ×3 (05:44→21:10)
[2018-06-12] MEDS: Diltiazem CD (24hr) 240 MG CAPSULE PO SCH (08:50)
[2018-06-12] MEDS: Chlorhexidine Rinse 15 ML MOUTHWASH MM SCH ×2 (08:56→20:28)
[2018-06-12] MEDS: cloNIDine HCl 0.1 MG TABLET PO SCH ×3 (08:57→21:10)
[2018-06-12] MEDS: Aspirin Enteric Coated 81 MG Tablet PO SCH (08:58)
[2018-06-12] MEDS: Lisinopril 20 MG TABLET PO SCH (08:58)
[2018-06-12] MEDS: amLODIPine 5 MG TABLET PO SCH (08:58)
[2018-06-12] MEDS: Ampicillin/Sulbactam 3,000 MG in 0.9 % Sodium Chloride Mini Bag 100 ML IVPB SCH ×2 (08:59→21:11)
[2018-06-12] MEDS: Famotidine 20 MG/2 ML VIAL IVP SCH (08:59)
--- NOTE | 2018-06-12 09:46 | Pulmonology Progress Note ---
<Mushtaq Florian R - Last Filed: 06/12/18 11:37> Date of Encounter: 06/12/18 Time of Encounter: 07:15 Assessment and Plan (1) Altered mental status Current Visit: Yes Status: Acute Exact Etiology of altered mental status and encephalopathy is unknown. May be toxic or metabolic in origin, urine drug screen was positive for THC and patient is on methadone for previous IV drug abuse, known hepatitis B/C with mildly elevated ammonia at admission. At baseline patient does have newer onset dementia with documented aggressive features. Sedation was lessened this afternoon prior to family's arrival. Patient was able to follow commands and moves all extremities symmetrically. Patient separately did become agitated exhibiting aggression requiring restraint and increased sedation. Seroquel and Haldol started yesterday. Will repeat EKG and plan to increase antipsychotic regimen pending absence of prolonged QT on repeat EKG. Daily EKGs and Q12H BMP, will start him on electrolyte protocol and plan for potassium magnesium monitoring. Psychiatric consultation placed yesterday afternoon, at this time psychiatry is not seen the patient, I have contacted psych and am told that he will be evaluated this afternoon. Will appreciate their recommendations regarding agitation and aggression in the setting of depression and altered mental status. Patient is established with Dr. Faith in neurology, has been following for new onset dementia, will consult neurology for evaluation during this visit. Once patient agitation is stabilized can plan for possible extubation tonight or tomorrow, patient agitation will need to be controlled to minimize risk of reintubation. Qualifiers: Altered mental status type: disorientation Qualified Code(s): R41.0 - Disorientation, unspecified (2) Hyperammonemia Current Visit: Yes Status: Acute Repeat ammonia ordered and pending 4 doses of lactulose given yesterday. (3) CKD (chronic kidney disease) Current Visit: No Status: Chronic Chronic stage IV kidney disease, sees outpatient nephrology. Increase in creatinine overnight 3.65> 4.0 this a.m. urine output remains acceptable I greater than 1 mL/KG/hour We will monitor kidney function Avoid nephrotoxic medications Qualifiers: Chronic kidney disease stage: stage 3 (moderate) Qualified Code(s): N18.3 - Chronic kidney disease, stage 3 (moderate) (4) Diabetes Current Visit: No Status: Chronic Continue with Low-dose sliding scale and POC checks Qualifiers: Diabetes mellitus type: type 2 Diabetes mellitus emt intermediate insulin use: without detention use Diabetes mellitus complication status: without complication Qualified Code(s): E11.9 - Type 2 diabetes mellitus without complications (5) DVT prophylaxis Current Visit: No Status: Acute Heparin 5000 units every 8 hours Subjective Principal diagnosis: Altered mental statu Interval history: Patient remains intubated and sedated this morning, nursing staff note agitation yesterday when sedation was lightened. Objective PUL Vital signs: Last Vital Signs Temp 98.2 F 06/12/18 07:27 Pulse 49 06/12/18 08:00 Resp 16 06/12/18 09:28 BP 143/76 06/12/18 07:52 Pulse Ox 100 06/12/18 09:28 General appearance: agitated, other (Aggression) Eyes: nonicteric ENT: oropharynx moist Neck: supple, no lymphadenopathy Effort: other (Intubated and ventilated) Auscultation: bilateral: clear Cardiovascular: regular rate and rhythm Gastrointestinal: normoactive bowel sounds, soft, non-distended Integumentary: normal Extremities: no cyanosis Gait: normal posture unable to assess due to mental status other (Agitated and aggressive) Ventilator Settings Ventilator Settings: Ventilator Settings, Last 8 Hours Ventilator Tidal Volume 480 Setting Ventilator Tidal Volume 480 Setting Ventilator Tidal Volume 480 Setting Ventilator Tidal Volume 480 Setting Ventilator Tidal Volume 480 Setting Ventilator Tidal Volume 480 Setting Ventilator Tidal Volume 480 Setting Ventilator Tidal Volume 480 Setting Ventilator Tidal Volume 480 Setting Ventilator Tidal Volume 480 Setting Ventilator Tidal Volume 480 Setting Ventilator Respiratory Rate 16 Setting Ventilator Respiratory Rate 16 Setting Ventilator Respiratory Rate 16 Setting Ventilator Respiratory Rate 16 Setting Ventilator Respiratory Rate 16 Setting Ventilator Respiratory Rate 16 Setting Ventilator Respiratory Rate 16 Setting Ventilator Respiratory Rate 16 Setting Ventilator Respiratory Rate 16 Setting Ventilator Respiratory Rate 16 Setting Ventilator Respiratory Rate 16 Setting Actual Respiratory Rate 16 Actual Respiratory Rate 16 Actual Respiratory Rate 16 Actual Respiratory Rate 16 Actual Respiratory Rate 16 Actual Respiratory Rate 16 Actual Respiratory Rate 19 Actual Respiratory Rate 16 Actual Respiratory Rate 16 Actual Respiratory Rate 16 Positive End Expiratory 5 Pressure Positive End Expiratory 5 Pressure Positive End Expiratory 5 Pressure Positive End Expiratory 5 Pressure Positive End Expiratory 5 Pressure Positive End Expiratory 5 Pressure Positive End Expiratory 5 Pressure Positive End Expiratory 5 Pressure Positive End Expiratory 5 Pressure Positive End Expiratory 5 Pressure Positive End Expiratory 5 Pressure Peak Inspiratory Airway 21 Pressure Peak Inspiratory Airway 18 Pressure Peak Inspiratory Airway 18 Pressure Peak Inspiratory Airway 18 Pressure Peak Inspiratory Airway 18 Pressure Peak Inspiratory Airway 16 Pressure Peak Inspiratory Airway 17 Pressure Peak Inspiratory Airway 17 Pressure Peak Inspiratory Airway 17 Pressure Results - Laboratory Findings CBC and BMP: 06/12/18 04:20 06/12/18 04:20 ABG ABG pH 7.46 pH Units (7.32-7.45) H 06/12/18 05:27 ABG pCO2 37 mmHg (35-45) 06/12/18 05:27 ABG pO2 96 mmHg (85-104) 06/12/18 05:27 ABG O2 Saturation 98 % (95-98) 06/12/18 05:27 PT/INR, D-dimer PT 11.0 Seconds (9.4-12.1) 06/10/18 23:01 Abnormal lab findings: Abnormal lab results RBC 3.30 M/mcL (4.19-5.50) L 06/12/18 04:20 Hgb 9.7 g/dL (12.9-16.9) L 06/12/18 04:20 Hct 26.8 % (37.5-50.1) L 06/12/18 04:20 MCV 81.2 fL (83.0-100.0) L 06/12/18 04:20 MCHC 36.2 g/dL (31.6-35.5) H 06/12/18 04:20 ABG pH 7.46 pH Units (7.32-7.45) H 06/12/18 05:27 ABG Total CO2 28 mEq/L (20-26) H 06/12/18 05:27 Potassium 3.4 mEq/L (3.5-5.1) L 06/12/18 04:20 Chloride 108 mEq/L (98-107) H 06/12/18 04:20 BUN 40 mg/dL (8-23) H 06/12/18 04:20 Creatinine 4.00 mg/dL (0.70-1.30) H 06/12/18 04:20 Est GFR ( Amer) 18 (> 60) L 06/12/18 04:20 Est GFR (Non-Af Amer) 15 (> 60) L 06/12/18 04:20 Glucose 114 mg/dL (70-105) H 06/12/18 04:20 POC Glucose 344 mg/dL (70-99) H 06/10/18 23:49 Calculated Osmolality 307 (280-300) H 06/12/18 04:20 Ammonia 74 mcmol/L (16-53) H 06/10/18 23:36 Creatine Kinase 245 Units/L (30-223) H 06/10/18 23:01 Troponin I 0.05 ng/mL (< 0.04) H* 06/10/18 23:01 Serum Total Protein 6.3 g/dL (6.4-8.9) L 06/12/18 04:20 Urine Protein >=300 mg/dL (Neg-Trace) H 06/10/18 23:03 Urine Glucose (UA) 100 mg/dL (Normal) H 06/10/18 23:03 Urine Ketones Trace mg/dL (Negative) H 06/10/18 23:03 Urine Microscopic RBC 3-5 per hpf (0-3) H 06/10/18 23:03 Salicylates < 2.5 mg/dL (15.0-30.0) L 06/10/18 23:01 Acetaminophen < 10 mcg/mL (10-20) L 06/10/18 23:01 U Marijuana (THC) Screen Positive ng/mL (Cutoff = 50) H 06/10/18 23:03 - Clinical Findings Intake & Output: Intake & Output 06/11/18 06/12/18 06/12/18 23:59 07:59 15:59 Intake Total 315 / 315 300 / 300 Output Total 75 / 75 1175 / 1175 Balance 240 / 240 -875 / -875 Weight 79.3 kg Consult Discharge Plan - Plan Referrals: Rajesh Gillette Jr, MD [Primary Care Provider] - <Silvano Carlos - Last Filed: 06/12/18 13:40> Date of Encounter: 06/12/18 Objective PUL Vital signs: Last Vital Signs Temp 98.6 F 06/12/18 11:32 Pulse 54 06/12/18 12:00 Resp 16 06/12/18 13:11 BP 148/80 06/12/18 12:00 Pulse Ox 100 06/12/18 13:26 Ventilator Settings Ventilator Settings: Ventilator Settings, Last 8 Hours Ventilator Tidal Volume 480 Setting Ventilator Tidal Volume 480 Setting Ventilator Tidal Volume 480 Setting Ventilator Tidal Volume 480 Setting Ventilator Tidal Volume 480 Setting Ventilator Tidal Volume 480 Setting Ventilator Tidal Volume 480 Setting Ventilator Tidal Volume 480 Setting Ventilator Tidal Volume 480 Setting Ventilator Tidal Volume 480 Setting Ventilator Tidal Volume 480 Setting Ventilator Respiratory Rate 16 Setting Ventilator Respiratory Rate 16 Setting Ventilator Respiratory Rate 16 Setting Ventilator Respiratory Rate 16 Setting Ventilator Respiratory Rate 16 Setting Ventilator Respiratory Rate 16 Setting Ventilator Respiratory Rate 16 Setting Ventilator Respiratory Rate 16 Setting Ventilator Respiratory Rate 16 Setting Ventilator Respiratory Rate 16 Setting Ventilator Respiratory Rate 16 Setting Actual Respiratory Rate 16 Actual Respiratory Rate 16 Actual Respiratory Rate 16 Actual Respiratory Rate 16 Actual Respiratory Rate 18 Actual Respiratory Rate 16 Actual Respiratory Rate 16 Actual Respiratory Rate 16 Actual Respiratory Rate 16 Actual Respiratory Rate 16 Actual Respiratory Rate 16 Positive End Expiratory 5 Pressure Positive End Expiratory 5 Pressure Positive End Expiratory 5 Pressure Positive End Expiratory 5 Pressure Positive End Expiratory 5 Pressure Positive End Expiratory 5 Pressure Positive End Expiratory 5 Pressure Positive End Expiratory 5 Pressure Positive End Expiratory 5 Pressure Positive End Expiratory 5 Pressure Positive End Expiratory 5 Pressure Peak Inspiratory Airway 18 Pressure Peak Inspiratory Airway 17 Pressure Peak Inspiratory Airway 21 Pressure Peak Inspiratory Airway 18 Pressure Peak Inspiratory Airway 18 Pressure Results - Laboratory Findings CBC and BMP: 06/12/18 04:20 06/12/18 04:20 ABG ABG pH 7.46 pH Units (7.32-7.45) H 06/12/18 05:27 ABG pCO2 37 mmHg (35-45) 06/12/18 05:27 ABG pO2 96 mmHg (85-104) 06/12/18 05:27 ABG O2 Saturation 98 % (95-98) 06/12/18 05:27 PT/INR, D-dimer PT 11.0 Seconds (9.4-12.1) 06/10/18 23:01 Abnormal lab findings: Abnormal lab results RBC 3.30 M/mcL (4.19-5.50) L 06/12/18 04:20 Hgb 9.7 g/dL (12.9-16.9) L 06/12/18 04:20 Hct 26.8 % (37.5-50.1) L 06/12/18 04:20 MCV 81.2 fL (83.0-100.0) L 06/12/18 04:20 MCHC 36.2 g/dL (31.6-35.5) H 06/12/18 04:20 ABG pH 7.46 pH Units (7.32-7.45) H 06/12/18 05:27 ABG Total CO2 28 mEq/L (20-26) H 06/12/18 05:27 Potassium 3.4 mEq/L (3.5-5.1) L 06/12/18 04:20 Chloride 108 mEq/L (98-107) H 06/12/18 04:20 BUN 40 mg/dL (8-23) H 06/12/18 04:20 Creatinine 4.00 mg/dL (0.70-1.30) H 06/12/18 04:20 Est GFR ( Amer) 18 (> 60) L 06/12/18 04:20 Est GFR (Non-Af Amer) 15 (> 60) L 06/12/18 04:20 Glucose 114 mg/dL (70-105) H 06/12/18 04:20 POC Glucose 121 mg/dL (70-99) H 06/11/18 23:54 Calculated Osmolality 307 (280-300) H 06/12/18 04:20 Creatine Kinase 245 Units/L (30-223) H 06/10/18 23:01 Troponin I 0.05 ng/mL (< 0.04) H* 06/10/18 23:01 Serum Total Protein 6.3 g/dL (6.4-8.9) L 06/12/18 04:20 Urine Protein >=300 mg/dL (Neg-Trace) H 06/10/18 23:03 Urine Glucose (UA) 100 mg/dL (Normal) H 06/10/18 23:03 Urine Ketones Trace mg/dL (Negative) H 06/10/18 23:03 Urine Microscopic RBC 3-5 per hpf (0-3) H 06/10/18 23:03 Salicylates < 2.5 mg/dL (15.0-30.0) L 06/10/18 23:01 Acetaminophen < 10 mcg/mL (10-20) L 06/10/18 23:01 U Marijuana (THC) Screen Positive ng/mL (Cutoff = 50) H 06/10/18 23:03 - Clinical Findings Intake & Output: Intake & Output 06/11/18 06/12/18 06/12/18 23:59 07:59 15:59 Intake Total 315 / 315 300 / 300 200 / 200 Output Total 75 / 75 1175 / 1175 350 / 350 Balance 240 / 240 -875 / -875 -150 / -150 Weight 79.3 kg - Attending Attestation - Attending Attestation I saw and evaluated this patient and my medical decision-making was reviewed with the Resident Physician. I agree with the documented findings, disposition and treatment plan as described except to the extent set forth below. We independently had [id number] contact with the patient I spent 45 minutes of Critical Care time with this patient. It involved decision making of high complexity to assess, manipulate, and support vital organ system failure and/or to prevent further life threatening deterioration of the patient's condition. The time involved in the performance of separately reportable procedures was not counted toward critical care time. Patient seen and examined at bedside Labs, radiology, chart personally reviewed. Management was reviewed during multidisciplinary critical care rounds. [employer]: Patient has extensive neuropsych history as preferred by neurology as an outpatient did not see any organic cause for his episodic agitation and anxiety was referred to neuropsychiatry the patient became more than usual agitated more delirious confused and patient was brought to the ER patient became very agitated that prompted the ER staff to decide him to intubate him as he was not responding to sedation. We will try to start on an antipsychotic regimen will try to liberate sedation and see how he recovers is no evidence of UTI but has some evidence of pneumonia probably aspiration can be all due to toxic/ metabolic encephalopathy as patient has chronic liver disease has increased ammonia levels. / Patient got very agitated today almost hitting the nursing staff i suspect this all ICU delirium with background of his dementia will consult psychiatry and neurology in the meantime will wait for his as he calm around the and I will try to extubate him. Pulm: Patient has minimal VQ mismatch acceptable oxygenation and ventilation. once he is awake and calm in his presence of his i have to exubate as patient will get agitated if the tube is in since he has minimal V/Q mismatch with his encephalopathy getting better he will do well when he gets extubated . Cards: Patient is hemodynamically stable no evidence of shock or any other active coronary syndrome. FEN-GI: Will be NPO for today will need a swallow evaluation before extubation . Renal: Labs and output reviewed . ID: To cover for aspiration pneumonia. Heme/Onc: Thrombo Prophylaxis Endo: Glucose Monitored Integ/MSK: Skin Care per routine ICU Nursing Protocol to prevent ulcers. Lines: All lines examined without evidence of infection : Dispo: Critically remain in the ICU if he gets extubated he has risk of getting reintubated . Spoke with family and answered all questions. CODE:Full Code
--- NOTE | 2018-06-12 11:22 | Neurology - Consult Note ---
<Amy Cardoso N - Last Filed: 06/12/18 11:12> Date of Encounter: 06/12/18 Time of Encounter: 11:13 Assessment and Plan (1) Altered mental status Current Visit: Yes Status: Acute Patient has history of dementia with psychiatric features, he has also had prior episode of hepatic encephalopathy Agree that current altered state is secondary to a toxic vs. metabolic encephalopathy. Underlying psychiatric etiology can not be ruled out. Four doses lactulose given, repeat Ammonia Decrease precedex, fentanyl, and propofol sedation Continue seroquel and Haloperidol. If patient is cooperative and not aggressive Haloperidol may be switched to as needed. F/u psychiatric consultation for further recommendations Qualifiers: Altered mental status type: disorientation Qualified Code(s): R41.0 - Disorientation, unspecified History of Present Illness Chief complaint: Altered Mental Status HPI: Mr. Milan is a 67 year old male with a history of hepatic encephalopathy, prior drug abuse currently on methadone therapy, and dementia. He has been known to be combative in the past as well. per documentation, family brought the patient to the ED yesterday as he was more combative than normal. In the ED he was highly agitated and required multiple physical restraints as well as sedation. The patient was heavily sedated and was intubated to protect his airway and trasnferred to the ICU. He had an elevated ammonia of 74. CT scan of the head, cervical spine, thoracic spine, lumbar spine, abdomen, and pelvis were positive for trace perihepatic ascites, possible right lower lobe pneumonia , and stable chornic ischemic changes of the brain. No acute head CT changes noted. Urine drug screen was only positive for marijuana. In the ICU he was sedated with propofol, fentanyl, and precedex. He is also receiving Haloperidol Q6H and Seroquel BID. Sedation was decreased with plans to extubate today. Past Med Surg Social Fam HX - Past Medical History Medical history: diabetes, hypertension, liver disease, other, hepatitis Additional medical history: hx drug addiction, bph, [place] Psychiatric history: no psych history - Past Surgical History Surgical History: non-contributory - Social History Smoking Status: Current every day smoker Smokeless Tobacco Status: No Alcohol use: heavy, recent Drug use: marijuana - Family History Mother Living Status: Hx Family Endocrine Disorder: Yes (Diabetes) Hx Family Neurologic Disorders: Yes (Alzheimer's) Father Living Status: Hx Family Cancer: Yes (Prostate) Hx Family Endocrine Disorder: Yes (Diabetes) Medications and Allergies Glimepiride [Amaryl] 2 mg PO QAM 09/01/16 [History] Aspirin [Lo-Dose Aspirin EC] 81 mg PO DAILY 03/09/17 [History] Vitamin B Complex/Vit C/Vit E [Stresstab] 1 tab PO DAILY 03/09/17 [History] Diltiazem CD (24hr) [Cardizem CD] 240 mg PO DAILY #30 cap.er.24h 10/16/17 [Rx] amLODIPine [Norvasc] 5 mg PO DAILY #30 tablet 10/16/17 [Rx] hydrALAZINE [HydrALAZINE] 75 mg PO Q8H #180 tablet 10/16/17 [Rx] Atorvastatin Calcium [Lipitor] 20 mg PO DAILY 06/12/18 [History] Chlorthalidone [Chlorthalidone] 25 mg PO DAILY 06/12/18 [History] Donepezil [Aricept] 10 mg PO HS 06/12/18 [History] Ferrous Sulfate [Ferrous Sulfate] 325 mg PO DAILY 06/12/18 [History] Lisinopril [Zestril] 5 mg PO DAILY 06/12/18 [History] Methadone [Methadone] 10 mg PO QID 06/12/18 [History] Minoxidil [Minoxidil] 10 mg PO DAILY 06/12/18 [History] Mirtazapine [Remeron] 15 mg PO HS 06/12/18 [History] cloNIDine HCl [Clonidine HCl] 0.3 mg PO TID 06/12/18 [History] 3 Allergy/AdvReac Type Severity Reaction Status Date / Time No Known Allergies Allergy Verified 03/09/17 07:53 ROS unobtainable: due to endotracheal tube All Systems: The remainder of the systems were reviewed and are negative Physical Examination - Vital Signs Vital Signs: Initial Vital Signs Pulse Resp BP Pulse Ox 87 16 180/83 100 06/10/18 23:01 06/10/18 23:01 06/10/18 23:01 06/10/18 23:01 - Exam Exam: Constitutional: intubated, does open his eyes to voice and respond to questions by shaking or nodding his head. Heart: regular rate and rhythm no murmurs Lungs: CTA bilaterally Neurological: Sedated, but responds to questions and commands. Squeezes fingers bilaterally, moves all four extremities however has upper extremity restraints in place. Biceps and patellar reflexes are 2+. Psych: Not actively agitated or aggressive, however is currently actively being weaned off of sedation. Results - Laboratory Findings CBC and BMP: 06/12/18 04:20 06/12/18 04:20 Abnormal lab findings: Abnormal lab results RBC 3.30 M/mcL (4.19-5.50) L 06/12/18 04:20 Hgb 9.7 g/dL (12.9-16.9) L 06/12/18 04:20 Hct 26.8 % (37.5-50.1) L 06/12/18 04:20 MCV 81.2 fL (83.0-100.0) L 06/12/18 04:20 MCHC 36.2 g/dL (31.6-35.5) H 06/12/18 04:20 ABG pH 7.46 pH Units (7.32-7.45) H 06/12/18 05:27 ABG Total CO2 28 mEq/L (20-26) H 06/12/18 05:27 Potassium 3.4 mEq/L (3.5-5.1) L 06/12/18 04:20 Chloride 108 mEq/L (98-107) H 06/12/18 04:20 BUN 40 mg/dL (8-23) H 06/12/18 04:20 Creatinine 4.00 mg/dL (0.70-1.30) H 06/12/18 04:20 Est GFR ( Amer) 18 (> 60) L 06/12/18 04:20 Est GFR (Non-Af Amer) 15 (> 60) L 06/12/18 04:20 Glucose 114 mg/dL (70-105) H 06/12/18 04:20 POC Glucose 121 mg/dL (70-99) H 06/11/18 23:54 Calculated Osmolality 307 (280-300) H 06/12/18 04:20 Ammonia 74 mcmol/L (16-53) H 06/10/18 23:36 Creatine Kinase 245 Units/L (30-223) H 06/10/18 23:01 Troponin I 0.05 ng/mL (< 0.04) H* 06/10/18 23:01 Serum Total Protein 6.3 g/dL (6.4-8.9) L 06/12/18 04:20 Urine Protein >=300 mg/dL (Neg-Trace) H 06/10/18 23:03 Urine Glucose (UA) 100 mg/dL (Normal) H 06/10/18 23:03 Urine Ketones Trace mg/dL (Negative) H 06/10/18 23:03 Urine Microscopic RBC 3-5 per hpf (0-3) H 06/10/18 23:03 Salicylates < 2.5 mg/dL (15.0-30.0) L 06/10/18 23:01 Acetaminophen < 10 mcg/mL (10-20) L 06/10/18 23:01 U Marijuana (THC) Screen Positive ng/mL (Cutoff = 50) H 06/10/18 23:03 Consult Discharge Plan - Plan Referrals: Rajesh Gillette Jr, MD [Primary Care Provider] - <Momo Faith I - Last Filed: 06/12/18 16:08> Date of Encounter: 06/12/18 Assessment and Plan (1) Acute encephalopathy Current Visit: No Status: Acute (2) Altered mental status Current Visit: Yes Status: Acute Pt was seen and examined, my medical decision was reviewed with the Resident Physician, I agree with the documented findings, disposition and treatment plas as described except to the extent set forth below. Patient is known to me from office visit he has an history of multiple medical conditions as well as dementia along with significant behavioral and psychiatric features and severe depression unfortunately his depression is not very well controlled, he has not been able to have a follow-up appointment with the psychiatrist as an outpatient and continued to struggle with mood and depression and now he is been admitted with this multiple other medical conditions and features. At the moment no evidence or history to be suggestive of a stroke seizures I would recommend that we should continue on his home medication when he is more awake and extubated we will do full neurological evaluation at the same time he would benefit from psychiatric evaluation once he is awake and alert. Momo Faith MD Qualifiers: Altered mental status type: disorientation Qualified Code(s): R41.0 - Disorientation, unspecified History of Present Illness HPI: Mr. Milan is a 67 year old male All Systems: The remainder of the systems were reviewed and are negative Physical Examination - Vital Signs Vital Signs: Initial Vital Signs Pulse Resp BP Pulse Ox 87 16 180/83 100 06/10/18 23:01 06/10/18 23:01 06/10/18 23:01 06/10/18 23:01 Results - Laboratory Findings CBC and BMP: 06/12/18 04:20 06/12/18 04:20 Abnormal lab findings: Abnormal lab results RBC 3.30 M/mcL (4.19-5.50) L 06/12/18 04:20 Hgb 9.7 g/dL (12.9-16.9) L 06/12/18 04:20 Hct 26.8 % (37.5-50.1) L 06/12/18 04:20 MCV 81.2 fL (83.0-100.0) L 06/12/18 04:20 MCHC 36.2 g/dL (31.6-35.5) H 06/12/18 04:20 ABG pH 7.46 pH Units (7.32-7.45) H 06/12/18 05:27 ABG Total CO2 28 mEq/L (20-26) H 06/12/18 05:27 Potassium 3.4 mEq/L (3.5-5.1) L 06/12/18 04:20 Chloride 108 mEq/L (98-107) H 06/12/18 04:20 BUN 40 mg/dL (8-23) H 06/12/18 04:20 Creatinine 4.00 mg/dL (0.70-1.30) H 06/12/18 04:20 Est GFR ( Amer) 18 (> 60) L 06/12/18 04:20 Est GFR (Non-Af Amer) 15 (> 60) L 06/12/18 04:20 Glucose 114 mg/dL (70-105) H 06/12/18 04:20 POC Glucose 121 mg/dL (70-99) H 06/11/18 23:54 Calculated Osmolality 307 (280-300) H 06/12/18 04:20 Creatine Kinase 245 Units/L (30-223) H 06/10/18 23:01 Troponin I 0.05 ng/mL (< 0.04) H* 06/10/18 23:01 Serum Total Protein 6.3 g/dL (6.4-8.9) L 06/12/18 04:20 Urine Protein >=300 mg/dL (Neg-Trace) H 06/10/18 23:03 Urine Glucose (UA) 100 mg/dL (Normal) H 06/10/18 23:03 Urine Ketones Trace mg/dL (Negative) H 06/10/18 23:03 Urine Microscopic RBC 3-5 per hpf (0-3) H 06/10/18 23:03 Salicylates < 2.5 mg/dL (15.0-30.0) L 06/10/18 23:01 Acetaminophen < 10 mcg/mL (10-20) L 06/10/18 23:01 U Marijuana (THC) Screen Positive ng/mL (Cutoff = 50) H 06/10/18 23:03
[2018-06-12] MEDS: Dexmedetomidine HCl 400 MCG/100 ML MLS IVC SCH ×2 (13:09→15:09)
--- NOTE | 2018-06-12 14:28 | Consult Note ---
Date of Encounter: 06/12/18 Time of Encounter: 13:50 Assessment & Recommendation (1) Hepatic encephalopathy Current visit: Yes Status: Acute (2) Dementia Current visit: Yes Status: Acute Qualifiers: Dementia type: unspecified type Dementia behavioral disturbance: with behavioral disturbance Qualified Code(s): F03.91 - Unspecified dementia with behavioral disturbance History of Present Illness Patient: new to practice Requesting Physician: Isidoro Snyder MD Reason for consult: agitation/Altered mental status. History of present illness: Mr. Milan is a 67 year old male was consulted today for agitation and AMS , chart reviewed most history from his Ms Estrada. HPI : Mr. Milan is a 67 year old male with a history of Dementia recently diagnosed ,hepatic encephalopathy, prior drug abuse currently on methadone therapy , tox was positive for marijuana . family brought the patient to the ED yesterday as he was more combative than normal. In the ED he was highly agitated and required multiple physical restraints as well as sedation. The patient was heavily sedated and was intubated to protect his airway and trasnferred to the ICU. Patient is unable to give me any information , he is alert oriented to place only, and preoccupied on going home. As per his he has been combative and loud in past , but this time he was very confused and combative so she clled the squad, he was dx with Dementia and started on Aricept and remeron , he has had multiple losses in recent years and after his brothers he became worse and then taken to neurologist/ pstchiatrist and dx Dementia. She states he has been drinking daily 2-3 beers and smokes cig. more than a pack , she is to him for 47 years now, she states this time his condition is not good . At present during session he became loud and agitated , wanted to go home. A/p Encephalopathy secondary to medical condition Dementia with delerium and behavior disturbances, Plan Patient is on haldol 20 mg/day and seroquel was increased today to 50 mg bid. because of anticholinergic properties will not recommend seroquel can make him more confused. continue haldol only. seroquel prn only tid 25 mg. once his medical condition improves , his confusion and agitation will improve. Thank you for consult and involving in his care. CC: Isidoro Snyder MD CC: I am ready to go home. Past Med Surg Social Fam HX - Past Medical History Medical history: diabetes, hypertension, liver disease, other, hepatitis - Past Psychiatric History Psychiatric history: Reports: no psych history Family psychiatric history: Unknown Family History of Suicide: Unknown (mother had Alzeihmer.) - Past Surgical History Surgical History: non-contributory - Social History Smoking Status: Current every day smoker Smokeless Tobacco Status: No Alcohol use: heavy, recent Drug use: marijuana - Family History Mother Living Status: Hx Family Endocrine Disorder: Yes (Diabetes) Hx Family Neurologic Disorders: Yes (Alzheimer's) Father Living Status: Hx Family Cancer: Yes (Prostate) Hx Family Endocrine Disorder: Yes (Diabetes) Medications & Allergies Glimepiride [Amaryl] 2 mg PO QAM 09/01/16 [History] Aspirin [Lo-Dose Aspirin EC] 81 mg PO DAILY 03/09/17 [History] Vitamin B Complex/Vit C/Vit E [Stresstab] 1 tab PO DAILY 03/09/17 [History] Diltiazem CD (24hr) [Cardizem CD] 240 mg PO DAILY #30 cap.er.24h 10/16/17 [Rx] amLODIPine [Norvasc] 5 mg PO DAILY #30 tablet 10/16/17 [Rx] hydrALAZINE [HydrALAZINE] 75 mg PO Q8H #180 tablet 10/16/17 [Rx] Atorvastatin Calcium [Lipitor] 20 mg PO DAILY 06/12/18 [History] Chlorthalidone [Chlorthalidone] 25 mg PO DAILY 06/12/18 [History] Donepezil [Aricept] 10 mg PO HS 06/12/18 [History] Ferrous Sulfate [Ferrous Sulfate] 325 mg PO DAILY 06/12/18 [History] Lisinopril [Zestril] 5 mg PO DAILY 06/12/18 [History] Methadone [Methadone] 10 mg PO QID 06/12/18 [History] Minoxidil [Minoxidil] 10 mg PO DAILY 06/12/18 [History] Mirtazapine [Remeron] 15 mg PO HS 06/12/18 [History] cloNIDine HCl [Clonidine HCl] 0.3 mg PO TID 06/12/18 [History] 3 Allergy/AdvReac Type Severity Reaction Status Date / Time No Known Allergies Allergy Verified 03/09/17 07:53 Review of Systems Psychiatric: Reports: irritability Psychiatry Exam - Constitutional Vitals: Temp Pulse Resp BP Pulse Ox 98.6 F 53 16 151/84 100 06/12/18 11:32 06/12/18 13:00 06/12/18 13:11 06/12/18 13:00 06/12/18 13:26 Results - Labs Labs: Laboratory Last Values WBC 7.3 K/mcL (4.3-11.1) 06/12/18 04:20 RBC 3.30 M/mcL (4.19-5.50) L 06/12/18 04:20 Hgb 9.7 g/dL (12.9-16.9) L 06/12/18 04:20 Hct 26.8 % (37.5-50.1) L 06/12/18 04:20 MCV 81.2 fL (83.0-100.0) L 06/12/18 04:20 MCH 29.4 pg (28.0-33.3) 06/12/18 04:20 MCHC 36.2 g/dL (31.6-35.5) H 06/12/18 04:20 RDW 13.3 % (11.5-14.5) 06/12/18 04:20 Plt Count 175 K/mcL (140-400) 06/12/18 04:20 MPV 9.9 fL (9.4-12.4) 06/12/18 04:20 Immature Gran % 0.1 % (0-4) 06/12/18 04:20 Seg Neutrophils % 63.4 % 06/12/18 04:20 Lymphocytes % 27.4 % 06/12/18 04:20 Monocytes % 8.0 % 06/12/18 04:20 Eosinophils % 0.8 % 06/12/18 04:20 Basophils % 0.3 % 06/12/18 04:20 Neutrophils # 4.6 K/mcL (1.6-8.9) 06/12/18 04:20 Lymphocytes # 2.0 K/mcL (0.6-4.6) 06/12/18 04:20 Monocytes # 0.6 K/mcL (0.0-1.3) 06/12/18 04:20 Eosinophils # 0.1 K/mcL (0.0-0.6) 06/12/18 04:20 Basophils # 0.0 K/mcL (0.0-0.2) 06/12/18 04:20 PT 11.0 Seconds (9.4-12.1) 06/10/18 23:01 INR 1.0 06/10/18 23:01 APTT 29.8 Seconds (26.0-36.0) 06/10/18 23:01 Sample Site R Radial 06/12/18 05:27 ABG pH 7.46 pH Units (7.32-7.45) H 06/12/18 05:27 ABG pCO2 37 mmHg (35-45) 06/12/18 05:27 ABG pO2 96 mmHg (85-104) 06/12/18 05:27 ABG HCO3 26 mEq/L (21-27) 06/12/18 05:27 ABG Total CO2 28 mEq/L (20-26) H 06/12/18 05:27 ABG O2 Saturation 98 % (95-98) 06/12/18 05:27 ABG Base Excess 2 mEq/L (-2 to 3) 06/12/18 05:27 Kevin Test N/A 06/12/18 05:27 Carboxyhemoglobin 4.5 % (0-5) 06/10/18 23:52 Respiration Rate 16 06/12/18 05:27 O2 Delivery Device Adult Vent 06/12/18 05:27 Blood Gas Modality ASSIST CONTROL 06/12/18 05:27 Inspired O2 30.0 (1-15=lpm [id number]=%) 06/12/18 05:27 Tidal Volume 480 cc 06/12/18 05:27 PEEP 5 cm H2O 06/12/18 05:27 Sodium 143 mEq/L (136-145) 06/12/18 04:20 Potassium 3.4 mEq/L (3.5-5.1) L 06/12/18 04:20 Chloride 108 mEq/L (98-107) H 06/12/18 04:20 Carbon Dioxide 26 mEq/L (23-29) 06/12/18 04:20 BUN 40 mg/dL (8-23) H 06/12/18 04:20 Creatinine 4.00 mg/dL (0.70-1.30) H 06/12/18 04:20 Est GFR ( Amer) 18 (> 60) L 06/12/18 04:20 Est GFR (Non-Af Amer) 15 (> 60) L 06/12/18 04:20 BUN/Creatinine Ratio 10 (6-26) 06/12/18 04:20 Glucose 114 mg/dL (70-105) H 06/12/18 04:20 POC Glucose 121 mg/dL (70-99) H 06/11/18 23:54 Calculated Osmolality 307 (280-300) H 06/12/18 04:20 Calcium 8.8 mg/dL (8.6-10.3) 06/12/18 04:20 Magnesium 2.6 mg/dL (1.6-2.6) 06/11/18 05:48 Total Bilirubin 0.5 mg/dL (0.3-1.0) 06/12/18 04:20 Direct Bilirubin 0.2 mg/dL (0.0-0.2) 06/12/18 04:20 Indirect Bilirubin 0.3 mg/dL (0.0-1.2) 06/12/18 04:20 AST 36 Units/L (13-39) 06/12/18 04:20 ALT 16 Units/L (7-52) 06/12/18 04:20 Alkaline Phosphatase 92 Units/L (34-104) 06/12/18 04:20 Ammonia 23 mcmol/L (16-53) 06/12/18 11:25 Creatine Kinase 245 Units/L (30-223) H 06/10/18 23:01 Troponin I 0.05 ng/mL (< 0.04) H* 06/10/18 23:01 Serum Total Protein 6.3 g/dL (6.4-8.9) L 06/12/18 04:20 Albumin 3.7 g/dL (3.5-5.7) 06/12/18 04:20 Globulin 2.6 g/dL (2.4-3.5) 06/12/18 04:20 Albumin/Globulin Ratio 1.4 (1.1-2.2) 06/12/18 04:20 TSH 1.209 mcIU/mL (0.340-5.600) 06/10/18 23:01 Urine Color Yellow (Yellow) 06/10/18 23: Urine Clarity Clear (Clear) 06/10/18 23: Urine pH 6.0 pH Units (5.0-8.0) 06/10/18 23: Ur Specific [place] 1.020 (1.010-1.025) 06/10/18 23: Urine Protein >=300 mg/dL (Neg-Trace) H 06/10/18 23: Urine Glucose (UA) 100 mg/dL (Normal) H 06/10/18 23: Urine Ketones Trace mg/dL (Negative) H 06/10/18 23: Urine Blood Negative (Negative) 06/10/18: Urine Nitrite Negative (Negative) 06/10/18: Urine Bilirubin Negative (Negative) 06/10/18: Urine Urobilinogen Normal mg/dL (Normal) 06/10/18 23: Ur Leukocyte Esterase Negative (Negative) 06/10/18 23: Urine Microscopic RBC 3-5 per hpf (0-3) H 06/10/18 23: Urine Microscopic WBC 0-3 per hpf (0-3) 06/10/18 23: Ur Squamous Epith Cells None Seen per lpf (None-Few) 06/10/18 23: Urine Bacteria None Seen per hpf (None-Few) 06/10/18: Hyaline Casts None Seen per lpf (None-Few) 06/10/18 23: Ur Culture Indicated? NO (NO) 06/10/18 23: Salicylates < 2.5 mg/dL (15.0-30.0) L 06/10/18 23: Urine Opiates Screen Negative ng/mL (Fudmmb=483) 06/10/18 23: Acetaminophen < 10 mcg/mL (10-20) L 06/10/18 23: Ur Barbiturates Screen Negative ng/mL (Jxwymo=306) 06/10/18 23: Ur Phencyclidine Scrn Negative ng/mL (Cutoff=25) 06/10/18 23: Ur Amphetamines Screen Negative ng/mL (Jnaqif=5396) 06/10/18 23: U Benzodiazepines Scrn Negative ng/mL (Ebzkgj=192) 06/10/18 23: Urine Cocaine Screen Negative ng/mL (Cutoff= 300) 06/10/18 23:03 U Marijuana (THC) Screen Positive ng/mL (Cutoff = 50) H 06/10/18 23:03 Ur Drug Screen Interp See Below 06/10/18 23:03 Ethyl Alcohol < 10 mg/dL (Less than 10) 06/10/18 23:01 Blood Type A POSITIVE 06/10/18 23:52 Antibody Screen NEGATIVE 06/10/18 23:52 Consult Discharge Plan - Plan Referrals: Rajesh Gillette Jr, MD [Primary Care Provider] -
[2018-06-12 17:12] LABS: Magnesium 2.6 mg/dL (1.6-2.6); Potassium 3.7 mEq/L (3.5-5.1)
[2018-06-12] MEDS: *HR* Labetalol 20 MG/4 ML SYRINGE IVP PRN (18:09)
[2018-06-13] MEDS: Insulin LISPRO 300 UNITS/3 ML VIAL SQ SCH ×5 (00:02→21:34)
[2018-06-13] MEDS: *HR* Heparin 5,000 UNIT/ML VIAL SQ SCH ×4 (00:02→21:35)
[2018-06-13] MEDS: Haloperidol Lactate 5 MG/ML VIAL IVP SCH ×5 (00:02→23:49)
[2018-06-13] MEDS: *HR* Labetalol 20 MG/4 ML SYRINGE IVP PRN (03:12)
[2018-06-13] MEDS: Artificial Tears SOLN 15 ML BOTTLE BOTH EYES SCH (04:55)
[2018-06-13 05:09] LABS: Basophils % 0.3 %; Eosinophils # 0.1 K/mcL (0.0-0.6); Eosinophils % 0.8 %; Hematocrit 26.9 % (37.5-50.1); Hemoglobin 9.6 g/dL (12.9-16.9); Immature Granulocytes % 0.1 % (0-4); Lymphocytes # 1.7 K/mcL (0.6-4.6); Lymphocytes % 21.6 %; Mean Corpuscular HGB Conc 35.7 g/dL (31.6-35.5); Mean Corpuscular Hemoglobin 29.2 pg (28.0-33.3); Mean Corpuscular Volume 81.8 fL (83.0-100.0); Mean Platelet Volume 10.2 fL (9.4-12.4); Monocytes # 0.7 K/mcL (0.0-1.3); Monocytes % 8.5 %; Neutrophils # 5.4 K/mcL (1.6-8.9); Platelet Count 168 K/mcL (140-400); Red Blood Count 3.29 M/mcL (4.19-5.50); Red Cell Distribution Width 13.2 % (11.5-14.5); Segmented Neutrophils % 68.7 %
[2018-06-13 05:10] LABS: VBG Ionized Calcium 1.09 mmol/L (1.15-1.35)
[2018-06-13 05:24] LABS: Magnesium 2.4 mg/dL (1.6-2.6); Phosphorous 3.8 mg/dL (2.7-4.5); Potassium 3.4 mEq/L (3.5-5.1)
[2018-06-13] MEDS: hydrALAZINE 25 MG TABLET PO SCH ×3 (06:06→21:32)
--- NOTE | 2018-06-13 08:15 | Pulmonology Progress Note ---
<Silvano Carlos S - Last Filed: 06/13/18 11:50> Date of Encounter: 06/13/18 Objective PUL Vital signs: Last Vital Signs Temp 98.1 F 06/13/18 07:37 Pulse 90 06/13/18 09:00 Resp 18 06/13/18 09:00 BP 180/81 06/13/18 09:00 Pulse Ox 100 06/13/18 09:00 Results - Laboratory Findings CBC and BMP: 06/13/18 04:45 06/13/18 04:45 ABG ABG pH 7.46 pH Units (7.32-7.45) H 06/12/18 05:27 ABG pCO2 37 mmHg (35-45) 06/12/18 05:27 ABG pO2 96 mmHg (85-104) 06/12/18 05:27 ABG O2 Saturation 98 % (95-98) 06/12/18 05:27 PT/INR, D-dimer PT 11.0 Seconds (9.4-12.1) 06/10/18 23:01 Abnormal lab findings: Abnormal lab results RBC 3.29 M/mcL (4.19-5.50) L 06/13/18 04:45 Hgb 9.6 g/dL (12.9-16.9) L 06/13/18 04:45 Hct 26.9 % (37.5-50.1) L 06/13/18 04:45 MCV 81.8 fL (83.0-100.0) L 06/13/18 04:45 MCHC 35.7 g/dL (31.6-35.5) H 06/13/18 04:45 ABG pH 7.46 pH Units (7.32-7.45) H 06/12/18 05:27 ABG Total CO2 28 mEq/L (20-26) H 06/12/18 05:27 Potassium 3.4 mEq/L (3.5-5.1) L 06/13/18 04:45 BUN 31 mg/dL (8-23) H 06/13/18 04:45 Creatinine 3.42 mg/dL (0.70-1.30) H 06/13/18 04:45 Est GFR ( Amer) 22 (> 60) L 06/13/18 04:45 Est GFR (Non-Af Amer) 18 (> 60) L 06/13/18 04:45 POC Glucose 112 mg/dL (70-99) H 06/12/18 23:56 Calculated Osmolality 304 (280-300) H 06/13/18 04:45 Venous Ioniz Calcium 1.09 mmol/L (1.15-1.35) L 06/13/18 05:07 Creatine Kinase 245 Units/L (30-223) H 06/10/18 23:01 Troponin I 0.05 ng/mL (< 0.04) H* 06/10/18 23:01 Serum Total Protein 6.3 g/dL (6.4-8.9) L 06/12/18 04:20 Urine Protein >=300 mg/dL (Neg-Trace) H 06/10/18 23:03 Urine Glucose (UA) 100 mg/dL (Normal) H 06/10/18 23:03 Urine Ketones Trace mg/dL (Negative) H 06/10/18 23:03 Urine Microscopic RBC 3-5 per hpf (0-3) H 06/10/18 23:03 Salicylates < 2.5 mg/dL (15.0-30.0) L 06/10/18 23:01 Acetaminophen < 10 mcg/mL (10-20) L 06/10/18 23:01 U Marijuana (THC) Screen Positive ng/mL (Cutoff = 50) H 06/10/18 23:03 - Clinical Findings Intake & Output: Intake & Output 06/12/18 06/13/18 06/13/18 23:59 07:59 15:59 Intake Total 740 / 740 80 / 80 Output Total 875 / 875 1675 / 1675 225 / 225 Balance -135 / -135 -1595 / -1595 -225 / -225 Weight 78.7 kg Consult Discharge Plan - Plan Referrals: Rajesh Gillette Jr, MD [Primary Care Provider] - - Attending Attestation - Attending Attestation I saw and evaluated this patient and my medical decision-making was reviewed with the Resident Physician. I agree with the documented findings, disposition and treatment plan as described except to the extent set forth below. We independently had [id number] contact with the patient Patient seen and examined at bedside Labs, radiology, chart personally reviewed. Management was reviewed during multidisciplinary critical care rounds. 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 We will try to start on an antipsychotic regimen will try to liberate sedation and see how he recovers is no evidence of UTI but has some evidence of pneumonia probably aspiration can be all due to toxic/ metabolic encephalopathy as patient has chronic liver disease has increased ammonia levels. 06/12 Patient got very agitated today almost hitting the nursing staff i suspect this all ICU delirium with background of his dementia will consult psychiatry and neurology in the meantime will wait for his as he calm around the and I will try to extubate him. 06/13 Patient is conscious oriented 3 patient is at bedside that helped TV oriented him patient is on scheduled Haldol will back off the Seroquel as when necessary as anticholinergic effect might worsen his dementia features appreciate psychiatric recommendation. Pulm: Patient has minimal VQ mismatch acceptable oxygenation and ventilation. once he is awake and calm in his presence of his i have to exubate as patient will get agitated if the tube is in since he has minimal V/Q mismatch with his encephalopathy getting better he will do well when he gets extubated . 06/13 patient has acceptable oxygenation and ventilation. Cards: Patient is hemodynamically stable patient was hypotensive overnight to start on all his home medication to adjust the dosing of his antihypertensives. FEN-GI: To advance diet as tolerated Renal: Labs and output reviewed . ID: To cover for aspiration pneumonia. Heme/Onc: Thrombo Prophylaxis Endo: Glucose Monitored Integ/MSK: Skin Care per routine ICU Nursing Protocol to prevent ulcers. Lines: All lines examined without evidence of infection : Dispo: Can be transferred to telemetry, When bed available CODE:Full Code <Mushtaq Florian R - Last Filed: 06/13/18 12:07> Date of Encounter: 06/13/18 Time of Encounter: 07:45 Assessment and Plan (1) Altered mental status Current Visit: Yes Status: Acute Etiology of altered mental status encephalopathy is thought to be toxic or metabolic in origin, urine drug screening was positive for THC and patient is on methadone chronically for previous IV drug abuse, known hepatitis B/C with mildly elevated ammonia at admission. Patient does have newer onset dementia with aggressive features at baseline. Suspect aspiration pneumonia on admission , this may have been the metabolic derangement that led to his progression of delirium and encephalopathy. Patient was successfully extubated yesterday afternoon. Patient following commands and interacting appropriately. No signs of agitation or aggression overnight or today, however patient's is in the room and seems to be helpful for keeping his orientation. Improving metabolic status with normalized ammonia. Psychiatry was consulted and did see the patient yesterday, appreciate their recommendations. Per psych will continue with scheduled Haldol, and scale back Seroquel to PRN due to possible worsening dementia secondary to anticholinergic effects. He has patient is on methadone will require daily EKGs while Haldol is given. Neurology was consulted, appreciate their recommendations. Patient was following Dr. Faith in outpatient neurology for new onset dementia. Per neurology no evidence of stroke or seizure activity, with recommendation for psychiatric evaluation follow-up. Qualifiers: Altered mental status type: disorientation Qualified Code(s): R41.0 - Disorientation, unspecified (2) Hyperammonemia Current Visit: Yes Status: Resolved Patient did receive lactulose. Repeat ammonia has normalized. (3) Pneumonia Current Visit: Yes Status: Acute Evidence of aspiration pneumonia on admission. Patient currently on day 3 of Unasyn. Suspect this may have contributed to the metabolic derangements that led to his admission. Will transition to oral therapy and plan to continue a 7 day total course of antibiotics. Qualifiers: Pneumonia type: aspiration pneumonia Aspiration pneumonia type: unspecified Laterality: right Lung location: unspecified part of lung Qualified Code(s): J69.0 - Pneumonitis due to inhalation of food and vomit (4) CKD (chronic kidney disease) Current Visit: No Status: Chronic Chronic stage IV kidney disease, sees outpatient nephrology. We will monitor kidney function Avoid nephrotoxic medications Qualifiers: Chronic kidney disease stage: stage 4 (severe) Qualified Code(s): N18.4 - Chronic kidney disease, stage 4 (severe) (5) Diabetes Current Visit: No Status: Chronic Continue with Low-dose sliding scale and POC checks Cardiac diet was started today. Qualifiers: Diabetes mellitus type: type 2 Diabetes mellitus senior care insulin use: without terminal operations supervisor use Diabetes mellitus complication status: without complication Qualified Code(s): E11.9 - Type 2 diabetes mellitus without complications (6) DVT prophylaxis Current Visit: No Status: Acute Heparin 5000 units every 8 hours Subjective Principal diagnosis: Altered mental status Interval history: Patient was extubated yesterday, no respiratory distress. Patient was restless overnight however was not angry or agitated, no signs of aggression. Patient's white did stay with him overnight which seemed to help keep him oriented and calm. Objective PUL Vital signs: Last Vital Signs Temp 98.1 F 06/13/18 07:37 Pulse 105 06/13/18 08:00 Resp 16 06/13/18 08:00 BP 182/70 06/13/18 08:00 Pulse Ox 100 06/13/18 08:00 General appearance: no acute distress Eyes: nonicteric ENT: oropharynx moist Neck: supple Effort: normal Auscultation: bilateral: clear Cardiovascular: regular rate and rhythm Gastrointestinal: normoactive bowel sounds, soft, non-distended Integumentary: normal Extremities: no cyanosis Musculoskeletal: no deformities non-focal exam, other (Alert oriented 2) mood appropriate, other (Some confusion about why he is here, patient is stating that he would like to return home) Results - Laboratory Findings CBC and BMP: 06/13/18 04:45 06/13/18 04:45 ABG ABG pH 7.46 pH Units (7.32-7.45) H 06/12/18 05:27 ABG pCO2 37 mmHg (35-45) 06/12/18 05:27 ABG pO2 96 mmHg (85-104) 06/12/18 05:27 ABG O2 Saturation 98 % (95-98) 06/12/18 05:27 PT/INR, D-dimer PT 11.0 Seconds (9.4-12.1) 06/10/18 23:01 Abnormal lab findings: Abnormal lab results RBC 3.29 M/mcL (4.19-5.50) L 06/13/18 04:45 Hgb 9.6 g/dL (12.9-16.9) L 06/13/18 04:45 Hct 26.9 % (37.5-50.1) L 06/13/18 04:45 MCV 81.8 fL (83.0-100.0) L 06/13/18 04:45 MCHC 35.7 g/dL (31.6-35.5) H 06/13/18 04:45 ABG pH 7.46 pH Units (7.32-7.45) H 06/12/18 05:27 ABG Total CO2 28 mEq/L (20-26) H 06/12/18 05:27 Potassium 3.4 mEq/L (3.5-5.1) L 06/13/18 04:45 BUN 31 mg/dL (8-23) H 06/13/18 04:45 Creatinine 3.42 mg/dL (0.70-1.30) H 06/13/18 04:45 Est GFR ( Amer) 22 (> 60) L 06/13/18 04:45 Est GFR (Non-Af Amer) 18 (> 60) L 06/13/18 04:45 POC Glucose 112 mg/dL (70-99) H 06/12/18 23:56 Calculated Osmolality 304 (280-300) H 06/13/18 04:45 Venous Ioniz Calcium 1.09 mmol/L (1.15-1.35) L 06/13/18 05:07 Creatine Kinase 245 Units/L (30-223) H 06/10/18 23:01 Troponin I 0.05 ng/mL (< 0.04) H* 06/10/18 23:01 Serum Total Protein 6.3 g/dL (6.4-8.9) L 06/12/18 04:20 Urine Protein >=300 mg/dL (Neg-Trace) H 06/10/18 23:03 Urine Glucose (UA) 100 mg/dL (Normal) H 06/10/18 23:03 Urine Ketones Trace mg/dL (Negative) H 06/10/18 23:03 Urine Microscopic RBC 3-5 per hpf (0-3) H 06/10/18 23:03 Salicylates < 2.5 mg/dL (15.0-30.0) L 06/10/18 23:01 Acetaminophen < 10 mcg/mL (10-20) L 06/10/18 23:01 U Marijuana (THC) Screen Positive ng/mL (Cutoff = 50) H 06/10/18 23:03 - Clinical Findings Intake & Output: Intake & Output 06/12/18 06/13/18 06/13/18 23:59 07:59 15:59 Intake Total 740 / 740 80 / 80 Output Total 875 / 875 1675 / 1675 Balance -135 / -135 -1595 / -1595 Weight 78.7 kg
[2018-06-13] MEDS: cloNIDine HCl 0.1 MG TABLET PO SCH ×3 (08:47→21:32)
[2018-06-13] MEDS: Diltiazem CD (24hr) 240 MG CAPSULE PO SCH (08:47)
[2018-06-13] MEDS: Aspirin Enteric Coated 81 MG Tablet PO SCH (08:47)
[2018-06-13] MEDS: Famotidine 20 MG/2 ML VIAL IVP SCH (08:47)
[2018-06-13] MEDS: *HR* Methadone 10 MG TABLET PO SCH ×4 (08:48→21:33)
[2018-06-13] MEDS: Lisinopril 20 MG TABLET PO SCH (08:48)
[2018-06-13] MEDS: amLODIPine 5 MG TABLET PO SCH (08:48)
[2018-06-13] MEDS: Ampicillin/Sulbactam 3,000 MG in 0.9 % Sodium Chloride Mini Bag 100 ML IVPB SCH (08:48)
--- NOTE | 2018-06-13 11:24 | Electrocardiograph Report ---
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
--- NOTE | 2018-06-13 11:49 | Electrocardiograph Report ---
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
[2018-06-13] MEDS ORDERED: D5% in Water 1,000 ML IVC PRN (11:50)
[2018-06-13] MEDS ORDERED: *HR* Dextrose 50 % in Water (Syg) 50 ML SYRINGE IVP PRN (11:50)
[2018-06-13] MEDS ORDERED: Dextrose Gel 15 GM/37.5 ML TUBE PO PRN ×2 (11:50)
--- NOTE | 2018-06-13 12:34 | Neurology Progress Note ---
Date of Encounter: 06/13/18 Time of Encounter: 08:40 Assessment and Plan (1) Acute encephalopathy Current Visit: No Status: Acute Improving currently he is extubated Awake and alert able to follow simple commands did have some confusion but no focal motor neurological deficit noted. Baseline patient had confusion as he did have a dementia and also behavioral issues and get confused at time. At the moment I did not see any new focal lateralizing sign his mental status probably would continue to fluctuate considering current illness as well as different environment and particularly in the hospital setting he may get more confused and agitated at times. He is been evaluated by a psychiatrist recommend Haldol when necessary suggested to continue to use it as needed (2) Altered mental status Current Visit: Yes Status: Acute Qualifiers: Altered mental status type: disorientation Qualified Code(s): R41.0 - Disorientation, unspecified Subjective Principal diagnosis: Altered mental status Interval history: Patient extubated this morning he is awake and alert able to have conversation is still have some confusion off-and-on no focal motor deficit Objective - Constitutional Vitals: Temp Pulse Resp BP Pulse Ox 98.1 F 75 18 159/79 100 06/13/18 07:37 06/13/18 12:00 06/13/18 12:00 06/13/18 12:00 06/13/18 12:00 Results - Laboratory Findings CBC and BMP: 06/13/18 04:45 06/13/18 04:45 Abnormal lab findings: Abnormal lab results RBC 3.29 M/mcL (4.19-5.50) L 06/13/18 04:45 Hgb 9.6 g/dL (12.9-16.9) L 06/13/18 04:45 Hct 26.9 % (37.5-50.1) L 06/13/18 04:45 MCV 81.8 fL (83.0-100.0) L 06/13/18 04:45 MCHC 35.7 g/dL (31.6-35.5) H 06/13/18 04:45 ABG pH 7.46 pH Units (7.32-7.45) H 06/12/18 05:27 ABG Total CO2 28 mEq/L (20-26) H 06/12/18 05:27 Potassium 3.4 mEq/L (3.5-5.1) L 06/13/18 04:45 BUN 31 mg/dL (8-23) H 06/13/18 04:45 Creatinine 3.42 mg/dL (0.70-1.30) H 06/13/18 04:45 Est GFR ( Amer) 22 (> 60) L 06/13/18 04:45 Est GFR (Non-Af Amer) 18 (> 60) L 06/13/18 04:45 POC Glucose 112 mg/dL (70-99) H 06/12/18 23:56 Calculated Osmolality 304 (280-300) H 06/13/18 04:45 Venous Ioniz Calcium 1.09 mmol/L (1.15-1.35) L 06/13/18 05:07 Creatine Kinase 245 Units/L (30-223) H 06/10/18 23:01 Troponin I 0.05 ng/mL (< 0.04) H* 06/10/18 23:01 Serum Total Protein 6.3 g/dL (6.4-8.9) L 06/12/18 04:20 Urine Protein >=300 mg/dL (Neg-Trace) H 06/10/18 23:03 Urine Glucose (UA) 100 mg/dL (Normal) H 06/10/18 23:03 Urine Ketones Trace mg/dL (Negative) H 06/10/18 23:03 Urine Microscopic RBC 3-5 per hpf (0-3) H 06/10/18 23:03 Salicylates < 2.5 mg/dL (15.0-30.0) L 06/10/18 23:01 Acetaminophen < 10 mcg/mL (10-20) L 06/10/18 23:01 U Marijuana (THC) Screen Positive ng/mL (Cutoff = 50) H 06/10/18 23:03 Consult Discharge Plan - Plan Referrals: Rajesh Gillette Jr, MD [Primary Care Provider] -
--- NOTE | 2018-06-13 14:28 | Electrocardiograph Report ---
[address] [address] Test Date: 2018-06-12 Pat Name: Morteza Milan Department: 112 Room: [facility] Gender: M Laminator Preforms: : 1950 Requested By: Mushtaq Florian Order Number: [id number] Reading MD: Socrates Manzano Measurements Intervals [place] Rate: 54 P: 71 CO: 142 QRS: 43 QRSD: 101 T: 80 QT: 445 QTc: 432 Interpretive Statements SINUS BRADYCARDIA MINIMAL VOLTAGE CRITERIA FOR LVH, CONSIDER NORMAL VARIANT NONSPECIFIC T-WAVE ABNORMALITY Electronically Signed On 06-13-2018 14:27:07 EDT by Socrates Manzano
--- NOTE | 2018-06-13 15:14 | Electrocardiograph Report ---
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
[2018-06-13] MEDS ORDERED: Amoxicillin/Clavulanate 500 MG TABLET PO SCH (17:00)
[2018-06-13] MEDS: Amoxicillin/Clavulanate 500 MG TABLET PO SCH (17:58)
[2018-06-13] MEDS ORDERED: Acetaminophen 325 MG TABLET PO ONE (23:04)
[2018-06-14] MEDS: hydrALAZINE 25 MG TABLET PO SCH (04:48)
[2018-06-14] MEDS: *HR* Heparin 5,000 UNIT/ML VIAL SQ SCH (04:50)
[2018-06-14 05:44] LABS: Basophils % 0.3 %; Eosinophils # 0.2 K/mcL (0.0-0.6); Eosinophils % 2.2 %; Hematocrit 29.9 % (37.5-50.1); Hemoglobin 10.4 g/dL (12.9-16.9); Immature Granulocytes % 0.3 % (0-4); Lymphocytes # 1.9 K/mcL (0.6-4.6); Lymphocytes % 27.6 %; Mean Corpuscular HGB Conc 34.8 g/dL (31.6-35.5); Mean Corpuscular Hemoglobin 28.8 pg (28.0-33.3); Mean Corpuscular Volume 82.8 fL (83.0-100.0); Mean Platelet Volume 9.8 fL (9.4-12.4); Monocytes # 0.6 K/mcL (0.0-1.3); Monocytes % 8.9 %; Neutrophils # 4.1 K/mcL (1.6-8.9); Platelet Count 195 K/mcL (140-400); Red Blood Count 3.61 M/mcL (4.19-5.50); Segmented Neutrophils % 60.7 %
[2018-06-14 05:57] LABS: Calcium 9.3 mg/dL (8.6-10.3); Magnesium 2.4 mg/dL (1.6-2.6); Potassium 3.8 mEq/L (3.5-5.1)
[2018-06-14] MEDS: Haloperidol Lactate 5 MG/ML VIAL IVP SCH (06:19)
[2018-06-14 06:59] VITALS: BP 181/72
[2018-06-14] MEDS ORDERED: Insulin LISPRO 300 UNITS/3 ML VIAL SQ SCH ×2 (07:30→21:00)
[2018-06-14] MEDS: *HR* Methadone 10 MG TABLET PO SCH (07:52)
[2018-06-14] MEDS: cloNIDine HCl 0.1 MG TABLET PO SCH (07:52)
[2018-06-14] MEDS: Amoxicillin/Clavulanate 500 MG TABLET PO SCH (07:52)
[2018-06-14] MEDS: Insulin LISPRO 300 UNITS/3 ML VIAL SQ SCH (08:29)
[2018-06-14] MEDS ORDERED: Diltiazem CD (24hr) 240 MG CAPSULE PO SCH (09:00)
[2018-06-14] MEDS ORDERED: Aspirin Enteric Coated 81 MG Tablet PO SCH (09:00)
[2018-06-14] MEDS ORDERED: amLODIPine 5 MG TABLET PO SCH (09:00)
[2018-06-14] MEDS ORDERED: Lisinopril 20 MG TABLET PO SCH (09:00)
--- NOTE | 2018-06-14 10:26 | Discharge Summary ---
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 use Diabetes mellitus complication status: without complication Qualified Code(s): E11.9 - Type 2 diabetes mellitus without complications (2) CKD (chronic kidney disease) Priority: Secondary Status: Chronic Qualifiers: Chronic kidney disease stage: stage 4 (severe) Qualified Code(s): N18.4 - Chronic kidney disease, stage 4 (severe) (3) Substance abuse Priority: Primary Status: Chronic (4) Methadone dependence Priority: Secondary Status: Chronic (5) Acute encephalopathy Priority: Primary Status: Acute (6) Elevated CK Priority: Secondary Status: Acute (7) Alcoholism Priority: Primary Status: Acute (8) Hepatic encephalopathy Priority: Primary Status: Acute Hospital course: Mr. Milan is a 67 year old male with past medical history of alcohol use hepatitis B and C virus infection and history of dementia with behavioral problem, patient was brought to the emergency room for evaluation for confusion , family stated patient was so agitated at home. Workup done at the emergency room ammonia was 74, urinalysis was negative for chest x-ray no evidence of pneumonia, patient was so agitated patient was intubated with his that confusion and altered mental status, he was at danger for himself and others, patient was intubated at emergency room and transferred to ICU. Continue to monitor the patient gradually, patient was given lactulose to help with his ammonia level as well as electrolyte replacement.Etiology of altered mental status encephalopathy is thought to be toxic or metabolic in origin, urine drug screening was positive for THC and patient is on methadone chronically for previous IV drug abuse. Patient does have newer onset dementia with aggressive features at baseline. Suspect aspiration pneumonia on admission, this may have been the metabolic derangement that led to his progression of delirium and encephalopathy.Patient was successfully extubated . Patient following commands and interacting appropriately. No signs of agitation or aggression , Psychiatry was consulted and did see , appreciate their recommendations. Per psych Seroquel to PRN due to possible worsening dementia secondary to anticholinergic effects. consider haldol .Neurology was consulted. Patient was following Dr. Faith in outpatient neurology for new onset dementia. Per neurology no evidence of stroke or seizure activity, I had long discussion with patient and family about alcoholism, patient is drinking up to 6 beers daily, counseling about risk for: Assessment risk of worsening hepatitis, counseling about Wernicke-Korsakoff encephalopathy, Discussed about alcohol cessation, patient received IV as well as oral Thiamin . 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 Patient follow- up with neurology as an outpatient Time spent discussing smoking cessation with patient: more than 10 minutes - Time Spent with Patient Total time spent providing and/or coordinating discharge services: Greater than 30 minutes - Discharge Medications Prescriptions: Amoxicillin/Clavulanate [Augmentin] 500 mg PO BIDWM #14 tablet Buspirone HCl [Buspar] 7.5 mg PO BID #60 tab Cholecalciferol (D-3) [Vitamin D] 5,000 unit PO DAILY #90 tablet Lactulose 10 gm PO DAILY #1000 mls Nicotine Patch [Nicoderm] 1 each TD DAILY #30 patch.td24 Thiamine HCl 250 mg PO DAILY #90 tablet Home Medications: Glimepiride [Amaryl] 2 mg PO QAM 09/01/16 [History] Aspirin [Lo-Dose Aspirin EC] 81 mg PO DAILY 03/09/17 [History] Vitamin B Complex/Vit C/Vit E [Stresstab] 1 tab PO DAILY 03/09/17 [History] Diltiazem CD (24hr) [Cardizem CD] 240 mg PO DAILY #30 cap.er.24h 10/16/17 [Rx] amLODIPine [Norvasc] 5 mg PO DAILY #30 tablet 10/16/17 [Rx] hydrALAZINE [HydrALAZINE] 75 mg PO Q8H #180 tablet 10/16/17 [Rx] Atorvastatin Calcium [Lipitor] 20 mg PO DAILY 06/12/18 [History] Chlorthalidone 25 mg PO DAILY 06/12/18 [History] Donepezil [Aricept] 10 mg PO HS 06/12/18 [History] Ferrous Sulfate 325 mg PO DAILY 06/12/18 [History] Lisinopril [Zestril] 5 mg PO DAILY 06/12/18 [History] Methadone 10 mg PO QID 06/12/18 [History] Minoxidil 10 mg PO DAILY 06/12/18 [History] Mirtazapine [Remeron] 15 mg PO HS 06/12/18 [History] cloNIDine HCl [Clonidine HCl] 0.3 mg PO TID 06/12/18 [History] Amoxicillin/Clavulanate [Augmentin] 500 mg PO BIDWM #14 tablet 06/14/18 [Rx] Buspirone HCl [Buspar] 7.5 mg PO BID #60 tab 06/14/18 [Rx] Cholecalciferol (D-3) [Vitamin D] 5,000 unit PO DAILY #90 tablet 06/14/18 [Rx] Lactulose 10 gm PO DAILY #1000 mls 06/14/18 [Rx] Nicotine Patch [Nicoderm] 1 each TD DAILY #30 patch.td24 06/14/18 [Rx] Thiamine HCl 250 mg PO DAILY #90 tablet 06/14/18 [Rx] Allergies/Adverse Reactions: 3 Allergy/AdvReac Type Severity Reaction Status Date / Time No Known Allergies Allergy Verified 03/09/17 07:53 Date of admission: 06/11/18 04:01 Primary care physician: Rajesh Gillette Jr, MD Consults: 06/11/18 06:53 Consult to Pulmonology [CONS] Routine Consulting Provider: [facility] Reason for Consult: intubated Call Completed: Yes 06/11/18 12:08 Consult to Psychiatry [CONS] Routine Consulting Provider: Psychiatry [facility] Reason consult: Agitation Altered mental status Other reason and/or additional details: History of dementia, neuropsych evaluation at [facility], was supposed to follow up with outpatient Psych. Call Completed: Yes 06/12/18 08:45 Consult to Neurology [CONS] Routine Consulting Provider: [facility] Reason for Consult: altered mental status, dementia, aggression Call Completed: Yes - Constitutional Vitals: Temp Pulse Resp BP Pulse Ox 98.6 F 58 18 181/72 98 06/14/18 06:57 06/14/18 06:57 06/14/18 06:57 06/14/18 06:57 06/14/18 06:57 General appearance: Present: A&O X 0 (Patient is sedated on ventilator) Exam: as above - Head Head exam: Present: atraumatic, normocephalic - Neck Neck exam general surgery: Present: supple, trachea midline. Absent: lymphadenopathy - Respiratory Respiratory exam: Present: CTAB. Absent: accessory muscle use, rales, rhonchi, wheezes - Cardiovascular Cardiovascular exam: Present: RRR, +S1, +S2. Absent: diastolic murmur, gallop, rubs, systolic murmur - GI/Abdominal GI/Abdominal exam: Present: normal bowel sounds, soft, no peritoneal signs. Absent: distended, tenderness - Extremities Exam Extremities exam: Present: warm, radial pulses palpable and symmetrical. Absent : calf tenderness, cyanotic, pedal edema - Neurological Exam Neurological exam: Present: alert, altered, CN II-XII intact, oriented X3, no focal deficits. Absent: motor sensory deficit, pronater drift, facial droop, speech deficit - Patient Status Disposition: Home, Self-Care Condition: Fair - Discharge Instructions Instructions: Viral Pneumonia (DC), How to Stop Smoking (DC), Hepatic Encephalopathy (DC) Follow Up With: Rajesh Gillette Jr, MD [Primary Care Provider] - 06/21/18 1:00 pm Momo Faith MD [Partnered Physician] - 07/08/18 8:45 am
--- NOTE | 2018-06-14 10:31 | Neurology Progress Note ---
<Amy Cardoso N - Last Filed: 06/14/18 10:49> Date of Encounter: 06/14/18 Time of Encounter: 10:26 Assessment and Plan (1) Acute encephalopathy Current Visit: No Status: Acute Awake and alert, follows commands, able to maintain conversation with appropriate mood and affect no focal neurological deficit reportedly had some agitation overnight as mental status continues to fluctuate during current illness follow psychiatric recommendations for haldol Neurology will sign off, please call with any questions (2) Altered mental status Current Visit: Yes Status: Acute Qualifiers: Altered mental status type: disorientation Qualified Code(s): R41.0 - Disorientation, unspecified Subjective Principal diagnosis: Altered mental status Interval history: Patient transitioned out of ICU to floor. He is awake, alert, and sitting up right out of bed in chair. is at bedside and she states that he did have some agitation overnight but that this was improved from the night before. Objective - Constitutional Vitals: Temp Pulse Resp BP Pulse Ox 98.6 F 58 18 181/72 98 06/14/18 06:57 06/14/18 06:57 06/14/18 06:57 06/14/18 06:57 06/14/18 06:57 Results - Laboratory Findings CBC and BMP: 06/14/18 05:00 06/14/18 05:00 Abnormal lab findings: Abnormal lab results RBC 3.61 M/mcL (4.19-5.50) L 06/14/18 05:00 Hgb 10.4 g/dL (12.9-16.9) L 06/14/18 05:00 Hct 29.9 % (37.5-50.1) L 06/14/18 05:00 MCV 82.8 fL (83.0-100.0) L 06/14/18 05:00 ABG pH 7.46 pH Units (7.32-7.45) H 06/12/18 05:27 ABG Total CO2 28 mEq/L (20-26) H 06/12/18 05:27 BUN 27 mg/dL (8-23) H 06/14/18 05:00 Creatinine 3.33 mg/dL (0.70-1.30) H 06/14/18 05:00 Est GFR ( Amer) 23 (> 60) L 06/14/18 05:00 Est GFR (Non-Af Amer) 19 (> 60) L 06/14/18 05:00 POC Glucose 166 mg/dL (70-99) H 06/14/18 06:55 Venous Ioniz Calcium 1.09 mmol/L (1.15-1.35) L 06/13/18 05:07 Creatine Kinase 245 Units/L (30-223) H 06/10/18 23:01 Troponin I 0.05 ng/mL (< 0.04) H* 06/10/18 23:01 Serum Total Protein 6.3 g/dL (6.4-8.9) L 06/12/18 04:20 Urine Protein >=300 mg/dL (Neg-Trace) H 06/10/18 23:03 Urine Glucose (UA) 100 mg/dL (Normal) H 06/10/18 23:03 Urine Ketones Trace mg/dL (Negative) H 06/10/18 23:03 Urine Microscopic RBC 3-5 per hpf (0-3) H 06/10/18 23:03 Salicylates < 2.5 mg/dL (15.0-30.0) L 06/10/18 23:01 Acetaminophen < 10 mcg/mL (10-20) L 06/10/18 23:01 U Marijuana (THC) Screen Positive ng/mL (Cutoff = 50) H 06/10/18 23:03 Consult Discharge Plan - Plan Referrals: Rajesh Gillette Jr, MD [Primary Care Provider] - Momo Faith MD [Partnered Physician] - 07/08/18 8:45 am Prescriptions: Amoxicillin/Clavulanate [Augmentin] 500 mg PO BIDWM #14 tablet Buspirone HCl [Buspar] 7.5 mg PO BID #60 tab Cholecalciferol (D-3) [Vitamin D] 5,000 unit PO DAILY #90 tablet Thiamine HCl 250 mg PO DAILY #90 tablet <Momo Faith I - Last Filed: 06/14/18 11:13> Date of Encounter: 06/14/18 Assessment and Plan (1) Acute encephalopathy Current Visit: No Status: Acute Pt was seen and examined, my medical decision was reviewed with the Resident Physician, I agree with the documented findings, disposition and treatment plas as described except to the extent set forth below Seem to be at his baseline follow-up with neurology as an outpatient as a scheduled before Momo Faith MD (2) Altered mental status Current Visit: Yes Status: Acute Qualifiers: Altered mental status type: disorientation Qualified Code(s): R41.0 - Disorientation, unspecified Objective - Constitutional Vitals: Temp Pulse Resp BP Pulse Ox 98.6 F 58 18 181/72 98 06/14/18 06:57 06/14/18 06:57 06/14/18 06:57 06/14/18 06:57 06/14/18 06:57 Results - Laboratory Findings CBC and BMP: 06/14/18 05:00 06/14/18 05:00 Abnormal lab findings: Abnormal lab results RBC 3.61 M/mcL (4.19-5.50) L 06/14/18 05:00 Hgb 10.4 g/dL (12.9-16.9) L 06/14/18 05:00 Hct 29.9 % (37.5-50.1) L 06/14/18 05:00 MCV 82.8 fL (83.0-100.0) L 06/14/18 05:00 ABG pH 7.46 pH Units (7.32-7.45) H 06/12/18 05:27 ABG Total CO2 28 mEq/L (20-26) H 06/12/18 05:27 BUN 27 mg/dL (8-23) H 06/14/18 05:00 Creatinine 3.33 mg/dL (0.70-1.30) H 06/14/18 05:00 Est GFR ( Amer) 23 (> 60) L 06/14/18 05:00 Est GFR (Non-Af Amer) 19 (> 60) L 06/14/18 05:00 POC Glucose 166 mg/dL (70-99) H 06/14/18 06:55 Venous Ioniz Calcium 1.09 mmol/L (1.15-1.35) L 06/13/18 05:07 Creatine Kinase 245 Units/L (30-223) H 06/10/18 23:01 Troponin I 0.05 ng/mL (< 0.04) H* 06/10/18 23:01 Serum Total Protein 6.3 g/dL (6.4-8.9) L 06/12/18 04:20 Urine Protein >=300 mg/dL (Neg-Trace) H 06/10/18 23:03 Urine Glucose (UA) 100 mg/dL (Normal) H 06/10/18 23:03 Urine Ketones Trace mg/dL (Negative) H 06/10/18 23:03 Urine Microscopic RBC 3-5 per hpf (0-3) H 06/10/18 23:03 Salicylates < 2.5 mg/dL (15.0-30.0) L 06/10/18 23:01 Acetaminophen < 10 mcg/mL (10-20) L 06/10/18 23:01 U Marijuana (THC) Screen Positive ng/mL (Cutoff = 50) H 06/10/18 23:03
[2018-06-14] MEDS ORDERED: Nicotine 21 MG PATCH.TD24 TD SCH (11:26)
[2018-06-14] MEDS ORDERED: *HR* Midazolam HCl 5 MG/5 ML VIAL IVP ONE (11:46)
[2018-06-14] MEDS ORDERED: *HR* Rocuronium Bromide 100 MG/10 ML VIAL IVC ONE (11:46)
== END 2018-06-14 11:47 | disposition home or self-care (01) | DRG 441 ==
LOC: EMEROOARM 22:51 → ICNU 06-11 04:01 → 3ANU 06-13 19:34
PROVIDERS: ADMIT Internal Medicine; ATTEND Internal Medicine

== ENCOUNTER 2018-11-27 21:51 | Inpatient (IN) ==
[2018-11-27] MEDS ORDERED: *HR* LORazepam 2 MG/ML VIAL ONE (22:01)
[2018-11-27] MEDS ORDERED: *HR* LORazepam 2 MG/ML VIAL IVP ONE (22:02)
[2018-11-27 22:20] LABS: Basophils % 0.2 %; Hemoglobin 12.2 g/dL (12.9-16.9); Immature Granulocytes % 0.2 % (0-4); Lymphocytes # 0.8 K/mcL (0.6-4.6); Mean Corpuscular HGB Conc 34.9 g/dL (31.6-35.5); Mean Corpuscular Volume 80.5 fL (83.0-100.0); Mean Platelet Volume 9.3 fL (9.4-12.4); Monocytes # 0.3 K/mcL (0.0-1.3); Monocytes % 2.8 %; Neutrophils # 8.1 K/mcL (1.6-8.9); Platelet Count 322 K/mcL (140-400); Red Blood Count 4.35 M/mcL (4.19-5.50); Segmented Neutrophils % 87.8 %
[2018-11-27 22:43] LABS: Alanine Aminotransferase 28 Units/L (7-52); Albumin 4.8 g/dL (3.5-5.7); Albumin/Globulin Ratio 1.5 (1.1-2.2); Alkaline Phosphatase 120 Units/L (34-104); Aspartate Amino Transferase 29 Units/L (13-39); BUN/Creatinine Ratio 12 (6-26); Bilirubin,Direct 0.1 mg/dL (0.0-0.2); Bilirubin,Indirect 0.5 mg/dL (0.0-1.2); Bilirubin,Total 0.6 mg/dL (0.3-1.0); Blood Urea Nitrogen 42 mg/dL (8-23); Calcium 9.9 mg/dL (8.6-10.3); Carbon Dioxide 24 mEq/L (23-29); Chloride 101 mEq/L (98-107); Ethanol < 10 mg/dL (Less than 10); Globulin 3.2 g/dL (2.4-3.5); Glucose 266 mg/dL (70-105); Osmolality,Calculated 316 (280-300); Potassium 4.1 mEq/L (3.5-5.1); Sodium 143 mEq/L (136-145); Troponin I 0.04 ng/mL (< 0.04); eGFR For Non-African Americans 18 (> 60)
[2018-11-27 22:44] LABS: Bilirubin,Urine Negative (Negative); Blood,Urine Trace (Negative); Clarity,Urine Clear (Clear); Color,Urine Yellow (Yellow); Glucose,Urine (UA) 100 mg/dL (Normal); Ketones,Urine Negative (Negative); Leukocyte Esterase,Urine Negative (Negative); Nitrite,Urine Negative (Negative); PH,Urine 7.5 pH Units (5.0-8.0); Protein,Urine >=300 mg/dL (Neg-Trace); Specific Gravity,Urine 1.014 (1.010-1.025); Urobilinogen,Urine Normal (Normal)
[2018-11-27 22:46] LABS: Bacteria,Urine None Seen per hpf (None-Few); Hyaline Casts,Urine None Seen per lpf (None-Few); Squamous Epithelial Cell,Urine Moderate per lpf (None-Few); WBC,Urine 0-3 per hpf (0-3)
[2018-11-27 22:47] LABS: Prothrombin Time 11.6 Seconds (9.4-12.1)
[2018-11-27 22:50] LABS: Activated Partial Thrombo Time 26.5 Seconds (26.0-36.0)
[2018-11-27 22:56] LABS: Amphetamine Screen,Urine Negative ng/mL (Cutoff=1000); Barbiturate Screen,Urine Negative ng/mL (Cutoff=200); Benzodiazepines Screen,Urine Negative ng/mL (Cutoff=200); Cannabinoid Screen,Urine Positive ng/mL (Cutoff = 50); Cocaine Screen,Urine Positive ng/mL (Cutoff= 300); Opiate Screen,Urine Negative ng/mL (Cutoff=300); Phencyclidine Screen,Urine Negative ng/mL (Cutoff=25)
--- NOTE | 2018-11-27 23:07 | Emergency Department Note ---
Disposition Clinical Impression: CKD (chronic kidney disease) stage 4, GFR 15-29 ml/min, Elevated troponin Altered mental status Qualifiers: Altered mental status type: disorientation Qualified Code(s): R41.0 - Disorientation, unspecified Disposition: Admitted As Inpatient Condition: Fair Referrals: Rajesh Gillette Jr, MD [Primary Care Provider] - Forms: ED Satisfaction Letter Time of Disposition: 00:41 General Adult HPI - General Chief complaint: ED Altered Mental Status Stated complaint: AMS/vomiting Time Seen by Provider: 11/27/18 22:02 Source: family, EMS Mode of arrival: EMS Limitations: altered mental status Nursing Notes Reviewed: Yes Vital Signs Reviewed: Yes - History of Present Illness HPI Narrative: Patient is a 68-year-old male that presents emergency department via EMS for reports of altered mentation. Patient is unable to provide history of why he is here. Family at bedside states that she came home the patient was still in bed which was abnormal for him. States that he did not take his regular medications. States that he has been not acting himself and was talking to people that were not there. They state that he still not at his baseline. They state that he seems to be more confused than his baseline. States that he does have a history of dementia but does not usually have a history of sundowning. Pain Scale: 0 - Related Data Home Medications Medication Instructions Recorded Confirmed Glimepiride [Amaryl] 2 mg PO QPM 09/01/16 09/12/18 Aspirin [Lo-Dose Aspirin EC] 81 mg PO DAILY 03/09/17 09/12/18 Vitamin B Complex/Vit C/Vit E 1 tab PO DAILY 03/09/17 09/12/18 [Stresstab] Atorvastatin Calcium [Lipitor] 20 mg PO HS 06/12/18 09/12/18 Chlorthalidone 25 mg PO DAILY 06/12/18 09/12/18 Donepezil [Aricept] 10 mg PO HS 06/12/18 09/12/18 Ferrous Sulfate 325 mg PO QPM 06/12/18 09/12/18 Lisinopril [Zestril] 5 mg PO DAILY 06/12/18 09/12/18 Methadone 10 mg PO QID 06/12/18 09/12/18 Minoxidil 10 mg PO DAILY 06/12/18 09/12/18 Mirtazapine [Remeron] 15 mg PO HS 06/12/18 09/12/18 cloNIDine HCl [Clonidine HCl] 0.3 mg PO TID 06/12/18 09/12/18 Lactulose 10 gm PO HS 09/12/18 09/12/18 Previous Rx's Medication Instructions Recorded Diltiazem CD (24hr) [Cardizem CD] 240 mg PO DAILY #30 cap.er.24h 10/16/17 amLODIPine [Norvasc] 5 mg PO DAILY #30 tablet 10/16/17 hydrALAZINE [HydrALAZINE] 75 mg PO Q8H #180 tablet 10/16/17 Cholecalciferol (D-3) [Vitamin D] 5,000 unit PO DAILY #90 tablet 06/14/18 Thiamine HCl 250 mg PO DAILY #90 tablet 06/14/18 Allergies Allergy/AdvReac Type Severity Reaction Status Date / Time fluoxetine [From Prozac] AdvReac Depression Verified 09/12/18 07:30 All systems ED: reviewed and negative except as stated. Constitutional: Denies: fever Cardiovascular: Denies: chest pain Respiratory: Denies: dyspnea Gastrointestinal: Denies: abdominal pain Psychiatric: Reports: auditory hallucinations, visual hallucinations Past Medical History - Past Medical History Medical history: Reports: CVA, diabetes, hepatitis, hypertension, liver disease, other Surgical history: Reports: non-contributory Psychiatric history: Reports: no psych history - Social History Smoking Status: Unknown if ever smoked Smokeless Tobacco Status: No Alcohol use: Reports: heavy, recent Drug use: Reports: marijuana Physical Exam - General Limitations: altered mental status General appearance: appears intoxicated, lethargic - Head Head exam: atraumatic, normocephalic - Eye Eye exam: Present: normal appearance, EOMI - Neck Neck exam: Present: normal inspection, full ROM, trachea midline - Respiratory Respiratory exam: Present: normal lung sounds bilaterally. Absent: respiratory distress, wheezes - Cardiovascular Cardiovascular exam: Present: regular rate, normal rhythm, normal heart sounds, +S1, +S2 - Abdominal Exam Abdominal exam: Present: soft, Non-Tender, normal bowel sounds - Neurological Exam Neurological exam: Present: alert. Absent: oriented X3 - Psychiatric Psychiatric exam: Present: normal affect, normal mood - Skin Skin exam: Present: warm, dry, intact Course Vital Signs Temperature 99.9 F H 11/27/18 21:54 Pulse Rate 95 11/27/18 21:54 Respiratory Rate 20 11/27/18 21:54 Blood Pressure 186/84 11/27/18 21:54 O2 Sat by Pulse Oximetry 100 11/27/18 21:54 Temperature 99.9 F H 11/27/18 21:54 Pulse Rate 98 11/27/18 22:38 Respiratory Rate 18 11/28/18 00:30 Blood Pressure 197/76 11/28/18 00:30 O2 Sat by Pulse Oximetry 97 11/28/18 00:30 Oxygen Delivery Oxygen Delivery Room Air Medical Decision Making - MDM Narrative Medical decision making narrative: Due the patient presents emergency for with reports of altered mentation we will obtain basic laboratory testing. CT scan of the head was also obtained. The CT scan of the head was negative for acute findings. Patient's laboratory testing was at the patient's baseline. Patient had a troponin of 0.04 which is improved from his previous testing. This is best that is been in approximately 3 years. Patient does have a elevated creatinine which is approximately at his baseline. Patient was positive for cocaine and marijuana. Patient remained altered according to the family and states that he is not at his baseline. This could be related to hypertensive encephalopathy. The exact etiology is unclear at this time. Based on the patient having altered mentation feel is most appropriate for him to be admitted to the hospital for further evaluation and management. I called and spoke the admitting hospitalist Dr. Mercedes and he is accepted the patient to their service. Patient be admitted to the hospital this time for further evaluation and management. - Medical Records Medical records reviewed: Yes I reviewed the patient's medical records. - Lab Data Lab results reviewed: Yes I reviewed the patient's lab results. Result diagrams: 11/27/18 22:04 11/27/18 22:04 Lab Results 11/27/18 11/27/18 11/27/18 Range/Units 22:04 22:04 22:04 WBC 9.3 (4.3-11.1) K/mcL RBC 4.35 (4.19-5.50) M/mcL Hgb 12.2 L (12.9-16.9) g/dL Hct 35.0 L (37.5-50.1) % MCV 80.5 L (83.0-100.0) fL MCH 28.0 (28.0-33.3) pg MCHC 34.9 (31.6-35.5) g/dL RDW 13.0 (11.5-14.5) % Plt Count 322 (140-400) K/mcL MPV 9.3 L (9.4-12.4) fL Immature Gran % 0.2 (0-4) % Seg Neutrophils % 87.8 % Lymphocytes % 9.0 % Monocytes % 2.8 % Eosinophils % 0.0 % Basophils % 0.2 % Neutrophils # 8.1 (1.6-8.9) K/mcL Lymphocytes # 0.8 (0.6-4.6) K/mcL Monocytes # 0.3 (0.0-1.3) K/mcL Eosinophils # 0.0 (0.0-0.6) K/mcL Basophils # 0.0 (0.0-0.2) K/mcL PT 11.6 (9.4-12.1) Seconds INR 1.0 APTT 26.5 (26.0-36.0) Seconds Sodium 143 (136-145) mEq/L Potassium 4.1 (3.5-5.1) mEq/L Chloride 101 (98-107) mEq/L Carbon Dioxide 24 (23-29) mEq/L BUN 42 H (8-23) mg/dL Creatinine 3.39 H (0.70-1.30) mg/dL Est GFR ( Amer) 22 L (> 60) Est GFR (Non-Af Amer) 18 L (> 60) BUN/Creatinine Ratio 12 (6-26) Glucose 266 H (70-105) mg/dL Calculated Osmolality 316 H (280-300) Calcium 9.9 (8.6-10.3) mg/dL Total Bilirubin 0.6 (0.3-1.0) mg/dL Direct Bilirubin 0.1 (0.0-0.2) mg/dL Indirect Bilirubin 0.5 (0.0-1.2) mg/dL AST 29 (13-39) Units/L ALT 28 (7-52) Units/L Alkaline Phosphatase 120 H (34-104) Units/L Ammonia (16-53) mcmol/L Troponin I 0.04 H* (< 0.04) ng/mL Serum Total Protein 8.0 (6.4-8.9) g/dL Albumin 4.8 (3.5-5.7) g/dL Globulin 3.2 (2.4-3.5) g/dL Albumin/Globulin Ratio 1.5 (1.1-2.2) Urine Color (Yellow) Urine Clarity (Clear) Urine pH (5.0-8.0) pH Units Ur Specific [place] (1.010-1.025) Urine Protein (Neg-Trace) mg/dL Urine Glucose (UA) (Normal) mg/dL Urine Ketones (Negative) mg/dL Urine Blood (Negative) Urine Nitrite (Negative) Urine Bilirubin (Negative) Urine Urobilinogen (Normal) mg/dL Ur Leukocyte Esterase (Negative) Urine Microscopic RBC (0-3) per hpf Urine Microscopic WBC (0-3) per hpf Ur Squamous Epith Cells (None-Few) per lpf Urine Bacteria (None-Few) per hpf Hyaline Casts (None-Few) per lpf Ur Culture Indicated? (NO) Urine Opiates Screen (Rjefqj=392) ng/mL Ur Barbiturates Screen (Zsmwgj=034) ng/mL Ur Phencyclidine Scrn (Cutoff=25) ng/mL Ur Amphetamines Screen (Ixgjhe=3845) ng/mL U Benzodiazepines Scrn (Redfeq=654) ng/mL Urine Cocaine Screen (Cutoff= 300) ng/mL U Marijuana (THC) Screen (Cutoff = 50) ng/mL Ur Drug Screen Interp Ethyl Alcohol < 10 (Less than 10) mg/dL 11/27/18 11/27/18 11/27/18 Range/Units 22:04 22:35 22:38 WBC (4.3-11.1) K/mcL RBC (4.19-5.50) M/mcL Hgb (12.9-16.9) g/dL Hct (37.5-50.1) % MCV (83.0-100.0) fL MCH (28.0-33.3) pg MCHC (31.6-35.5) g/dL RDW (11.5-14.5) % Plt Count (140-400) K/mcL MPV (9.4-12.4) fL Immature Gran % (0-4) % Seg Neutrophils % % Lymphocytes % % Monocytes % % Eosinophils % % Basophils % % Neutrophils # (1.6-8.9) K/mcL Lymphocytes # (0.6-4.6) K/mcL Monocytes # (0.0-1.3) K/mcL Eosinophils # (0.0-0.6) K/mcL Basophils # (0.0-0.2) K/mcL PT (9.4-12.1) Seconds INR APTT (26.0-36.0) Seconds Sodium (136-145) mEq/L Potassium (3.5-5.1) mEq/L Chloride (98-107) mEq/L Carbon Dioxide (23-29) mEq/L BUN (8-23) mg/dL Creatinine (0.70-1.30) mg/dL Est GFR ( Amer) (> 60) Est GFR (Non-Af Amer) (> 60) BUN/Creatinine Ratio (6-26) Glucose (70-105) mg/dL Calculated Osmolality (280-300) Calcium (8.6-10.3) mg/dL Total Bilirubin (0.3-1.0) mg/dL Direct Bilirubin (0.0-0.2) mg/dL Indirect Bilirubin (0.0-1.2) mg/dL AST (13-39) Units/L ALT (7-52) Units/L Alkaline Phosphatase (34-104) Units/L Ammonia 43 (16-53) mcmol/L Troponin I (< 0.04) ng/mL Serum Total Protein (6.4-8.9) g/dL Albumin (3.5-5.7) g/dL Globulin (2.4-3.5) g/dL Albumin/Globulin Ratio (1.1-2.2) Urine Color Yellow (Yellow) Urine Clarity Clear (Clear) Urine pH 7.5 (5.0-8.0) pH Units Ur Specific [place] 1.014 (1.010-1.025) Urine Protein >=300 H (Neg-Trace) mg/dL Urine Glucose (UA) 100 H (Normal) mg/dL Urine Ketones Negative (Negative) mg/dL Urine Blood Trace H (Negative) Urine Nitrite Negative (Negative) Urine Bilirubin Negative (Negative) Urine Urobilinogen Normal (Normal) mg/dL Ur Leukocyte Esterase Negative (Negative) Urine Microscopic RBC 5-15 H (0-3) per hpf Urine Microscopic WBC 0-3 (0-3) per hpf Ur Squamous Epith Cells Moderate H (None-Few) per lpf Urine Bacteria None Seen (None-Few) per hpf Hyaline Casts None Seen (None-Few) per lpf Ur Culture Indicated? NO (NO) Urine Opiates Screen Negative (Zaxyla=300) ng/mL Ur Barbiturates Screen Negative (Isvptq=134) ng/mL Ur Phencyclidine Scrn Negative (Cutoff=25) ng/mL Ur Amphetamines Screen Negative (Bfiftp=8412) ng/mL U Benzodiazepines Scrn Negative (Ezeeuq=562) ng/mL Urine Cocaine Screen Positive H (Cutoff= 300) ng/mL U Marijuana (THC) Screen Positive H (Cutoff = 50) ng/mL Ur Drug Screen Interp See Below Ethyl Alcohol (Less than 10) mg/dL - Radiology Data Radiology results reviewed: Yes I reviewed the patient's radiology results. Chest X-Ray 11/27/18 22:02 IMPRESSION: Indeterminate apparently new nodular density right parahilar lung could reflect a true nodule or overlying shadows. I do not see this on prior CT or chest radiograph. Correlation with CT chest recommended. Calcific atherosclerotic disease aorta. RECOMMENDATION: CT chest follow-up D/ / Tobi Sawant / Tobi Sawant Interpreting Provider: Tobi Sawant Head CT 11/27/18 22:02 IMPRESSION: Chronic white matter microvascular ischemic changes and remote infarcts. D/ / Julio Wei MD / Julio Wei MD Interpreting Provider: Julio Wei MD - EKG Data EKG #1 EKG attestation: Yes I reviewed and interpreted this EKG. EKG results narrative: EKG shows a sinus rhythm at rate of 90 bpm, MI interval 159, qrs duration of 89, QTC of 430. There is no evidence of STEMI and EKG. This is compared to previous EKG on 06/13/18.
--- NOTE | 2018-11-28 00:36 | Emergency Department Note ---
Disposition Clinical Impression: Hypertensive encephalopathy, Altered mental state, CKD (chronic kidney disease), Cocaine use Disposition: Admitted As Inpatient Forms: ED Satisfaction Letter General Adult HPI - General Chief complaint: ED Altered Mental Status Stated complaint: AMS/vomiting Time Seen by Provider: 11/27/18 22:02 Source: family, EMS Mode of arrival: EMS Limitations: altered mental status - History of Present Illness Pain Scale: 0 - Related Data Home Medications Medication Instructions Recorded Confirmed Glimepiride [Amaryl] 2 mg PO QPM 09/01/16 09/12/18 Aspirin [Lo-Dose Aspirin EC] 81 mg PO DAILY 03/09/17 09/12/18 Vitamin B Complex/Vit C/Vit E 1 tab PO DAILY 03/09/17 09/12/18 [Stresstab] Atorvastatin Calcium [Lipitor] 20 mg PO HS 06/12/18 09/12/18 Chlorthalidone 25 mg PO DAILY 06/12/18 09/12/18 Donepezil [Aricept] 10 mg PO HS 06/12/18 09/12/18 Ferrous Sulfate 325 mg PO QPM 06/12/18 09/12/18 Lisinopril [Zestril] 5 mg PO DAILY 06/12/18 09/12/18 Methadone 10 mg PO QID 06/12/18 09/12/18 Minoxidil 10 mg PO DAILY 06/12/18 09/12/18 Mirtazapine [Remeron] 15 mg PO HS 06/12/18 09/12/18 cloNIDine HCl [Clonidine HCl] 0.3 mg PO TID 06/12/18 09/12/18 Lactulose 10 gm PO HS 09/12/18 09/12/18 Previous Rx's Medication Instructions Recorded Diltiazem CD (24hr) [Cardizem CD] 240 mg PO DAILY #30 cap.er.24h 10/16/17 amLODIPine [Norvasc] 5 mg PO DAILY #30 tablet 10/16/17 hydrALAZINE [HydrALAZINE] 75 mg PO Q8H #180 tablet 10/16/17 Cholecalciferol (D-3) [Vitamin D] 5,000 unit PO DAILY #90 tablet 06/14/18 Thiamine HCl 250 mg PO DAILY #90 tablet 06/14/18 Allergies Allergy/AdvReac Type Severity Reaction Status Date / Time fluoxetine [From Prozac] AdvReac Depression Verified 09/12/18 07:30 Constitutional: Denies: fever Cardiovascular: Denies: chest pain Respiratory: Denies: dyspnea Gastrointestinal: Denies: abdominal pain Psychiatric: Reports: auditory hallucinations, visual hallucinations Past Medical History - Past Medical History Medical history: Reports: CVA, diabetes, hepatitis, hypertension, liver disease, other Surgical history: Reports: non-contributory Psychiatric history: Reports: no psych history - Social History Smoking Status: Unknown if ever smoked Smokeless Tobacco Status: No Alcohol use: Reports: heavy, recent Drug use: Reports: marijuana Physical Exam - General Limitations: altered mental status General appearance: appears intoxicated, lethargic Course Vital Signs Temperature 99.9 F H 11/27/18 21:54 Pulse Rate 95 11/27/18 21:54 Respiratory Rate 20 11/27/18 21:54 Blood Pressure 186/84 11/27/18 21:54 O2 Sat by Pulse Oximetry 100 11/27/18 21:54 Temperature 99.9 F H 11/27/18 21:54 Pulse Rate 98 11/27/18 22:38 Respiratory Rate 16 11/27/18 22:38 Blood Pressure 209/83 11/27/18 22:38 O2 Sat by Pulse Oximetry 96 11/27/18 22:38 Oxygen Delivery Oxygen Delivery Nasal Cannula Medical Decision Making - Lab Data Result diagrams: 11/27/18 22:04 11/27/18 22:04 Lab Results 11/27/18 11/27/18 11/27/18 Range/Units 22:04 22:04 22:04 WBC 9.3 (4.3-11.1) K/mcL RBC 4.35 (4.19-5.50) M/mcL Hgb 12.2 L (12.9-16.9) g/dL Hct 35.0 L (37.5-50.1) % MCV 80.5 L (83.0-100.0) fL MCH 28.0 (28.0-33.3) pg MCHC 34.9 (31.6-35.5) g/dL RDW 13.0 (11.5-14.5) % Plt Count 322 (140-400) K/mcL MPV 9.3 L (9.4-12.4) fL Immature Gran % 0.2 (0-4) % Seg Neutrophils % 87.8 % Lymphocytes % 9.0 % Monocytes % 2.8 % Eosinophils % 0.0 % Basophils % 0.2 % Neutrophils # 8.1 (1.6-8.9) K/mcL Lymphocytes # 0.8 (0.6-4.6) K/mcL Monocytes # 0.3 (0.0-1.3) K/mcL Eosinophils # 0.0 (0.0-0.6) K/mcL Basophils # 0.0 (0.0-0.2) K/mcL PT 11.6 (9.4-12.1) Seconds INR 1.0 APTT 26.5 (26.0-36.0) Seconds Sodium 143 (136-145) mEq/L Potassium 4.1 (3.5-5.1) mEq/L Chloride 101 (98-107) mEq/L Carbon Dioxide 24 (23-29) mEq/L BUN 42 H (8-23) mg/dL Creatinine 3.39 H (0.70-1.30) mg/dL Est GFR ( Amer) 22 L (> 60) Est GFR (Non-Af Amer) 18 L (> 60) BUN/Creatinine Ratio 12 (6-26) Glucose 266 H (70-105) mg/dL Calculated Osmolality 316 H (280-300) Calcium 9.9 (8.6-10.3) mg/dL Total Bilirubin 0.6 (0.3-1.0) mg/dL Direct Bilirubin 0.1 (0.0-0.2) mg/dL Indirect Bilirubin 0.5 (0.0-1.2) mg/dL AST 29 (13-39) Units/L ALT 28 (7-52) Units/L Alkaline Phosphatase 120 H (34-104) Units/L Ammonia (16-53) mcmol/L Troponin I 0.04 H* (< 0.04) ng/mL Serum Total Protein 8.0 (6.4-8.9) g/dL Albumin 4.8 (3.5-5.7) g/dL Globulin 3.2 (2.4-3.5) g/dL Albumin/Globulin Ratio 1.5 (1.1-2.2) Urine Color (Yellow) Urine Clarity (Clear) Urine pH (5.0-8.0) pH Units Ur Specific [place] (1.010-1.025) Urine Protein (Neg-Trace) mg/dL Urine Glucose (UA) (Normal) mg/dL Urine Ketones (Negative) mg/dL Urine Blood (Negative) Urine Nitrite (Negative) Urine Bilirubin (Negative) Urine Urobilinogen (Normal) mg/dL Ur Leukocyte Esterase (Negative) Urine Microscopic RBC (0-3) per hpf Urine Microscopic WBC (0-3) per hpf Ur Squamous Epith Cells (None-Few) per lpf Urine Bacteria (None-Few) per hpf Hyaline Casts (None-Few) per lpf Ur Culture Indicated? (NO) Urine Opiates Screen (Xeexsr=160) ng/mL Ur Barbiturates Screen (Knpdjp=316) ng/mL Ur Phencyclidine Scrn (Cutoff=25) ng/mL Ur Amphetamines Screen (Wkztgk=8507) ng/mL U Benzodiazepines Scrn (Hkpsos=732) ng/mL Urine Cocaine Screen (Cutoff= 300) ng/mL U Marijuana (THC) Screen (Cutoff = 50) ng/mL Ur Drug Screen Interp Ethyl Alcohol < 10 (Less than 10) mg/dL 11/27/18 11/27/18 11/27/18 Range/Units 22:04 22:35 22:38 WBC (4.3-11.1) K/mcL RBC (4.19-5.50) M/mcL Hgb (12.9-16.9) g/dL Hct (37.5-50.1) % MCV (83.0-100.0) fL MCH (28.0-33.3) pg MCHC (31.6-35.5) g/dL RDW (11.5-14.5) % Plt Count (140-400) K/mcL MPV (9.4-12.4) fL Immature Gran % (0-4) % Seg Neutrophils % % Lymphocytes % % Monocytes % % Eosinophils % % Basophils % % Neutrophils # (1.6-8.9) K/mcL Lymphocytes # (0.6-4.6) K/mcL Monocytes # (0.0-1.3) K/mcL Eosinophils # (0.0-0.6) K/mcL Basophils # (0.0-0.2) K/mcL PT (9.4-12.1) Seconds INR APTT (26.0-36.0) Seconds Sodium (136-145) mEq/L Potassium (3.5-5.1) mEq/L Chloride (98-107) mEq/L Carbon Dioxide (23-29) mEq/L BUN (8-23) mg/dL Creatinine (0.70-1.30) mg/dL Est GFR ( Amer) (> 60) Est GFR (Non-Af Amer) (> 60) BUN/Creatinine Ratio (6-26) Glucose (70-105) mg/dL Calculated Osmolality (280-300) Calcium (8.6-10.3) mg/dL Total Bilirubin (0.3-1.0) mg/dL Direct Bilirubin (0.0-0.2) mg/dL Indirect Bilirubin (0.0-1.2) mg/dL AST (13-39) Units/L ALT (7-52) Units/L Alkaline Phosphatase (34-104) Units/L Ammonia 43 (16-53) mcmol/L Troponin I (< 0.04) ng/mL Serum Total Protein (6.4-8.9) g/dL Albumin (3.5-5.7) g/dL Globulin (2.4-3.5) g/dL Albumin/Globulin Ratio (1.1-2.2) Urine Color Yellow (Yellow) Urine Clarity Clear (Clear) Urine pH 7.5 (5.0-8.0) pH Units Ur Specific [place] 1.014 (1.010-1.025) Urine Protein >=300 H (Neg-Trace) mg/dL Urine Glucose (UA) 100 H (Normal) mg/dL Urine Ketones Negative (Negative) mg/dL Urine Blood Trace H (Negative) Urine Nitrite Negative (Negative) Urine Bilirubin Negative (Negative) Urine Urobilinogen Normal (Normal) mg/dL Ur Leukocyte Esterase Negative (Negative) Urine Microscopic RBC 5-15 H (0-3) per hpf Urine Microscopic WBC 0-3 (0-3) per hpf Ur Squamous Epith Cells Moderate H (None-Few) per lpf Urine Bacteria None Seen (None-Few) per hpf Hyaline Casts None Seen (None-Few) per lpf Ur Culture Indicated? NO (NO) Urine Opiates Screen Negative (Dhszua=085) ng/mL Ur Barbiturates Screen Negative (Xwdxhp=636) ng/mL Ur Phencyclidine Scrn Negative (Cutoff=25) ng/mL Ur Amphetamines Screen Negative (Topseo=4360) ng/mL U Benzodiazepines Scrn Negative (Dmusqa=378) ng/mL Urine Cocaine Screen Positive H (Cutoff= 300) ng/mL U Marijuana (THC) Screen Positive H (Cutoff = 50) ng/mL Ur Drug Screen Interp See Below Ethyl Alcohol (Less than 10) mg/dL Critical Care Time Critical Care Time: Yes Total Critical Care Time: 35 Attestation: Critical care time of 35 minutes spent in medical management of altered mental status with hypertensive encephalopathy. Attestation Statement - Attestation Attestation: I examined this patient and my medical decision-making was reviewed with the Resident Physician. I agree with the documented findings, disposition and tr eatment plan as described except to the extent set forth below. 68-year-old male presented to the emergency room for altered mental status. Family came home from the patient to be lying in bed. He seemed to be combative and disoriented. He does have a history of dementia. He also has a history of renal insufficiency. Family called EMS. EMS states his sugars were greater than 100. Patient was found to be hypertensive in the ER. CT of the head and chest x-ray were negative for any acute process. CT did show some chronic vascular changes throughout. His tox screen was positive for cocaine. Concerns are received that this could be contributing to hypertensive encephalopathy. At this time is unclear as to exact etiology of his altered mental status. However, I feel that blood pressure could be causing some of this. He also has an underlying history of dementia which could be exacerbated. Patient will be started on nicardipine drip. Again this could be hypertensive encephalopathy. Patient will be admitted to the hospitalist. We did discuss the case with him. EKG did not show any other findings. Rest of his lab work was stable for him.
[2018-11-28] MEDS: niCARdipine 40 MG/200 ML MLS IVC SCH ×3 (00:56→17:00)
[2018-11-28] MEDS ORDERED: Ondansetron 4 MG/2 ML VIAL IVP PRN (03:12)
[2018-11-28] MEDS ORDERED: Naloxone 0.4 MG/ML INJ IVP PRN (03:12)
[2018-11-28] MEDS ORDERED: Acetaminophen 325 MG TABLET PO PRN (03:12)
--- NOTE | 2018-11-28 03:26 | Internal Med History&Physical ---
Date of Encounter: 11/28/18 Time of Encounter: 01:35 Internal Medicine - H&P: HPI Chief complaint: AMS Admitted From: Emergency Dept Plans for Post Hospital Care: Home History of present illness: Mr. Milan is a 68 year old male who presents to the ER tonight with complaints of altered mental status. Family called EMS to bring him to ER as he was sleeping, minimally responsive, and lying in bed all day. Once he arrived to the ER, patient was unable to provide any history, was very somnolent, and had a significantly elevated/uncontrolled blood pressure. Workup in the ER revealed patient to have positive troponin, urine drug screen positive for cocaine and marijuana, and negative CT of the head. He was subsequently admitted to the hospitalist service. I spoke with the ER staff and noted that his blood pressure was significantly elevated and uncontrolled. The blood pressure was not addressed in the ER. Given his altered mental status, positive troponins, and worsening kidney function, I recommended patient be started on nicardipine drip to control blood pressure to maintain systolic blood pressure between 160-170. He was then admitted to on nicardipine drip and close monitoring. Upon my assessment of the patient at the bedside, he is somnolent but arousable. However, he offers no history whatsoever. Blood pressure is better and running 160s to 170s systolic now. He did spike a fever to 101 degrees Fahrenheit. Patient unable offer any history whatsoever. No family members present to provide any details either. Past Med Surg Social Fam HX - Past Medical History Source: old records reviewed, other (ER notes) Medical history: CVA, diabetes, hepatitis, hypertension, liver disease, other Additional medical history: chronic kidney disease stage 4. hep C, Psychiatric history: no psych history - Past Surgical History Surgical History: orthopedic, other - Social History Smoking Status: Unknown if ever smoked Smokeless Tobacco Status: No Alcohol use: heavy, recent Drug use: cocaine, marijuana - Family History Mother Living Status: Hx Family Endocrine Disorder: Yes (Diabetes) Hx Family Neurologic Disorders: Yes (Alzheimer's) Father Living Status: Hx Family Cancer: Yes (Prostate) Hx Family Endocrine Disorder: Yes (Diabetes) Internal Medicine - H&P: Meds Glimepiride [Amaryl] 2 mg PO QPM 09/01/16 [History] Aspirin [Lo-Dose Aspirin EC] 81 mg PO DAILY 03/09/17 [History] Vitamin B Complex/Vit C/Vit E [Stresstab] 1 tab PO DAILY 03/09/17 [History] Diltiazem CD (24hr) [Cardizem CD] 240 mg PO DAILY #30 cap.er.24h 10/16/17 [Rx] amLODIPine [Norvasc] 5 mg PO DAILY #30 tablet 10/16/17 [Rx] hydrALAZINE [HydrALAZINE] 75 mg PO Q8H #180 tablet 10/16/17 [Rx] Atorvastatin Calcium [Lipitor] 20 mg PO HS 06/12/18 [History] Chlorthalidone 25 mg PO DAILY 06/12/18 [History] Donepezil [Aricept] 10 mg PO HS 06/12/18 [History] Ferrous Sulfate 325 mg PO QPM 06/12/18 [History] Lisinopril [Zestril] 5 mg PO DAILY 06/12/18 [History] Methadone 10 mg PO QID 06/12/18 [History] Minoxidil 10 mg PO DAILY 06/12/18 [History] Mirtazapine [Remeron] 15 mg PO HS 06/12/18 [History] cloNIDine HCl [Clonidine HCl] 0.3 mg PO TID 06/12/18 [History] Thiamine HCl 250 mg PO DAILY #90 tablet 06/14/18 [Rx] Lactulose 10 gm PO HS 09/12/18 [History] Allergy/AdvReac Type Severity Reaction Status Date / Time fluoxetine [From Prozac] AdvReac Depression Verified 09/12/18 07:30 ROS unobtainable: due to mental status - Constitutional Vitals: Temp Pulse Resp BP Pulse Ox 101.4 F H 104 16 145/62 95 11/28/18 01:30 11/28/18 02:06 11/28/18 02:00 11/28/18 02:00 11/28/18 02:00 General appearance: Present: A&O X 0, disheveled, no acute distress. Absent: answers questions appropriately Exam: somnolent, awakens to pain, cold, and loud stimuli - Head Head exam: Present: atraumatic, normal inspection - Eye Eye exam: Present: PERRL. Absent: scleral icterus - ENT ENT exam: Present: mucous membranes dry, normal exam, normal oropharynx - Neck Neck exam general surgery: Present: full ROM, supple, trachea midline. Absent: lymphadenopathy, tenderness, nuchal rigidity, thyromegaly - Respiratory Respiratory exam: Present: CTAB. Absent: chest wall tenderness, rales, respiratory distress, rhonchi, wheezes - Cardiovascular Cardiovascular exam: Present: distant heart sounds, +S1, +S2, systolic murmur (grade 2), tachycardia. Absent: diastolic murmur - GI/Abdominal GI/Abdominal exam: Present: normal bowel sounds, soft. Absent: hepatomegaly, mass, splenomegaly, tenderness - Extremities Exam Extremities exam: Present: full ROM, warm, radial pulses palpable and symmetrical. Absent: calf tenderness, joint swelling, pedal edema, tenderness - Back Exam Back exam: Absent: CVA tenderness (L), CVA tenderness (R) - Neurological Exam Neurological exam: Present: altered Additional comments: purposeful response to pain, loud stimuli - Psychiatric Additional comments: unable to assess - Skin Skin exam: Present: dry, intact, warm Internal Med - H&P Results - Labs CBC & Chem 7: 11/27/18 22:04 11/27/18 22:04 Labs: Short CBC 11/27/18 Range/Units 22:04 WBC 9.3 (4.3-11.1) K/mcL Hgb 12.2 L (12.9-16.9) g/dL Hct 35.0 L (37.5-50.1) % Plt Count 322 (140-400) K/mcL Neutrophils # 8.1 (1.6-8.9) K/mcL BMP 11/27/18 22:04 Sodium 143 Potassium 4.1 Chloride 101 Carbon Dioxide 24 BUN 42 H Creatinine 3.39 H Glucose 266 H Calcium 9.9 Cardiac Enzymes 11/27/18 Range/Units 22:04 Troponin I 0.04 H* (< 0.04) ng/mL Liver Function 11/27/18 Range/Units 22:04 Total Bilirubin 0.6 (0.3-1.0) mg/dL Direct Bilirubin 0.1 (0.0-0.2) mg/dL AST 29 (13-39) Units/L ALT 28 (7-52) Units/L Alkaline Phosphatase 120 H (34-104) Units/L Albumin 4.8 (3.5-5.7) g/dL Urine 11/27/18 Range/Units 22:35 Urine Color Yellow (Yellow) Urine Clarity Clear (Clear) Urine pH 7.5 (5.0-8.0) pH Units Ur Specific [place] 1.014 (1.010-1.025) Urine Protein >=300 H (Neg-Trace) mg/dL Urine Glucose (UA) 100 H (Normal) mg/dL - EKG Data -: EKG Interpreted by Myself - EKG Data Prior EKG available for review: no EKG comments: 11/28/18 03:46 Sinus rhythm; no acute ST-T changes - Impressions ITS Impressions Chest X-Ray 11/27/18 22:02 IMPRESSION: Indeterminate apparently new nodular density right parahilar lung could reflect a true nodule or overlying shadows. I do not see this on prior CT or chest radiograph. Correlation with CT chest recommended. Calcific atherosclerotic disease aorta. RECOMMENDATION: CT chest follow-up D/ / Tobi Sawant / Tobi Sawant Interpreting Provider: Tobi Sawant Head CT 11/27/18 22:02 IMPRESSION: Chronic white matter microvascular ischemic changes and remote infarcts. D/ / Julio Wei MD / Julio Wei MD Interpreting Provider: Julio Wei MD - Diagnostic Studies Chest x-ray Status: image reviewed by me (right perihilar nodular density) - Assessment and Plan (1) Hypertensive encephalopathy Current Visit: Yes Status: Acute Assessment and plan: 1. Nicardipine drip initiated in ER per my request. Titrate drip to maintain SBP 160-170. 2. Monitor clinically. 3. Resume home BP meds when BP stabilized and patient more awake, alert, and appropriate. 4. Likely exacerbated by cocaine abuse. (2) Methadone dependence Current Visit: Yes Status: Chronic Assessment and plan: 1. Confirmed with pharmacy. 2. Continue home dosing of Methadone once patient fully awake and appropriate. (3) Substance abuse Current Visit: Yes Status: Acute Assessment and plan: 1. UDS + for cocaine and marijuana. 2. Monitor clinical course. (4) Type 2 diabetes mellitus Current Visit: Yes Status: Chronic Assessment and plan: 1 Hold oral home meds. 2. Monitor glucose closely and order SSI. Qualifiers: Diabetes mellitus chcf insulin use: without chcf use Diabetes mellitus complication status: with kidney complications Diabetes mellitus complication detail: with chronic kidney disease Chronic kidney disease stage: stage 3 (moderate) Qualified Code(s): E11.22 - Type 2 diabetes mellitus with diabetic chronic kidney disease; N18.3 - Chronic kidney disease, stage 3 (moderate); N18.3 - Chronic kidney disease, stage 3 (moderate) (5) Elevated troponin Current Visit: Yes Status: Acute Assessment and plan: 1. Will trend EKG and troponins. 2. Likely due to cocaine abuse. 3. Control BP as above; uncontrolled HTN could contribute to trponin leak as well as cocaine abuse. (6) Fever Current Visit: Yes Status: Acute Assessment and plan: 1. Will order blood and urine cultures, influenza testing. 2. Will start on IV antibiotics for possible pneumonia. 3. Monitor clinically. Qualifiers: Fever type: unspecified Qualified Code(s): R50.9 - Fever, unspecified (7) DVT prophylaxis Current Visit: Yes Status: Acute Assessment and plan: 1. Heparin SQ.
[2018-11-28] MEDS: cefTRIAXone 2,000 MG in Water for inj. (sterile) 20 ML 20 ML IVP SCH (05:03)
[2018-11-28] MEDS: Azithromycin 500 MG in D5% in Water 250 ML IVPB SCH (05:03)
[2018-11-28] MEDS: 0.9 % Sodium Chloride 1,000 ML IVC SCH ×3 (05:03→16:22)
[2018-11-28] MEDS: *HR* Heparin 5,000 UNIT/ML VIAL SQ SCH ×3 (05:04→22:09)
[2018-11-28] MEDS ORDERED: *HR* Promethazine 25 MG/ML VIAL IVP PRN (06:44)
[2018-11-28] MEDS ORDERED: *HR* LORazepam 2 MG/ML VIAL IVP PRN ×3 (06:44→08:18)
[2018-11-28] MEDS ORDERED: *HR* LORazepam 2 MG/ML VIAL ONE (06:59)
[2018-11-28] MEDS ORDERED: Insulin LISPRO 300 UNITS/3 ML VIAL SQ ONE (08:52)
[2018-11-28] MEDS: Aspirin Enteric Coated 81 MG Tablet PO SCH (08:54)
[2018-11-28] MEDS: Vitamin B Complex/Vit C/Vit E 1 EACH TABLET PO SCH (08:54)
[2018-11-28] MEDS: Diltiazem CD (24hr) 240 MG CAPSULE PO SCH (08:54)
[2018-11-28] MEDS: Thiamine (B-1) 100 MG TABLET PO SCH (08:54)
[2018-11-28] MEDS: *HR* Methadone 10 MG TABLET PO SCH ×4 (08:54→22:10)
[2018-11-28] MEDS: Insulin LISPRO 300 UNITS/3 ML VIAL SQ SCH ×3 (08:56→16:21)
[2018-11-28] MEDS: *HR* LORazepam 2 MG/ML VIAL IVP PRN ×3 (09:17→21:29)
[2018-11-28 09:41] LABS: Basophils % 0.1 %; Hematocrit 35.5 % (37.5-50.1); Hemoglobin 12.3 g/dL (12.9-16.9); Immature Granulocytes % 0.5 % (0-4); Lymphocytes # 0.9 K/mcL (0.6-4.6); Lymphocytes % 9.3 %; Mean Corpuscular HGB Conc 34.6 g/dL (31.6-35.5); Mean Corpuscular Hemoglobin 28.7 pg (28.0-33.3); Mean Corpuscular Volume 82.9 fL (83.0-100.0); Mean Platelet Volume 9.4 fL (9.4-12.4); Monocytes # 0.4 K/mcL (0.0-1.3); Neutrophils # 8.5 K/mcL (1.6-8.9); Platelet Count 294 K/mcL (140-400); Red Blood Count 4.28 M/mcL (4.19-5.50); Red Cell Distribution Width 13.5 % (11.5-14.5); Segmented Neutrophils % 86.1 %
[2018-11-28] MEDS ORDERED: *HR* LORazepam 2 MG/ML VIAL IVP ONE (09:54)
[2018-11-28 10:10] LABS: Albumin 4.8 g/dL (3.5-5.7); Albumin/Globulin Ratio 1.4 (1.1-2.2); Bilirubin,Total 0.5 mg/dL (0.3-1.0); Calcium 9.8 mg/dL (8.6-10.3); Chol/HDL Ratio 2.2 (0-4.9); Globulin 3.4 g/dL (2.4-3.5); Magnesium 2.3 mg/dL (1.6-2.6); Potassium 3.4 mEq/L (3.5-5.1); Total Protein 8.2 g/dL (6.4-8.9)
--- NOTE | 2018-11-28 12:04 | Event Note ---
Date of Encounter: 11/28/18 Time of Encounter: 12:02 Patient admitted earlier today. Patient very somnolent as he received Ativan a little while ago. According to nursing staff, patient has been agitated with any disturbance but has been resting calmly otherwise. Blood pressure improved with no cardiac and drip. Will continue CIWA protocol. Received methadone this morning. Transition to oral antihypertensives later today. Will avoid beta blockers due to cocaine abuse. Renal function improving. Continue to monitor input and output.
[2018-11-28] MEDS: Folic Acid 1 MG, MVI, adult with vitamin K 10 ML in 0.9 % Sodium Chloride 500 ML IVPB SCH (16:59)
[2018-11-28] MEDS ORDERED: *HR* Methadone 10 MG TABLET PO SCH (17:00)
--- NOTE | 2018-11-28 20:07 | Electrocardiograph Report ---
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
[2018-11-28] MEDS ORDERED: Insulin LISPRO 300 UNITS/3 ML VIAL SQ SCH (21:00)
[2018-11-28] MEDS: Lactulose Oral Soln 20 GM/30 ML UDC PO SCH (22:08)
[2018-11-29] MEDS: niCARdipine 40 MG/200 ML MLS IVC SCH (00:36)
[2018-11-29] MEDS: cefTRIAXone 2,000 MG in Water for inj. (sterile) 20 ML 20 ML IVP SCH (05:03)
[2018-11-29] MEDS: *HR* Heparin 5,000 UNIT/ML VIAL SQ SCH ×3 (05:03→20:29)
[2018-11-29] MEDS: Azithromycin 500 MG in D5% in Water 250 ML IVPB SCH (05:04)
[2018-11-29] MEDS: Insulin LISPRO 300 UNITS/3 ML VIAL SQ SCH ×3 (07:50→20:19)
[2018-11-29] MEDS: Aspirin Enteric Coated 81 MG Tablet PO SCH (08:03)
[2018-11-29] MEDS: Vitamin B Complex/Vit C/Vit E 1 EACH TABLET PO SCH (08:03)
[2018-11-29] MEDS: Thiamine (B-1) 100 MG TABLET PO SCH (08:03)
[2018-11-29] MEDS: Diltiazem CD (24hr) 240 MG CAPSULE PO SCH (08:04)
[2018-11-29] MEDS: *HR* Methadone 10 MG TABLET PO SCH ×4 (08:04→20:51)
[2018-11-29 09:18] LABS: Basophils % 0.1 %; Eosinophils % 0.1 %; Hemoglobin 11.3 g/dL (12.9-16.9); Immature Granulocytes % 0.2 % (0-4); Lymphocytes # 1.4 K/mcL (0.6-4.6); Lymphocytes % 15.5 %; Mean Corpuscular HGB Conc 35.3 g/dL (31.6-35.5); Mean Corpuscular Hemoglobin 28.5 pg (28.0-33.3); Mean Corpuscular Volume 80.8 fL (83.0-100.0); Mean Platelet Volume 9.5 fL (9.4-12.4); Monocytes # 0.7 K/mcL (0.0-1.3); Monocytes % 7.1 %; Platelet Count 259 K/mcL (140-400); Red Blood Count 3.96 M/mcL (4.19-5.50); Red Cell Distribution Width 13.5 % (11.5-14.5)
[2018-11-29 09:28] LABS: Calcium 9.2 mg/dL (8.6-10.3); Potassium 3.2 mEq/L (3.5-5.1)
--- NOTE | 2018-11-29 11:20 | Internal Med Progress Note ---
Hospitalist Progress Note - Encounter Date of Encounter: 11/29/18 Time of Encounter: 11:19 - Subjective Interval History: Patient is lying down but able to wake up to verbal commands. Blood pressure is better controlled. Nicardipine drip has been turned off this morning. Denies any pain at this time. No nausea or vomiting. Patient is receiving Librium but has not required any Ativan today so far. - Exam Vitals: Temp Pulse Resp BP Pulse Ox 98.2 F 78 14 158/58 100 11/29/18 08:00 11/29/18 09:00 11/29/18 09:00 11/29/18 09:00 11/29/18 09:00 Exam: General: Patient is somnolent but easily awakes, no acute distress, ENT: Mucous membranes moist Respiratory: Good respiratory effort. Normal breath sounds. No wheezing or crackles. Cardiovascular: Regular rate and rhythm. s1 and s2 normal No clicks, rubs, gallops, or murmurs. No pedal edema Abdomen: Abdomen is soft, nontender. Bowel sounds are present Musculoskeletal: Spontaneously moving all extremities , has tremors Skin: warm, dry, intact. Neuro: Somnolent but easily awakes normal cranial nerves, no focal deficits - Assessment and Plan (1) Hypertensive encephalopathy Current Visit: Yes Status: Acute Assessment and Plan: Blood pressure is improving. We will stop nicardipine drip and start patient back on his usual oral antihypertensive medications. We will hold chlorthalidone given his chronic kidney disease. Continue to monitor blood pressure closely. (2) Substance abuse Current Visit: Yes Status: Acute Assessment and Plan: And with history of chronic substance abuse. Urine drug screen was positive for cocaine. Continue supportive care. Patient takes methadone at home. This is being continued. On [facility] protocol for withdrawal symptoms. (3) Elevated troponin Current Visit: Yes Status: Acute Assessment and Plan: Troponin bumped up slightly to 0.09. Most likely demand ischemia with hypertensive urgency. Patient denies any chest pain at this time. Echocardiogram shows EF of 70% with mild left ventricle and diastolic dysfunction. (4) Type 2 diabetes mellitus Current Visit: Yes Status: Chronic Assessment and Plan: Continue diabetic diet and sliding scale insulin. Patient currently on low and medium correctional scale. Will decrease to low correctional scale as his blood sugar was 67 this morning. (5) Methadone dependence Current Visit: Yes Status: Chronic Assessment and Plan: Continue home dose of methadone (6) Fever Current Visit: Yes Status: Acute Assessment and Plan: No new episodes of fever. We will obtain chest CT as recommended by radiologist initially. Currently receiving antibiotics for possible pneumonia (7) DVT prophylaxis Current Visit: Yes Status: Acute Assessment and Plan: On subcutaneous heparin - Time Spent with Patient Total time spent is greater than 50% in coordination of care (as documented) at patient's floor/unit and/or counseling patient: Internal Medicine: Result - Labs CBC & Chem 7: 11/29/18 08:55 11/29/18 08:55 Labs: Short CBC 11/29/18 Range/Units 08:55 WBC 9.1 (4.3-11.1) K/mcL Hgb 11.3 L (12.9-16.9) g/dL Hct 32.0 L (37.5-50.1) % Plt Count 259 (140-400) K/mcL Neutrophils # 7.0 (1.6-8.9) K/mcL BMP 11/29/18 08:55 Sodium 148 H Potassium 3.2 L Chloride 110 H Carbon Dioxide 29 BUN 42 H Creatinine 4.00 H Glucose 111 H Calcium 9.2 Cardiac Enzymes 11/28/18 Range/Units 15:45 Troponin I 0.09 H* (< 0.04) ng/mL - ABG Interpretation ABG results: PT/INR, D-dimer PT 11.6 Seconds (9.4-12.1) 11/27/18 22:04 - Impressions Impressions Echocardiogram 11/28/18 03:43 Impressions: LVEF >70%. Normal LV chamber size, wall thickness and function. Mild left ventricular diastolic dysfunction. Normal right ventricular structure and function. Mitral valve is thickened, but there are no definite oscillating vegetations visualized. No mitral regurgitation. No evidence of pulmonary hypertension. Trivial pericardial effusion. Consider AIDE to further evaluate if clinically indicated. Left Ventricular Wall Motion: Rest Echo Findings The apex, apical inferior, mid inferior, basal inferior, apical anterior, mid anterior, basal anterior, apical septal, mid inferior septal, basal inferior septal, apical lateral, mid anterior lateral, basal anterior lateral, mid anterior septal, mid inferior lateral, basal anterior septal and basal inferior lateral boyer were hyperkinetic. Findings: Study Quality * Technically adequate exam. ECG Findings * Sinus tachycardia. Left Ventricle * LVEF >70%. * Normal LV chamber size, wall thickness and function. * Mild left ventricular diastolic dysfunction. Right Ventricle * Normal right ventricular structure and function. Left Atrium * Mildly dilated left atrium. Right Atrium * Mildly dilated right atrium. Aortic Valve * Aortic valve not well visualized. * No aortic stenosis. * No aortic regurgitation. Mitral Valve * Mitral valve is thickened, but there are no definite oscillating vegetations visualized. * No mitral regurgitation. * No mitral stenosis. Tricuspid Valve * Normal tricuspid valve structure and function. * Trace tricuspid regurgitation. * No evidence of pulmonary hypertension. Pulmonic Valve * Pulmonic valve not well visualized. Aorta * Normally sized aortic root. Pericardium * Trivial pericardial effusion noted. IVC * Normal IVC dimensions and inspiratory collapse. Pulmonary Artery * Pulmonary artery not well visualized. 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
[2018-11-29] MEDS: amLODIPine 5 MG TABLET PO SCH (13:07)
[2018-11-29] MEDS: hydrALAZINE 25 MG TABLET PO SCH (15:59)
[2018-11-29] MEDS: Folic Acid 1 MG, MVI, adult with vitamin K 10 ML in 0.9 % Sodium Chloride 500 ML IVPB SCH (18:09)
[2018-11-29 19:29] LABS: Influenza A PCR Negative (Negative); Influenza B PCR Negative (Negative); Resp. Syncytial Virus PCR Negative (Negative)
[2018-11-29] MEDS: Mirtazapine 15 MG TABLET PO SCH (20:28)
[2018-11-29] MEDS: cloNIDine HCl 0.1 MG TABLET PO SCH (20:28)
[2018-11-29] MEDS: Lactulose Oral Soln 20 GM/30 ML UDC PO SCH (20:29)
[2018-11-29] MEDS: *HR* LORazepam 2 MG/ML VIAL IVP PRN (22:34)
[2018-11-30] MEDS: Azithromycin 500 MG in D5% in Water 250 ML IVPB SCH (03:23)
[2018-11-30] MEDS: cefTRIAXone 2,000 MG in Water for inj. (sterile) 20 ML 20 ML IVP SCH (03:23)
[2018-11-30] MEDS: *HR* Heparin 5,000 UNIT/ML VIAL SQ SCH ×3 (05:22→20:07)
[2018-11-30] MEDS: Insulin LISPRO 300 UNITS/3 ML VIAL SQ SCH ×5 (07:43→19:59)
[2018-11-30 07:48] LABS: Basophils % 0.4 %; Eosinophils # 0.1 K/mcL (0.0-0.6); Eosinophils % 0.7 %; Hematocrit 33.2 % (37.5-50.1); Hemoglobin 11.5 g/dL (12.9-16.9); Immature Granulocytes % 0.1 % (0-4); Lymphocytes # 2.5 K/mcL (0.6-4.6); Lymphocytes % 34.7 %; Mean Corpuscular HGB Conc 34.6 g/dL (31.6-35.5); Mean Corpuscular Hemoglobin 28.6 pg (28.0-33.3); Mean Corpuscular Volume 82.6 fL (83.0-100.0); Mean Platelet Volume 9.5 fL (9.4-12.4); Monocytes # 0.6 K/mcL (0.0-1.3); Monocytes % 7.7 %; Neutrophils # 4.1 K/mcL (1.6-8.9); Platelet Count 246 K/mcL (140-400); Red Blood Count 4.02 M/mcL (4.19-5.50); Red Cell Distribution Width 13.2 % (11.5-14.5); Segmented Neutrophils % 56.4 %
[2018-11-30 08:08] LABS: Calcium 9.3 mg/dL (8.6-10.3); Potassium 3.4 mEq/L (3.5-5.1)
[2018-11-30] MEDS: Thiamine (B-1) 100 MG TABLET PO SCH (08:16)
[2018-11-30] MEDS: Diltiazem CD (24hr) 240 MG CAPSULE PO SCH (08:16)
[2018-11-30] MEDS: cloNIDine HCl 0.1 MG TABLET PO SCH ×3 (08:16→20:07)
[2018-11-30] MEDS: amLODIPine 5 MG TABLET PO SCH (08:16)
[2018-11-30] MEDS: hydrALAZINE 25 MG TABLET PO SCH ×3 (08:16→17:50)
[2018-11-30] MEDS: Aspirin Enteric Coated 81 MG Tablet PO SCH (08:16)
[2018-11-30] MEDS: Vitamin B Complex/Vit C/Vit E 1 EACH TABLET PO SCH (08:16)
[2018-11-30] MEDS: *HR* Methadone 10 MG TABLET PO SCH ×4 (08:40→20:07)
--- NOTE | 2018-11-30 09:51 | Nephrology Consult Note ---
Date of Encounter: 11/30/18 Time of Encounter: 11:35 Assessment and Plan (1) Acute kidney injury superimposed on chronic kidney disease Current Visit: No Status: Acute Nonoliguric worsening renal function (either NAKIA on CKD stage IV or progressively worsening renal failure). His GFR for -Colombian is at 16 today, which is worse than his baseline (upper teens to 20s). I concur with stopping diuretics given his hypokalemia and mild hypernatremia. I reviewed his multiple antihypertensive medications, and he has had long-standing difficult to control/resistant hypertension. Continue the minoxidil and calcium channel blockers. He has proteinuria, but given the worsening renal function, continue to hold either Donaldo or ARB; however, if he continues to worsen he may need initiation of renal replacement therapy. After patient's stabilized on dialysis, often an Donaldo or ARB could be resumed for anti-proteinuric benefit. Given that his reported increased UOP she thought more than normal, I will recommend updating a retroperitoneal U/S to ensure there is no obstruction or partial obstruction. It may also be helpful in assessing his prostate size as well. Continue to follow this renal protective strategy, but if he does continue to worsen he already has an AV fistula in place, which I had recently arranged for him (I follow him in my CKD clinic). So if he were to need dialysis initiated during this hospitalization, we would use this AV fistula. Be sure to dose renally cleared medications by GFR/CrCl, avoid nephrotoxic agents as able, collected strict I's and O's and daily weights as well as a renal diet. Thank you for consulting the [facility], and I will follow with you. (2) Altered mental status Current Visit: Yes Status: Acute As per primary. This is likely not uremia based upon his current labs, and he has a known baseline of slowly progressive dementia. If his renal function worsens, though, then uremia could also start to develop. Qualifiers: Coma timing: unspecified coma timing Qualified Code(s): R40.2440 - Other coma, without documented [place] coma scale score, or with partial score reported, unspecified time (3) CKD (chronic kidney disease) stage 4, GFR 15-29 ml/min Current Visit: Yes Status: Chronic Baseline level of CKD. I follow him in my CKD clinic. He already has a Fistula First in the left upper arm. (4) Proteinuria Current Visit: Yes Status: Chronic Chronic and contributing to his CKD. Qualifiers: Proteinuria type: persistent Qualified Code(s): R80.1 - Persistent proteinuria, unspecified (5) Hypokalemia Current Visit: No Status: Acute Noted. Replete. Monitoring Mg+. (6) Hypertensive encephalopathy Current Visit: Yes Status: Acute He has known dementia as described above and has seen [facility] in the past. (7) Cocaine use Current Visit: Yes Status: Acute Noted. This has been an intermittent longstanding issue for him. History of Present Illness - Reason for Consult Consult date: 11/30/18 Acute Kidney Injury, Chronic Kidney Disease, hypernatremia, hypokalemia, accelerated hypertension, proteinuria Requesting physician: Terri Mcdonald - Chief Complaint Worsening Renal function - History of Present Illness The patient is a very pleasant 68-year-old -Colombian male with a low long-standing history of uncontrolled hypertension, history of cocaine use, advanced chronic kidney disease stage IV followed by me in the clinic, and etc who presented with altered mental status. Nephrology was consulted due to his ongoing chronic kidney disease and uncontrolled hypertension. I noticed the patient's urine drug screen was positive for cocaine and marijuana. The huan gant's was present at the bedside who provided much of the history, since the patient remained disoriented. She affirmed that he has not been feeling well for the last several days, and has not been eating or drinking. She said his blood pressures were very well controlled since he last saw me in the office, but since being ill his blood pressures and blood sugars have been more erratic. He has not reported recent diarrhea, fevers, chest pain, but his confusion and fatigue as well as diminished appetite were recently appreciated findings. She also reported interestingly that he was making significant amounts of urine recently, more than normal. She was worried that this may have dehydrated him. Past Med Surg Social Fam HX - Past Medical History Medical history: CVA, diabetes, hepatitis, hypertension, liver disease, other Additional medical history: chronic kidney disease stage 4. hep C, Psychiatric history: no psych history - Past Surgical History Surgical History: orthopedic, other - Social History Smoking Status: Unknown if ever smoked Smokeless Tobacco Status: No Alcohol use: heavy, recent Drug use: cocaine, marijuana - Family History Mother Living Status: Hx Family Endocrine Disorder: Yes (Diabetes) Hx Family Neurologic Disorders: Yes (Alzheimer's) Father Living Status: Hx Family Cancer: Yes (Prostate) Hx Family Endocrine Disorder: Yes (Diabetes) Medications and Allergies Glimepiride [Amaryl] 2 mg PO QAM 09/01/16 [History] Aspirin [Lo-Dose Aspirin EC] 81 mg PO DAILY 03/09/17 [History] Vitamin B Complex/Vit C/Vit E [Stresstab] 1 tab PO DAILY 03/09/17 [History] Diltiazem CD (24hr) [Cardizem CD] 240 mg PO DAILY #30 cap.er.24h 10/16/17 [Rx] amLODIPine [Norvasc] 5 mg PO DAILY #30 tablet 10/16/17 [Rx] Atorvastatin Calcium [Lipitor] 20 mg PO HS 06/12/18 [History] Chlorthalidone 25 mg PO DAILY 06/12/18 [History] Donepezil [Aricept] 10 mg PO HS 06/12/18 [History] Ferrous Sulfate 325 mg PO QPM 06/12/18 [History] Lisinopril [Zestril] 5 mg PO DAILY 06/12/18 [History] Methadone 10 mg PO QID 06/12/18 [History] Minoxidil 10 mg PO DAILY 06/12/18 [History] Mirtazapine [Remeron] 15 mg PO HS 06/12/18 [History] cloNIDine HCl [Clonidine HCl] 0.3 mg PO TID 06/12/18 [History] Lactulose 10 gm PO HS 09/12/18 [History] Hydralazine HCl 50 mg PO TIDWM 11/28/18 [History] Allergy/AdvReac Type Severity Reaction Status Date / Time fluoxetine [From Prozac] AdvReac Depression Verified 09/12/18 07:30 Review of Systems All Systems: reviewed and no additional remarkable complaints except as stated Exam - Vital Signs Vital signs: Initial Vital Signs Temp Pulse Resp BP Pulse Ox 99.9 F H 95 20 186/84 100 11/27/18 21:54 11/27/18 21:54 11/27/18 21:54 11/27/18 21:54 11/27/18 21:54 Vital Signs - Last 8 Hours Temp Pulse Resp BP Pulse Ox 11/30/18 08:00 74 11/30/18 07:09 98.1 F 70 18 148/66 96 11/30/18 03:58 98.1 F 68 17 123/60 97 Intake and Output 11/29/18 11/30/18 11/30/18 23:59 07:59 15:59 Intake Total 480 / 480 0 / 0 1020.2 / 1020.2 Output Total 670 / 670 0 / 0 Balance -190 / -190 0 / 0 1020.2 / 1020.2 Intake: IV Fluids 780.2 / 780.2 Rocephin 2,000 MG In Water for inj. (sterile) 20 ML @ 600 mls/ hr IVP Q24H [facility] Rx#:[id number] Zithromax 500 mg In Dextrose 5% 250 / 250 250 ML @ 252 mls/hr IVPB Q24H [facility] Rx#:[id number] Folvite 1 MG M.v.i. Adult 10 ml 510.2 / 510.2 In 0.9 % Sodium Chloride 500 ML @ 85.033 mls/hr IVPB DAILY@ 1800 [facility] Rx#:[id number] Oral 480 / 480 0 / 0 240 / 240 Output: Urine 670 / 670 0 / 0 Other: Meal Dinner Breakfast Percent of Meal Consumed 100% 100% Stool Consistency soft Stool Color Green # Voids 1 Weight 75.9 kg Blood Glucose* 115 95 95 - General Appearance General appearance: well-nourished, appears started age, fatigue, frail EENT: ATNC, mucous membranes dry Neck: supple Respiratory: clear Cardiology: no edema, regular rate, regular rhythm, normal S1, normal S2 - Dialysis Access Dialysis Vascular Access: Arteriovenous Fistula (left upper arm AVF with wide but slightly deep thrill though excellent bruit) thrill: Yes bruit: Yes Gastrointestinal: normoactive bowel sounds, no guarding Integumentary: no rash, warm and dry Neurologic: no focal deficit, no asterixis, alert and oriented x3 Musculoskeletal: no deformities, no erythema, no cyanosis Psychiatric: mood/affect appropriate, cooperative Results - Lab Results 12/01/18 02:22 12/01/18 02:22 Most recent lab results Calcium 9.3 mg/dL (8.6-10.3) 11/30/18 07:34 Magnesium 2.3 mg/dL (1.6-2.6) 11/28/18 09:28 I reviewed his labs, vitals, medication list, progress notes and previous imaging. Consult Discharge Plan - Plan Referrals: Rajesh Gillette Jr, MD [Primary Care Provider] -
--- NOTE | 2018-11-30 12:16 | Internal Med Progress Note ---
Hospitalist Progress Note - Encounter Date of Encounter: 11/30/18 Time of Encounter: 09:50 - Subjective Interval History: Patient sitting up in bed. Comfortable. Denies any new complaints at this time. Denies any chest pain or palpitations. Reports that he is having good urine output. No dysuria or hematuria. - Exam Vitals: Temp Pulse Resp BP Pulse Ox 98.2 F 61 18 115/58 96 11/30/18 11:10 11/30/18 11:10 11/30/18 11:10 11/30/18 11:10 11/30/18 11:10 Exam: General: Patient is alert, no acute distress, oriented x 3 ENT: Mucous membranes moist Respiratory: Good respiratory effort. Normal breath sounds. No wheezing or crackles. Cardiovascular: Regular rate and rhythm. s1 and s2 normal No clicks, rubs, gallops, or murmurs. No pedal edema Abdomen: Abdomen is soft, nontender. Bowel sounds are present Musculoskeletal: Spontaneously moving all extremities Skin: warm, dry, intact. Neuro: Alert oriented x 3 normal cranial nerves, no focal deficits - Assessment and Plan (1) Hypertensive encephalopathy Current Visit: Yes Status: Acute Assessment and Plan: Now resolved. Patient is currently awake alert and oriented. Denies any headaches. Has been off the Cardizem drip. Blood pressure is better controlled now. (2) Substance abuse Current Visit: Yes Status: Acute Assessment and Plan: History of substance abuse and urine positive for cocaine. Continue to monitor for withdrawal symptoms. Taper Librium (3) Elevated troponin Current Visit: Yes Status: Acute Assessment and Plan: Mild adynamic troponin elevation. Most likely due to demand ischemia. (4) Type 2 diabetes mellitus Current Visit: Yes Status: Chronic Assessment and Plan: Blood sugars are fairly controlled. We will continue to monitor and adjust insulin regimen accordingly. (5) Methadone dependence Current Visit: Yes Status: Chronic Assessment and Plan: Continue methadone (6) Fever Current Visit: Yes Status: Resolved Assessment and Plan: CT scan of the chest does not show any infiltrates. We will stop antibiotics. He did have atelectasis which is likely cause of his fever. (7) DVT prophylaxis Current Visit: Yes Status: Acute Assessment and Plan: continue subcutaneous heparin - Time Spent with Patient Total time spent is greater than 50% in coordination of care (as documented) at patient's floor/unit and/or counseling patient: Internal Medicine: Result - Labs CBC & Chem 7: 11/30/18 07:34 11/30/18 07:34 Labs: Short CBC 11/30/18 Range/Units 07:34 WBC 7.3 (4.3-11.1) K/mcL Hgb 11.5 L (12.9-16.9) g/dL Hct 33.2 L (37.5-50.1) % Plt Count 246 (140-400) K/mcL Neutrophils # 4.1 (1.6-8.9) K/mcL BMP 11/30/18 07:34 Sodium 144 Potassium 3.4 L Chloride 109 H Carbon Dioxide 26 BUN 41 H Creatinine 4.49 H Glucose 98 Calcium 9.3 - ABG Interpretation ABG results: PT/INR, D-dimer PT 11.6 Seconds (9.4-12.1) 11/27/18 22:04 - Impressions Impressions Chest CT 11/29/18 11:32 IMPRESSION: No suspicious pulmonary nodule identified. Nodular appearance on the portable chest may have been a pulmonary vessel seen end on with adjacent bronchi. Slight dependent atelectasis. D/ / Sim Heart MD / Sim Heart MD Interpreting Provider: Sim Heart MD Consult Discharge Plan - Plan Referrals: Rajesh Gillette Jr, MD [Primary Care Provider] - _ (4) Type 2 diabetes mellitus Qualifiers: Diabetes mellitus snf insulin use: without snf use Diabetes mellitus complication status: with kidney complications Diabetes mellitus complication detail: with chronic kidney disease Chronic kidney disease stage: stage 3 (moderate) Qualified Code(s): E11.22 - Type 2 diabetes mellitus with diabetic chronic kidney disease; N18.3 - Chronic kidney disease, stage 3 (moderate); N18.3 - Chronic kidney disease, stage 3 (moderate) (6) Fever Qualifiers: Fever type: unspecified Qualified Code(s): R50.9 - Fever, unspecified
[2018-11-30] MEDS: Folic Acid 1 MG, MVI, adult with vitamin K 10 ML in 0.9 % Sodium Chloride 500 ML IVPB SCH (18:21)
[2018-11-30] MEDS: Lactulose Oral Soln 20 GM/30 ML UDC PO SCH (20:07)
[2018-11-30] MEDS: Mirtazapine 15 MG TABLET PO SCH (20:07)
[2018-12-01 03:10] LABS: Basophils % 0.3 %; Eosinophils # 0.1 K/mcL (0.0-0.6); Hematocrit 29.4 % (37.5-50.1); Immature Granulocytes % 0.2 % (0-4); Lymphocytes # 2.4 K/mcL (0.6-4.6); Lymphocytes % 40.1 %; Mean Corpuscular Hemoglobin 27.9 pg (28.0-33.3); Mean Corpuscular Volume 82.1 fL (83.0-100.0); Mean Platelet Volume 9.9 fL (9.4-12.4); Monocytes # 0.5 K/mcL (0.0-1.3); Monocytes % 8.7 %; Neutrophils # 2.9 K/mcL (1.6-8.9); Platelet Count 207 K/mcL (140-400); Red Blood Count 3.58 M/mcL (4.19-5.50); Red Cell Distribution Width 13.2 % (11.5-14.5); Segmented Neutrophils % 48.7 %
[2018-12-01 03:29] LABS: Albumin 3.5 g/dL (3.5-5.7); Calcium 8.8 mg/dL (8.6-10.3); Magnesium 2.2 mg/dL (1.6-2.6); Phosphorous 4.5 mg/dL (2.7-4.5); Potassium 3.3 mEq/L (3.5-5.1)
[2018-12-01] MEDS: *HR* Heparin 5,000 UNIT/ML VIAL SQ SCH ×3 (05:07→20:26)
[2018-12-01] MEDS: Insulin LISPRO 300 UNITS/3 ML VIAL SQ SCH ×4 (07:46→20:56)
[2018-12-01] MEDS: Vitamin B Complex/Vit C/Vit E 1 EACH TABLET PO SCH (08:05)
[2018-12-01] MEDS: Diltiazem CD (24hr) 240 MG CAPSULE PO SCH (08:05)
[2018-12-01] MEDS: Aspirin Enteric Coated 81 MG Tablet PO SCH (08:06)
[2018-12-01] MEDS: Thiamine (B-1) 100 MG TABLET PO SCH (08:06)
[2018-12-01] MEDS: *HR* LORazepam 2 MG/ML VIAL IVP PRN ×2 (08:06→14:26)
[2018-12-01] MEDS: *HR* Methadone 10 MG TABLET PO SCH ×4 (08:06→20:25)
[2018-12-01] MEDS: cloNIDine HCl 0.1 MG TABLET PO SCH ×3 (08:06→20:25)
[2018-12-01] MEDS: hydrALAZINE 25 MG TABLET PO SCH ×3 (08:06→18:01)
[2018-12-01] MEDS: amLODIPine 5 MG TABLET PO SCH (08:06)
--- NOTE | 2018-12-01 08:09 | Nephrology Progress Note ---
Date of Encounter: 12/01/18 Time of Encounter: 11:45 - Assessment and Plan (1) Acute kidney injury superimposed on chronic kidney disease Current Visit: No Status: Acute Stable renal function today, which is reassuring. I will not recommend starting GOLD PROSPECTOR today. I suspect that yesterday his worsened renal function was a prerenal insult from his recent illness, on top his existing hypertensive/proteinuric CKD stage IV. I would not resume the chlorthalidone at discharge. If the patient's renal function remains stable, then it's would indicated to try to resume an CAITLYN or ARB for anti-proteinuric benefit. Continue to follow this renal protective strategy, but if he does continue to worsen he already has an AV fistula in place, which I had recently arranged for him (I follow him in my CKD clinic). So if he were to need dialysis initiated during this hospitalization, we would use this AV fistula. Be sure to dose renally cleared medications by GFR/CrCl, avoid nephrotoxic agents as able, collected strict I's and O's and daily weights as well as a renal diet. (2) Altered mental status Current Visit: Yes Status: Acute As per primary. This is likely not uremia based upon his current labs, and he has a known baseline of slowly progressive dementia. If his renal function wor sens, though, then uremia could also start to develop. Qualifiers: Coma timing: unspecified coma timing Qualified Code(s): R40.2440 - Other coma, without documented [place] coma scale score, or with partial score reported, unspecified time (3) CKD (chronic kidney disease) stage 4, GFR 15-29 ml/min Current Visit: Yes Status: Chronic Baseline level of CKD. I follow him in my CKD clinic. He already has a Fistula First in the left upper arm. (4) Proteinuria Current Visit: Yes Status: Chronic Chronic and contributing to his CKD. Qualifiers: Proteinuria type: persistent Qualified Code(s): R80.1 - Persistent proteinuria, unspecified (5) Hypokalemia Current Visit: No Status: Acute Noted. Replete. Monitoring Mg+. I gave KCl 40mEq po x1. (6) Hypertensive encephalopathy Current Visit: Yes Status: Acute (7) Cocaine use Current Visit: Yes Status: Acute Subjective Principal diagnosis: NAKIA on CKD, HTN Interval history: The patient was seen and examined in his room on 2N. He reported feeling emotional and has been crying. He cannot remember even what he ate for breakfast when I asked him. His was present and reported that he has been eating and drinking well. He did not affirm nausea or vomiting, but he still remains tired and confused. Objective - Vital Signs Vital signs: Vital Signs Temp Pulse Resp BP Pulse Ox 12/01/18 07:30 97.8 F 73 18 166/74 97 12/01/18 05:34 97.7 F 56 16 120/74 93 11/30/18 23:05 97.4 F L 61 18 127/78 93 11/30/18 19:18 97.5 F L 59 16 116/61 97 11/30/18 16:03 97.6 F 56 18 125/66 97 11/30/18 16:00 62 11/30/18 12:00 58 11/30/18 11:10 98.2 F 61 18 115/58 96 Intake and Output 11/30/18 12/01/18 12/01/18 23:59 07:59 15:59 Intake Total 0 / 0 510.2 / 510.2 Output Total 220 / 220 480 / 480 Balance -220 / -220 30.2 / 30.2 Intake: IV Fluids 510.2 / 510.2 Folvite 1 MG M.v.i. Adult 10 ml 510.2 / 510.2 In 0.9 % Sodium Chloride 500 ML @ 85.033 mls/hr IVPB DAILY@ 1800 [facility] Rx#:[id number] Oral 0 / 0 Output: Urine 220 / 220 480 / 480 Other: Weight 75.9 kg Blood Glucose* 108 149 Patient Weight 12/01/18 23:59 Weight 75.9 kg - General Appearance Exam: General appearance: well-nourished, appears started age, fatigue, frail EENT: ATNC, mucous membranes dry Neck: supple Respiratory: clear Cardiology: no edema, regular rate, regular rhythm, normal S1, normal S2 - Dialysis Access Dialysis Vascular Access: Arteriovenous Fistula (left upper arm AVF with wide but slightly deep thrill though excellent bruit) Gastrointestinal: normoactive bowel sounds, no guarding Integumentary: no rash, warm and dry Neurologic: no focal deficit, no asterixis, confused Musculoskeletal: no deformities, no erythema, no cyanosis Psychiatric: mood/affect appropriate, cooperative - Lab 12/01/18 02:22 03/24/19 02:22 Most recent lab results Calcium 8.8 mg/dL (8.6-10.3) 12/01/18 02:22 Phosphorus 4.5 mg/dL (2.7-4.5) 12/01/18 02:22 Magnesium 2.2 mg/dL (1.6-2.6) 12/01/18 02:22 Consult Discharge Plan - Plan Referrals: Rajesh Gillette Jr, MD [Primary Care Provider] -
--- NOTE | 2018-12-01 14:35 | Internal Med Progress Note ---
Hospitalist Progress Note - Encounter Date of Encounter: 12/01/18 Time of Encounter: 10:50 - Subjective Interval History: Patient is lying down in bed. present at bedside. He denies any new complaints at this time. However he has been emotional and teary since this morning according to and nursing staff. No chest pain. No palpitations. No shortness of breath. - Exam Vitals: Temp Pulse Resp BP Pulse Ox 97.7 F 70 16 109/62 99 12/01/18 11:35 12/01/18 12:00 12/01/18 11:35 12/01/18 11:35 12/01/18 11:35 Exam: General: Patient is alert, no acute distress, oriented x 3 ENT: Mucous membranes moist Respiratory: Good respiratory effort. Normal breath sounds. No wheezing or crackles. Cardiovascular: Regular rate and rhythm. s1 and s2 normal No clicks, rubs, gallops, or murmurs. Mild pedal edema Abdomen: Abdomen is soft, nontender. Bowel sounds are present Musculoskeletal: Spontaneously moving all extremities Skin: warm, dry, intact. Psych: Appears depressed Neuro: Alert oriented x 3 normal cranial nerves, no focal deficits - Assessment and Plan (1) Acute kidney injury superimposed on chronic kidney disease Current Visit: Yes Status: Acute Assessment and Plan: Acute kidney injury and chronic kidney disease stage IV. Creatinine is improving. We will continue to monitor renal function. If creatinine remains stable, patient will be discharged tomorrow and outpatient follow-up with nephrology. (2) CKD (chronic kidney disease) stage 4, GFR 15-29 ml/min Current Visit: Yes Status: Chronic Assessment and Plan: Creatinine appears to be stabilizing. (3) Hypertensive encephalopathy Current Visit: Yes Status: Resolved Assessment and Plan: Encephalopathy has resolved. Blood pressure is better controlled. Continue current medications. (4) Substance abuse Current Visit: Yes Status: Acute Assessment and Plan: Detrol symptoms have subsided. Patient is off Librium. (5) Elevated troponin Current Visit: Yes Status: Acute Assessment and Plan: Adynamic. Likely from demand ischemia in setting of chronic kidney disease (6) Type 2 diabetes mellitus Current Visit: Yes Status: Chronic Assessment and Plan: Blood sugars are better controlled. Continue current insulin regimen (7) Methadone dependence Current Visit: Yes Status: Chronic Assessment and Plan: Continue methadone (8) Fever Current Visit: Yes Status: Resolved (9) DVT prophylaxis Current Visit: Yes Status: Acute - Time Spent with Patient Total time spent is greater than 50% in coordination of care (as documented) at patient's floor/unit and/or counseling patient: Internal Medicine: Result - Labs CBC & Chem 7: 12/01/18 02:22 12/01/18 02:22 Labs: Short CBC 12/01/18 Range/Units 02:22 WBC 5.9 (4.3-11.1) K/mcL Hgb 10.0 L D (12.9-16.9) g/dL Hct 29.4 L (37.5-50.1) % Plt Count 207 (140-400) K/mcL Neutrophils # 2.9 (1.6-8.9) K/mcL BMP 12/01/18 02:22 Sodium 144 Potassium 3.3 L Chloride 108 H Carbon Dioxide 27 BUN 39 H Creatinine 4.06 H Glucose 114 H Calcium 8.8 Liver Function 12/01/18 Range/Units 02:22 Albumin 3.5 (3.5-5.7) g/dL - ABG Interpretation ABG results: PT/INR, D-dimer PT 11.6 Seconds (9.4-12.1) 11/27/18 22:04 Consult Discharge Plan - Plan Referrals: Rajesh Gillette Jr, MD [Primary Care Provider] - (6) Type 2 diabetes mellitus Qualifiers: Diabetes mellitus correction insulin use: without correction use Diabetes mellitus complication status: with kidney complications Diabetes mellitus complication detail: with chronic kidney disease Chronic kidney disease stage: stage 3 (moderate) Qualified Code(s): E11.22 - Type 2 diabetes mellitus with diabetic chronic kidney disease; N18.3 - Chronic kidney disease, stage 3 (moderate); N18.3 - Chronic kidney disease, stage 3 (moderate) (8) Fever Qualifiers: Fever type: unspecified Qualified Code(s): R50.9 - Fever, unspecified
[2018-12-01] MEDS: Mirtazapine 15 MG TABLET PO SCH (20:25)
[2018-12-01] MEDS: Lactulose Oral Soln 20 GM/30 ML UDC PO SCH (20:26)
[2018-12-02 05:04] LABS: Basophils % 0.2 %; Eosinophils # 0.2 K/mcL (0.0-0.6); Eosinophils % 3.3 %; Hematocrit 29.8 % (37.5-50.1); Hemoglobin 10.3 g/dL (12.9-16.9); Immature Granulocytes % 0.2 % (0-4); Lymphocytes # 1.6 K/mcL (0.6-4.6); Lymphocytes % 35.5 %; Mean Corpuscular HGB Conc 34.6 g/dL (31.6-35.5); Mean Corpuscular Hemoglobin 28.9 pg (28.0-33.3); Mean Corpuscular Volume 83.5 fL (83.0-100.0); Mean Platelet Volume 9.8 fL (9.4-12.4); Monocytes # 0.6 K/mcL (0.0-1.3); Monocytes % 12.1 %; Neutrophils # 2.2 K/mcL (1.6-8.9); Platelet Count 199 K/mcL (140-400); Red Blood Count 3.57 M/mcL (4.19-5.50); Segmented Neutrophils % 48.7 %
[2018-12-02] MEDS: *HR* Heparin 5,000 UNIT/ML VIAL SQ SCH ×3 (05:22→20:50)
[2018-12-02 05:25] LABS: Calcium 8.7 mg/dL (8.6-10.3); Magnesium 2.2 mg/dL (1.6-2.6); Potassium 3.8 mEq/L (3.5-5.1)
[2018-12-02] MEDS: Insulin LISPRO 300 UNITS/3 ML VIAL SQ SCH ×4 (07:35→20:51)
--- NOTE | 2018-12-02 08:41 | Discharge Summary ---
<Reggie Reyez - Last Filed: 12/02/18 12:56> - NOTES TO OUTPATIENT PROVIDER Notes to Outpatient Provider: Presented with altered mental status secondary to cocaine and marijuana use. Found to have uncontrolled blood pressure and acute kidney injury. Patient's mental status is back to baseline and his blood pressure is better controlled. His discharge blood pressure medications include clonidine, Cardizem, hydralazine, minoxidil. We will discontinue chlorthalidone and amlodipine. Orders not resulted at time of discharge: Pending orders 11/28/18 06:00 ECG 12 lead ECG [ECG] AM 0600 11/28/18 09:28 Culture,Blood [BC] Stat 12/02/18 15:00 US retroperitoneal comp [US] Routine Date of Encounter: 12/02/18 Time of Encounter: 11:21 - Discharge Diagnosis (1) Acute kidney injury superimposed on chronic kidney disease Priority: Primary Status: Resolved (2) CKD (chronic kidney disease) stage 4, GFR 15-29 ml/min Priority: Secondary Status: Chronic (3) DVT prophylaxis Priority: Secondary Status: Acute (4) Elevated troponin Priority: Secondary Status: Resolved (5) Fever Priority: Secondary Status: Resolved Qualifiers: Fever type: unspecified Qualified Code(s): R50.9 - Fever, unspecified (6) Hypertensive encephalopathy Priority: Secondary Status: Resolved (7) Methadone dependence Priority: Secondary Status: Chronic (8) Substance abuse Priority: Secondary Status: Chronic (9) Type 2 diabetes mellitus Priority: Secondary Status: Chronic Qualifiers: Diabetes mellitus assisted insulin use: without ferry terminal supervisor use Diabetes mellitus complication status: with kidney complications Diabetes mellitus complication detail: with chronic kidney disease Chronic kidney disease stage: stage 3 (moderate) Qualified Code(s): E11.22 - Type 2 diabetes mellitus with diabetic chronic kidney disease; N18.3 - Chronic kidney disease, stage 3 (moderate) Hospital course: Mr. Milan is a 68 year old male presented with altered mental status. Patient was found by family at home to be sleeping, minimally responsive. He was found to have uncontrolled blood pressure, elevated troponin, positive urine drug screen for cocaine and marijuana. He also had acute kidney injury and fever on admission. His CT of the head was negative. Patient was started on a nicardipine drip and admitted to the hospital. Patient underwent CT of the chest which was negative. EKG showed normal sinus rhythm without ST elevation or depression. Echocardiogram showed a left ventricular ejection fraction greater than 70% with mild left ventricular diastolic dysfunction, trivial pericardial effusion. Nephrology was consulted for acute kidney injury. Patient's chlorthalidone was discontinued. Thereafter patient's kidney function improved. His antihypertensive medications were changed: Chlorthalidone and amlodipine were discontinued. Patient was continued on clonidine, diltiazem, hydralazine, minoxidil. [facility] Follow up with primary care physician and nephrology. Discharge discussed with: patient - Time Spent with Patient Total time spent providing and/or coordinating discharge services: - Discharge Medications Prescriptions: Continue Glimepiride [Amaryl] 2 mg PO QAM Vitamin B Complex/Vit C/Vit E [Stresstab] 1 tab PO DAILY Aspirin [Lo-Dose Aspirin EC] 81 mg PO DAILY Diltiazem CD (24hr) [Cardizem CD] 240 mg PO DAILY #30 cap.er.24h Methadone 10 mg PO QID Minoxidil 10 mg PO DAILY Donepezil [Aricept] 10 mg PO HS Ferrous Sulfate 325 mg PO QPM Mirtazapine [Remeron] 15 mg PO HS Atorvastatin Calcium [Lipitor] 20 mg PO HS cloNIDine HCl [Clonidine HCl] 0.3 mg PO TID Lactulose 10 gm PO HS Hydralazine HCl 50 mg PO TIDWM Discontinued amLODIPine [Norvasc] 5 mg PO DAILY #30 tablet Lisinopril [Zestril] 5 mg PO DAILY Chlorthalidone 25 mg PO DAILY Home Medications: Glimepiride [Amaryl] 2 mg PO QAM 09/01/16 [History] Aspirin [Lo-Dose Aspirin EC] 81 mg PO DAILY 03/09/17 [History] Vitamin B Complex/Vit C/Vit E [Stresstab] 1 tab PO DAILY 03/09/17 [History] Diltiazem CD (24hr) [Cardizem CD] 240 mg PO DAILY #30 cap.er.24h 10/16/17 [Rx] Atorvastatin Calcium [Lipitor] 20 mg PO HS 06/12/18 [History] Donepezil [Aricept] 10 mg PO HS 06/12/18 [History] Ferrous Sulfate 325 mg PO QPM 06/12/18 [History] Methadone 10 mg PO QID 06/12/18 [History] Minoxidil 10 mg PO DAILY 06/12/18 [History] Mirtazapine [Remeron] 15 mg PO HS 06/12/18 [History] cloNIDine HCl [Clonidine HCl] 0.3 mg PO TID 06/12/18 [History] Lactulose 10 gm PO HS 09/12/18 [History] Hydralazine HCl 50 mg PO TIDWM 11/28/18 [History] Allergies/Adverse Reactions: 3 Allergy/AdvReac Type Severity Reaction Status Date / Time fluoxetine [From Prozac] AdvReac Depression Verified 09/12/18 07:30 Date of admission: 11/28/18 03:26 Primary care physician: Rajesh Gillette Jr, MD Consults: 11/30/18 08:17 Consult to Nephrology [CONS] Routine Consulting Provider: Kidney Kandi/XAVIER/KATHI/MIQUEL Reason for Consult: NAKIA on CKD 4 Time Notified: 08:18 Call Completed: Yes 12/01/18 10:21 Consult to Occupational Therapy [CONS] Routine Comment: Evaluate, develop and implement POC Reason for Consult: weakness Does patient have active BEDREST order?: No Is patient medically & hemodynamically stable?: Yes Patient assessed for mobility or mobilized this visit?: Yes Consult to Physical Therapy [CONS] Routine Comment: Evaluate, develop and implement POC Reason for Consult: weakness Does patient have active BEDREST order?: No Is patient medically & hemodynamically stable?: Yes Patient assessed for mobility or mobilized this visit?: Yes Discharging clinician: Reggie Reyez Anticipated date of discharge: 12/02/18 - Constitutional Vitals: Temp Pulse Resp BP Pulse Ox 97.6 F 54 18 124/58 96 12/02/18 07:23 12/02/18 07:23 12/02/18 07:23 12/02/18 07:23 12/02/18 07:23 General appearance: Present: no acute distress Exam: General: pleasant, without distress HEENT: Head atraumatic, normocephalic, EOMI, PERRL, absent ear discharge or trauma, Moist Mucous Membranes, uvula midline Neck: nontender to palpation, absent lymphadenopathy, Cardiovascualr: Regular rate and rhythm with no murmur, absent gallops or rubs, absent pedal edema, radial pulses 2 out of 4 Lungs: Clear to auscultation bilaterally, not in respiratory distress Abdomen: Soft nontender, nondistended positive bowel sounds, Skin: warm and dry, absent rash, absent open wounds and nodules MSK: absent clubbing, cyanosis, joints without swelling Neuro: Cranial nerves II through XII intact, UE and LE sensation equal michael aterally, UE and LEstrength 5/5, alert oriented 3, Psych: good insight and judgment, - Patient Status Disposition: Transfer SNF Condition: Fair Functional capacity at discharge: independent ambulation Overall status at discharge: patient is progressing back to baseline - Discharge Instructions Follow Up With: Rajesh Gillette Jr, MD [Primary Care Provider] - 12/13/18 2:30 pm - Diet and Activity Activity: increase activity as tolerated Diet: diabetic diet, low fat, low cholesterol, low salt diet <Terri Mcdonald - Last Filed: 12/02/18 14:37> Orders not resulted at time of discharge: Pending orders 11/28/18 06:00 ECG 12 lead ECG [ECG] AM 0600 11/28/18 09:28 Culture,Blood [BC] Stat 12/02/18 15:00 US retroperitoneal comp [US] Routine Date of Encounter: 12/02/18 Time of Encounter: 10:00 - Discharge Diagnosis (1) Acute kidney injury superimposed on chronic kidney disease Status: Resolved (2) CKD (chronic kidney disease) stage 4, GFR 15-29 ml/min Status: Chronic (3) Hypertensive encephalopathy Status: Resolved (4) Substance abuse Status: Chronic (5) Elevated troponin Status: Resolved (6) Type 2 diabetes mellitus Status: Chronic Qualifiers: Diabetes mellitus assisted insulin use: without assisted use Diabetes mellitus complication status: with kidney complications Diabetes mellitus complication detail: with chronic kidney disease Chronic kidney disease stage: stage 3 (moderate) Qualified Code(s): E11.22 - Type 2 diabetes mellitus with diabetic chronic kidney disease; N18.3 - Chronic kidney disease, stage 3 (moderate) (7) Methadone dependence Status: Chronic (8) Fever Status: Resolved Qualifiers: Fever type: unspecified Qualified Code(s): R50.9 - Fever, unspecified (9) DVT prophylaxis Status: Acute Hospital course: Mr. Milan is a 68 year old male - Time Spent with Patient Total time spent providing and/or coordinating discharge services: Time spent: Less than 30 minutes (8 min) Date of admission: 11/28/18 03:26 Primary care physician: Rajesh Gillette Jr, MD Consults: 11/30/18 08:17 Consult to Nephrology [CONS] Routine Consulting Provider: Kidney Kandi/XAVIER/KATHI/MIQUEL Reason for Consult: NAKIA on CKD 4 Time Notified: 08:18 Call Completed: Yes 12/01/18 10:21 Consult to Occupational Therapy [CONS] Routine Comment: Evaluate, develop and implement POC Reason for Consult: weakness Does patient have active BEDREST order?: No Is patient medically & hemodynamically stable?: Yes Patient assessed for mobility or mobilized this visit?: Yes Consult to Physical Therapy [CONS] Routine Comment: Evaluate, develop and implement POC Reason for Consult: weakness Does patient have active BEDREST order?: No Is patient medically & hemodynamically stable?: Yes Patient assessed for mobility or mobilized this visit?: Yes - Constitutional Vitals: Temp Pulse Resp BP Pulse Ox 97.5 F L 58 18 106/65 96 12/02/18 11:03 12/02/18 11:03 12/02/18 11:03 12/02/18 11:03 12/02/18 07:23 - Attending Attestation I saw evaluated and examined this patient and my medical decision-making was reviewed with the Resident Physician, Reggie Reyez. I agree with the documented findings, disposition and treatment plan as described except to any changes set forth below. We independently had [id number] contact with the patient. Patient with history of chronic kidney disease stage IV, diabetes mellitus, hypertension, methadone dependence was hospitalized here with hypertensive encephalopathy after he presented to the ER with confusion along with severely elevated blood pressure. His urine drug screen was positive for cocaine. Patient was started on nicardipine drip. His blood pressure eventually improved and he was taken off nicardipine drip and placed back on his usual antihypertensive medications. However his chlorthalidone was held due to his chronic kidney disease stage IV. His renal function worsened initially and nephrology was consulted. It has since improved. Patient is now stable to be discharged. He will go to skilled rehabilitation when he has a bed available per recommendations from physical therapy. Patient was initially started on antibiotics due to fever with suspicion for aspiration pneumonia. However CT scan of the chest dated did not show any pneumonia and patient has not had any further episodes of fever. She Neck exam, patient is awake and alert. He does have underlying dementia. Heart sounds are normal. Breath sounds are normal. No pedal edema noted at this time.
[2018-12-02] MEDS: cloNIDine HCl 0.1 MG TABLET PO SCH ×3 (08:48→20:50)
[2018-12-02] MEDS: Thiamine (B-1) 100 MG TABLET PO SCH (08:48)
[2018-12-02] MEDS: Aspirin Enteric Coated 81 MG Tablet PO SCH (08:48)
[2018-12-02] MEDS: Vitamin B Complex/Vit C/Vit E 1 EACH TABLET PO SCH (08:48)
[2018-12-02] MEDS: hydrALAZINE 25 MG TABLET PO SCH ×3 (08:48→16:07)
[2018-12-02] MEDS: Diltiazem CD (24hr) 240 MG CAPSULE PO SCH (08:49)
[2018-12-02] MEDS: *HR* Methadone 10 MG TABLET PO SCH ×4 (08:49→20:50)
--- NOTE | 2018-12-02 12:09 | Physician Discharge Referral ---
ExtendedCare Referral Info Provider in Charge: Dr. Mcdonald Provider in Charge after Transfer: PCP Institutional Level of Care: Intermediate - Diagnosis (1) Acute kidney injury superimposed on chronic kidney disease Priority: Primary Status: Resolved (2) CKD (chronic kidney disease) stage 4, GFR 15-29 ml/min Priority: Secondary Status: Chronic (3) DVT prophylaxis Priority: Secondary Status: Acute (4) Elevated troponin Priority: Secondary Status: Resolved (5) Fever Priority: Secondary Status: Resolved (6) Hypertensive encephalopathy Priority: Secondary Status: Resolved (7) Methadone dependence Priority: Secondary Status: Chronic (8) Substance abuse Priority: Secondary Status: Chronic (9) Type 2 diabetes mellitus Priority: Secondary Status: Chronic Prognosis: Good Aware of Diagnosis: Patient, Family - Transfer Medications Home Medications: Glimepiride [Amaryl] 2 mg PO QAM 09/01/16 [History] Aspirin [Lo-Dose Aspirin EC] 81 mg PO DAILY 03/09/17 [History] Vitamin B Complex/Vit C/Vit E [Stresstab] 1 tab PO DAILY 03/09/17 [History] Diltiazem CD (24hr) [Cardizem CD] 240 mg PO DAILY #30 cap.er.24h 10/16/17 [Rx] Atorvastatin Calcium [Lipitor] 20 mg PO HS 06/12/18 [History] Donepezil [Aricept] 10 mg PO HS 06/12/18 [History] Ferrous Sulfate 325 mg PO QPM 06/12/18 [History] Methadone 10 mg PO QID 06/12/18 [History] Minoxidil 10 mg PO DAILY 06/12/18 [History] Mirtazapine [Remeron] 15 mg PO HS 06/12/18 [History] cloNIDine HCl [Clonidine HCl] 0.3 mg PO TID 06/12/18 [History] Lactulose 10 gm PO HS 09/12/18 [History] Hydralazine HCl 50 mg PO TIDWM 11/28/18 [History] Allergies/Adverse Reactions: Allergy/AdvReac Type Severity Reaction Status Date / Time fluoxetine [From Prozac] AdvReac Depression Verified 09/12/18 07:30 - Respiratory Orders None Smoking Cessation: Smoking cessation has been advised. For more information, call the [place] Tobacco Quit Line at 5-432-ESUA-NOW. - Ancillary Orders May use pressure relief devices daily prn - Advance Directives Code Status: Full Code - Mobility Orders Ambulate - Rehabiliation Orders Rehab Potential: Fair - Diet Orders No Concentrated Sweets CERTIFICATION: I certify that the transfer of the above named patient to an Extended Care Facility is necessary for the continuing treatment of the diagnosis listed. The above information is true and accurate reflection of patient's current condition. Confidential - Redisclosure prohibited without a patient's written consent.
[2018-12-02] MEDS: Lactulose Oral Soln 20 GM/30 ML UDC PO SCH (20:49)
[2018-12-02] MEDS: Mirtazapine 15 MG TABLET PO SCH (20:50)
--- NOTE | 2018-12-02 21:21 | Event Note ---
Date of Encounter: 12/02/18 Time of Encounter: 09:00 - Nephrology Event Note Nephrology chart update The patient's renal function has stabilized, and I recommend the antihypertensive medications to be adjusted now that his BPs have responded so well. He should not have chlorthalidone or amlodipine resumed at discharge. Discussed with the hospitalist team. Okay for discharge. Thank you
[2018-12-03 01:59] LABS: Calcium 8.8 mg/dL (8.6-10.3); Potassium 3.9 mEq/L (3.5-5.1)
[2018-12-03] MEDS: *HR* Heparin 5,000 UNIT/ML VIAL SQ SCH ×3 (05:58→21:22)
[2018-12-03] MEDS: hydrALAZINE 25 MG TABLET PO SCH ×3 (07:25→17:01)
[2018-12-03] MEDS: Thiamine (B-1) 100 MG TABLET PO SCH (07:26)
[2018-12-03] MEDS: Vitamin B Complex/Vit C/Vit E 1 EACH TABLET PO SCH (07:26)
[2018-12-03] MEDS: cloNIDine HCl 0.1 MG TABLET PO SCH ×3 (07:26→21:21)
[2018-12-03] MEDS: *HR* Methadone 10 MG TABLET PO SCH ×4 (07:26→21:21)
[2018-12-03] MEDS: Aspirin Enteric Coated 81 MG Tablet PO SCH (07:26)
[2018-12-03] MEDS: Insulin LISPRO 300 UNITS/3 ML VIAL SQ SCH ×4 (07:27→21:24)
[2018-12-03] MEDS: Diltiazem CD (24hr) 240 MG CAPSULE PO SCH (07:27)
--- NOTE | 2018-12-03 07:47 | Internal Med Progress Note ---
<Terri Mcdonald - Last Filed: 12/03/18 10:56> Hospitalist Progress Note - Encounter Date of Encounter: 12/03/18 Time of Encounter: 10:00 - Exam Vitals: Temp Pulse Resp BP Pulse Ox 98.7 F 63 16 112/73 96 12/03/18 07:08 12/03/18 07:16 12/03/18 07:08 12/03/18 07:08 12/03/18 07:08 - Assessment and Plan (1) Acute kidney injury superimposed on chronic kidney disease Current Visit: Yes Status: Resolved (2) CKD (chronic kidney disease) stage 4, GFR 15-29 ml/min Current Visit: Yes Status: Chronic (3) Hypertensive encephalopathy Current Visit: Yes Status: Resolved (4) Substance abuse Current Visit: Yes Status: Chronic (5) Elevated troponin Current Visit: Yes Status: Resolved (6) Type 2 diabetes mellitus Current Visit: Yes Status: Chronic (7) Methadone dependence Current Visit: Yes Status: Chronic (8) Fever Current Visit: Yes Status: Resolved (9) DVT prophylaxis Current Visit: Yes Status: Acute - Time Spent with Patient Total time spent is greater than 50% in coordination of care (as documented) at patient's floor/unit and/or counseling patient: Internal Medicine: Result - Labs CBC & Chem 7: 12/02/18 04:00 12/03/18 00:33 Labs: BMP 12/03/18 00:33 Sodium 143 Potassium 3.9 Chloride 108 H Carbon Dioxide 27 BUN 40 H Creatinine 3.63 H Glucose 71 Calcium 8.8 - ABG Interpretation ABG results: PT/INR, D-dimer PT 11.6 Seconds (9.4-12.1) 11/27/18 22:04 - Impressions Impressions Retroperitoneum Ultrasound 12/02/18 15:00 IMPRESSION: Tiny cortical cysts. Otherwise unremarkable appearance of the kidneys with no evidence of hydronephrosis D/ / Jose Alfredo Arreguin MD / Jose Alfredo Arreguin MD Interpreting Provider: Jose Alfredo Arreguin MD Consult Discharge Plan - Plan Referrals: Rajesh Gillette Jr, MD [Primary Care Provider] - 12/13/18 2:30 pm - Attending Attestation I saw evaluated and examined this patient and my medical decision-making was reviewed with the Resident Physician, Reggie Reyez. I agree with the documented findings, disposition and treatment plan as described except to any changes set forth below. We independently had [id number] contact with the patient. Patient is sitting up in chair. Comfortable. Denies any new complaints. No fever or chills reported overnight. Blood pressure is better controlled. General: Patient is alert, no acute distress, Respiratory: Good respiratory effort. Normal breath sounds. No wheezing or crackles. Cardiovascular: Regular rate and rhythm. s1 and s2 normal No clicks, rubs, gallops, or murmurs. No pedal edema Abdomen: Abdomen is soft, nontender. Bowel sounds are present Musculoskeletal: Spontaneously moving all extremities Skin: warm, dry, intact. Neuro: Alertnormal cranial nerves, no focal deficits Hypertensive encephalopathy: Now resolved. Substance abuse: Continue methadone. Withdrawal symptoms subsided. Acute kidney injury on chronic kidney disease stage IV: Stable renal function. Outpatient follow-up with nephrology. Type 2 diabetes mellitus: Continue current insulin regimen. Discharge planning: Awaiting placement to skilled rehabilitation. <Reggie Reyezuma - Last Filed: 12/03/18 13:19> Hospitalist Progress Note - Encounter Date of Encounter: 12/03/18 - Subjective Interval History: Patient able to ambulate independently. He is alert to self only. No acute overnight events. - Exam Vitals: Temp Pulse Resp BP Pulse Ox 98.7 F 63 16 112/73 96 12/03/18 07:08 12/03/18 07:16 12/03/18 07:08 12/03/18 07:08 12/03/18 07:08 Exam: General: pleasant, without distress Cardiovascualr: Regular rate and rhythm with no murmur, absent gallops or rubs, absent pedal edema, radial pulses 2 out of 4 Lungs: Clear to auscultation bilaterally, not in respiratory distress Abdomen: Soft nontender, nondistended positive bowel sounds, Skin: warm and dry, absent rash, absent open wounds and nodules MSK: absent clubbing, cyanosis, joints without swelling Neuro: Cranial nerves II through XII intact, UE and LE sensation equal bilaterally, UE and LEstrength 5/5, alert oriented to self only, - Assessment and Plan (1) Acute kidney injury superimposed on chronic kidney disease Current Visit: Yes Status: Resolved Assessment and Plan: resolved. follow up with nephrology (2) CKD (chronic kidney disease) stage 4, GFR 15-29 ml/min Current Visit: Yes Status: Chronic (3) DVT prophylaxis Current Visit: Yes Status: Acute Assessment and Plan: heparin sq (4) Elevated troponin Current Visit: Yes Status: Resolved Assessment and Plan: demand iscemia no additional testing needed (5) Fever Current Visit: Yes Status: Resolved (6) Hypertensive encephalopathy Current Visit: Yes Status: Resolved Assessment and Plan: resolved. continue clonidine hydralazine minoxidil and cardizem has been held for past two days due to BP in the 100s. (7) Methadone dependence Current Visit: Yes Status: Chronic Assessment and Plan: continue methadone (8) Substance abuse Current Visit: Yes Status: Chronic Assessment and Plan: UDS + marijunana and cocaine (9) Type 2 diabetes mellitus Current Visit: Yes Status: Chronic Assessment and Plan: SSi diabetic diet. - Time Spent with Patient Total time spent is greater than 50% in coordination of care (as documented) at patient's floor/unit and/or counseling patient: Internal Medicine: Result - Labs CBC & Chem 7: 12/02/18 04:00 12/03/18 00:33 Labs: BMP 12/03/18 00:33 Sodium 143 Potassium 3.9 Chloride 108 H Carbon Dioxide 27 BUN 40 H Creatinine 3.63 H Glucose 71 Calcium 8.8 - ABG Interpretation ABG results: PT/INR, D-dimer PT 11.6 Seconds (9.4-12.1) 11/27/18 22:04 - Impressions Impressions Retroperitoneum Ultrasound 12/02/18 15:00 IMPRESSION: Tiny cortical cysts. Otherwise unremarkable appearance of the kidneys with no evidence of hydronephrosis D/ / Jose Alfredo Arreguin MD / Jose Alfredo Arreguin MD Interpreting Provider: Jose Alfredo Arreguin MD ____ <Terri Mcdonald - Last Filed: 12/03/18 10:56> (6) Type 2 diabetes mellitus Qualifiers: Diabetes mellitus assisted insulin use: without long lines operator use Diabetes mellitus complication status: with kidney complications Diabetes mellitus complication detail: with chronic kidney disease Chronic kidney disease stage: stage 3 (moderate) Qualified Code(s): E11.22 - Type 2 diabetes mellitus with diabetic chronic kidney disease; N18.3 - Chronic kidney disease, stage 3 (modera te) (8) Fever Qualifiers: Fever type: unspecified Qualified Code(s): R50.9 - Fever, unspecified <Reggie Reyez - Last Filed: 12/03/18 13:19> (5) Fever Qualifiers: Fever type: unspecified Qualified Code(s): R50.9 - Fever, unspecified (9) Type 2 diabetes mellitus Qualifiers: Diabetes mellitus assisted insulin use: without assisted use Diabetes mellitus complication status: with kidney complications Diabetes mellitus complication detail: with chronic kidney disease Chronic kidney disease stage: stage 3 (moderate) Qualified Code(s): E11.22 - Type 2 diabetes mellitus with diabetic chronic kidney disease; N18.3 - Chronic kidney disease, stage 3 (moderate)
[2018-12-03] MEDS: Mirtazapine 15 MG TABLET PO SCH (21:21)
[2018-12-03] MEDS: Lactulose Oral Soln 20 GM/30 ML UDC PO SCH (21:22)
[2018-12-04] MEDS: *HR* Heparin 5,000 UNIT/ML VIAL SQ SCH ×2 (06:05→12:48)
[2018-12-04] MEDS: Insulin LISPRO 300 UNITS/3 ML VIAL SQ SCH ×3 (07:58→16:57)
[2018-12-04] MEDS: Thiamine (B-1) 100 MG TABLET PO SCH (08:56)
[2018-12-04] MEDS: *HR* Methadone 10 MG TABLET PO SCH ×3 (08:56→17:20)
[2018-12-04] MEDS: hydrALAZINE 25 MG TABLET PO SCH ×3 (08:56→17:20)
[2018-12-04] MEDS: cloNIDine HCl 0.1 MG TABLET PO SCH ×2 (08:56→15:33)
[2018-12-04] MEDS: Vitamin B Complex/Vit C/Vit E 1 EACH TABLET PO SCH (08:56)
[2018-12-04] MEDS: Diltiazem CD (24hr) 240 MG CAPSULE PO SCH (08:57)
[2018-12-04] MEDS: Aspirin Enteric Coated 81 MG Tablet PO SCH (08:57)
--- NOTE | 2018-12-04 12:47 | Internal Med Progress Note ---
Hospitalist Progress Note - Encounter Date of Encounter: 12/04/18 Time of Encounter: 09:00 - Subjective Interval History: Patient denies headache, dizziness, or lightheaded. Patient has no nausea or vomiting. Patient is awake alert. No overnight fever. - Exam Vitals: Temp Pulse Resp BP Pulse Ox 97.9 F 67 18 154/91 98 12/04/18 11:16 12/04/18 11:16 12/04/18 11:16 12/04/18 11:16 12/04/18 11:16 Exam: Pt is AAO x 3, in NAD HEENT: NC/AT, PERRL Neck: Supple, no JVD, no LAD Lungs: CTA b/l Heart: S1S2, RRR Abd: Soft, nontender, BS present Ext: ROM wnl, no pedal edema Neuro: No focal deficit - Assessment and Plan (1) DVT prophylaxis Current Visit: Yes Status: Acute Assessment and Plan: continue subcutaneous heparin (2) Substance abuse Current Visit: Yes Status: Chronic Assessment and Plan: Patient is off Librium. Continue closely monitor withdrawal symptoms (3) Elevated troponin Current Visit: Yes Status: Resolved Assessment and Plan: Adynamic. Likely from demand ischemia in setting of chronic kidney disease. Patient denies chest pain (4) Type 2 diabetes mellitus Current Visit: Yes Status: Chronic Assessment and Plan: Blood sugars are better controlled. Continue current insulin regimen (5) Methadone dependence Current Visit: Yes Status: Chronic Assessment and Plan: Continue methadone (6) Acute kidney injury superimposed on chronic kidney disease Current Visit: Yes Status: Resolved Assessment and Plan: Acute kidney injury and chronic kidney disease stage IV. Creatinine is improving. We will continue to monitor renal function. Avoid nephrotoxic med ications. - Cr 3.63, at around baseline now. (7) CKD (chronic kidney disease) stage 4, GFR 15-29 ml/min Current Visit: Yes Status: Chronic Assessment and Plan: Creatinine appears to be stabilizing. (8) Hypertensive encephalopathy Current Visit: Yes Status: Resolved Assessment and Plan: Encephalopathy has resolved. Blood pressure is better controlled. Continue current medications. - Patient is discharged, waiting for placement at this point. (9) Fever Current Visit: Yes Status: Resolved Assessment and Plan: No fever in last 48 hours DVT Prophylaxis: Heparin SC - Time Spent with Patient Total time spent is greater than 50% in coordination of care (as documented) at patient's floor/unit and/or counseling patient: 30 min 25 - 35 minutes Plan of Care Discussed with: patient Internal Medicine: Result - Labs CBC & Chem 7: 12/02/18 04:00 12/03/18 00:33 - ABG Interpretation ABG results: PT/INR, D-dimer PT 11.6 Seconds (9.4-12.1) 11/27/18 22:04 Consult Discharge Plan - Plan Referrals: Rajesh Gillette Jr, MD [Primary Care Provider] - 12/13/18 2:30 pm (4) Type 2 diabetes mellitus Qualifiers: Diabetes mellitus residential insulin use: without residential use Diabetes mellitus complication status: with kidney complications Diabetes mellitus complication detail: with chronic kidney disease Chronic kidney disease stage: stage 3 (moderate) Qualified Code(s): E11.22 - Type 2 diabetes mellitus with diabetic chronic kidney disease; N18.3 - Chronic kidney disease, stage 3 (mod erate) (9) Fever Qualifiers: Fever type: unspecified Qualified Code(s): R50.9 - Fever, unspecified
[2018-12-04 15:33] VITALS: BP 110/65
--- NOTE | 2018-12-06 11:37 | Electrocardiograph Report ---
[place] [id number] Test Date: 2018-12-03 Pat Name: Morteza Milan Department: 110 Room: 2A Gender: M [employer]: : [id number] Requested By: Terri Mcdonald Order Number: [id number] Reading MD: Cordell Lester Measurements Intervals Burns Rate: 59 P: 52 AK: 163 QRS: 40 QRSD: 99 T: 75 QT: 445 QTc: 445 Interpretive Statements SINUS BRADYCARDIA MODERATE VOLTAGE CRITERIA FOR LVH, CONSIDER NORMAL VARIANT NONSPECIFIC ST & T-WAVE ABNORMALITY Electronically Signed On 12-06-2018 11:35:37 EDT by Cordell Lester
== END 2018-12-04 18:17 | DRG 78 ==
LOC: ICNU 21:51 → EMEROOARM 21:51 → ICNU 11-28 01:30 → SUATTDRO 11-28 03:26 → 2NNU 11-29 18:38 → 2ANU 12-03 14:38
PROVIDERS: ADMIT Pediatrics; ATTEND Internal Medicine

== ENCOUNTER 2020-06-10 14:31 | Observation (INO) ==
[2020-06-10 15:23] LABS: Immature Platelets 7.7 % (1.1-6.1)
[2020-06-10 15:27] LABS: Basophils % 0.4 %; Eosinophils # 0.2 K/mcL (0.0-0.6); Eosinophils % 2.6 %; Hemoglobin 13.1 g/dL (12.9-16.9); Immature Granulocytes % 0.4 % (0-4); Lymphocytes # 2.2 K/mcL (0.6-4.6); Lymphocytes % 30.7 %; Mean Corpuscular HGB Conc 34.5 g/dL (31.6-35.5); Mean Corpuscular Hemoglobin 31.2 pg (28.0-33.3); Mean Corpuscular Volume 90.5 fL (83.0-100.0); Mean Platelet Volume 9.8 fL (9.4-12.4); Monocytes # 0.6 K/mcL (0.0-1.3); Monocytes % 7.8 %; Neutrophils # 4.2 K/mcL (1.6-8.9); Platelet Count 264 K/mcL (140-400); Segmented Neutrophils % 58.1 %; White Blood Count 7.3 K/mcL (4.3-11.1)
[2020-06-10 15:46] LABS: Calcium 9.5 mg/dL (8.6-10.3); Potassium 4.3 mEq/L (3.5-5.1); Troponin I 0.03 ng/mL (< 0.04)
[2020-06-10] MEDS ORDERED: *HR* LORazepam 2 MG/ML VIAL IVP ONE (16:04)
[2020-06-10] MEDS ORDERED: hydrALAZINE 10 MG TABLET PO ONE (16:05)
[2020-06-10] MEDS ORDERED: *HR* Labetalol 20 MG/4 ML SYRINGE IVP ONE (16:05)
[2020-06-10] MEDS: NIFEdipine 10 MG CAPSULE PO STA ×2 (16:50→16:51)
[2020-06-10 17:46] LABS: Bilirubin,Urine Negative (Negative); Blood,Urine Negative (Negative); Clarity,Urine Clear (Clear); Color,Urine Light-Yellow (Yellow); Glucose,Urine (UA) Normal (Normal); Ketones,Urine Negative (Negative); Leukocyte Esterase,Urine Negative (Negative); Mucus,Urine Few per lpf (None-Few); Nitrite,Urine Negative (Negative); PH,Urine 7.5 pH Units (5.0-8.0); Protein,Urine 200 mg/dL (Neg-Trace); Specific Gravity,Urine 1.009 (1.010-1.025); Urobilinogen,Urine Normal (Normal); WBC,Urine 0-3 per hpf (0-3)
[2020-06-10] MEDS ORDERED: Acetaminophen 325 MG TABLET PO PRN (17:52)
[2020-06-10] MEDS ORDERED: Naloxone 0.4 MG/ML INJ IVP PRN (17:52)
[2020-06-10] MEDS ORDERED: D5% in Water 1,000 ML IVC PRN (17:55)
[2020-06-10] MEDS ORDERED: Dextrose Gel 15 GM/37.5 ML TUBE PO PRN ×2 (17:55)
[2020-06-10] MEDS ORDERED: *HR* Dextrose 50 % in Water (Vial) 50 ML VIAL IVP PRN (17:55)
[2020-06-10] MEDS ORDERED: lamoTRIgine 100 MG TABLET PO ONE (18:00)
[2020-06-10 18:07] LABS: Amphetamine Screen,Urine Negative ng/mL (Cutoff=1000); Barbiturate Screen,Urine Negative ng/mL (Cutoff=200); Benzodiazepines Screen,Urine Negative ng/mL (Cutoff=200); Cannabinoid Screen,Urine Positive ng/mL (Cutoff = 50); Cocaine Screen,Urine Negative ng/mL (Cutoff= 300); Opiate Screen,Urine Negative ng/mL (Cutoff=300); Phencyclidine Screen,Urine Negative ng/mL (Cutoff=25)
[2020-06-10] MEDS: Insulin LISPRO 300 UNITS/3 ML VIAL SQ SCH (20:13)
[2020-06-10 21:19] LABS: Albumin 4.1 g/dL (3.5-5.7); Albumin/Globulin Ratio 1.5 (1.1-2.2); Bilirubin,Direct 0.1 mg/dL (0.0-0.2); Bilirubin,Indirect 0.3 mg/dL (0.0-1.0); Bilirubin,Total 0.4 mg/dL (0.3-1.0); Globulin 2.7 g/dL (2.4-3.5); Total Protein 6.8 g/dL (6.4-8.9)
[2020-06-10] MEDS ORDERED: *HR* Promethazine 25 MG/ML VIAL IVP ONE (21:27)
[2020-06-10] MEDS ORDERED: *HR* Labetalol 20 MG/4 ML SYRINGE IVP PRN (23:37)
[2020-06-11 02:34] LABS: Basophils % 0.6 %; Eosinophils # 0.1 K/mcL (0.0-0.6); Eosinophils % 0.8 %; Hematocrit 36.5 % (37.5-50.1); Immature Granulocytes % 0.3 % (0-4); Lymphocytes # 2.2 K/mcL (0.6-4.6); Lymphocytes % 30.5 %; Mean Corpuscular HGB Conc 32.9 g/dL (31.6-35.5); Mean Corpuscular Hemoglobin 29.4 pg (28.0-33.3); Mean Corpuscular Volume 89.5 fL (83.0-100.0); Mean Platelet Volume 9.3 fL (9.4-12.4); Monocytes # 0.7 K/mcL (0.0-1.3); Monocytes % 9.8 %; Neutrophils # 4.2 K/mcL (1.6-8.9); Platelet Count 233 K/mcL (140-400); Red Blood Count 4.08 M/mcL (4.19-5.50); Red Cell Distribution Width 13.9 % (11.5-14.5); White Blood Count 7.2 K/mcL (4.3-11.1)
[2020-06-11 02:54] LABS: Calcium 8.8 mg/dL (8.6-10.3); Magnesium 1.9 mg/dL (1.6-2.6); Phosphorous 3.3 mg/dL (2.7-4.5); Potassium 4.1 mEq/L (3.5-5.1)
[2020-06-11] MEDS: Calcium Acetate 667 MG CAPSULE PO SCH ×3 (09:58→17:35)
[2020-06-11] MEDS: Insulin LISPRO 300 UNITS/3 ML VIAL SQ SCH ×4 (09:58→20:59)
[2020-06-11] MEDS: carvediloL 6.25 MG TABLET PO SCH ×2 (10:04→17:35)
[2020-06-11] MEDS: Spironolactone 25 MG TABLET PO SCH (10:04)
[2020-06-11] MEDS: Cholecalciferol (D-3) 1,000 UNIT (25MCG) TABLET PO SCH (10:04)
[2020-06-11] MEDS: NIFEdipine XL (24 HR) 30 MG TAB.ER.24 PO SCH ×2 (10:04→20:58)
[2020-06-11] MEDS: cloNIDine HCL 0.1 MG TABLET PO SCH ×3 (10:04→20:58)
[2020-06-11] MEDS: lamoTRIgine 100 MG TABLET PO SCH ×2 (10:07→20:59)
[2020-06-11] MEDS: hydrALAZINE 25 MG TABLET PO SCH ×3 (10:07→17:35)
[2020-06-11] MEDS: *HR* Methadone 10 MG TABLET PO SCH ×2 (12:39→17:35)
[2020-06-11] MEDS ORDERED: Mirtazapine 15 MG TABLET PO SCH (21:00)
[2020-06-12] MEDS: *HR* Methadone 10 MG TABLET PO SCH ×3 (00:13→13:01)
[2020-06-12 01:19] LABS: Basophils % 0.2 %; Eosinophils # 0.1 K/mcL (0.0-0.6); Eosinophils % 1.9 %; Hematocrit 36.7 % (37.5-50.1); Hemoglobin 12.5 g/dL (12.9-16.9); Immature Granulocytes % 0.2 % (0-4); Lymphocytes # 2.1 K/mcL (0.6-4.6); Lymphocytes % 33.5 %; Mean Corpuscular HGB Conc 34.1 g/dL (31.6-35.5); Mean Corpuscular Hemoglobin 30.3 pg (28.0-33.3); Mean Corpuscular Volume 89.1 fL (83.0-100.0); Mean Platelet Volume 9.2 fL (9.4-12.4); Monocytes # 0.7 K/mcL (0.0-1.3); Monocytes % 10.5 %; Neutrophils # 3.4 K/mcL (1.6-8.9); Platelet Count 214 K/mcL (140-400); Red Blood Count 4.12 M/mcL (4.19-5.50); Red Cell Distribution Width 14.2 % (11.5-14.5); Segmented Neutrophils % 53.7 %; White Blood Count 6.4 K/mcL (4.3-11.1)
[2020-06-12 01:38] LABS: Albumin 4.1 g/dL (3.5-5.7); Albumin/Globulin Ratio 1.5 (1.1-2.2); Bilirubin,Total 0.4 mg/dL (0.3-1.0); Calcium 9.2 mg/dL (8.6-10.3); Globulin 2.7 g/dL (2.4-3.5); Phosphorous 3.1 mg/dL (2.7-4.5); Potassium 3.8 mEq/L (3.5-5.1); Total Protein 6.8 g/dL (6.4-8.9)
[2020-06-12] MEDS ORDERED: 0.9 % Sodium Chloride 250 ML IVC PRN (07:20)
[2020-06-12] MEDS ORDERED: 0.9 % Sodium Chloride 1,000 ML PRIME SCH (07:30)
[2020-06-12] MEDS: Insulin LISPRO 300 UNITS/3 ML VIAL SQ SCH ×2 (07:58→14:22)
[2020-06-12] MEDS: lamoTRIgine 100 MG TABLET PO SCH (08:04)
[2020-06-12] MEDS: carvediloL 6.25 MG TABLET PO SCH (08:04)
[2020-06-12] MEDS: Cholecalciferol (D-3) 1,000 UNIT (25MCG) TABLET PO SCH (08:04)
[2020-06-12] MEDS: NIFEdipine XL (24 HR) 30 MG TAB.ER.24 PO SCH (08:04)
[2020-06-12] MEDS: Calcium Acetate 667 MG CAPSULE PO SCH ×2 (08:04→14:23)
[2020-06-12] MEDS: Spironolactone 25 MG TABLET PO SCH (08:04)
[2020-06-12] MEDS: cloNIDine HCL 0.1 MG TABLET PO SCH (08:04)
[2020-06-12] MEDS: hydrALAZINE 25 MG TABLET PO SCH ×2 (08:04→13:01)
[2020-06-12] MEDS ORDERED: *HR* Heparin 10,000 UNIT/10 ML VIAL IV PRN (11:53)
[2020-06-12 15:19] VITALS: BP 141/66
== END 2020-06-12 16:20 | disposition home or self-care (01) ==
LOC: EMEROOARM 14:31 → 2ANU 14:31 → SUATTDRO 17:28 → 2ANU 17:47
PROVIDERS: ADMIT Internal Medicine; ATTEND Internal Medicine

== ENCOUNTER 2021-07-03 12:38 | Inpatient (IN) ==
[2021-07-03] MEDS ORDERED: *HR* LORazepam 2 MG/ML VIAL ONE (12:44)
[2021-07-03] MEDS ORDERED: *HR* LORazepam 2 MG/ML VIAL IVP ONE (12:46)
[2021-07-03 13:22] LABS: Basophils % 0.3 %; Eosinophils # 0.1 K/mcL (0.0-0.6); Eosinophils % 0.8 %; Hematocrit 30.5 % (37.5-50.1); Hemoglobin 10.6 g/dL (12.9-16.9); Immature Granulocytes % 0.3 % (0-4); Lymphocytes # 0.6 K/mcL (0.6-4.6); Lymphocytes % 8.8 %; Mean Corpuscular HGB Conc 34.8 g/dL (31.6-35.5); Mean Corpuscular Hemoglobin 30.5 pg (28.0-33.3); Mean Corpuscular Volume 87.6 fL (83.0-100.0); Mean Platelet Volume 9.4 fL (9.4-12.4); Monocytes # 0.3 K/mcL (0.0-1.3); Monocytes % 4.8 %; Neutrophils # 5.3 K/mcL (1.6-8.9); Platelet Count 210 K/mcL (140-400); Red Blood Count 3.48 M/mcL (4.19-5.50); Red Cell Distribution Width 12.5 % (11.5-14.5); White Blood Count 6.2 K/mcL (4.3-11.1)
[2021-07-03 13:45] LABS: Alanine Aminotransferase 21 Units/L (7-52); Albumin 4.6 g/dL (3.5-5.7); Albumin/Globulin Ratio 1.6 (1.1-2.2); Alkaline Phosphatase 118 Units/L (34-104); Aspartate Amino Transferase 30 Units/L (13-39); BUN/Creatinine Ratio 4 (6-26); Bilirubin,Direct 0.1 mg/dL (0.0-0.2); Bilirubin,Indirect 0.4 mg/dL (0.0-1.0); Bilirubin,Total 0.5 mg/dL (0.3-1.0); Blood Urea Nitrogen 22 mg/dL (8-23); Calcium 8.7 mg/dL (8.6-10.3); Carbon Dioxide 21 mEq/L (23-29); Chloride 93 mEq/L (98-107); Ethanol < 10 mg/dL (Less than 10); Globulin 2.9 g/dL (2.4-3.5); Glucose 151 mg/dL (70-105); Magnesium 2.1 mg/dL (1.6-2.6); Osmolality,Calculated 280 (280-300); Phosphorous 2.3 mg/dL (2.7-4.5); Potassium 3.9 mEq/L (3.5-5.1); Sodium 132 mEq/L (136-145); Total Protein 7.5 g/dL (6.4-8.9); eGFR For African Americans 11 (> 60); eGFR For Non-African Americans 9 (> 60)
[2021-07-03 14:08] LABS: Bacteria,Urine Few per hpf (None-Few); Bilirubin,Urine Negative (Negative); Blood,Urine Small (Negative); Clarity,Urine Clear (Clear); Color,Urine Colorless (Yellow); Glucose,Urine (UA) 70 mg/dL (Normal); Ketones,Urine Negative (Negative); Leukocyte Esterase,Urine Negative (Negative); Nitrite,Urine Negative (Negative); PH,Urine 7.5 pH Units (5.0-8.0); Protein,Urine >=300 mg/dL (Neg-Trace); RBC,Urine 0-3 per hpf (0-3); Specific Gravity,Urine 1.009 (1.010-1.025); Squamous Epithelial Cell,Urine Few per hpf (None-Few); Urobilinogen,Urine Normal (Normal); WBC,Urine 0-3 per hpf (0-3)
[2021-07-03 14:29] LABS: Amphetamine Screen,Urine Negative ng/mL (Cutoff=1000); Barbiturate Screen,Urine Negative ng/mL (Cutoff=200); Benzodiazepines Screen,Urine Negative ng/mL (Cutoff=200); Cannabinoid Screen,Urine Positive ng/mL (Cutoff = 50); Cocaine Screen,Urine Negative ng/mL (Cutoff= 300); Opiate Screen,Urine Negative ng/mL (Cutoff=300); Phencyclidine Screen,Urine Negative ng/mL (Cutoff=25)
[2021-07-03] MEDS ORDERED: Valproic Acid INJ 1,000 MG in 0.9 % Sodium Chloride 100 ML IVPB ONE (14:58)
[2021-07-03] MEDS ORDERED: cloNIDine HCL 0.1 MG TABLET PO ONE (15:29)
[2021-07-03] MEDS ORDERED: hydrALAZINE 25 MG TABLET PO ONE (15:30)
[2021-07-03] MEDS ORDERED: Naloxone 0.4 MG/ML INJ IVP PRN (16:20)
[2021-07-03] MEDS ORDERED: Dextrose Gel 15 GM/37.5 ML TUBE PO PRN ×2 (17:12)
[2021-07-03] MEDS ORDERED: *HR* Dextrose 50 % in Water (Syg) 50 ML SYRINGE IVP PRN (17:12)
[2021-07-03] MEDS ORDERED: D5% in Water 1,000 ML IVC PRN (17:12)
[2021-07-03] MEDS: carvediloL 6.25 MG TABLET PO SCH (18:05)
[2021-07-03] MEDS: *HR* Methadone 10 MG TABLET PO SCH ×2 (18:05→21:26)
[2021-07-03] MEDS: Mirtazapine 15 MG TABLET PO SCH (21:25)
[2021-07-03] MEDS: OXcarbazepine 150 MG TABLET PO SCH (21:25)
[2021-07-03] MEDS: cloNIDine HCL 0.1 MG TABLET PO SCH (21:25)
[2021-07-03] MEDS: NIFEdipine XL (24 HR) 30 MG TAB.ER.24 PO SCH (21:25)
[2021-07-03] MEDS: QUEtiapine Fumarate 25 MG TABLET PO SCH (21:25)
[2021-07-03] MEDS: lamoTRIgine 100 MG TABLET PO SCH (21:25)
[2021-07-03] MEDS: Insulin LISPRO 300 UNITS/3 ML VIAL SUBQ SCH (21:26)
[2021-07-04 02:43] LABS: Basophils % 0.3 %; Eosinophils % 0.3 %; Hematocrit 27.6 % (37.5-50.1); Hemoglobin 10.1 g/dL (12.9-16.9); Immature Granulocytes % 0.3 % (0-4); Lymphocytes # 1.9 K/mcL (0.6-4.6); Mean Corpuscular HGB Conc 36.6 g/dL (31.6-35.5); Mean Corpuscular Hemoglobin 31.9 pg (28.0-33.3); Mean Corpuscular Volume 87.1 fL (83.0-100.0); Mean Platelet Volume 9.7 fL (9.4-12.4); Monocytes # 0.6 K/mcL (0.0-1.3); Monocytes % 9.6 %; Platelet Count 217 K/mcL (140-400); Red Blood Count 3.17 M/mcL (4.19-5.50); Red Cell Distribution Width 12.4 % (11.5-14.5); Segmented Neutrophils % 60.5 %; White Blood Count 6.6 K/mcL (4.3-11.1)
[2021-07-04 03:02] LABS: Calcium 8.2 mg/dL (8.6-10.3); Potassium 4.5 mEq/L (3.5-5.1)
[2021-07-04] MEDS: Cholecalciferol (D-3) 1,000 UNIT (25MCG) TABLET PO SCH (08:09)
[2021-07-04] MEDS: NIFEdipine XL (24 HR) 30 MG TAB.ER.24 PO SCH ×2 (08:09→20:43)
[2021-07-04] MEDS: cloNIDine HCL 0.1 MG TABLET PO SCH ×3 (08:10→20:43)
[2021-07-04] MEDS: QUEtiapine Fumarate 25 MG TABLET PO SCH ×2 (08:10→20:43)
[2021-07-04] MEDS: OXcarbazepine 150 MG TABLET PO SCH ×2 (08:11→20:42)
[2021-07-04] MEDS: lamoTRIgine 100 MG TABLET PO SCH ×2 (08:11→20:42)
[2021-07-04] MEDS: hydrALAZINE 25 MG TABLET PO SCH ×3 (08:11→17:39)
[2021-07-04] MEDS: Insulin LISPRO 300 UNITS/3 ML VIAL SUBQ SCH ×4 (08:12→20:42)
[2021-07-04] MEDS: *HR* Methadone 10 MG TABLET PO SCH ×4 (08:12→20:43)
[2021-07-04] MEDS: carvediloL 6.25 MG TABLET PO SCH ×2 (08:12→17:40)
[2021-07-04] MEDS: Spironolactone 25 MG TABLET PO SCH (08:12)
[2021-07-04] MEDS: *HR* Heparin 5,000 UNIT/ML VIAL SQ SCH ×2 (13:33→20:44)
[2021-07-04] MEDS: Mirtazapine 15 MG TABLET PO SCH (20:43)
[2021-07-05 01:37] LABS: Basophils % 0.5 %; Eosinophils # 0.1 K/mcL (0.0-0.6); Eosinophils % 1.7 %; Hematocrit 29.2 % (37.5-50.1); Hemoglobin 10.5 g/dL (12.9-16.9); Immature Granulocytes % 0.3 % (0-4); Lymphocytes # 1.6 K/mcL (0.6-4.6); Lymphocytes % 23.9 %; Mean Corpuscular Hemoglobin 31.5 pg (28.0-33.3); Mean Corpuscular Volume 87.7 fL (83.0-100.0); Mean Platelet Volume 9.3 fL (9.4-12.4); Monocytes # 0.8 K/mcL (0.0-1.3); Monocytes % 12.3 %; Neutrophils # 4.1 K/mcL (1.6-8.9); Platelet Count 239 K/mcL (140-400); Red Blood Count 3.33 M/mcL (4.19-5.50); Red Cell Distribution Width 12.6 % (11.5-14.5); Segmented Neutrophils % 61.3 %; White Blood Count 6.7 K/mcL (4.3-11.1)
[2021-07-05 01:54] LABS: Calcium 8.5 mg/dL (8.6-10.3); Potassium 3.9 mEq/L (3.5-5.1)
[2021-07-05] MEDS: *HR* Heparin 5,000 UNIT/ML VIAL SQ SCH ×3 (05:02→21:11)
[2021-07-05] MEDS: cloNIDine HCL 0.1 MG TABLET PO SCH ×3 (08:02→21:07)
[2021-07-05] MEDS: hydrALAZINE 25 MG TABLET PO SCH ×3 (08:03→16:46)
[2021-07-05] MEDS: NIFEdipine XL (24 HR) 30 MG TAB.ER.24 PO SCH ×2 (08:03→21:08)
[2021-07-05] MEDS: OXcarbazepine 150 MG TABLET PO SCH ×2 (08:03→21:10)
[2021-07-05] MEDS: carvediloL 6.25 MG TABLET PO SCH ×2 (08:04→16:46)
[2021-07-05] MEDS: QUEtiapine Fumarate 25 MG TABLET PO SCH ×2 (08:04→21:10)
[2021-07-05] MEDS: Spironolactone 25 MG TABLET PO SCH (08:04)
[2021-07-05] MEDS: *HR* Methadone 10 MG TABLET PO SCH ×4 (08:04→21:06)
[2021-07-05] MEDS: lamoTRIgine 100 MG TABLET PO SCH ×2 (08:05→21:09)
[2021-07-05] MEDS: Cholecalciferol (D-3) 1,000 UNIT (25MCG) TABLET PO SCH (08:06)
[2021-07-05] MEDS: Insulin LISPRO 300 UNITS/3 ML VIAL SUBQ SCH ×4 (08:12→21:12)
[2021-07-05] MEDS ORDERED: 0.9 % Sodium Chloride 250 ML IVC PRN (08:48)
[2021-07-05 09:05] LABS: Hepatitis B Surface Antibody 29.71 mIU/mL
[2021-07-05 09:16] LABS: Hepatitis B Surface Antigen Nonreactive (Nonreactive)
[2021-07-05] MEDS: Mirtazapine 15 MG TABLET PO SCH (21:10)
[2021-07-06 01:45] LABS: Basophils % 0.2 %; Eosinophils # 0.1 K/mcL (0.0-0.6); Hematocrit 29.4 % (37.5-50.1); Hemoglobin 10.4 g/dL (12.9-16.9); Immature Granulocytes % 0.2 % (0-4); Lymphocytes # 1.1 K/mcL (0.6-4.6); Lymphocytes % 22.3 %; Mean Corpuscular HGB Conc 35.4 g/dL (31.6-35.5); Mean Corpuscular Volume 87.8 fL (83.0-100.0); Mean Platelet Volume 9.3 fL (9.4-12.4); Monocytes # 0.7 K/mcL (0.0-1.3); Neutrophils # 3.2 K/mcL (1.6-8.9); Platelet Count 219 K/mcL (140-400); Red Blood Count 3.35 M/mcL (4.19-5.50); Red Cell Distribution Width 12.7 % (11.5-14.5); Segmented Neutrophils % 62.3 %; White Blood Count 5.1 K/mcL (4.3-11.1)
[2021-07-06 02:05] LABS: Calcium 8.3 mg/dL (8.6-10.3); Potassium 4.1 mEq/L (3.5-5.1)
[2021-07-06] MEDS: *HR* Heparin 5,000 UNIT/ML VIAL SQ SCH (05:16)
[2021-07-06 06:52] VITALS: O2SAT 96
[2021-07-06] MEDS: Insulin LISPRO 300 UNITS/3 ML VIAL SUBQ SCH ×2 (09:38→11:50)
[2021-07-06] MEDS: NIFEdipine XL (24 HR) 30 MG TAB.ER.24 PO SCH (09:41)
[2021-07-06] MEDS: Spironolactone 25 MG TABLET PO SCH (09:42)
[2021-07-06] MEDS: hydrALAZINE 25 MG TABLET PO SCH ×2 (09:42→13:00)
[2021-07-06] MEDS: carvediloL 6.25 MG TABLET PO SCH (09:42)
[2021-07-06] MEDS: Cholecalciferol (D-3) 1,000 UNIT (25MCG) TABLET PO SCH (09:42)
[2021-07-06] MEDS: cloNIDine HCL 0.1 MG TABLET PO SCH (09:42)
[2021-07-06] MEDS: QUEtiapine Fumarate 25 MG TABLET PO SCH (09:43)
[2021-07-06] MEDS: *HR* Methadone 10 MG TABLET PO SCH ×2 (09:43→13:05)
[2021-07-06] MEDS: OXcarbazepine 150 MG TABLET PO SCH (09:53)
[2021-07-06] MEDS: lamoTRIgine 100 MG TABLET PO SCH (09:53)
[2021-07-06 11:03] VITALS: BP 114/65; PULSE 72; TEMP 98.6
[2021-07-06 12:23] LABS: Vitamin B12 548 pg/mL (250-1100)
== END 2021-07-06 13:18 | disposition home or self-care (01) | DRG 100 ==
LOC: 2ANU 12:38 → EMEROOARM 12:38 → SUATTDRO 15:57 → 2ANU 16:42 → SUATTDRO 07-05 21:51
PROVIDERS: ADMIT Family Medicine; ATTEND Internal Medicine